=== PATIENT | female | born 1975 | race Caucasian/White ===

== ENCOUNTER 2016-03-22 15:37 | Emergency (ER) | payer MEDICARE, MEDICAID ==
[~2016-03-22 15:37] MED LIST: /METH500TA PO; ADV250INH INH; ATEN25TA PO; PERCOCET PO; REME30TA PO; albuterol inhaler INH; risperdal OR; vicodin OR
[2016-03-22 16:34] LABS: BASO % 0.4 % (0.0-1.0); EOS # 0.2 K/mm3 (0.0-0.50); EOS % 1.5 % (0.0-3.0); LARGE UNSTAINED CELL # 0.1 K/mm3 (0.0-0.4); LARGE UNSTAINED CELL % 0.5 % (0.0-4.0); LYMPH # 2.4 K/mm3 (1.5-4.5); LYMPH % 19.7 % (24.0-44.0); MEAN CORPUSCULAR HEMOGLOBIN 33.9 pg (27.0-33.0); MEAN CORPUSCULAR HGB CONC 31.9 g/dl (32.0-36.5); MEAN CORPUSCULAR VOLUME 106.4 fl (80.0-96.0); MONO # 0.4 K/mm3 (0.0-0.8); MONO % 3.2 % (0.0-5.0); NEUTROPHILS % 74.6 % (36.0-66.0); PLATELET COUNT, AUTOMATED 292 k/mm3 (150-450); RED CELL DISTRIBUTION WIDTH 12.5 % (11.5-14.5); WHITE BLOOD COUNT 12.1 K/mm3 (4.0-10.0)
[2016-03-22 16:42] LABS: ANION GAP 9 MEQ/L (8-16); BLOOD UREA NITROGEN 9 MG/DL (7-18); CALCIUM LEVEL 8.3 MG/DL (8.5-10.1); CARBON DIOXIDE LEVEL 19 MEQ/L (21-32); CHLORIDE LEVEL 115 MEQ/L (98-107); CREATININE FOR GFR 0.61 MG/DL (0.55-1.02); GLOMERULAR FILTRATION RATE > 60.0 (>60); GLUCOSE, FASTING 101 MG/DL (70-105); POTASSIUM SERUM 3.3 MEQ/L (3.5-5.1); SODIUM LEVEL 143 MEQ/L (136-145)
[2016-03-22] MEDS ORDERED: POTASSIUM CHL PWD 20 MEQ PACKET As Ordered ONE (17:42)
[2016-03-22 18:15] LABS: FREE T4 0.69 NG/DL (0.76-1.46)
--- NOTE | 2016-03-23 00:08 | EDDOCDS ---
Nurse's Notes [facility] Name: Ame Hinojosa Age: 40 yrs Sex: Female : 1975 Arrival Date: 03/22/2016 Time: 15:37 Bed 15 Private MD: Caleb Almaraz A Diagnosis: Supraventricular tachycardia Presentation: 03/22 15:47 Aspirin was not taken prior to arrival. Suicide/Homicide risk assessment- the patient js13 denies having any suicidal and/or homicidal ideations and does not present with any other emotional, behavioral or mental health complaints. Status: Patient is not a corporate services manager or dependent. Transition of care: patient was not received from another setting of care. Care prior to arrival: See EMS report. IV initiated. Adenosine 6 mg given by EMS. 15:47 Acuity: MATT Level 2 js13 15:47 Method Of Arrival: Ambulance js13 15:51 Presenting complaint: EMS states: Patients boyfriend called EMS for rapid heart rate js13 and general illness. Patient was in SVT on monitor. Patient was given Adenosine 6 mg IVP and converted to SR. Triage Assessment: 15:53 General: Appears in no apparent distress, comfortable, Behavior is appropriate for age, js13 cooperative. Pain: Denies pain. Pt Declines HIV testing. Neurological: Level of Consciousness is awake, alert. Cardiovascular: Rhythm is sinus rhythm Chest pain is denied radiates Does not radiate. Respiratory: Airway is patent Respiratory effort is even, unlabored, Respiratory pattern is regular, symmetrical. Derm: Skin is pink, warm & dry. 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 Advair Diskus 100-50 mcg/dose Inhl dsdv 1 puff 2 times per day 2. albuterol sulfate 90 mcg/actuation inhalation HFAA 1 puff as needed 3. Cogentin 1 mg Oral tab 1 tab 2 times per day 4. Effexor 37.5 mg Oral tab 1 tab daily 5. Topamax 100 mg Oral tab 2 times per day 6. Megace 20 mg Oral tab 1 tab daily 7. Remeron 30 mg Oral tab 1 tab nightly 8. Zyrtec 10 mg Oral tab 2 tabs once daily - PMHx: Asthma; chronic UTI, has urostomy now; CVA; Hypertension; Migraine Headaches; tachycardia; - PSHx: Hysterectomy; Urostomy Construction; Cholecystectomy; - Social history: Smoking status: Patient states was never smoker of tobacco. No barriers to communication noted, The patient speaks fluent Welsh. - Family history: Not pertinent. - : The pt / caregiver states he / she is not on anticoagulants. Home medication list is obtained from the patient. - Exposure Risk Screening:: None identified. Screenin:54 Screening information is obtained from the patient. Fall risk: No risks identified. js13 Assistance ADL's: requires no assistance with activities of daily living. Abuse/DV Screen: The patient / caregiver reports he/she is: not in a situation that causes fear, pain or injury. Nutritional screening: No deficits noted. Advance Directives: There is no active DNR order. home support is adequate. Assessment: 15:54 General: Appears in no apparent distress, Behavior is appropriate for age, cooperative. js13 Pain: Denies pain. Neurological: Level of Consciousness is awake, alert. Cardiovascular: Rhythm is sinus rhythm Chest pain is denied. Respiratory: Airway is patent Respiratory effort is even, unlabored, Respiratory pattern is regular, symmetrical, Breath sounds are clear. Derm: Skin is pink, warm & dry. 16:53 General: Appears in no apparent distress, comfortable, Behavior is appropriate for age, js13 cooperative. Pain: Denies pain. Neurological: Level of Consciousness is awake, alert. Cardiovascular: Rhythm is sinus rhythm Chest pain is denied. Respiratory: Airway is patent Respiratory effort is even, unlabored, Respiratory pattern is regular, symmetrical, Breath sounds are clear. Derm: Skin is pink, warm & dry. 17:45 Adult Sepsis Screening: The patient does not have new or worsening altered mentation. js13 Patient's respiratory rate is less than 22. Systolic blood pressure is greater than 100. Patient has a qSOFA score of 0- Negative Sepsis Screen. General: Appears in no apparent distress, comfortable, Behavior is appropriate for age, cooperative. Pain: Denies pain. Neurological: Level of Consciousness is awake, alert. Cardiovascular: Rhythm is sinus rhythm Chest pain is denied. Respiratory: Airway is patent Respiratory effort is even, unlabored, Respiratory pattern is regular, symmetrical, Breath sounds are clear. Derm: Skin is pink, warm & dry. 18:07 General: Appears in no apparent distress, comfortable, Behavior is appropriate for age, js13 cooperative. Neurological: Level of Consciousness is awake, alert. Cardiovascular: Rhythm is sinus rhythm Chest pain is denied. Respiratory: Airway is patent Respiratory effort is even, unlabored, Respiratory pattern is regular, symmetrical. Derm: Skin is pink, warm & dry. 19:15 General: Appears in no apparent distress, comfortable, Behavior is appropriate for age, js13 cooperative, pleasant. Neurological: Level of Consciousness is awake, alert, Oriented to person, place, time. Cardiovascular: Rhythm is sinus rhythm No ectopy. Respiratory: Airway is patent Respiratory effort is even, unlabored. Derm: Skin is pink, warm & dry. 20:21 Reassessment: Patient appears in no apparent distress at this time. Respirations jo3 unlabored, deep and regular. skin is pink, warm and dry. Aware of pl;an of care . 21:15 General: Appears in no apparent distress, comfortable, Behavior is cooperative. Pain: mcp Denies pain. Neurological: No deficits noted. Cardiovascular: Rhythm is sinus rhythm No ectopy. Respiratory: Airway is patent Respiratory effort is even, unlabored. Derm: Skin is pink, warm & dry. 22:15 General: Appears in no apparent distress, comfortable, Behavior is cooperative. Pain: mcp Denies pain. Neurological: No deficits noted. Respiratory: Airway is patent Respiratory effort is even, unlabored. Derm: Skin is pink, warm & dry. 23:06 General: Discharge instructions given to pt. Awaiting ride home. [facility] Vital Signs: 15:58 BP 100 / 60 RA Supine (auto/reg); Pulse 88; Resp 16; Temp 97.9(TE); Pulse Ox 98% on rs6 R/A; Weight 112.04 kg (R); Height 6 ft. 1 in. (185.42 cm) (R); Pain 03/11; 16:12 BP 103 / 66 (auto/); js13 16:12 Pulse 88 MON; Resp 16; Pulse Ox 99% on R/A; js13 16:42 BP 92 / 66 (auto/); js13 16:42 Pulse 88 MON; Resp 16; Pulse Ox 99% on R/A; 13 16:57 BP 95 / 64 (auto/); 13 16:57 Pulse 84 MON; Resp 16; Pulse Ox 99% on R/A; js13 17:12 BP 93 / 58 (auto/); js13 17:12 Pulse 84 MON; Resp 16; Pulse Ox 100% on R/A; js13 17:27 BP 99 / 67 (auto/); js13 17:27 Pulse 84 MON; Resp 16; Pulse Ox 100% on R/A; js13 17:42 BP 101 / 72 (auto/); js13 17:42 Pulse 82 MON; Resp 16; Pulse Ox 99% on R/A; js13 17:57 BP 103 / 72 (auto/); js13 17:57 Pulse 78 MON; Resp 16; Pulse Ox 98% on R/A; js13 18:12 BP 98 / 68 (auto/); js13 18:12 Pulse 84 MON; Resp 16; Pulse Ox 99% on R/A; js13 18:27 BP 94 / 62 (auto/); js13 18:27 Pulse 84 MON; Resp 16; Pulse Ox 99% on R/A; js13 18:42 BP 104 / 70 LA Supine (auto/); Pulse 78; jo3 18:44 BP 100 / 64 LA Sitting (auto/); Pulse 85; jo3 18:46 BP 100 / 63 RA Standing (auto/); Pulse 92; jo3 19:57 BP 110 / 63 (auto/); jo3 19:57 Pulse 74 MON; Pulse Ox 99% ; jo3 20:12 BP 105 / 65 (auto/); jo3 20:12 Pulse 70 MON; Pulse Ox 100% ; jo3 20:27 BP 104 / 59 (auto/); jo3 20:27 Pulse 70 MON; Pulse Ox 100% ; jo3 20:42 BP 105 / 62 (auto/); jo3 20:42 Pulse 72 MON; Pulse Ox 100% ; jo3 20:57 BP 103 / 60 (auto/); jo3 20:57 Pulse 70 MON; Pulse Ox 99% ; jo3 21:12 BP 100 / 62 (auto/); jo3 21:12 Pulse 78 MON; Pulse Ox 99% ; jo3 21:27 BP 100 / 58 (auto/); mcp 21:27 Pulse 70 MON; Pulse Ox 99% ; mcp 21:42 BP 102 / 58 (auto/); mcp 21:42 Pulse 70 MON; Pulse Ox 98% ; mcp 21:57 BP 105 / 57 (auto/); mcp 21:57 Pulse 74 MON; Pulse Ox 98% ; mcp 22:12 BP 99 / 54 (auto/); mcp 22:12 Pulse 78 MON; Pulse Ox 98% ; mcp 22:27 BP 117 / 58 (auto/); mcp 22:27 Pulse 76 MON; Pulse Ox 98% ; mcp 22:42 BP 103 / 60 (auto/); mcp 22:42 Pulse 78 MON; Pulse Ox 98% ; mcp 22:51 BP 96 / 61 (auto/); mcp 22:51 Pulse 72 MON; Pulse Ox 98% ; mcp 22:52 BP 99 / 64; Pulse 85; Resp 18; Temp 97.9(TE); Pulse Ox 99% on R/A; Pain 0/10; janessa 15:58 Body Mass Index 32.59 (112.04 kg, 185.42 cm) rs6 Vitals: 15:53 Log In Time N/A - ambulance arrival. js13 ED Course: 15:38 Patient visited by Ashley Eagle PCA. ar3 15:38 Patient moved to Waiting ar3 15:39 Corrina Taylor,RN is Primary Nurse. ar3 15:39 Caleb Almaraz is Private Physician. ar3 15:39 [facility] jo4 15:39 Samuel Noonan MD is Attending Physician. jo4 15:39 Patient moved to 15 ar3 15:47 Patient visited by Sharona Stewart DO. jo4 15:47 Patient visited by Sharona Stewart DO. jo4 15:48 Triage Initiated js13 15:54 The patient / caregiver is instructed regarding the plan of care and ED course. Placed js13 in gown. Bed in low position. Call light in reach. Side rails up X2. classroom monitor on. Pulse ox on. NIBP on. 15:54 Maintain field IV. Dressing intact. Good blood return noted. Site clean & dry. Gauge & js13 site: 20 gauge in right hand. No procedures done that require assistance. 15:56 Patient visited by Corrina Taylor RN. js13 15:58 Pt greeted and oriented to ED. Patient advised of names of staff involved in care, rs6 location of call ramírez, wait times and NPO status. Patient has correct armband on for positive identification. 15:59 Patient visited by Annette Nicholson PCA. rs6 15:59 EKG done. (by ED staff). Reviewed by Sharona Stewart DO. rs6 16:24 BMP Sent. js13 16:24 CBC with Diff Sent. js13 16:24 Cardiac Marker Panel Sent. js13 16:50 [facility] [place] Payment Agreement was scanned into [employer]item[employer] and attached to record. gjb 16:54 Patient visited by Corrina Taylor RN. js13 17:46 Patient visited by Samuel Noonan MD. br1 17:46 Patient visited by Corrina Taylor RN. js13 18:08 Patient visited by Corrina Taylor RN. js13 18:49 Patient visited by Corrina Vinson RN. jo3 19:26 Patient visited by Corrina Taylor RN. js13 19:37 Attending Physician role handed off by Samuel Noonan MD cs11 19:37 Jono Mendez DO is Attending Physician. cs11 19:56 Primary Nurse role handed off by Corrina Taylor RN janessa 20:22 Patient visited by Corrina Vinson RN. jo3 21:15 Patient visited by Corrina Vinson RN. jo3 21:21 Patient visited by Laury Stevens PCA. cln 21:21 EKG done. (by ED staff). Reviewed by Jono Mendez DO. cln 22:22 Patient visited by Meera Mckenzie PCA. janessa 22:46 Henry Vernon MD is Referral Physician. cs11 22:53 Patient visited by Meera Mckenzie PCA. janessa 23:07 Patient visited by Yanira Gerard RN. mcp 23:07 Discontinued lock intact, bleeding controlled, pressure dressing applied, No mcp redness/swelling at site. 03/23 00:02 Written Provider Order was scanned into [employer] and attached to record. ml3 Administered Medications: 03/22 17:45 Drug: Potassium Chloride 40 mEq [potassium chloride 20 mEq oral packet (2 packets)] js13 Route: PO; 18:49 Drug: NS 0.9% 1000 ml [sodium chloride 0.9 % intravenous solution] Route: IV; Rate: jo3 bolus; Site: right hand; Order Results: Lab Order: Cardiac Marker Panel; SPEC'M 03/22/16 16:09 Test: CPK CREATINE PHOSPHOKINASE; Value: 30; Range: 26-192; Units: U/L; Status: F Test: CK-MB VALUE MASS; Value: 1.0; Range: 0.0-3.6; Units: NG/ML; Status: F Test: MB/CK RELATIVE INDEX; Value: 3.33; Range: < OR =4; Status: F Test: TROPONIN I; Value: < 0.02; Range: < 0.10; Units: NG/ML; Status: F Test Note: ; DIAGNOSIS CRITERIA MMB ng/ml Relative Index (RI) NON-AMI < or = 5 N/A VARGHESE ZONE > 5 < or = 4 AMI > 5 > 4 Lab Order: CBC with Diff; SPEC'M 03/22/16 16:03 Test: WHITE BLOOD COUNT; Value: 12.1; Range: 4.0-10.0; Abnormal: Above high normal; Units: K/mm3; Status: F Test: RED BLOOD COUNT; Value: 3.40; Range: 4.00-5.40; Abnormal: Below low normal; Units: M/mm3; Status: F Test: HEMOGLOBIN; Value: 11.5; Range: 12.0-16.0; Abnormal: Below low normal; Units: g/dl; Status: F Test: HEMATOCRIT; Value: 36.2; Range: 36.0-47.0; Units: %; Status: F Test: MEAN CORPUSCULAR VOLUME; Value: 106.4; Range: 80.0-96.0; Abnormal: Above high normal; Units: fl; Status: F Test: MEAN CORPUSCULAR HEMOGLOBIN; Value: 33.9; Range: 27.0-33.0; Abnormal: Above high normal; Units: pg; Status: F Test: MEAN CORPUSCULAR HGB CONC; Value: 31.9; Range: 32.0-36.5; Abnormal: Below low normal; Units: g/dl; Status: F Test: RED CELL DISTRIBUTION WIDTH; Value: 12.5; Range: 11.5-14.5; Units: %; Status: F Test: PLATELET COUNT, AUTOMATED; Value: 292; Range: 150-450; Units: k/mm3; Status: F Test: NEUTROPHILS %; Value: 74.6; Range: 36.0-66.0; Abnormal: Above high normal; Units: %; Status: F Test: LYMPH %; Value: 19.7; Range: 24.0-44.0; Abnormal: Below low normal; Units: %; Status: F Test: MONO %; Value: 3.2; Range: 0.0-5.0; Units: %; Status: F Test: EOS %; Value: 1.5; Range: 0.0-3.0; Units: %; Status: F Test: BASO %; Value: 0.4; Range: 0.0-1.0; Units: %; Status: F Test: LARGE UNSTAINED CELL %; Value: 0.5; Range: 0.0-4.0; Units: %; Status: F Test: NEUTROPHILS #; Value: 9.0; Range: 1.8-7.7; Abnormal: Above high normal; Units: K/mm3; Status: F Test: LYMPH #; Value: 2.4; Range: 1.5-4.5; Units: K/mm3; Status: F Test: MONO #; Value: 0.4; Range: 0.0-0.8; Units: K/mm3; Status: F Test: EOS #; Value: 0.2; Range: 0.0-0.50; Units: K/mm3; Status: F Test: BASO #; Value: 0.0; Range: 0.0-0.2; Units: K/mm3; Status: F Test: LARGE UNSTAINED CELL #; Value: 0.1; Range: 0.0-0.4; Units: K/mm3; Status: F Lab Order: [facility]; SPEC'M 03/22/16 16:09 Test: GLUCOSE, FASTING; Value: 101; Range: 70-105; Units: MG/DL; Status: F Test: BLOOD UREA NITROGEN; Value: 9; Range: 7-18; Units: MG/DL; Status: F Test: CREATININE FOR GFR; Value: 0.61; Range: 0.55-1.02; Units: MG/DL; Status: F Test: GLOMERULAR FILTRATION RATE; Value: > 60.0; Range: >60; Status: F Test: SODIUM LEVEL; Value: 143; Range: 136-145; Units: MEQ/L; Status: F Test: POTASSIUM SERUM; Value: 3.3; Range: 3.5-5.1; Abnormal: Below low normal; Units: MEQ/L; Status: F Test: CHLORIDE LEVEL; Value: 115; Range: 98-107; Abnormal: Above high normal; Units: MEQ/L; Status: F Test: CARBON DIOXIDE LEVEL; Value: 19; Range: 21-32; Abnormal: Below low normal; Units: MEQ/L; Status: F Test: ANION GAP; Value: 9; Range: 8-16; Units: MEQ/L; Status: F Test: CALCIUM LEVEL; Value: 8.3; Range: 8.5-10.1; Abnormal: Below low normal; Units: MG/DL; Status: F Test Note: ; Units are mL/min/1.73 m2 Chronic Kidney Disease Staging per NKF: Stage I & II GFR >=60 Normal to Mildly Decreased Stage III GFR 30-59 Moderately Decreased Stage IV GFR 15-29 Severely Decreased Stage V GFR <15 Very Little GFR Left ESRD GFR <15 on SHOE ASSOCIATE Lab Order: PHOSPHOROUS LEVEL; SPEC'03/22/16 16:09 Test: PHOSPHORUS LEVEL; Value: 3.0; Range: 2.5-4.9; Units: MG/DL; Status: F Lab Order: MAGNESIUM LEVEL; SPEC'M 03/22/16 16:09 Test: MAGNESIUM LEVEL; Value: 2.0; Range: 1.8-2.4; Units: MG/DL; Status: F Lab Order: FT4&TSH PANEL; SPEC'03/22/16 16:09 Test: THYROID STIMULATING HORMONE; Value: 1.690; Range: 0.358-3.740; Units: uIU/ML; Status: F Test: FREE T4; Value: 0.69; Range: 0.76-1.46; Abnormal: Below low normal; Units: NG/DL; Status: F Lab Order: D-Dimer Quant; SPEC' 03/22/16 16:03 Test: D-DIMER QUANT; Value: < 270.0; Range: <500; Units: ng/ml; Status: F Lab Order: CARDIAC MARKER PANEL; SPEC'03/22/16 21:47 Test: CPK CREATINE PHOSPHOKINASE; Value: 31; Range: 26-192; Units: U/L; Status: F Test: CK-MB VALUE MASS; Value: 1.0; Range: 0.0-3.6; Units: NG/ML; Status: F Test: MB/CK RELATIVE INDEX; Value: 3.22; Range: < OR =4; Status: F Test: TROPONIN I; Value: < 0.02; Range: < 0.10; Units: NG/ML; Status: F Test Note: ; DIAGNOSIS CRITERIA MMB ng/ml Relative Index (RI) NON-AMI < or = 5 N/A VARGHESE ZONE > 5 < or = 4 AMI > 5 > 4 Outcome: 22:46 Discharge ordered by Provider. 11 03/23 00:06 Discharge Assessment: patient administered narcotics - no. The following High Risk [facility] Discharge criteria are identified: None. Discharged to home via ambulance. Condition: stable. Discharge instructions given to patient, Instructed on discharge instructions, follow up and referral plans. Demonstrated understanding of instructions, Pt was receptive of discharge instructions/ teaching. No special radiology studies were completed. Property sent home with patient. 00:07 Patient left the ED. [facility] Signatures: Yanira Gerard RN RN mcp Lopresti, Mary-Elizabeth, Last Pattern Grader Unit ml3 Corrina Vinson,SHERYL RN Samuel San MD MD br1 Ashley Eagle, CARTON FORMING MACHINE ADJUSTER CARTON FORMING MACHINE ADJUSTER ar3 Meera Mckenzie, CARTON FORMING MACHINE ADJUSTER CARTON FORMING MACHINE ADJUSTER Corrina Villarreal RN RN js13 Jono Mendez, DO DO cs11 Annette Nicholson, CARTON FORMING MACHINE ADJUSTER CARTON FORMING MACHINE ADJUSTER rs6 Esperanza Lin Jane, DO DO jo4 Laury Stevens, CARTON FORMING MACHINE ADJUSTER CARTON FORMING MACHINE ADJUSTER cln Corrections: (The following items were deleted from the chart) 03/22 17:57 17:55 FT4&TSH PANEL+LAB sent. js EDMS 17:57 17:55 PHOSPHOROUS LEVEL+LAB sent. js13 EDMS 17:57 17:55 MAGNESIUM LEVEL+LAB sent. js13 EDMS MTDD
--- NOTE | 2016-03-23 00:08 | EDDOCDS ---
Physician Documentation [facility] Name: Ame Hinojosa Age: 40 yrs Sex: Female : 1975 Arrival Date: 03/22/2016 Time: 15:37 Bed 15 Private MD: Caleb Almaraz A Disposition: 03/22 18:42 I have independently interviewed and examined the patient, and I agree with the br1 investigation, diagnosis and treatment plan as documented by the Resident. Disposition: 03/22/16 22:46 Discharged to Home/Self Care. Impression: Supraventricular tachycardia. - Condition is Stable. - Medication Reconciliation, Local Pharmacy Hours form. - Follow up: Henry Vernon MD; When: Call to arrange an appointment; Reason: Recheck today's complaints. - Problem is new. - Symptoms are resolved. Historical: - Allergies: Amoxicillin (Rash); Claritin (Rash); Clindamycin (Rash); Latex (Rash); - Home Meds: 1. Advair Diskus 100-50 mcg/dose Inhl dsdv 1 puff 2 times per day 2. albuterol sulfate 90 mcg/actuation inhalation HFAA 1 puff as needed 3. Cogentin 1 mg Oral tab 1 tab 2 times per day 4. Effexor 37.5 mg Oral tab 1 tab daily 5. Topamax 100 mg Oral tab 2 times per day 6. Megace 20 mg Oral tab 1 tab daily 7. Remeron 30 mg Oral tab 1 tab nightly 8. Zyrtec 10 mg Oral tab 2 tabs once daily - PMHx: Asthma; chronic UTI, has urostomy now; CVA; Hypertension; Migraine Headaches; tachycardia; - PSHx: Hysterectomy; Urostomy Construction; Cholecystectomy; - Social history: Smoking status: Patient states was never smoker of tobacco. No barriers to communication noted, The patient speaks fluent Grenadian. - Family history: Not pertinent. - : The pt / caregiver states he / she is not on anticoagulants. Home medication list is obtained from the patient. - Exposure Risk Screening:: None identified. 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 1 in. (185.42 cm) (R); Pain 03/11; 16:12 BP 103 / 66 (auto/); js13 16:12 Pulse 88 MON; Resp 16; Pulse Ox 99% on R/A; js13 16:42 BP 92 / 66 (auto/); js13 16:42 Pulse 88 MON; Resp 16; Pulse Ox 99% on R/A; js13 16:57 BP 95 / 64 (auto/); js13 16:57 Pulse 84 MON; Resp 16; Pulse Ox 99% on R/A; js13 17:12 BP 93 / 58 (auto/); js13 17:12 Pulse 84 MON; Resp 16; Pulse Ox 100% on R/A; js13 17:27 BP 99 / 67 (auto/); js13 17:27 Pulse 84 MON; Resp 16; Pulse Ox 100% on R/A; js13 17:42 BP 101 / 72 (auto/); js13 17:42 Pulse 82 MON; Resp 16; Pulse Ox 99% on R/A; js13 17:57 BP 103 / 72 (auto/); js13 17:57 Pulse 78 MON; Resp 16; Pulse Ox 98% on R/A; js13 18:12 BP 98 / 68 (auto/); js13 18:12 Pulse 84 MON; Resp 16; Pulse Ox 99% on R/A; js13 18:27 BP 94 / 62 (auto/); js13 18:27 Pulse 84 MON; Resp 16; Pulse Ox 99% on R/A; js13 18:42 BP 104 / 70 LA Supine (auto/); Pulse 78; jo3 18:44 BP 100 / 64 LA Sitting (auto/); Pulse 85; jo3 18:46 BP 100 / 63 RA Standing (auto/); Pulse 92; jo3 19:57 BP 110 / 63 (auto/); jo3 19:57 Pulse 74 MON; Pulse Ox 99% ; jo3 20:12 BP 105 / 65 (auto/); jo3 20:12 Pulse 70 MON; Pulse Ox 100% ; jo3 20:27 BP 104 / 59 (auto/); jo3 20:27 Pulse 70 MON; Pulse Ox 100% ; jo3 20:42 BP 105 / 62 (auto/); jo3 20:42 Pulse 72 MON; Pulse Ox 100% ; jo3 20:57 BP 103 / 60 (auto/); jo3 20:57 Pulse 70 MON; Pulse Ox 99% ; jo3 21:12 BP 100 / 62 (auto/); jo3 21:12 Pulse 78 MON; Pulse Ox 99% ; jo3 21:27 BP 100 / 58 (auto/); mcp 21:27 Pulse 70 MON; Pulse Ox 99% ; mcp 21:42 BP 102 / 58 (auto/); mcp 21:42 Pulse 70 MON; Pulse Ox 98% ; mcp 21:57 BP 105 / 57 (auto/); mcp 21:57 Pulse 74 MON; Pulse Ox 98% ; mcp 22:12 BP 99 / 54 (auto/); mcp 22:12 Pulse 78 MON; Pulse Ox 98% ; mcp 22:27 BP 117 / 58 (auto/); mcp 22:27 Pulse 76 MON; Pulse Ox 98% ; mcp 22:42 BP 103 / 60 (auto/); mcp 22:42 Pulse 78 MON; Pulse Ox 98% ; mcp 22:51 BP 96 / 61 (auto/); mcp 22:51 Pulse 72 MON; Pulse Ox 98% ; mcp 22:52 BP 99 / 64; Pulse 85; Resp 18; Temp 97.9(TE); Pulse Ox 99% on R/A; Pain 0/10; janessa 15:58 Body Mass Index 32.59 (112.04 kg, 185.42 cm) rs6 MDM: 15:47 Composition Floor Layer ordered. jo4 15:47 ECG WITH READING ER PHYS+CARDIAG ordered. EDMS 16:13 Chest, 2 View (pa\E\lat) Ordered. EDMS 16:14 Cardiac Marker Panel Ordered. EDMS 16:14 CBC with Diff Ordered. EDMS 16:14 BMP Ordered. EDMS 16:39 Financial registration complete. ks16 16:50 [facility] [place] Payment Agreement was scanned into [employer] and attached to record. gjb 17:40 BMP Reviewed. jo4 17:41 Potassium Chloride Packet 40 mEq PO once ordered. jo4 17:41 CBC with Diff Reviewed. jo4 17:41 Cardiac Marker Panel Reviewed. jo4 17:47 IV Saline Lock ordered. br1 18:20 D-Dimer Quant Ordered. EDMS 18:21 PHOSPHOROUS LEVEL Reviewed. jo4 18:21 FT4&TSH PANEL Reviewed. jo4 18:21 Cardiac Marker Panel Reviewed. jo4 18:21 MAGNESIUM LEVEL Reviewed. jo4 18:22 BMP Reviewed. jo4 18:29 Orthostatic VS ordered. jo4 18:29 NS 0.9% 1000 ml IV at bolus once ordered. jo4 18:30 Repeat EKG (put time details section) ordered. br1 18:30 Redraw CIP &Troponin (put time in details section) ordered. br1 18:38 Redraw CIP &Troponin (put time in details section) complete. ar3 18:38 Repeat EKG (put time details section) complete. ar3 18:39 CARDIAC MARKER PANEL Ordered. EDMS 18:41 ECG WITH READING ER PHYS ordered. EDMS 18:42 ED course: Seen with resident, agree with findings. History of palpitations in past, br1 follows with Dr. Beach with unclear diagnosis, today onset of palpitations, called EMS, found to be in SVT. Converted en route with Adenosine 6 mg per EMS. Currently no chest pain. Does have some shortness of breath. Now sinus, labs unrevealing thus far. Blood pressure slightly soft - will fluid challenge and re-eval.. 18:53 D-Dimer Quant Reviewed. jo4 03/23 00:02 Written Provider Order was scanned into [employer] and attached to record. ml3 Administered Medications: 03/22 17:45 Drug: Potassium Chloride 40 mEq [potassium chloride 20 mEq oral packet (2 packets)] js13 Route: PO; 18:49 Drug: NS 0.9% 1000 ml [sodium chloride 0.9 % intravenous solution] Route: IV; Rate: jo3 bolus; Site: right hand; Signatures: Dispatcher [employer] EDMS Yanira Gerard RN RN [facility] Santino Randhawa, Table Games Manager Unit ml3 Samuel Noonan MD MD br1 Ashley Eagle, GROUP INSURANCE SPECIAL AGENT GROUP INSURANCE SPECIAL AGENT ar3 Corrina Taylor RN RN js13 Jono Mendez DO DO cs11 Esperanza Lin Jane, DO jo4 Jane Hong, Reg Reg ks16 Corrina Vinson RN jo3 The chart was reviewed and I authenticate all verbal orders and agree with the evaluation and treatment provided.Corrections: (The following items were deleted from the chart) 17:57 17:48 MAGNESIUM LEVEL+LAB ordered. EDMS EDMS 17:57 17:48 PHOSPHOROUS LEVEL+LAB ordered. EDMS EDMS 17:57 17:48 FT4&TSH PANEL+LAB ordered. EDMS EDMS 18:23 17:48 CT ANGIO CHEST+CT ordered. EDMS EDMS Attachments: 16:50 COUNTS INCLUDE 234 BEDS AT THE [facility] Payment Agreement gjb 03/23 00:02 Written Provider Order ml3 MTDD
--- NOTE | 2016-03-23 08:33 | REP ---
Chest x-ray: Two views. History: Shortness of breath. Comparison chest x-ray May 05, 2014. Findings: The lungs are well inflated and free of infiltrate. Pleural angles are sharp. Heart size is normal. Pulmonary vasculature is not increased. No significant bony abnormality is seen. EKG monitoring electrodes are noted. Impression: No acute disease. Signed by Steve Jaramillo MD 03/23/2016 09:03 A
--- NOTE | 2016-03-23 13:06 | ECGEPIP ---
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
--- NOTE | 2016-03-23 13:12 | ECGEPIP ---
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
--- NOTE | 2016-03-25 01:07 | EDDOCDS ---
Physician Documentation [facility] Name: Ame Hinojosa Age: 40 yrs Sex: Female : 1975 Arrival Date: 03/22/2016 Time: 15:37 Bed 15 Private MD: Caleb Almaraz A Disposition: 03/22 18:42 I have independently interviewed and examined the patient, and I agree with the br1 investigation, diagnosis and treatment plan as documented by the Resident. Disposition: 03/22/16 22:46 Discharged to Home/Self Care. Impression: Supraventricular tachycardia. - Condition is Stable. - Medication Reconciliation, Local Pharmacy Hours form. - Follow up: Henry Vernon MD; When: Call to arrange an appointment; Reason: Recheck today's complaints. - Problem is new. - Symptoms are resolved. Historical: - Allergies: Amoxicillin (Rash); Claritin (Rash); Clindamycin (Rash); Latex (Rash); - Home Meds: 1. Advair Diskus 100-50 mcg/dose Inhl dsdv 1 puff 2 times per day 2. albuterol sulfate 90 mcg/actuation inhalation HFAA 1 puff as needed 3. Cogentin 1 mg Oral tab 1 tab 2 times per day 4. Effexor 37.5 mg Oral tab 1 tab daily 5. Topamax 100 mg Oral tab 2 times per day 6. Megace 20 mg Oral tab 1 tab daily 7. Remeron 30 mg Oral tab 1 tab nightly 8. Zyrtec 10 mg Oral tab 2 tabs once daily - PMHx: Asthma; chronic UTI, has urostomy now; CVA; Hypertension; Migraine Headaches; tachycardia; - PSHx: Hysterectomy; Urostomy Construction; Cholecystectomy; - Social history: Smoking status: Patient states was never smoker of tobacco. No barriers to communication noted, The patient speaks fluent Bahamian. - Family history: Not pertinent. - : The pt / caregiver states he / she is not on anticoagulants. Home medication list is obtained from the patient. - Exposure Risk Screening:: None identified. 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 1 in. (185.42 cm) (R); Pain 03/11; 16:12 BP 103 / 66 (auto/); js13 16:12 Pulse 88 MON; Resp 16; Pulse Ox 99% on R/A; js13 16:42 BP 92 / 66 (auto/); js13 16:42 Pulse 88 MON; Resp 16; Pulse Ox 99% on R/A; js13 16:57 BP 95 / 64 (auto/); js13 16:57 Pulse 84 MON; Resp 16; Pulse Ox 99% on R/A; js13 17:12 BP 93 / 58 (auto/); js13 17:12 Pulse 84 MON; Resp 16; Pulse Ox 100% on R/A; js13 17:27 BP 99 / 67 (auto/); js13 17:27 Pulse 84 MON; Resp 16; Pulse Ox 100% on R/A; js13 17:42 BP 101 / 72 (auto/); js13 17:42 Pulse 82 MON; Resp 16; Pulse Ox 99% on R/A; js13 17:57 BP 103 / 72 (auto/); js13 17:57 Pulse 78 MON; Resp 16; Pulse Ox 98% on R/A; js13 18:12 BP 98 / 68 (auto/); js13 18:12 Pulse 84 MON; Resp 16; Pulse Ox 99% on R/A; js13 18:27 BP 94 / 62 (auto/); js13 18:27 Pulse 84 MON; Resp 16; Pulse Ox 99% on R/A; js13 18:42 BP 104 / 70 LA Supine (auto/); Pulse 78; jo3 18:44 BP 100 / 64 LA Sitting (auto/); Pulse 85; jo3 18:46 BP 100 / 63 RA Standing (auto/); Pulse 92; jo3 19:57 BP 110 / 63 (auto/); jo3 19:57 Pulse 74 MON; Pulse Ox 99% ; jo3 20:12 BP 105 / 65 (auto/); jo3 20:12 Pulse 70 MON; Pulse Ox 100% ; jo3 20:27 BP 104 / 59 (auto/); jo3 20:27 Pulse 70 MON; Pulse Ox 100% ; jo3 20:42 BP 105 / 62 (auto/); jo3 20:42 Pulse 72 MON; Pulse Ox 100% ; jo3 20:57 BP 103 / 60 (auto/); jo3 20:57 Pulse 70 MON; Pulse Ox 99% ; jo3 21:12 BP 100 / 62 (auto/); jo3 21:12 Pulse 78 MON; Pulse Ox 99% ; jo3 21:27 BP 100 / 58 (auto/); mcp 21:27 Pulse 70 MON; Pulse Ox 99% ; mcp 21:42 BP 102 / 58 (auto/); mcp 21:42 Pulse 70 MON; Pulse Ox 98% ; mcp 21:57 BP 105 / 57 (auto/); mcp 21:57 Pulse 74 MON; Pulse Ox 98% ; mcp 22:12 BP 99 / 54 (auto/); mcp 22:12 Pulse 78 MON; Pulse Ox 98% ; mcp 22:27 BP 117 / 58 (auto/); mcp 22:27 Pulse 76 MON; Pulse Ox 98% ; mcp 22:42 BP 103 / 60 (auto/); mcp 22:42 Pulse 78 MON; Pulse Ox 98% ; mcp 22:51 BP 96 / 61 (auto/); mcp 22:51 Pulse 72 MON; Pulse Ox 98% ; mcp 22:52 BP 99 / 64; Pulse 85; Resp 18; Temp 97.9(TE); Pulse Ox 99% on R/A; Pain 0/10; janessa 15:58 Body Mass Index 32.59 (112.04 kg, 185.42 cm) rs6 MDM: 15:47 Radiator Core Tester ordered. jo4 15:47 ECG WITH READING ER PHYS+CARDIAG ordered. EDMS 16:13 Chest, 2 View (pa\E\lat) Ordered. EDMS 16:14 Cardiac Marker Panel Ordered. EDMS 16:14 CBC with Diff Ordered. EDMS 16:14 BMP Ordered. EDMS 16:39 Financial registration complete. ks16 16:50 [facility] was scanned into [employer] and attached to record. gjb 17:40 BMP Reviewed. jo4 17:41 Potassium Chloride Packet 40 mEq PO once ordered. jo4 17:41 CBC with Diff Reviewed. jo4 17:41 Cardiac Marker Panel Reviewed. jo4 17:47 IV Saline Lock ordered. br1 18:20 D-Dimer Quant Ordered. EDMS 18:21 PHOSPHOROUS LEVEL Reviewed. jo4 18:21 FT4&TSH PANEL Reviewed. jo4 18:21 Cardiac Marker Panel Reviewed. jo4 18:21 MAGNESIUM LEVEL Reviewed. jo4 18:22 BMP Reviewed. jo4 18:29 Orthostatic VS ordered. jo4 18:29 NS 0.9% 1000 ml IV at bolus once ordered. jo4 18:30 Repeat EKG (put time details section) ordered. br1 18:30 Redraw CIP &Troponin (put time in details section) ordered. br1 18:38 Redraw CIP &Troponin (put time in details section) complete. ar3 18:38 Repeat EKG (put time details section) complete. ar3 18:39 CARDIAC MARKER PANEL Ordered. EDMS 18:41 ECG WITH READING ER PHYS ordered. EDMS 18:42 ED course: Seen with resident, agree with findings. History of palpitations in past, br1 follows with Dr. Beach with unclear diagnosis, today onset of palpitations, called EMS, found to be in SVT. Converted en route with Adenosine 6 mg per EMS. Currently no chest pain. Does have some shortness of breath. Now sinus, labs unrevealing thus far. Blood pressure slightly soft - will fluid challenge and re-eval.. 18:53 D-Dimer Quant Reviewed. jo4 03/23 00:02 Written Provider Order was scanned into [employer] and attached to record. ml3 15:41 ECG/EKG was scanned into [employer] and attached to record. kf3 17:06 [facility] Payment Agreement was scanned into [employer] and attached to record. kf3 17:09 T-Sheet-- Draft Copy was scanned into [employer] and attached to record. klr Administered Medications: 03/22 17:45 Drug: Potassium Chloride 40 mEq [potassium chloride 20 mEq oral packet (2 packets)] js13 Route: PO; 18:49 Drug: NS 0.9% 1000 ml [sodium chloride 0.9 % intravenous solution] Route: IV; Rate: jo3 bolus; Site: right hand; Signatures: Dispatcher [employer] Yanira Goldberg RN RN mcp Lopresti, Mary-Elizabeth, Top Spotter Unit ml3 Elia Nicholson, Reg Reg kf3 Samuel Noonan MD MD br1 Ashley Eagle, GROUND PRODUCTS DIRECTOR GROUND PRODUCTS DIRECTOR ar3 Corrina Taylor RN RN js13 Jono Mendez, DO DO cs11 Esperanza Linb Sharona Stewart, DO DO jo4 Jane Hong, Reg Reg ks16 Rajani Faith Jennifer RN jo3 The chart was reviewed and I authenticate all verbal orders and agree with the evaluation and treatment provided.Corrections: (The following items were deleted from the chart) 17:57 17:48 MAGNESIUM LEVEL+LAB ordered. EDMS EDMS 17:57 17:48 PHOSPHOROUS LEVEL+LAB ordered. EDMS EDMS 17:57 17:48 FT4&TSH PANEL+LAB ordered. EDMS EDMS 18:23 17:48 CT ANGIO CHEST+CT ordered. EDMS EDMS Attachments: 16:50 [facility] [place] Agreement gjb 03/23 00:02 Written Provider Order ml3 15:41 ECG/EKG kf3 17:06 [facility] Payment Agreement kf3 17:09 T-Sheet-- Draft Copy klr Chart Complete MTDD
--- NOTE | 2016-03-25 01:08 | EDDOCDS ---
Nurse's Notes [facility] Name: Aleah Allen Age: 40 yrs Sex: Female : 1975 Arrival Date: 03/22/2016 Time: 15:37 Bed 15 Private MD: Caleb Almaraz A Diagnosis: Supraventricular tachycardia Presentation: 03/22 15:47 Aspirin was not taken prior to arrival. Suicide/Homicide risk assessment- the patient js13 denies having any suicidal and/or homicidal ideations and does not present with any other emotional, behavioral or mental health complaints. Status: Patient is not a track service person or dependent. Transition of care: patient was not received from another setting of care. Care prior to arrival: See EMS report. IV initiated. Adenosine 6 mg given by EMS. 15:47 Acuity: MATT Level 2 js13 15:47 Method Of Arrival: Ambulance js13 15:51 Presenting complaint: EMS states: Patients boyfriend called EMS for rapid heart rate js13 and general illness. Patient was in SVT on monitor. Patient was given Adenosine 6 mg IVP and converted to SR. Triage Assessment: 15:53 General: Appears in no apparent distress, comfortable, Behavior is appropriate for age, js13 cooperative. Pain: Denies pain. Pt Declines HIV testing. Neurological: Level of Consciousness is awake, alert. Cardiovascular: Rhythm is sinus rhythm Chest pain is denied radiates Does not radiate. Respiratory: Airway is patent Respiratory effort is even, unlabored, Respiratory pattern is regular, symmetrical. Derm: Skin is pink, warm & dry. COMPANION: 15:53 LMP N/A - Hysterectomy js13 Historical: - Allergies: Amoxicillin (Rash); Claritin (Rash); Clindamycin (Rash); Latex (Rash); - Home Meds: 1. Advair Diskus 100-50 mcg/dose Inhl dsdv 1 puff 2 times per day 2. albuterol sulfate 90 mcg/actuation inhalation HFAA 1 puff as needed 3. Cogentin 1 mg Oral tab 1 tab 2 times per day 4. Effexor 37.5 mg Oral tab 1 tab daily 5. Topamax 100 mg Oral tab 2 times per day 6. Megace 20 mg Oral tab 1 tab daily 7. Remeron 30 mg Oral tab 1 tab nightly 8. Zyrtec 10 mg Oral tab 2 tabs once daily - PMHx: Asthma; chronic UTI, has urostomy now; CVA; Hypertension; Migraine Headaches; tachycardia; - PSHx: Hysterectomy; Urostomy Construction; Cholecystectomy; - Social history: Smoking status: Patient states was never smoker of tobacco. No barriers to communication noted, The patient speaks fluent Slovenian. - Family history: Not pertinent. - : The pt / caregiver states he / she is not on anticoagulants. Home medication list is obtained from the patient. - Exposure Risk Screening:: None identified. Screenin:54 Screening information is obtained from the patient. Fall risk: No risks identified. js13 Assistance ADL's: requires no assistance with activities of daily living. Abuse/DV Screen: The patient / caregiver reports he/she is: not in a situation that causes fear, pain or injury. Nutritional screening: No deficits noted. Advance Directives: There is no active DNR order. home support is adequate. Assessment: 15:54 General: Appears in no apparent distress, Behavior is appropriate for age, cooperative. js13 Pain: Denies pain. Neurological: Level of Consciousness is awake, alert. Cardiovascular: Rhythm is sinus rhythm Chest pain is denied. Respiratory: Airway is patent Respiratory effort is even, unlabored, Respiratory pattern is regular, symmetrical, Breath sounds are clear. Derm: Skin is pink, warm & dry. 16:53 General: Appears in no apparent distress, comfortable, Behavior is appropriate for age, js13 cooperative. Pain: Denies pain. Neurological: Level of Consciousness is awake, alert. Cardiovascular: Rhythm is sinus rhythm Chest pain is denied. Respiratory: Airway is patent Respiratory effort is even, unlabored, Respiratory pattern is regular, symmetrical, Breath sounds are clear. Derm: Skin is pink, warm & dry. 17:45 Adult Sepsis Screening: The patient does not have new or worsening altered mentation. js13 Patient's respiratory rate is less than 22. Systolic blood pressure is greater than 100. Patient has a qSOFA score of 0- Negative Sepsis Screen. General: Appears in no apparent distress, comfortable, Behavior is appropriate for age, cooperative. Pain: Denies pain. Neurological: Level of Consciousness is awake, alert. Cardiovascular: Rhythm is sinus rhythm Chest pain is denied. Respiratory: Airway is patent Respiratory effort is even, unlabored, Respiratory pattern is regular, symmetrical, Breath sounds are clear. Derm: Skin is pink, warm & dry. 18:07 General: Appears in no apparent distress, comfortable, Behavior is appropriate for age, js13 cooperative. Neurological: Level of Consciousness is awake, alert. Cardiovascular: Rhythm is sinus rhythm Chest pain is denied. Respiratory: Airway is patent Respiratory effort is even, unlabored, Respiratory pattern is regular, symmetrical. Derm: Skin is pink, warm & dry. 19:15 General: Appears in no apparent distress, comfortable, Behavior is appropriate for age, js13 cooperative, pleasant. Neurological: Level of Consciousness is awake, alert, Oriented to person, place, time. Cardiovascular: Rhythm is sinus rhythm No ectopy. Respiratory: Airway is patent Respiratory effort is even, unlabored. Derm: Skin is pink, warm & dry. 20:21 Reassessment: Patient appears in no apparent distress at this time. Respirations jo3 unlabored, deep and regular. skin is pink, warm and dry. Aware of pl;an of care . 21:15 General: Appears in no apparent distress, comfortable, Behavior is cooperative. Pain: mcp Denies pain. Neurological: No deficits noted. Cardiovascular: Rhythm is sinus rhythm No ectopy. Respiratory: Airway is patent Respiratory effort is even, unlabored. Derm: Skin is pink, warm & dry. 22:15 General: Appears in no apparent distress, comfortable, Behavior is cooperative. Pain: mcp Denies pain. Neurological: No deficits noted. Respiratory: Airway is patent Respiratory effort is even, unlabored. Derm: Skin is pink, warm & dry. 23:06 General: Discharge instructions given to pt. Awaiting ride home. [facility] Vital Signs: 15:58 BP 100 / 60 RA Supine (auto/reg); Pulse 88; Resp 16; Temp 97.9(TE); Pulse Ox 98% on rs6 R/A; Weight 112.04 kg (R); Height 6 ft. 1 in. (185.42 cm) (R); Pain 03/11; 16:12 BP 103 / 66 (auto/); js13 16:12 Pulse 88 MON; Resp 16; Pulse Ox 99% on R/A; js13 16:42 BP 92 / 66 (auto/); js13 16:42 Pulse 88 MON; Resp 16; Pulse Ox 99% on R/A; 13 16:57 BP 95 / 64 (auto/); 13 16:57 Pulse 84 MON; Resp 16; Pulse Ox 99% on R/A; js13 17:12 BP 93 / 58 (auto/); js13 17:12 Pulse 84 MON; Resp 16; Pulse Ox 100% on R/A; js13 17:27 BP 99 / 67 (auto/); js13 17:27 Pulse 84 MON; Resp 16; Pulse Ox 100% on R/A; js13 17:42 BP 101 / 72 (auto/); js13 17:42 Pulse 82 MON; Resp 16; Pulse Ox 99% on R/A; js13 17:57 BP 103 / 72 (auto/); js13 17:57 Pulse 78 MON; Resp 16; Pulse Ox 98% on R/A; js13 18:12 BP 98 / 68 (auto/); js13 18:12 Pulse 84 MON; Resp 16; Pulse Ox 99% on R/A; js13 18:27 BP 94 / 62 (auto/); js13 18:27 Pulse 84 MON; Resp 16; Pulse Ox 99% on R/A; js13 18:42 BP 104 / 70 LA Supine (auto/); Pulse 78; jo3 18:44 BP 100 / 64 LA Sitting (auto/); Pulse 85; jo3 18:46 BP 100 / 63 RA Standing (auto/); Pulse 92; jo3 19:57 BP 110 / 63 (auto/); jo3 19:57 Pulse 74 MON; Pulse Ox 99% ; jo3 20:12 BP 105 / 65 (auto/); jo3 20:12 Pulse 70 MON; Pulse Ox 100% ; jo3 20:27 BP 104 / 59 (auto/); jo3 20:27 Pulse 70 MON; Pulse Ox 100% ; jo3 20:42 BP 105 / 62 (auto/); jo3 20:42 Pulse 72 MON; Pulse Ox 100% ; jo3 20:57 BP 103 / 60 (auto/); jo3 20:57 Pulse 70 MON; Pulse Ox 99% ; jo3 21:12 BP 100 / 62 (auto/); jo3 21:12 Pulse 78 MON; Pulse Ox 99% ; jo3 21:27 BP 100 / 58 (auto/); mcp 21:27 Pulse 70 MON; Pulse Ox 99% ; mcp 21:42 BP 102 / 58 (auto/); mcp 21:42 Pulse 70 MON; Pulse Ox 98% ; mcp 21:57 BP 105 / 57 (auto/); mcp 21:57 Pulse 74 MON; Pulse Ox 98% ; mcp 22:12 BP 99 / 54 (auto/); mcp 22:12 Pulse 78 MON; Pulse Ox 98% ; mcp 22:27 BP 117 / 58 (auto/); mcp 22:27 Pulse 76 MON; Pulse Ox 98% ; mcp 22:42 BP 103 / 60 (auto/); mcp 22:42 Pulse 78 MON; Pulse Ox 98% ; mcp 22:51 BP 96 / 61 (auto/); mcp 22:51 Pulse 72 MON; Pulse Ox 98% ; mcp 22:52 BP 99 / 64; Pulse 85; Resp 18; Temp 97.9(TE); Pulse Ox 99% on R/A; Pain 0/10; janessa 15:58 Body Mass Index 32.59 (112.04 kg, 185.42 cm) rs6 Vitals: 15:53 Log In Time N/A - ambulance arrival. js13 ED Course: 15:38 Patient visited by Ashley Eagle PCA. ar3 15:38 Patient moved to Waiting ar3 15:39 Corrina Taylor,RN is Primary Nurse. ar3 15:39 Caleb Almaraz is Private Physician. ar3 15:39 [facility] jo[facility] 15:39 Leo Noonan MD is Attending Physician. jo4 15:39 Patient moved to 15 ar3 15:47 Patient visited by Sharona Stewart DO. jo4 15:47 Patient visited by Sharona Stewart DO. jo4 15:48 Triage Initiated js13 15:54 The patient / caregiver is instructed regarding the plan of care and ED course. Placed js13 in gown. Bed in low position. Call light in reach. Side rails up X2. business process associate on. Pulse ox on. NIBP on. 15:54 Maintain field IV. Dressing intact. Good blood return noted. Site clean & dry. Gauge & js13 site: 20 gauge in right hand. No procedures done that require assistance. 15:56 Patient visited by Corrina Taylor RN. js13 15:58 Pt greeted and oriented to ED. Patient advised of names of staff involved in care, rs6 location of call ramírez, wait times and NPO status. Patient has correct armband on for positive identification. 15:59 Patient visited by Annette Nicholson PCA. rs6 15:59 EKG done. (by ED staff). Reviewed by Sharona Stewart DO. rs6 16:24 BMP Sent. js13 16:24 CBC with Diff Sent. js13 16:24 Cardiac Marker Panel Sent. js13 16:50 [facility] Payment Agreement was scanned into [employer] and attached to record. gjb 16:54 Patient visited by Corrina Taylor RN. js13 17:46 Patient visited by Leo Noonan MD. br1 17:46 Patient visited by Corrina Taylor,SHERYL. js13 18:08 Patient visited by Corrina Taylor RN. js13 18:49 Patient visited by Corrina Vinson RN. jo3 19:26 Patient visited by Corrina Taylor RN. js13 19:37 Attending Physician role handed off by Leo Noonan MD cs11 19:37 Jono Mendez DO is Attending Physician. cs11 19:56 Primary Nurse role handed off by Corrina Taylor RN janessa 20:22 Patient visited by Corrina Vinson RN. jo3 21:15 Patient visited by Corrina Vinson RN. jo3 21:21 Patient visited by Laury Stevens PCA. cln 21:21 EKG done. (by ED staff). Reviewed by Jono Mendez DO. cln 22:22 Patient visited by Meera Mckenzie PCA. janessa 22:46 Henry Vernon MD is Referral Physician. cs11 22:53 Patient visited by Meera Mckenzie PCA. janessa 23:07 Patient visited by Yanira Gerard RN. mcp 23:07 Discontinued lock intact, bleeding controlled, pressure dressing applied, No mcp redness/swelling at site. 03/23 00:02 Written Provider Order was scanned into [employer] and attached to record. ml3 08:41 Chest, 2 View (pa\E\lat) Returned. EDMS 13:07 EKG-ADULT Returned. EDMS 13:42 ECG WITH READING ER PHYS Returned. EDMS 15:41 ECG/EKG was scanned into [employer] and attached to record. kf3 17:06 [facility] Payment Agreement was scanned into [employer] and attached to record. kf3 17:09 T-Sheet-- Draft Copy was scanned into [employer] and attached to record. klr Administered Medications: 03/22 17:45 Drug: Potassium Chloride 40 mEq [potassium chloride 20 mEq oral packet (2 packets)] js13 Route: PO; 18:49 Drug: NS 0.9% 1000 ml [sodium chloride 0.9 % intravenous solution] Route: IV; Rate: jo3 bolus; Site: right hand; Order Results: Lab Order: Cardiac Marker Panel; SPEC'M 03/22/16 16:09 Test: CPK CREATINE PHOSPHOKINASE; Value: 30; Range: 26-192; Units: U/L; Status: F Test: CK-MB VALUE MASS; Value: 1.0; Range: 0.0-3.6; Units: NG/ML; Status: F Test: MB/CK RELATIVE INDEX; Value: 3.33; Range: < OR =4; Status: F Test: TROPONIN I; Value: < 0.02; Range: < 0.10; Units: NG/ML; Status: F Test Note: ; DIAGNOSIS CRITERIA MMB ng/ml Relative Index (RI) NON-AMI < or = 5 N/A VARGHESE ZONE > 5 < or = 4 AMI > 5 > 4 Lab Order: CBC with Diff; SPEC'M 03/22/16 16:03 Test: WHITE BLOOD COUNT; Value: 12.1; Range: 4.0-10.0; Abnormal: Above high normal; Units: K/mm3; Status: F Test: RED BLOOD COUNT; Value: 3.40; Range: 4.00-5.40; Abnormal: Below low normal; Units: M/mm3; Status: F Test: HEMOGLOBIN; Value: 11.5; Range: 12.0-16.0; Abnormal: Below low normal; Units: g/dl; Status: F Test: HEMATOCRIT; Value: 36.2; Range: 36.0-47.0; Units: %; Status: F Test: MEAN CORPUSCULAR VOLUME; Value: 106.4; Range: 80.0-96.0; Abnormal: Above high normal; Units: fl; Status: F Test: MEAN CORPUSCULAR HEMOGLOBIN; Value: 33.9; Range: 27.0-33.0; Abnormal: Above high normal; Units: pg; Status: F Test: MEAN CORPUSCULAR HGB CONC; Value: 31.9; Range: 32.0-36.5; Abnormal: Below low normal; Units: g/dl; Status: F Test: RED CELL DISTRIBUTION WIDTH; Value: 12.5; Range: 11.5-14.5; Units: %; Status: F Test: PLATELET COUNT, AUTOMATED; Value: 292; Range: 150-450; Units: k/mm3; Status: F Test: NEUTROPHILS %; Value: 74.6; Range: 36.0-66.0; Abnormal: Above high normal; Units: %; Status: F Test: LYMPH %; Value: 19.7; Range: 24.0-44.0; Abnormal: Below low normal; Units: %; Status: F Test: MONO %; Value: 3.2; Range: 0.0-5.0; Units: %; Status: F Test: EOS %; Value: 1.5; Range: 0.0-3.0; Units: %; Status: F Test: BASO %; Value: 0.4; Range: 0.0-1.0; Units: %; Status: F Test: LARGE UNSTAINED CELL %; Value: 0.5; Range: 0.0-4.0; Units: %; Status: F Test: NEUTROPHILS #; Value: 9.0; Range: 1.8-7.7; Abnormal: Above high normal; Units: K/mm3; Status: F Test: LYMPH #; Value: 2.4; Range: 1.5-4.5; Units: K/mm3; Status: F Test: MONO #; Value: 0.4; Range: 0.0-0.8; Units: K/mm3; Status: F Test: EOS #; Value: 0.2; Range: 0.0-0.50; Units: K/mm3; Status: F Test: BASO #; Value: 0.0; Range: 0.0-0.2; Units: K/mm3; Status: F Test: LARGE UNSTAINED CELL #; Value: 0.1; Range: 0.0-0.4; Units: K/mm3; Status: F Lab Order: [facility]; SPEC'03/22/16 16:09 Test: GLUCOSE, FASTING; Value: 101; Range: 70-105; Units: MG/DL; Status: F Test: BLOOD UREA NITROGEN; Value: 9; Range: 7-18; Units: MG/DL; Status: F Test: CREATININE FOR GFR; Value: 0.61; Range: 0.55-1.02; Units: MG/DL; Status: F Test: GLOMERULAR FILTRATION RATE; Value: > 60.0; Range: >60; Status: F Test: SODIUM LEVEL; Value: 143; Range: 136-145; Units: MEQ/L; Status: F Test: POTASSIUM SERUM; Value: 3.3; Range: 3.5-5.1; Abnormal: Below low normal; Units: MEQ/L; Status: F Test: CHLORIDE LEVEL; Value: 115; Range: 98-107; Abnormal: Above high normal; Units: MEQ/L; Status: F Test: CARBON DIOXIDE LEVEL; Value: 19; Range: 21-32; Abnormal: Below low normal; Units: MEQ/L; Status: F Test: ANION GAP; Value: 9; Range: 8-16; Units: MEQ/L; Status: F Test: CALCIUM LEVEL; Value: 8.3; Range: 8.5-10.1; Abnormal: Below low normal; Units: MG/DL; Status: F Test Note: ; Units are mL/min/1.73 m2 Chronic Kidney Disease Staging per NKF: Stage I & II GFR >=60 Normal to Mildly Decreased Stage III GFR 30-59 Moderately Decreased Stage IV GFR 15-29 Severely Decreased Stage V GFR <15 Very Little GFR Left ESRD GFR <15 on MODEL MAKER PLASTIC Lab Order: PHOSPHOROUS LEVEL; SPEC'03/22/16 16:09 Test: PHOSPHORUS LEVEL; Value: 3.0; Range: 2.5-4.9; Units: MG/DL; Status: F Lab Order: MAGNESIUM LEVEL; SPEC03/22/16 16:09 Test: MAGNESIUM LEVEL; Value: 2.0; Range: 1.8-2.4; Units: MG/DL; Status: F Lab Order: FT4&TSH PANEL; SPEC'03/22/16 16:09 Test: THYROID STIMULATING HORMONE; Value: 1.690; Range: 0.358-3.740; Units: uIU/ML; Status: F Test: FREE T4; Value: 0.69; Range: 0.76-1.46; Abnormal: Below low normal; Units: NG/DL; Status: F Lab Order: D-Dimer Quant; SPEC'M 03/22/16 16:03 Test: D-DIMER QUANT; Value: < 270.0; Range: <500; Units: ng/ml; Status: F Lab Order: CARDIAC MARKER PANEL; SPEC'M 03/22/16 21:47 Test: CPK CREATINE PHOSPHOKINASE; Value: 31; Range: 26-192; Units: U/L; Status: F Test: CK-MB VALUE MASS; Value: 1.0; Range: 0.0-3.6; Units: NG/ML; Status: F Test: MB/CK RELATIVE INDEX; Value: 3.22; Range: < OR =4; Status: F Test: TROPONIN I; Value: < 0.02; Range: < 0.10; Units: NG/ML; Status: F Test Note: ; DIAGNOSIS CRITERIA MMB ng/ml Relative Index (RI) NON-AMI < or = 5 N/A VARGHESE ZONE > 5 < or = 4 AMI > 5 > 4 Radiology Order: Chest, 2 View (pa\E\lat) Test: Chest, 2 View (pa\E\lat) REASON FOR EXAMINATION: Shortness of Breath; Chest x-ray: Two views.; ; History: Shortness of breath.; ; Comparison chest x-ray May 05, 2014.; ; Findings: The lungs are well inflated and free of infiltrate. Pleural angles; are sharp. Heart size is normal. Pulmonary vasculature is not increased. No; significant bony abnormality is seen. EKG monitoring electrodes are noted.; ; Impression:; ; No acute disease.; ; ; Signed by; Steve Jaramillo MD 03/23/2016 09:03 A; Radiology Order: ECG WITH READING ER PHYS Test: ECG WITH READING ER PHYS REASON FOR EXAMINATION: CHEST TIGHTNESS; Stationary ECG Study; 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 11 03/23 00:06 Discharge Assessment: patient administered narcotics - no. The following High Risk [facility] Discharge criteria are identified: None. Discharged to home via ambulance. Condition: stable. Discharge instructions given to patient, Instructed on discharge instructions, follow up and referral plans. Demonstrated understanding of instructions, Pt was receptive of discharge instructions/ teaching. No special radiology studies were completed. Property sent home with patient. 00:07 Patient left the ED. [facility] Signatures: Dispatcher [employer] EDYanira Ward RN RN [facility] Santino Randhawa, Political Research Scientist Unit ml3 Corrina Vinson RN RN jo3 Elia Nicholson, Reg Reg kf3 Leo Noonan MD MD br1 Ashley Eagle, DANCE COACH DANCE COACH ar3 Meera Mckenzie, DANCE COACH DANCE COACH Corrina Villarreal,SHERYL RN js13 Jono Mendez, DO DO cs11 Annette Nicholson, DANCE COACH DANCE COACH rs6 Esperanza Lin Jane, DO DO jo4 Laury Stevens, DANCE COACH DANCE COACH Rajani Ya Corrections: (The following items were deleted from the chart) 03/22 17:57 17:55 FT4&TSH PANEL+LAB sent. js13 EDMS 17:57 17:55 PHOSPHOROUS LEVEL+LAB sent. js13 EDMS 17:57 17:55 MAGNESIUM LEVEL+LAB sent. 13 EDMS Chart Complete MTDD
--- NOTE | 2016-03-25 01:08 | EDDOCDS ---
Physician Documentation [facility] Name: Ame Hinojosa Age: 40 yrs Sex: Female : 1975 Arrival Date: 03/22/2016 Time: 15:37 Bed 15 Private MD: Caleb Almaraz A Disposition: 03/22 18:42 I have independently interviewed and examined the patient, and I agree with the br1 investigation, diagnosis and treatment plan as documented by the Resident. Disposition: 03/22/16 22:46 Discharged to Home/Self Care. Impression: Supraventricular tachycardia. - Condition is Stable. - Medication Reconciliation, Local Pharmacy Hours form. - Follow up: Henry Vernon MD; When: Call to arrange an appointment; Reason: Recheck today's complaints. - Problem is new. - Symptoms are resolved. Historical: - Allergies: Amoxicillin (Rash); Claritin (Rash); Clindamycin (Rash); Latex (Rash); - Home Meds: 1. Advair Diskus 100-50 mcg/dose Inhl dsdv 1 puff 2 times per day 2. albuterol sulfate 90 mcg/actuation inhalation HFAA 1 puff as needed 3. Cogentin 1 mg Oral tab 1 tab 2 times per day 4. Effexor 37.5 mg Oral tab 1 tab daily 5. Topamax 100 mg Oral tab 2 times per day 6. Megace 20 mg Oral tab 1 tab daily 7. Remeron 30 mg Oral tab 1 tab nightly 8. Zyrtec 10 mg Oral tab 2 tabs once daily - PMHx: Asthma; chronic UTI, has urostomy now; CVA; Hypertension; Migraine Headaches; tachycardia; - PSHx: Hysterectomy; Urostomy Construction; Cholecystectomy; - Social history: Smoking status: Patient states was never smoker of tobacco. No barriers to communication noted, The patient speaks fluent French. - Family history: Not pertinent. - : The pt / caregiver states he / she is not on anticoagulants. Home medication list is obtained from the patient. - Exposure Risk Screening:: None identified. 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 1 in. (185.42 cm) (R); Pain 03/11; 16:12 BP 103 / 66 (auto/); js13 16:12 Pulse 88 MON; Resp 16; Pulse Ox 99% on R/A; js13 16:42 BP 92 / 66 (auto/); js13 16:42 Pulse 88 MON; Resp 16; Pulse Ox 99% on R/A; js13 16:57 BP 95 / 64 (auto/); js13 16:57 Pulse 84 MON; Resp 16; Pulse Ox 99% on R/A; js13 17:12 BP 93 / 58 (auto/); js13 17:12 Pulse 84 MON; Resp 16; Pulse Ox 100% on R/A; js13 17:27 BP 99 / 67 (auto/); js13 17:27 Pulse 84 MON; Resp 16; Pulse Ox 100% on R/A; js13 17:42 BP 101 / 72 (auto/); js13 17:42 Pulse 82 MON; Resp 16; Pulse Ox 99% on R/A; js13 17:57 BP 103 / 72 (auto/); js13 17:57 Pulse 78 MON; Resp 16; Pulse Ox 98% on R/A; js13 18:12 BP 98 / 68 (auto/); js13 18:12 Pulse 84 MON; Resp 16; Pulse Ox 99% on R/A; js13 18:27 BP 94 / 62 (auto/); js13 18:27 Pulse 84 MON; Resp 16; Pulse Ox 99% on R/A; js13 18:42 BP 104 / 70 LA Supine (auto/); Pulse 78; jo3 18:44 BP 100 / 64 LA Sitting (auto/); Pulse 85; jo3 18:46 BP 100 / 63 RA Standing (auto/); Pulse 92; jo3 19:57 BP 110 / 63 (auto/); jo3 19:57 Pulse 74 MON; Pulse Ox 99% ; jo3 20:12 BP 105 / 65 (auto/); jo3 20:12 Pulse 70 MON; Pulse Ox 100% ; jo3 20:27 BP 104 / 59 (auto/); jo3 20:27 Pulse 70 MON; Pulse Ox 100% ; jo3 20:42 BP 105 / 62 (auto/); jo3 20:42 Pulse 72 MON; Pulse Ox 100% ; jo3 20:57 BP 103 / 60 (auto/); jo3 20:57 Pulse 70 MON; Pulse Ox 99% ; jo3 21:12 BP 100 / 62 (auto/); jo3 21:12 Pulse 78 MON; Pulse Ox 99% ; jo3 21:27 BP 100 / 58 (auto/); mcp 21:27 Pulse 70 MON; Pulse Ox 99% ; mcp 21:42 BP 102 / 58 (auto/); mcp 21:42 Pulse 70 MON; Pulse Ox 98% ; mcp 21:57 BP 105 / 57 (auto/); mcp 21:57 Pulse 74 MON; Pulse Ox 98% ; mcp 22:12 BP 99 / 54 (auto/); mcp 22:12 Pulse 78 MON; Pulse Ox 98% ; mcp 22:27 BP 117 / 58 (auto/); mcp 22:27 Pulse 76 MON; Pulse Ox 98% ; mcp 22:42 BP 103 / 60 (auto/); mcp 22:42 Pulse 78 MON; Pulse Ox 98% ; mcp 22:51 BP 96 / 61 (auto/); mcp 22:51 Pulse 72 MON; Pulse Ox 98% ; mcp 22:52 BP 99 / 64; Pulse 85; Resp 18; Temp 97.9(TE); Pulse Ox 99% on R/A; Pain 0/10; janessa 15:58 Body Mass Index 32.59 (112.04 kg, 185.42 cm) rs6 MDM: 15:47 Patient Service Representative ordered. jo4 15:47 ECG WITH READING ER PHYS+CARDIAG ordered. EDMS 16:13 Chest, 2 View (pa\E\lat) Ordered. EDMS 16:14 Cardiac Marker Panel Ordered. EDMS 16:14 CBC with Diff Ordered. EDMS 16:14 BMP Ordered. EDMS 16:39 Financial registration complete. ks16 16:50 [facility] [place] was scanned into [employer] and attached to record. gjb 17:40 BMP Reviewed. jo4 17:41 Potassium Chloride Packet 40 mEq PO once ordered. jo4 17:41 CBC with Diff Reviewed. jo4 17:41 Cardiac Marker Panel Reviewed. jo4 17:47 IV Saline Lock ordered. br1 18:20 D-Dimer Quant Ordered. EDMS 18:21 PHOSPHOROUS LEVEL Reviewed. jo4 18:21 FT4&TSH PANEL Reviewed. jo4 18:21 Cardiac Marker Panel Reviewed. jo4 18:21 MAGNESIUM LEVEL Reviewed. jo4 18:22 BMP Reviewed. jo4 18:29 Orthostatic VS ordered. jo4 18:29 NS 0.9% 1000 ml IV at bolus once ordered. jo4 18:30 Repeat EKG (put time details section) ordered. br1 18:30 Redraw CIP &Troponin (put time in details section) ordered. br1 18:38 Redraw CIP &Troponin (put time in details section) complete. ar3 18:38 Repeat EKG (put time details section) complete. ar3 18:39 CARDIAC MARKER PANEL Ordered. EDMS 18:41 ECG WITH READING ER PHYS ordered. EDMS 18:42 ED course: Seen with resident, agree with findings. History of palpitations in past, br1 follows with Dr. Beach with unclear diagnosis, today onset of palpitations, called EMS, found to be in SVT. Converted en route with Adenosine 6 mg per EMS. Currently no chest pain. Does have some shortness of breath. Now sinus, labs unrevealing thus far. Blood pressure slightly soft - will fluid challenge and re-eval.. 18:53 D-Dimer Quant Reviewed. jo4 03/23 00:02 Written Provider Order was scanned into [employer] and attached to record. ml3 15:41 ECG/EKG was scanned into [employer] and attached to record. kf3 17:06 [facility] Payment Agreement was scanned into [employer] and attached to record. kf3 17:09 T-Sheet-- Draft Copy was scanned into [employer] and attached to record. klr Administered Medications: 03/22 17:45 Drug: Potassium Chloride 40 mEq [potassium chloride 20 mEq oral packet (2 packets)] js13 Route: PO; 18:49 Drug: NS 0.9% 1000 ml [sodium chloride 0.9 % intravenous solution] Route: IV; Rate: jo3 bolus; Site: right hand; Signatures: Dispatcher [employer] Yanira Goldberg RN RN mcp Lopresti, Mary-Elizabeth, [employer] ml3 Elia Nicholson, Reg Reg kf3 Samuel Noonan MD MD br1 Ashley Eagle, JUVENILE JUSTICE OFFICER JUVENILE JUSTICE OFFICER ar3 Corrina Taylor RN RN js13 Jono Mendez, DO DO cs11 Esperanza Linb Sharona Stewart, DO DO jo4 Jane Hong, Reg Reg ks16 Rajani Faith Jennifer RN jo3 The chart was reviewed and I authenticate all verbal orders and agree with the evaluation and treatment provided.Corrections: (The following items were deleted from the chart) 17:57 17:48 MAGNESIUM LEVEL+LAB ordered. EDMS EDMS 17:57 17:48 PHOSPHOROUS LEVEL+LAB ordered. EDMS EDMS 17:57 17:48 FT4&TSH PANEL+LAB ordered. EDMS EDMS 18:23 17:48 CT ANGIO CHEST+CT ordered. EDMS EDMS Attachments: 16:50 [facility] [place] Agreement gjb 03/23 00:02 Written Provider Order ml3 15:41 ECG/EKG kf3 17:06 [facility] Payment Agreement kf3 17:09 T-Sheet-- Draft Copy klr Chart Complete MTDD
== END 2016-03-23 00:07 | disposition home or self-care (01) ==
LOC: M ED 15:37
DX: I47.1 Supraventricular tachycardia (principal); I10 Essential (primary) hypertension; J45.909 Unspecified asthma, uncomplicated; G43.909 Migraine, unspecified, not intractable, without status migrainosus; Z86.73 Personal history of transient ischemic attack (TIA), and cerebral infarction without residual deficits; Z87.440 Personal history of urinary (tract) infections; Z79.899 Other long term (current) drug therapy; Z88.1 Allergy status to other antibiotic agents; Z88.8 Allergy status to other drugs, medicaments and biological substances; Z91.040 Latex allergy status

== ENCOUNTER → 2016-10-23 | Outpatient (REF) | payer MEDICARE, MEDICAID | LOC: M LAB REF 16:47 | PROVIDERS: ATTEND Physician Assistant Medical | DX: N39.0 Urinary tract infection, site not specified (principal) ==

== ENCOUNTER 2018-02-15 09:35 | Emergency (ER) | payer MEDICARE, MEDICAID ==
[2018-02-15 09:58] LABS: BASO # 0.1 10^3/uL (0.0-0.2); BASO % 0.9 % (0.0-1.0); EOS # 0.1 10^3/uL (0.0-0.50); EOS % 0.9 % (0.0-3.0); HEMATOCRIT 35.6 % (36.0-47.0); IMMATURE GRANULOCYTE % 0.2 % (0-3.0); LYMPH # 2.8 10^3/uL (1.5-4.5); LYMPH % 52.4 % (24.0-44.0); MEAN CORPUSCULAR HGB CONC 33.7 g/dl (32.0-36.5); MEAN CORPUSCULAR VOLUME 109.9 fl (80.0-96.0); MONO # 0.2 10^3/uL (0.0-0.8); MONO % 4.1 % (0.0-5.0); NEUTROPHILS # 2.2 10^3/uL (1.8-7.7); NEUTROPHILS % 41.5 % (36.0-66.0); PLATELET COUNT, AUTOMATED 270 10^3/uL (150-450); RED BLOOD COUNT 3.24 10^6/uL (4.00-5.40); RED CELL DISTRIBUTION WIDTH 11.5 % (11.5-14.5); WHITE BLOOD COUNT 5.4 10^3/uL (4.0-10.0)
[2018-02-15 10:12] LABS: INR 1.03; PROTHROMBIN TIME 13.6 SECONDS (12.1-14.4)
[2018-02-15 10:13] LABS: PARTIAL THROMBOPLASTIN TIME 30.9 SECONDS (25.4-37.6)
[2018-02-15 10:34] LABS: ALBUMIN 4.1 GM/DL (3.2-5.2); ALBUMIN/GLOBULIN RATIO 1.71 (1.00-1.93); ALKALINE PHOSPHATASE 55 U/L (45-117); ALT/SGPT 28 U/L (12-78); ANION GAP 8 MEQ/L (8-16); AST/SGOT 24 U/L (7-37); BILIRUBIN,DIRECT 0.2 MG/DL (0.0-0.2); BILIRUBIN,TOTAL 0.4 MG/DL (0.2-1.0); BLOOD UREA NITROGEN 12 MG/DL (7-18); CALCIUM LEVEL 8.4 MG/DL (8.5-10.1); CARBON DIOXIDE LEVEL 21 MEQ/L (21-32); CHLORIDE LEVEL 111 MEQ/L (98-107); CPK CREATINE PHOSPHOKINASE 31 U/L (26-192); CREATININE FOR GFR 0.67 MG/DL (0.55-1.30); FREE T4 0.56 NG/DL (0.76-1.46); GLOMERULAR FILTRATION RATE > 60.0 (>58); GLUCOSE, FASTING 86 MG/DL (70-100); MAGNESIUM LEVEL 2.3 MG/DL (1.8-2.4); MB/CK RELATIVE INDEX 3.23 (< OR =4); PHOSPHORUS LEVEL 2.8 MG/DL (2.5-4.9); POTASSIUM SERUM 3.4 MEQ/L (3.5-5.1); SODIUM LEVEL 140 MEQ/L (136-145); THYROID STIMULATING HORMONE 0.917 uIU/ML (0.358-3.740); TOTAL PROTEIN 6.5 GM/DL (6.4-8.2); TROPONIN I < 0.02 NG/ML (< 0.10)
[2018-02-15] MEDS: POTASSIUM CHLORIDE 10 MEQ SR TABLET PO (10:59)
== END 2018-02-15 17:53 | disposition home or self-care (01) ==
LOC: M ED 09:35
DX: R00.2 Palpitations (principal); I69.352 Hemiplegia and hemiparesis following cerebral infarction affecting left dominant side; Z79.899 Other long term (current) drug therapy; Z88.0 Allergy status to penicillin; Z88.1 Allergy status to other antibiotic agents; Z88.8 Allergy status to other drugs, medicaments and biological substances; Z91.013 Allergy to seafood; Z91.040 Latex allergy status; Z91.041 Radiographic dye allergy status
CPT/HCPCS: 71045

== ENCOUNTER 2018-04-25 03:01 | Emergency (ER) | payer MEDICARE ==
[~2018-04-25] VITALS: Ht 185.4 cm; Wt 51.8 kg
[~2018-04-25 03:01] MED LIST changes: +CIPR500T39 PO
[2018-04-25] MEDS ORDERED: EFFE37.5 PO (03:07)
[2018-04-25] MEDS ORDERED: MEGE20TA3 PO (03:07)
[2018-04-25] MEDS ORDERED: TOPA50TA8 PO (03:07)
[2018-04-25 04:52] LABS: HEMATOCRIT 36.8 % (36.0-47.0); HEMOGLOBIN 12.3 g/dl (12.0-15.5); MEAN CORPUSCULAR HEMOGLOBIN 38.2 pg (27.0-33.0); MEAN CORPUSCULAR HGB CONC 33.4 g/dl (32.0-36.5); PLATELET COUNT, AUTOMATED 195 10^3/uL (150-450); RED BLOOD COUNT 3.22 10^6/uL (4.00-5.40); WHITE BLOOD COUNT 7.9 10^3/uL (4.0-10.0)
[2018-04-25] MEDS ORDERED: METOCLOPRAMIDE INJ 10MG/2ML VIAL (J2765) IV ONE (05:00)
[2018-04-25] MEDS ORDERED: NS 1,000 ML IV ONE (05:00)
[2018-04-25 05:20] LABS: ALBUMIN 3.8 GM/DL (3.2-5.2); ALT/SGPT 19 U/L (12-78); BILIRUBIN,DIRECT 0.2 MG/DL (0.0-0.2); BILIRUBIN,TOTAL 0.6 MG/DL (0.2-1.0); BLOOD UREA NITROGEN 15 MG/DL (7-18); CALCIUM LEVEL 7.9 MG/DL (8.5-10.1); CARBON DIOXIDE LEVEL 15 MEQ/L (21-32); CHLORIDE LEVEL 117 MEQ/L (98-107); CREATININE FOR GFR 0.47 MG/DL (0.55-1.30); GLOMERULAR FILTRATION RATE > 60.0 (>58); GLUCOSE, FASTING 90 MG/DL (70-100); LIPASE 152 U/L (73-393); POTASSIUM SERUM 3.7 MEQ/L (3.5-5.1); SODIUM LEVEL 144 MEQ/L (136-145); TOTAL PROTEIN 6.1 GM/DL (6.4-8.2)
[2018-04-25 05:44] LABS: MEAN CORPUSCULAR VOLUME 114.3 fl (80.0-96.0)
[2018-04-25 05:49] LABS: EOSINOPHILS 1 % (0-5); LYMPHOCYTES 1 % (16-52); MONOCYTES 3 % (0-8); NEUTROPHILS 82 % (35-75)
[2018-04-25 05:50] LABS: OVALOCYTES 1+; PLATELET CLUMPS SMALL AMT; PLATELET ESTIMATE NORMAL (NORMAL); POIKILOCYTOSIS 1+; SMUDGE CELLS 2+
[2018-04-25] MEDS ORDERED: REGL10TA6 PO (06:34)
[2018-04-25] MEDS ORDERED: ACETAMINOPHEN 325 MG TAB PO ONE (07:00)
[2018-04-25 10:22] VITALS: BP 98/54
--- NOTE | 2018-04-25 17:52 | ECGEPIP ---
Stationary ECG Study [facility] - ED Test Date: 2018-04-25 Pat Name: ALEAH ALLEN Department: Room: - Gender: F Fill Technician: GT : 1975 Requested By: JOZEF STARKS Order Number: [id number] Reading MD: Narcisa Blanco Measurements Intervals [place] Rate: 93 P: 68 MA: 141 QRS: 41 QRSD: 89 T: 56 QT: 344 QTc: 428 Interpretive Statements SINUS RHYTHM NONSPECIFIC ST & T-WAVE ABNORMALITY INCREASED RATE 02/15/18 Electronically Signed On 04-25-2018 17:52:07 EST by Narcisa Blanco
== END 2018-04-25 10:31 | disposition home or self-care (01) ==
LOC: M ED 03:01
DX: K52.9 Noninfective gastroenteritis and colitis, unspecified (principal); F31.9 Bipolar disorder, unspecified; Z90.49 Acquired absence of other specified parts of digestive tract; Z98.890 Other specified postprocedural states; Z88.1 Allergy status to other antibiotic agents; Z91.040 Latex allergy status; Z91.041 Radiographic dye allergy status; Z88.8 Allergy status to other drugs, medicaments and biological substances; Z88.0 Allergy status to penicillin; Z91.013 Allergy to seafood; Z79.899 Other long term (current) drug therapy
CPT/HCPCS: 36415; 80048; 80076; 83690; 85025; 93005; 96374; 99284; J2765

== ENCOUNTER 2018-05-24 06:58 | Emergency (ER) | payer MEDICARE, MEDICAID ==
[~2018-05-24] VITALS: Ht 185.4 cm; Wt 51.4 kg
[~2018-05-24 06:58] MED LIST changes: -/METH500TA PO; +EFFE37.5 PO; +MEGE20TA3 PO; +METH1TAB40 PO; +OXYC1TAB23 PO; -PERCOCET PO; +REGL10TA6 PO; +TOPA50TA8 PO
[2018-05-24] MEDS ORDERED: KETOROLAC 30 MG/ML VIAL (J1885) IV ONE ×2 (07:45→16:00)
[2018-05-24] MEDS ORDERED: BUPIVACAINE HCL 0.25% 10 ML VIAL IM ONE (08:15)
[2018-05-24] MEDS ORDERED: BUPIVACAINE HCL 0.25% 10 ML VIAL SC ONE (08:30)
[2018-05-24] MEDS ORDERED: NAPR-885 PO (08:42)
[2018-05-24 17:00] VITALS: BP 107/66
== END 2018-05-24 17:13 | disposition home or self-care (01) ==
LOC: M ED 06:58
DX: M54.2 Cervicalgia (principal); M54.6 Pain in thoracic spine; G89.29 Other chronic pain; F31.9 Bipolar disorder, unspecified; J45.909 Unspecified asthma, uncomplicated; Z86.73 Personal history of transient ischemic attack (TIA), and cerebral infarction without residual deficits; N31.9 Neuromuscular dysfunction of bladder, unspecified; Z87.19 Personal history of other diseases of the digestive system; Z93.3 Colostomy status; Z93.6 Other artificial openings of urinary tract status; Z91.041 Radiographic dye allergy status; Z91.013 Allergy to seafood; Z79.899 Other long term (current) drug therapy; Z79.51 Long term (current) use of inhaled steroids
CPT/HCPCS: 20552; 96374; 96376; 99285; J1885

== ENCOUNTER 2018-06-07 12:17 | Inpatient (IN) | payer MEDICARE, MEDICAID ==
[2018-06-07] VITALS (9 sets, daily range): BP systolic 86–109; BP diastolic 39–59; O2SAT 91–96
[~2018-06-07] VITALS: Ht 185.4 cm; Wt 55.3 kg
[~2018-06-07 12:17] MED LIST changes: +NAPR-885 PO
[2018-06-07 13:02] LABS: BASO % 0.2 % (0.0-1.0); HEMATOCRIT 36.1 % (36.0-47.0); HEMOGLOBIN 11.7 g/dl (12.0-15.5); LYMPH # 1.2 10^3/uL (1.5-4.5); LYMPH % 13.5 % (24.0-44.0); MEAN CORPUSCULAR HEMOGLOBIN 39.4 pg (27.0-33.0); MEAN CORPUSCULAR HGB CONC 32.4 g/dl (32.0-36.5); MONO # 0.3 10^3/uL (0.0-0.8); MONO % 3.6 % (0.0-5.0); NEUTROPHILS # 7.3 10^3/uL (1.8-7.7); NEUTROPHILS % 82.2 % (36.0-66.0); PLATELET COUNT, AUTOMATED 477 10^3/uL (150-450); RED BLOOD COUNT 2.97 10^6/uL (4.00-5.40); WHITE BLOOD COUNT 8.8 10^3/uL (4.0-10.0)
[2018-06-07 13:03] LABS: MEAN CORPUSCULAR VOLUME 121.5 fl (80.0-96.0)
[2018-06-07 13:17] LABS: PLATELET CLUMPS SMALL AMT; PLATELET ESTIMATE INCREASED (NORMAL)
[2018-06-07] MEDS ORDERED: GI COCKTAIL 50ML BTL(HYOSCYAMINE/MAALOX/LIDOCAINE VISCOUS)(1:3:1) PO ONE (13:30)
[2018-06-07] MEDS ORDERED: PANTOPRAZOLE 40MG INJ (PROTONIX) (C9113) IV ONE (13:30)
[2018-06-07 13:34] LABS: ALBUMIN 2.9 GM/DL (3.2-5.2); ALT/SGPT 40 U/L (12-78); BILIRUBIN,DIRECT 0.2 MG/DL (0.0-0.2); BILIRUBIN,TOTAL 0.4 MG/DL (0.2-1.0); BLOOD UREA NITROGEN 5 MG/DL (7-18); CALCIUM LEVEL 8.2 MG/DL (8.5-10.1); CARBON DIOXIDE LEVEL 16 MEQ/L (21-32); CHLORIDE LEVEL 134 MEQ/L (98-107); CREATININE FOR GFR 0.55 MG/DL (0.55-1.30); GLOMERULAR FILTRATION RATE > 60.0 (>58); GLUCOSE, FASTING 83 MG/DL (70-100); LIPASE 165 U/L (73-393); POTASSIUM SERUM 3.7 MEQ/L (3.5-5.1); TOTAL PROTEIN 5.6 GM/DL (6.4-8.2)
[2018-06-07 13:37] LABS: SODIUM LEVEL 164 MEQ/L (136-145)
[2018-06-07] MEDS ORDERED: D5W 1,000 ML IV SCH (14:15)
--- NOTE | 2018-06-07 14:38 | REP ---
CT CHEST WITHOUT CONTRAST: HISTORY: Pain. Comparison chest x-rays from February 15, 2018. CT FINDINGS: Lungs are hyperinflated but free of infiltrate. No mass or nodule is appreciated. No evidence of pleural or pericardial effusion is seen. No hilar or mediastinal mass or adenopathy is observed. IMPRESSION: No active intrathoracic abnormality. Electronically Signed by Steve Jaramillo MD 06/07/2018 05:38 P
--- NOTE | 2018-06-07 14:57 | REP ---
CT ABDOMEN AND PELVIS WITHOUT IV OR ORAL CONTRAST: HISTORY: Pain. Comparison CT study June 06, 2015. CT FINDINGS: Preliminary digital research dietitian radiograph shows a colonic gaseous distension. FINDINGS: There is a small to moderate amount of free intraperitoneal air in the anterior aspect of the upper abdomen. There are a few bubbles of un-contained air in the left subphrenic region adjacent to the splenic flexure. There is free intraperitoneal air in the periportal soft tissues and along the lesser curvature of the stomach. There is some free air in the some hepatic region and a few bubbles of air are seen in Morison's pouch. The patient is status post cholecystectomy. The stomach and proximal duodenum are mildly distended with ingested material. There is formed stool in the right and left colon. The patient is status post urostomy for neurogenic bladder in the right lower quadrant. There is a mild amount of ascites in the pelvic reflections. Urinary bladder is intact. No evidence of bowel obstruction is seen. IMPRESSION: Free intraperitoneal air and fluid consistent with bowel perforation, possibly gastroduodenal. Status post urostomy. Status post cholecystectomy and hysterectomy. These findings were telephoned to Dr. Monge in the ED at the time of this dictation. Electronically Signed by Steve Jaramillo MD 06/07/2018 05:39 P
[2018-06-07] MEDS ORDERED: LevoFLOXacin IV 500 MG in APPROPRIATE DILUENT 1 EA IV STA (15:12)
[2018-06-07] MEDS ORDERED: NS 1,000 ML IV ONE (15:30)
[2018-06-07] MEDS ORDERED: LIDOCAINE 2% INJ 100 MG/5 ML SDV (FOR ANES.) As Ordered ONE (15:50)
[2018-06-07] MEDS ORDERED: ROCURONIUM BROMIDE 50 MG/5 ML VIAL As Ordered ONE (15:50)
[2018-06-07] MEDS ORDERED: PROPOFOL 200 MG/20 ML VIAL As Ordered ONE (15:50)
[2018-06-07] MEDS ORDERED: MIDAZOLAM INJ 2 MG/2 ML VIAL (J2250) As Ordered ONE (15:51)
[2018-06-07] MEDS ORDERED: fentaNYL 100 MCG/2 ML INJECTION (J3010) As Ordered ONE (15:51)
[2018-06-07] MEDS ORDERED: ACETAMINOPHEN 1000MG 100ML IV BTL (OFIRMEV) (J0131 PER 10MG) As Ordered ONE (15:53)
[2018-06-07] MEDS ORDERED: TOPI50TA9 PO (16:30)
[2018-06-07] MEDS ORDERED: METO10TA2 PO (16:30)
[2018-06-07] MEDS ORDERED: MAXA10TA14 PO (16:30)
[2018-06-07] MEDS ORDERED: VENTAER INH (16:30)
[2018-06-07] MEDS ORDERED: VENL37TA PO (16:30)
[2018-06-07] MEDS ORDERED: NAPR-885 PO (16:30)
[2018-06-07] MEDS ORDERED: MEGE20TA3 PO (16:30)
[2018-06-07] MEDS ORDERED: ADV500INH INH (16:30)
[2018-06-07] MEDS ORDERED: ATEN25TA PO (16:30)
[2018-06-07] MEDS ORDERED: CALCIUM CHLORIDE 10% 1 GM/10 ML SYR As Ordered ONE (16:33)
[2018-06-07] MEDS ORDERED: dexameTHASONE 4 MG/ML 1ML VIAL (J1100) As Ordered ONE (16:35)
[2018-06-07] MEDS ORDERED: BUPIVACAINE LIPOSOME/PF 1.3% 20ML VIAL (13.3MG/ML)(EXPAREL)(C9290 PER1MG) As Ordered ONE (16:39)
[2018-06-07] MEDS ORDERED: BUPIVACAINE HCL 0.25% 10 ML VIAL As Ordered ONE (16:39)
[2018-06-07] MEDS ORDERED: ONDANSETRON 4MG/2ML VIAL (J2405) As Ordered ONE (17:11)
[2018-06-07] MEDS ORDERED: SUGAMMADEX SODIUM 500 MG/5 ML VIAL (BRIDION) As Ordered ONE (17:13)
[2018-06-07] MEDS: NS 1,000 ML IV SCH (17:22)
[2018-06-07] MEDS ORDERED: PROMETHAZINE INJ 25 MG/ML VIAL (J2550) IV PRN (17:30)
[2018-06-07] MEDS ORDERED: IPRATROPIUM 0.5MG/ALBUTEROL 2.5MG INH SOL UD 3ML (DUONEB)(J7620) NEB PRN (17:30)
[2018-06-07] MEDS ORDERED: METOCLOPRAMIDE INJ 10MG/2ML VIAL (J2765) IV PRN (17:30)
[2018-06-07] MEDS ORDERED: ONDANSETRON 4MG/2ML VIAL (J2405) IV PRN ×2 (17:30→18:00)
[2018-06-07] MEDS ORDERED: HYDROMORPHONE HCL 0.5 MG/ 0.5 ML SYRINGE (J1170 PER 1) IV PRN (18:00)
[2018-06-07] MEDS ORDERED: fentaNYL 100 MCG/2 ML INJECTION (J3010) IV PRN (18:00)
[2018-06-07] MEDS ORDERED: PERCOCET 5MG/325MG TAB PO PRN (18:00)
[2018-06-07 18:02] LABS: PHOSPHORUS LEVEL 3.6 MG/DL (2.5-4.9)
[2018-06-07 19:18] LABS: ALBUMIN 2.8 GM/DL (3.2-5.2); BLOOD UREA NITROGEN 5 MG/DL (7-18); CALCIUM LEVEL 8.1 MG/DL (8.5-10.1); CARBON DIOXIDE LEVEL 15 MEQ/L (21-32); CHLORIDE LEVEL 105 MEQ/L (98-107); GLOMERULAR FILTRATION RATE > 60.0 (>58); GLUCOSE, FASTING 76 MG/DL (70-100); PHOSPHORUS LEVEL 3.1 MG/DL (2.5-4.9); POTASSIUM SERUM 3.9 MEQ/L (3.5-5.1); SODIUM LEVEL 136 MEQ/L (136-145)
--- NOTE | 2018-06-07 19:23 | CR ---
DATE OF CONSULTATION: 06/07/2018 CONSULTATION FOR: Dr. Mojica PRIMARY CARE PROVIDER: [place], [place] MEDICAL CONSULTATION FOR: Severe hypernatremia. HISTORY: Ame Hinojosa is a 43-year-old whose primary care provider is in [place] but hospitalist service was consulted for medical care after she presented to the emergency room with a perforated viscus, went to the operating room and was found to have a gastric ulcer which was oversewn. Her sodium was in the 160s on admission, and she was very dehydrated. Hospitalists were consulted for medical care. The patient has just been extubated, so history is difficult to obtain. I do not have access to any of her outpatient records. She did see Dr. Miles at the wound center once on 11/14 and from those records, I see that she took a drug overdose about 10 years ago. She unfortunately suffered a stroke as a consequence, which has left her with left-sided hemiparesis, minimal movement in left upper and lower extremity. She has a neurogenic bladder, had recurrent urinary tract infections, underwent an ileal conduit procedure 10/13 at [facility], which apparently cured her of the recurrent urinary tract infections. She underwent a reexploration of her small bowel obstruction after that. She developed a wound inferior to the ostomy site that she was seeing wound clinic for once. PAST MEDICAL HISTORY: Not obtainable right now, but per those old records, it looks like she had a history of hypertension, asthma, neurogenic bladder, urinary tract infections, and, again, had a large stroke in the past. SURGICAL HISTORY: Cholecystectomy 03/09. Hysterectomy 2013. Ileal conduit 2013. Small bowel obstruction 2014. FAMILY HISTORY: Noncontributory. SOCIAL HISTORY: She is single, , nonsmoker. No alcohol. ALLERGIES: IV CONTRAST, PENICILLINS, CLINDAMYCIN, IODINE, LASIX, ZIPRASIDONE. PHYSICAL EXAMINATION: Vital Signs: Per flow sheet. General Appearance: She is lying postoperatively. She has just been extubated, face mask at the time. She looked chronically ill and cachectic. She answered questions slowly but appropriately. HEENT: Grossly unremarkable. Lungs: Clear. Heart: Regular rhythm. Abdomen: Dressed. Extremities: No clubbing or cyanosis. Trace edema. She has grade 1/5 strength left upper and lower extremities. Right side has normal strength. LABORATORY: White count 8.8, hemoglobin 11.7, platelets 477. Sodium 164, potassium 3.7, BUN 5, creatinine 0.5. Sodium on 04/25/2018 was 144, so this is a new finding. IMPRESSION: 1. Severe hypernatremia. Per [employer], will order lactated Ringers, rate 200 an hour, trying to slowly bring her sodium down over the next 24-36 hours. Serial BMPs have been ordered. Will order a STAT BMP now that she is postop, so at least we will have a fresh starting point. 2. History of asthma. She uses Advair at home, which she can continue. I have ordered nebulized bronchodilator as needed. 3. History of hypertension. She apparently uses atenolol at home. This will be held postoperatively. 4. History of depression. She apparently uses Effexor XR 37.5 mg daily at home, as well as Topamax 100 mg twice a day. Will hold these as she is currently nothing by mouth. She looks quite cachectic and undernourished and that dose of Topamax might be suppressing appetite to a significant degree. Would suggest not restarting this and deferring that decision to her outpatient provider. Hospitalist group will be assuming her medical care during this admission.
[2018-06-07] MEDS: IPRATROPIUM 0.5MG/ALBUTEROL 2.5MG INH SOL UD 3ML (DUONEB)(J7620) NEB SCH (20:00)
[2018-06-07] MEDS: LR 1,000 ML IV SCH (20:26)
[2018-06-07] MEDS: PANTOPRAZOLE 40MG INJ (PROTONIX) (C9113) IV SCH (20:26)
--- NOTE | 2018-06-07 21:58 | IPN ---
DATE: 06/07/2018 Ame's repeat basic metabolic panel (BMP) came back with a sodium of 136, this was obtained as soon as we could postoperatively. She is still receiving normal saline. We will reduce the rate of this and she will be switched over to lactated ringers. It looks like she did receive some dextrose 5% in water (D5W) on the way to the operating room. This has been discontinued. I have ordered a repeat BMP for 6 hours from now. The patient was signed out to Dr. Lopez, the night hospitalist.
[2018-06-08] VITALS (23 sets, daily range): BP systolic 94–110; BP diastolic 52–64; O2SAT 97–100
[2018-06-08] MEDS: LR 1,000 ML IV SCH ×2 (01:26→06:02)
[2018-06-08] MEDS: IPRATROPIUM 0.5MG/ALBUTEROL 2.5MG INH SOL UD 3ML (DUONEB)(J7620) NEB SCH ×4 (01:40→20:16)
[2018-06-08 02:52] LABS: BLOOD UREA NITROGEN 3 MG/DL (7-18); CALCIUM LEVEL 7.9 MG/DL (8.5-10.1); CARBON DIOXIDE LEVEL 18 MEQ/L (21-32); CHLORIDE LEVEL 107 MEQ/L (98-107); CREATININE FOR GFR 0.27 MG/DL (0.55-1.30); GLOMERULAR FILTRATION RATE > 60.0 (>58); GLUCOSE, FASTING 54 MG/DL (70-100); POTASSIUM SERUM 3.7 MEQ/L (3.5-5.1); SODIUM LEVEL 138 MEQ/L (136-145)
[2018-06-08] MEDS ORDERED: DEXTROSE 50% 50 ML SYRINGE IV STA (03:06)
[2018-06-08 05:44] LABS: HEMATOCRIT 30.5 % (36.0-47.0); MEAN CORPUSCULAR HEMOGLOBIN 39.5 pg (27.0-33.0); MEAN CORPUSCULAR HGB CONC 32.8 g/dl (32.0-36.5); MEAN CORPUSCULAR VOLUME 120.6 fl (80.0-96.0); RED BLOOD COUNT 2.53 10^6/uL (4.00-5.40); WHITE BLOOD COUNT 12.2 10^3/uL (4.0-10.0)
[2018-06-08 05:45] LABS: PLATELET COUNT, AUTOMATED 376 10^3/uL (150-450)
[2018-06-08 06:09] LABS: ALBUMIN 2.3 GM/DL (3.2-5.2); ALT/SGPT 29 U/L (12-78); BILIRUBIN,TOTAL 0.5 MG/DL (0.2-1.0); BLOOD UREA NITROGEN 3 MG/DL (7-18); CALCIUM LEVEL 7.8 MG/DL (8.5-10.1); CARBON DIOXIDE LEVEL 16 MEQ/L (21-32); CHLORIDE LEVEL 107 MEQ/L (98-107); CREATININE FOR GFR 0.45 MG/DL (0.55-1.30); GLOMERULAR FILTRATION RATE > 60.0 (>58); GLUCOSE, FASTING 56 MG/DL (70-100); POTASSIUM SERUM 3.6 MEQ/L (3.5-5.1); SODIUM LEVEL 137 MEQ/L (136-145); TOTAL PROTEIN 4.6 GM/DL (6.4-8.2)
[2018-06-08] MEDS ORDERED: GLUCOSE 4 GM CHEW TABLET PO PRN (07:00)
[2018-06-08] MEDS ORDERED: DEXTROSE 50% 50 ML SYRINGE IV PRN (07:00)
[2018-06-08] MEDS ORDERED: GLUCAGON FOR INJ 1 MG VIAL (J1610) SC PRN (07:00)
[2018-06-08] MEDS: PANTOPRAZOLE 40MG INJ (PROTONIX) (C9113) IV SCH ×2 (08:45→19:47)
[2018-06-08] MEDS: D5W/0.9% SODIUM CHLORIDE 1,000 ML IV SCH ×2 (08:45→17:52)
[2018-06-08] MEDS ORDERED: LIDOCAINE 1% MDV 20ML VIAL As Ordered ONE (13:09)
--- NOTE | 2018-06-08 13:59 | IPNPDOC ---
Subjective Date Seen The patient was seen on 06/08/18. Subjective Chief Complaint/HPI Patient seen and examined at bedside. Patient has NG tube in and feels slightly better General: Reports: Normal Appetite; Denies: Chills, Night Sweats, Fatigue, Malaise Constitutional: Denies: Chills, Fever, Night Sweats Eyes: Denies: Pain, Vision change ENT: Denies: Head Aches, Ear Pain, Dysphagia Skin: Denies: Rash, Lesions, Breakdown Pulmonary: Denies: Dyspnea, Cough Cardiovascular: Denies: Chest Pain, Palpitations, Orthopnea, Paroxysmal Noc. Dyspnea, Lt Headedness Gastrointestinal: Denies: Nausea, Vomiting, Abdominal Pain, Diarrhea, Constipation Genitourinary: Denies: Dysuria, Frequency, Incontinence, Retention Hematologic: Denies: Bruising, Bleeding Excessively Musculoskeletal: Denies: Neck Pain, Back Pain, Joint Pain, Muscle Pain, Spasms Neurological: Denies: Weakness, Numbness, Change in speech, Confusion Psych: Reports: Mood Normal; Denies: Depression, Memory Issues Objective Physical Examination General Exam: Positive: Alert, No Acute Distress Eye Exam: Positive: PERRLA, Conjunctiva & lids normal, EOMI; Negative: Sclera icteric ENT Exam: Positive: Atraumatic, Mucous membr. moist/pink, Pharynx Normal Neck Exam: Positive: Supple; Negative: JVD, thyromegaly Chest Exam: Positive: Clear to auscultation, Normal air movement Heart Exam: Positive: Rate Normal, Regular Rhythm, Normal S1, Normal S2; Negative: Murmurs, Rubs Telemetry: Positive: No significant arrhythmia Abdomen Exam: Positive: Normal bowel sounds, Soft; Negative: Tenderness, Hepatospenomegaly Female Exam: Positive: Nl Ext Genitalia; Negative: Lesions, Discharge, Odor, Tenderness Extremity Exam: Positive: Normal pulses; Negative: Clubbing, Cyanosis, Edema Skin Exam: Positive: Nl turgor and temperature; Negative: Rash, Breakdown Neuro Exam: Positive: Normal Gait, Normal Speech, Cranial Nerves 3-12 NL, Reflexes 2+ Psych Exam: Positive: Mental status NL, Mood NL, Oriented x 3 Assessment /Plan Problems (1) Perforated viscus Status: Acute Problem Text: The patient has the NG tube and with the wall suction Lots of green brownish green secretion noted Further, as per surgical technologist Continue present care and medications (2) Hypernatremia Status: Acute Problem Text: Patient presented with a sodium of 164 and current it's 137 Does not need further correction of sodium. Will monitor serum sodium level and a.m. Decrease IV fluids as does not require renewal elected for correction Close monitoring Plan/VTE VTE Prophylaxis Ordered?: Yes VS, I&O, 24H, Fishbone Vital Signs/I&O Vital Signs Date Time Temp Pulse Resp B/P (MAP) Pulse Ox O2 Delivery O2 Flow Rate FiO2 06/08/18 12:00 98.2 95 18 110/56 (74) 100 2.0 06/08/18 04:00 Nasal Cannula I&O- Last 24 Hours up to 6 AM 06/08/18 06:00 Intake Total 3230 ml Output Total 1850 ml Balance 1380 ml Laboratory Data 24H LABS Laboratory Tests 2 06/07/18 18:46: Blood Urea Nitrogen 5L, Creatinine 0.40L, Sodium Level 136#, Potassium Level 3.9, Chloride Level 105, Carbon Dioxide Level 15L, Anion Gap 16, Glomerular Filtration Rate > 60.0, Calcium Level 8.1L, Phosphorus Level 3.1, Albumin 2.8L 06/08/18 02:12: Blood Urea Nitrogen 3L, Creatinine 0.27L, Sodium Level 138, Potassium Level 3.7, Chloride Level 107, Carbon Dioxide Level 18L, Anion Gap 13, Glomerular Filtration Rate > 60.0, Calcium Level 7.9L 06/08/18 03:53: Bedside Glucose (Misc Panel) 116H 06/08/18 05:20: Blood Urea Nitrogen 3L, Creatinine 0.45#L, Sodium Level 137, Potassium Level 3.6, Chloride Level 107, Carbon Dioxide Level 16L, Anion Gap 14, Glomerular Filtration Rate > 60.0, Calcium Level 7.8L, Albumin 2.3L, Nucleated Red Blood Cells % (auto) 0.0, Aspartate Amino Transf (AST/SGOT) 35, Alanine Aminotransferase (ALT/SGPT) 29, Alkaline Phosphatase 48, Total Bilirubin 0.5, Total Protein 4.6L, Albumin/Globulin Ratio 1.00 06/08/18 07:47: Bedside Glucose (Misc Panel) 73 06/08/18 12:29: Bedside Glucose (Misc Panel) 72 CBC/BMP Laboratory Tests 4/8/19 18:46 Anion Gap 16 06/08/18 02:12 Calcium Level 7.9 L 06/08/18 05:20 Calcium Level 7.8 L, Red Blood Count 2.53 L, Mean Corpuscular Volume 120.6 H, Mean Corpuscular Hemoglobin 39.5 H, Mean Corpuscular Hemoglobin Concent 32.8, Red Cell Distribution Width 14.8 H, Aspartate Amino Transf (AST/SGOT) 35, Alanine Aminotransferase (ALT/SGPT) 29, Alkaline Phosphatase 48, Total Bilirubin 0.5, Total Protein 4.6 L, Albumin 2.3 L CAMILA ELLER MD Jun 08, 2018 13:59
[2018-06-08] MEDS ORDERED: ADENOSINE 6MG/2ML INJECTION (J0153) IV STA ×2 (15:13→15:31)
[2018-06-08] MEDS ORDERED: ADENOSINE 6MG/2ML INJECTION (J0153) As Ordered ONE (15:15)
[2018-06-08 16:11] LABS: MAGNESIUM LEVEL 1.7 MG/DL (1.8-2.4); POTASSIUM SERUM 3.7 MEQ/L (3.5-5.1)
[2018-06-08] MEDS: LevoFLOXacin IV 500 MG in APPROPRIATE DILUENT 1 EA IV SCH (16:16)
[2018-06-08] MEDS: SODIUM CHLORIDE 0.9% INJ 10 ML SYR IV SCH (17:52)
[2018-06-08] MEDS ORDERED: MAG SULF 1GM/100ML (MAG RUN) 1 GM in APPROPRIATE DILUENT 1 EA IV ONE (18:00)
--- NOTE | 2018-06-08 19:30 | ECGEPIP ---
Stationary ECG Study [facility] Test Date: 2018-06-08 Pat Name: ALEAH ALLEN Department: Room: [place] [address] Gender: F Consulting Solution Director: : 1975 Requested By: Steve Jaramillo Order Number: [id number] Reading MD: Aristides Rodriguez Measurements Intervals [place] Rate: 181 P: NC: 0 QRS: -3 QRSD: 112 T: 94 QT: 258 QTc: 448 Interpretive Statements Paroxysmal supraventricular tachycardia - likely AV tracie reentry tachycardia Low voltages. Left axis deviation (measured axis is incorrect) Somewhat prominent R waves in V2 through V4; consider RVH versus prior PWMI Diffuse nonspecific ST/T-wave abnormalities; Rhythm/rate related Rhythm change from 04/25/18. Clinical correlation advised. Electronically Signed On 06-08-2018 19:30:28 EDT by Aristides Rodriguez
--- NOTE | 2018-06-08 20:28 | REP ---
PICC line insertion under ultrasound guidance. The procedure was performed under the direct supervision of Dr. Jaramillo. The risks and benefits of the procedure were explained to the patient and informed consent was obtained. The medial right brachial vein was localized using ultrasound guidance. The skin was prepped and draped in the sterile fashion. 3 ml 1% lidocaine was used as a local anesthetic. Using ultrasound guidance the medial right brachial vein was cannulated and a 0.018 guidewire was inserted and advanced to the SVC using fluoroscopic guidance. The needle was removed and a 5.5 Micronesian dilator and peel-away sheath was inserted over the guidewire. A 5.5 Micronesian double lumen catheter was cut to the length of 31 cm. The dilator was removed and the catheter was inserted over the guide wire with the tip ending in the SVC. The peel-away sheath was removed and the catheter was flushed with heparinized saline as per hospital protocol. The catheter was affixed to the skin and a sterile dressing was applied. The patient tolerated the procedure well and there were no immediate complications. 0.2 minutes of fluoroscopy time was utilized for this procedure. Reviewed by ARETHA Aquino 06/08/2018 02:43 P Electronically Signed by Steve Jaramillo MD 06/08/2018 08:19 P
[2018-06-09] VITALS (21 sets, daily range): BP systolic 90–108; BP diastolic 55–67; O2SAT 97–100
[2018-06-09] MEDS: D5W/0.9% SODIUM CHLORIDE 1,000 ML IV SCH (00:30)
[2018-06-09] MEDS: IPRATROPIUM 0.5MG/ALBUTEROL 2.5MG INH SOL UD 3ML (DUONEB)(J7620) NEB SCH ×4 (01:53→19:43)
[2018-06-09] MEDS: SODIUM CHLORIDE 0.9% INJ 10 ML SYR IV SCH ×2 (04:46→17:59)
[2018-06-09 05:24] LABS: HEMATOCRIT 26.5 % (36.0-47.0); HEMOGLOBIN 8.7 g/dl (12.0-15.5); MEAN CORPUSCULAR HEMOGLOBIN 39.7 pg (27.0-33.0); MEAN CORPUSCULAR HGB CONC 32.8 g/dl (32.0-36.5); PLATELET COUNT, AUTOMATED 282 10^3/uL (150-450); RED BLOOD COUNT 2.19 10^6/uL (4.00-5.40); WHITE BLOOD COUNT 9.1 10^3/uL (4.0-10.0)
[2018-06-09 05:51] LABS: ALBUMIN 1.8 GM/DL (3.2-5.2); ALT/SGPT 19 U/L (12-78); BILIRUBIN,TOTAL 0.4 MG/DL (0.2-1.0); BLOOD UREA NITROGEN 3 MG/DL (7-18); CALCIUM LEVEL 6.7 MG/DL (8.5-10.1); CARBON DIOXIDE LEVEL 21 MEQ/L (21-32); CHLORIDE LEVEL 115 MEQ/L (98-107); CREATININE FOR GFR 0.34 MG/DL (0.55-1.30); GLOMERULAR FILTRATION RATE > 60.0 (>58); GLUCOSE, FASTING 377 MG/DL (70-100); POTASSIUM SERUM 3.7 MEQ/L (3.5-5.1); SODIUM LEVEL 145 MEQ/L (136-145); TOTAL PROTEIN 3.7 GM/DL (6.4-8.2)
[2018-06-09] MEDS: MORPHINE 4 MG/ML 1ML VIAL/SYRINGE (J2270) IV PRN (06:54)
[2018-06-09] MEDS: PANTOPRAZOLE 40MG INJ (PROTONIX) (C9113) IV SCH ×2 (09:32→21:27)
[2018-06-09] MEDS: OCTREOTIDE ACETATE 100 MCG/ML VIAL (J2354) IV SCH ×2 (09:32→16:13)
[2018-06-09] MEDS: SUCRALFATE SUSP 1GM/10ML UD NG SCH ×3 (12:00→23:40)
--- NOTE | 2018-06-09 14:00 | IPNPDOC ---
Subjective Date Seen The patient was seen on 06/09/18. Subjective Chief Complaint/HPI Patient is comfortable and offers no new complaints in normal sinus rhythm at the present time General: Reports: Normal Appetite; Denies: Chills, Night Sweats, Fatigue, Malaise Constitutional: Denies: Chills, Fever, Night Sweats Eyes: Denies: Pain, Vision change ENT: Denies: Head Aches, Ear Pain, Dysphagia Skin: Denies: Rash, Lesions, Breakdown Pulmonary: Denies: Dyspnea, Cough Cardiovascular: Denies: Chest Pain, Palpitations, Orthopnea, Paroxysmal Noc. Dyspnea, Lt Headedness Gastrointestinal: Denies: Nausea, Vomiting, Abdominal Pain, Diarrhea, Constipation Genitourinary: Denies: Dysuria, Frequency, Incontinence, Retention Hematologic: Denies: Bruising, Bleeding Excessively Musculoskeletal: Denies: Neck Pain, Back Pain, Joint Pain, Muscle Pain, Spasms Neurological: Denies: Weakness, Numbness, Change in speech, Confusion Psych: Reports: Mood Normal; Denies: Depression, Memory Issues Objective Physical Examination General Exam: Positive: Alert, No Acute Distress Eye Exam: Positive: PERRLA, Conjunctiva & lids normal, EOMI; Negative: Sclera icteric ENT Exam: Positive: Atraumatic, Mucous membr. moist/pink, Pharynx Normal Neck Exam: Positive: Supple; Negative: JVD, thyromegaly Chest Exam: Positive: Clear to auscultation, Normal air movement Heart Exam: Positive: Rate Normal, Regular Rhythm, Normal S1, Normal S2; Negative: Murmurs, Rubs Telemetry: Positive: No significant arrhythmia Abdomen Exam: Positive: Normal bowel sounds, Soft; Negative: Tenderness, Hepatospenomegaly Female Exam: Positive: Nl Ext Genitalia; Negative: Lesions, Discharge, Odor, Tenderness Extremity Exam: Positive: Normal pulses; Negative: Clubbing, Cyanosis, Edema Skin Exam: Positive: Nl turgor and temperature; Negative: Rash, Breakdown Neuro Exam: Positive: Normal Gait, Normal Speech, Cranial Nerves 3-12 NL, Reflexes 2+ Psych Exam: Positive: Mental status NL, Mood NL, Oriented x 3 Assessment /Plan Problems (1) Perforated viscus Status: Acute Problem Text: The patient has the NG tube and with the wall suction Lots of green brownish green secretion noted Further, as per surgical instrument repair specialist Continue present care and medications (2) Hypernatremia Status: Resolved Problem Text: Sodium is 145 today Resolved (3) SVT (supraventricular tachycardia) Status: Resolved Problem Text: SVT has resolved with Adenocard Patient is in normal sinus rhythm at 70-80/m Clinically stable and was cleared from surgery can be discharged home Plan/VTE VTE Prophylaxis Ordered?: Yes VS, I&O, 24H, Fishbone Vital Signs/I&O Vital Signs Date Time Temp Pulse Resp B/P (MAP) Pulse Ox O2 Delivery O2 Flow Rate FiO2 06/09/18 12:00 99.4 82 18 90/58 (69) 98 1.0 06/09/18 02:00 Room Air I&O- Last 24 Hours up to 6 AM 06/09/18 06:00 Intake Total 625 ml Output Total 455 ml Balance 170 ml Laboratory Data 24H LABS Laboratory Tests 2 06/08/18 15:33: Magnesium Level 1.7L 06/08/18 17:50: Bedside Glucose (Misc Panel) 77 06/09/18 00:30: Bedside Glucose (Misc Panel) 83 06/09/18 04:45: Nucleated Red Blood Cells % (auto) 0.0, Anion Gap 9, Glomerular Filtration Rate > 60.0, Blood Urea Nitrogen 3L, Creatinine 0.34L, Sodium Level 145#, Potassium Level 3.7, Chloride Level 115H, Carbon Dioxide Level 21, Calcium Level 6.7L, Aspartate Amino Transf (AST/SGOT) 21, Alanine Aminotransferase (ALT/SGPT) 19, Alkaline Phosphatase 59, Total Bilirubin 0.4, Total Protein 3.7L, Albumin 1.8#L, Albumin/Globulin Ratio 0.95L 06/09/18 06:10: Bedside Glucose (Misc Panel) 87 06/09/18 11:30: Bedside Glucose (Misc Panel) 103 CBC/BMP Laboratory Tests 06/08/18 15:33 06/09/18 04:45 Red Blood Count 2.19 L, Mean Corpuscular Volume 121.0 H, Mean Corpuscular Hemoglobin 39.7 H, Mean Corpuscular Hemoglobin Concent 32.8, Red Cell Distribution Width 15.4 H, Calcium Level 6.7 L, Aspartate Amino Transf (AST/SGOT) 21, Alanine Aminotransferase (ALT/SGPT) 19, Alkaline Phosphatase 59, Total Bilirubin 0.4, Total Protein 3.7 L, Albumin 1.8 #L CAMILA ELLER MD Jun 09, 2018 14:00
--- NOTE | 2018-06-09 15:12 | HPE ---
DATE OF ADMISSION: 06/07/2018 CHIEF COMPLAINT: Abdominal pain with free air/bowel perforation. BRIEF HISTORY OF PRESENT ILLNESS: The patient is a 43-year-old female, who states that she has had some significant problems with stomach pains, discomfort for several weeks now and she states that might even be going on for longer than this, but states over the last 6-8 hours prior to admission her abdominal pain got quite severe and persistent and since that time she has had some nausea without vomiting. She has not had a history of diverticulitis in the past. Past medical history is significant for history of hypertension, asthma, neurogenic bladder with ureterostomy placement, history of urinary tract infections, history of a stroke in the past, history of cholecystectomy, hysterectomy ileoconduit. Physical exam reveals a 43-year-old who is a frail appearing individual, very cachectic appearing, chronically malnourished individual with chronic anorexia it appears. In any case, her abdomen is tense with guarding, with rebound, with peritoneal signs. Her lungs are clear to auscultation. Heart is regular. Extremities are cold, but adequately perfused and with good pulses. IMPRESSION/PLAN: 1. Patient has evidence of free air on her CAT scan. Although, I am almost seeing evidence of a possible ulcer in her stomach and this is hard to determine whether this is gastric or colonic, but I do not see any evidence of diverticulitis. I do not see any evidence of inflamed colon and thus, most likely etiology is stomach. She does have baseline anemia and given this in addition to her possible perforation it sounds as though peptic ulcer disease is causing an ulceration with perforation. Thus, plan is for exploratory laparotomy with possible repair of ulcer, Anthony patch, etc. She also understands that if this is a colonic in etiology she may end up with a colostomy. 2. History of hypertension, asthma and other migraines. At this point, we will have medicine see her and make appropriate recommendations as necessary. JOSSELYN
--- NOTE | 2018-06-09 15:19 | RO ---
DATE OF PROCEDURE: 06/07/2018 PREOPERATIVE DIAGNOSIS: Perforated possible gastric ulcer. POSTOPERATIVE DIAGNOSIS: Perforated gastric ulcer/pyloric channel. SURGEON: Jose Alberto Mojica MD [employer]: PROCEDURE: Oversewing of gastric ulcer. ANESTHESIA: General endotracheal anesthesia. ESTIMATED BLOOD LOSS: Minimal. FLUIDS: Crystalloid. BRIEF PROCEDURE SUMMARY: The patient was brought to the operating room and was given general anesthesia. After adequate anesthesia and preoperative antibiotics were given, the patient was prepped and draped in the usual sterile fashion. Next, a lower midline incision was made with skin knife. Electrocautery was used cut through dermis, underlying subcutaneous tissue down through the fascia where the stomach was evaluated and indeed saw an ulcer present. There is gastric juices/bilious juices coming from this, and after making sure the nasogastric (NG) tube was in place, the area was suctioned and there was some oozing from the edges of the ulcer itself. This was well controlled with some interrupted #3-0 silk sutures. Once good hemostasis was achieved and once the site was close nicely in a longitudinal manner, the patient had no true omentum given her cachectic appearance, and since I did not find any good omentum to put up in this area, I did place some Tisseel over the area and covered this up nicely. I left a 19 Alcides-Lord drain in the bed of the dissection and brought it out through a left lateral stab incision. The patient does have a gallbladder, and although preoperative diagnosis was a history of cholecystectomy, we can see her gallbladder on her CAT scan as well as intra-abdominally. In any case, the abdomen was copiously irrigated until clear. The midline was closed with #1 Vicryl in a running manner. Cherry were used to approximate the skin. Dry sterile dressing was applied. The patient was awakened, extubated and brought to recovery room awake, alert and hemodynamically stable. Sponge and needle counts correct times two.
--- NOTE | 2018-06-09 15:23 | IPN ---
DATE: 06/09/2018 The patient overall has been doing relatively well overnight. She has been on the low side for blood pressure and still continues low. She is really not complaining of any significant shortness of breath but has had hematocrit drop overnight, and I anticipate this is from some oozing from her gastric ulcer. Her nasogastric (NG) tube is a little bit more bloody than it was previously and thus, I would like to start her on some octreotide, which I had talked over with her and will start her on some Carafate as well. I anticipate that should help given her overall cachectic appearance. I do feel that she needs some blood for this as well. Otherwise, on her physical exam her abdomen is soft, nontender, nondistended. Alcides-Lord (J-P) drainage is nice, clear and without any evidence of bilious drainage. IMPRESSION/PLAN: The patient has evidence of malnutrition. We will start total parenteral nutrition (TPN), will give her some blood for a transfusion. In addition, I will start some medications to avoid any specific bleeding. She does get some minimal heparin through the peripherally inserted central catheter (PICC) line, but otherwise does not appear to have any specific anticoagulation ordered and I anticipate this should all start to resolve/improve over the day. If she has ongoing bleeding, the next step may be intervention with endoscopy, possible angiography, but I am not seeing any evidence of brisk or ongoing severe bleeding at this time.
--- NOTE | 2018-06-09 15:24 | IPN ---
DATE: 06/08/2018 The patient overall has done quite well over the night and she has had some pain but it has not been severe. She has had good urine output overnight and her gastric drainage is mostly bilious drainage. Alcides-Lord drain is serosanguineous. No significant bloody drain is appreciated. Her labs show her hematocrit has dropped a little bit which I expected with hydration. Her chemistries are revealed no significant dehydration at this time. Her albumin is low as I expected and otherwise she seems to be a doing quite well. On her physical exam, lungs are clear anteriorly. Heart is regular. Abdomen: Soft, nondistended, minimally tender at the incision but otherwise doing quite well. IMPRESSION AND PLAN: The patient seems to be doing well from a GI standpoint. She will have a gastric ileus for several days associated with this gastric perforation and will need to keep her nothing by mouth with nasogastric tube (NG) tube in place and keep with hydration at this time. I do feel that dropping her IV rate down is reasonable. Planning on placing a peripherally inserted central catheter (PICC) line is reasonable as well and otherwise, continue with supportive care. Will keep her nothing by mouth, otherwise and will see how she does and continue with medicine recommendations as necessary.
[2018-06-09] MEDS: LevoFLOXacin IV 500 MG in APPROPRIATE DILUENT 1 EA IV SCH (16:14)
[2018-06-09] MEDS: HumaLOG INSULIN (NovoLOG) PER UNIT SC SCH ×2 (17:52→23:41)
[2018-06-09] MEDS ORDERED: MULTIVITAMIN -ADULT INJECTION 10 ML, CR/CU/SE/MN/ZN INJ 1 ML in AMINO AC/ELECTROLYTE/DE... IV SCH (18:00)
[2018-06-09] MEDS ORDERED: FAT EMULSION IV 20% 500 ML IV SCH (18:00)
[2018-06-10] VITALS (8 sets, daily range): BP systolic 102–108; BP diastolic 62–74; O2SAT 97–100
[2018-06-10] MEDS: OCTREOTIDE ACETATE 100 MCG/ML VIAL (J2354) IV SCH ×3 (00:34→17:24)
[2018-06-10] MEDS: IPRATROPIUM 0.5MG/ALBUTEROL 2.5MG INH SOL UD 3ML (DUONEB)(J7620) NEB SCH ×4 (01:20→19:48)
[2018-06-10] MEDS: SUCRALFATE SUSP 1GM/10ML UD NG SCH ×3 (06:19→17:24)
[2018-06-10] MEDS: SODIUM CHLORIDE 0.9% INJ 10 ML SYR IV SCH ×2 (06:20→17:24)
[2018-06-10] MEDS: HumaLOG INSULIN (NovoLOG) PER UNIT SC SCH ×2 (06:44→11:26)
[2018-06-10 06:57] LABS: HEMATOCRIT 31.5 % (36.0-47.0); HEMOGLOBIN 10.5 g/dl (12.0-15.5); MEAN CORPUSCULAR HEMOGLOBIN 36.8 pg (27.0-33.0); MEAN CORPUSCULAR HGB CONC 33.3 g/dl (32.0-36.5); MEAN CORPUSCULAR VOLUME 110.5 fl (80.0-96.0); PLATELET COUNT, AUTOMATED 220 10^3/uL (150-450); RED BLOOD COUNT 2.85 10^6/uL (4.00-5.40); WHITE BLOOD COUNT 7.1 10^3/uL (4.0-10.0)
[2018-06-10] MEDS: MORPHINE 4 MG/ML 1ML VIAL/SYRINGE (J2270) IV PRN ×2 (07:02→17:07)
[2018-06-10 07:25] LABS: ALBUMIN 1.9 GM/DL (3.2-5.2); ALT/SGPT 18 U/L (12-78); BILIRUBIN,TOTAL 0.4 MG/DL (0.2-1.0); BLOOD UREA NITROGEN 9 MG/DL (7-18); CALCIUM LEVEL 7.7 MG/DL (8.5-10.1); CARBON DIOXIDE LEVEL 24 MEQ/L (21-32); CHLORIDE LEVEL 111 MEQ/L (98-107); CREATININE FOR GFR 0.31 MG/DL (0.55-1.30); GLOMERULAR FILTRATION RATE > 60.0 (>58); GLUCOSE, FASTING 149 MG/DL (70-100); POTASSIUM SERUM 4.2 MEQ/L (3.5-5.1); SODIUM LEVEL 143 MEQ/L (136-145); TOTAL PROTEIN 4.2 GM/DL (6.4-8.2)
[2018-06-10] MEDS: PANTOPRAZOLE 40MG INJ (PROTONIX) (C9113) IV SCH ×2 (08:34→20:03)
--- NOTE | 2018-06-10 12:00 | IPNPDOC ---
Subjective Date Seen The patient was seen on 06/10/18. Subjective Chief Complaint/HPI Patient offers no new complaints. The present time she is to have an ngt in place General: Reports: Normal Appetite; Denies: Chills, Night Sweats, Fatigue, Malaise Constitutional: Denies: Chills, Fever, Night Sweats Eyes: Denies: Pain, Vision change ENT: Denies: Head Aches, Ear Pain, Dysphagia Skin: Denies: Rash, Lesions, Breakdown Pulmonary: Denies: Dyspnea, Cough Cardiovascular: Denies: Chest Pain, Palpitations, Orthopnea, Paroxysmal Noc. Dyspnea, Lt Headedness Gastrointestinal: Denies: Nausea, Vomiting, Abdominal Pain, Diarrhea, Constipation Genitourinary: Denies: Dysuria, Frequency, Incontinence, Retention Hematologic: Denies: Bruising, Bleeding Excessively Musculoskeletal: Denies: Neck Pain, Back Pain, Joint Pain, Muscle Pain, Spasms Neurological: Denies: Weakness, Numbness, Change in speech, Confusion Psych: Reports: Mood Normal; Denies: Depression, Memory Issues Objective Physical Examination General Exam: Positive: Alert, No Acute Distress Eye Exam: Positive: PERRLA, Conjunctiva & lids normal, EOMI; Negative: Sclera icteric ENT Exam: Positive: Atraumatic, Mucous membr. moist/pink, Pharynx Normal Neck Exam: Positive: Supple; Negative: JVD, thyromegaly Chest Exam: Positive: Clear to auscultation, Normal air movement Heart Exam: Positive: Rate Normal, Regular Rhythm, Normal S1, Normal S2; Negative: Murmurs, Rubs Telemetry: Positive: No significant arrhythmia Abdomen Exam: Positive: Normal bowel sounds, Soft; Negative: Tenderness, Hepatospenomegaly Female Exam: Positive: Nl Ext Genitalia; Negative: Lesions, Discharge, Odor, Tenderness Extremity Exam: Positive: Normal pulses; Negative: Clubbing, Cyanosis, Edema Skin Exam: Positive: Nl turgor and temperature; Negative: Rash, Breakdown Neuro Exam: Positive: Normal Gait, Normal Speech, Cranial Nerves 3-12 NL, Reflexes 2+ Psych Exam: Positive: Mental status NL, Mood NL, Oriented x 3 Assessment /Plan Problems (1) Perforated viscus Status: Acute Problem Text: NG tube is still in place Further, as per surgical services manager Continue present care and medications Receive 2 units of PRBC transfusion yesterday with hemoglobin of more than 10 today Monitor H&H (2) Hypernatremia Status: Resolved Problem Text: Resolved Monitor electrolytes (3) SVT (supraventricular tachycardia) Status: Resolved Problem Text: Resolved Plan/VTE VTE Prophylaxis Ordered?: Yes VS, I&O, 24H, Fishbone Vital Signs/I&O Vital Signs Date Time Temp Pulse Resp B/P (MAP) Pulse Ox O2 Delivery O2 Flow Rate FiO2 06/10/18 08:00 100.1 92 18 102/70 (81) 97 06/10/18 04:00 Room Air 06/09/18 18:00 1.0 I&O- Last 24 Hours up to 6 AM 06/10/18 06:00 Intake Total 1884 ml Output Total 2510 ml Balance -626 ml Laboratory Data 24H LABS Laboratory Tests 2 06/09/18 17:48: Bedside Glucose (Misc Panel) 95 06/09/18 20:10: Bedside Glucose (Misc Panel) 151H 06/09/18 23:37: Bedside Glucose (Misc Panel) 165H 06/10/18 06:39: Bedside Glucose (Misc Panel) 98 06/10/18 06:43: Nucleated Red Blood Cells % (auto) 0.0, Anion Gap 8, Glomerular Filtration Rate > 60.0, Blood Urea Nitrogen 9#, Creatinine 0.31L, Sodium Level 143, Potassium Level 4.2, Chloride Level 111H, Carbon Dioxide Level 24, Calcium Level 7.7L, Aspartate Amino Transf (AST/SGOT) 19, Alanine Aminotransferase (ALT/SGPT) 18, Alkaline Phosphatase 60, Total Bilirubin 0.4, Total Protein 4.2L, Albumin 1.9L, Albumin/Globulin Ratio 0.83L CBC/BMP Laboratory Tests 06/10/18 06:43 Red Blood Count 2.85 L, Mean Corpuscular Volume 110.5 H, Mean Corpuscular Hemoglobin 36.8 H, Mean Corpuscular Hemoglobin Concent 33.3, Red Cell Distribution Width 23.7 H, Calcium Level 7.7 L, Aspartate Amino Transf (AST/SGOT) 19, Alanine Aminotransferase (ALT/SGPT) 18, Alkaline Phosphatase 60, Total Bilirubin 0.4, Total Protein 4.2 L, Albumin 1.9 L CAMILA ELLER MD Jun 10, 2018 12:00
[2018-06-10] MEDS: LevoFLOXacin IV 500 MG in APPROPRIATE DILUENT 1 EA IV SCH (17:24)
[2018-06-10] MEDS ORDERED: FAT EMULSION IV 20% 500 ML IV SCH (18:00)
[2018-06-10] MEDS ORDERED: AMINO AC/ELECTROLYTE/DEX/CALC 2,000 ML IV SCH (18:00)
[2018-06-11] VITALS (20 sets, daily range): BP systolic 98–110; BP diastolic 52–80; O2SAT 96–99
[2018-06-11] MEDS: IPRATROPIUM 0.5MG/ALBUTEROL 2.5MG INH SOL UD 3ML (DUONEB)(J7620) NEB SCH ×4 (00:12→20:34)
[2018-06-11] MEDS: OCTREOTIDE ACETATE 100 MCG/ML VIAL (J2354) IV SCH ×3 (00:49→17:54)
[2018-06-11] MEDS: SUCRALFATE SUSP 1GM/10ML UD NG SCH ×4 (00:49→17:54)
[2018-06-11 05:25] LABS: HEMATOCRIT 31.3 % (36.0-47.0); HEMOGLOBIN 10.3 g/dl (12.0-15.5); MEAN CORPUSCULAR HEMOGLOBIN 36.4 pg (27.0-33.0); MEAN CORPUSCULAR HGB CONC 32.9 g/dl (32.0-36.5); MEAN CORPUSCULAR VOLUME 110.6 fl (80.0-96.0); PLATELET COUNT, AUTOMATED 186 10^3/uL (150-450); RED BLOOD COUNT 2.83 10^6/uL (4.00-5.40); WHITE BLOOD COUNT 6.9 10^3/uL (4.0-10.0)
[2018-06-11] MEDS: SODIUM CHLORIDE 0.9% INJ 10 ML SYR IV SCH ×2 (05:40→18:00)
[2018-06-11 05:56] LABS: ALBUMIN 1.9 GM/DL (3.2-5.2); ALT/SGPT 17 U/L (12-78); BILIRUBIN,TOTAL 0.3 MG/DL (0.2-1.0); BLOOD UREA NITROGEN 13 MG/DL (7-18); CALCIUM LEVEL 7.6 MG/DL (8.5-10.1); CARBON DIOXIDE LEVEL 26 MEQ/L (21-32); CHLORIDE LEVEL 108 MEQ/L (98-107); CREATININE FOR GFR 0.25 MG/DL (0.55-1.30); GLOMERULAR FILTRATION RATE > 60.0 (>58); GLUCOSE, FASTING 144 MG/DL (70-100); POTASSIUM SERUM 3.4 MEQ/L (3.5-5.1); SODIUM LEVEL 142 MEQ/L (136-145); TOTAL PROTEIN 4.7 GM/DL (6.4-8.2)
[2018-06-11] MEDS ORDERED: KCL 20MEQ IN 100ML SWI (KRUN) 20 MEQ in APPROPRIATE DILUENT 1 EA IV ONE ×2 (08:00)
[2018-06-11] MEDS: PANTOPRAZOLE 40MG INJ (PROTONIX) (C9113) IV SCH ×2 (09:33→20:21)
[2018-06-11] MEDS: SODIUM CHLORIDE 0.9% INJ 10 ML SYR IV PRN ×4 (09:34→20:23)
[2018-06-11] MEDS: KCL 10MEQ/100ML SWI (KRUN) 100 ML IV SCH ×2 (10:53→12:16)
--- NOTE | 2018-06-11 12:37 | IPN ---
DATE: 06/10/2018 The patient is status post perforated gastric ulcer, had some bleeding issues from the gastric ulcer but seems to have stabilized off. We gave her some blood yesterday and she has made some nice progress. She feels better and feels much more alert and less fatigued than she was previously. From my standpoint and from a gastrointestinal (GI) standpoint her nasogastric (NG) tube is now a turned bilious. She has been afebrile. She continues with NG tube drainage. However, it is a fair amount of bilious drainage at this time. She did have one bowel movement. There her Alcides-Lord (JASMIN) drain is serosanguineous. On her physical exam, abdomen is soft, nontender, nondistended. No guarding no rebound or peritoneal signs are appreciated. IMPRESSION AND PLAN: This patient seems to be making some good progress from a GI standpoint. Will keep her nothing by mouth for right now. Keep her NG tube in place and if she continues with bowel movements or has decreasing NG tube output, we may clamp it and check residuals and then hopefully, see how she does with this but otherwise supportive care is reasonable at this time. Will continue with total parenteral nutrition (TPN) given her cachectic appearance.
--- NOTE | 2018-06-11 12:43 | IPN ---
DATE: 06/11/2018 The patient has continued to have some bowel movements overnight and is not sick to her stomach. Nasogastric (NG) tube output has increased, but there has been some bilious, but it seems to be mostly watery almost saliva mixed. Less bilious than yesterday. Her abdomen is soft, nontender, nondistended and her ureterostomy seems to be working. Her Alcides-Lord (J-P) is serous in nature. IMPRESSION/PLAN: The patient seems to be making slow but progressive improvements. We will clamp her NG tube, check residuals every 4 hours, and at this time, we will continue with octreotide, Carafate, proton pump inhibitors. However, if she does well overnight will progress her to a clear liquid diet, discontinue her NG tube tomorrow and increase her activity. We will also plan on the discontinuing her Stone catheter today and see if we can get her moving around a little bit quicker.
--- NOTE | 2018-06-11 13:33 | IPNPDOC ---
Subjective Date Seen The patient was seen on 06/11/18. Subjective Chief Complaint/HPI Patient had a BM this morning. Still has NG tube in place, no more arrhythmias noted on apartment locator General: Reports: Normal Appetite; Denies: Chills, Night Sweats, Fatigue, Malaise Constitutional: Denies: Chills, Fever, Night Sweats Eyes: Denies: Pain, Vision change ENT: Denies: Head Aches, Ear Pain, Dysphagia Skin: Denies: Rash, Lesions, Breakdown Pulmonary: Denies: Dyspnea, Cough Cardiovascular: Denies: Chest Pain, Palpitations, Orthopnea, Paroxysmal Noc. Dyspnea, Lt Headedness Gastrointestinal: Denies: Nausea, Vomiting, Abdominal Pain, Diarrhea, Const ipation Genitourinary: Denies: Dysuria, Frequency, Incontinence, Retention Hematologic: Denies: Bruising, Bleeding Excessively Musculoskeletal: Denies: Neck Pain, Back Pain, Joint Pain, Muscle Pain, Spasms Neurological: Denies: Weakness, Numbness, Change in speech, Confusion Psych: Reports: Mood Normal; Denies: Depression, Memory Issues Objective Physical Examination General Exam: Positive: Alert, No Acute Distress Eye Exam: Positive: PERRLA, Conjunctiva & lids normal, EOMI; Negative: Sclera icteric ENT Exam: Positive: Atraumatic, Mucous membr. moist/pink, Pharynx Normal Neck Exam: Positive: Supple; Negative: JVD, thyromegaly Chest Exam: Positive: Clear to auscultation, Normal air movement Heart Exam: Positive: Rate Normal, Regular Rhythm, Normal S1, Normal S2; Negative: Murmurs, Rubs Telemetry: Positive: No significant arrhythmia Abdomen Exam: Positive: Normal bowel sounds, Soft; Negative: Tenderness, Hepatospenomegaly Female Exam: Positive: Nl Ext Genitalia; Negative: Lesions, Discharge, Odor, Tenderness Extremity Exam: Positive: Normal pulses; Negative: Clubbing, Cyanosis, Edema Skin Exam: Positive: Nl turgor and temperature; Negative: Rash, Breakdown Neuro Exam: Positive: Normal Gait, Normal Speech, Cranial Nerves 3-12 NL, Reflexes 2+ Psych Exam: Positive: Mental status NL, Mood NL, Oriented x 3 Assessment /Plan Problems (1) Perforated viscus Status: Acute Problem Text: NG tube is still in place Patient had a BM this morning, possible removal of NG tube, but as per surgery H&H stable Further plans as per surgical team (2) Hypernatremia Status: Resolved Problem Text: Resolved Monitor electrolytes (3) SVT (supraventricular tachycardia) Status: Resolved Problem Text: Resolved Plan/VTE VTE Prophylaxis Ordered?: Yes VS, I&O, 24H, Fishbone Vital Signs/I&O Vital Signs Date Time Temp Pulse Resp B/P (MAP) Pulse Ox O2 Delivery O2 Flow Rate FiO2 06/11/18 12:00 98.5 68 18 110/64 (79) 99 06/11/18 11:00 Room Air 06/09/18 18:00 1.0 I&O- Last 24 Hours up to 6 AM 06/11/18 05:59 Intake Total 570 ml Output Total 1785 ml Balance -1215 ml Laboratory Data 24H LABS Laboratory Tests 2 06/10/18 22:07: Bedside Glucose (Misc Panel) 125H 06/10/18 23:37: Bedside Glucose (Misc Panel) 129H 06/11/18 04:32: Nucleated Red Blood Cells % (auto) 0.0, Anion Gap 8, Glomerular Filtration Rate > 60.0, Blood Urea Nitrogen 13, Creatinine 0.25L, Sodium Level 142, Potassium Level 3.4L, Chloride Level 108H, Carbon Dioxide Level 26, Calcium Level 7.6L, Aspartate Amino Transf (AST/SGOT) 19, Alanine Aminotransferase (ALT/SGPT) 17, Alkaline Phosphatase 62, Total Bilirubin 0.3, Total Protein 4.7L, Albumin 1.9L, Albumin/Globulin Ratio 0.68L CBC/BMP Laboratory Tests 06/11/18 04:32 Red Blood Count 2.83 L, Mean Corpuscular Volume 110.6 H, Mean Corpuscular Hemoglobin 36.4 H, Mean Corpuscular Hemoglobin Concent 32.9, Red Cell Distribution Width 21.8 H, Calcium Level 7.6 L, Aspartate Amino Transf (AST/SGOT) 19, Alanine Aminotransferase (ALT/SGPT) 17, Alkaline Phosphatase 62, Total Bilirubin 0.3, Total Protein 4.7 L, Albumin 1.9 L CAMILA ELLER MD Jun 11, 2018 13:33
[2018-06-11] MEDS: MORPHINE 4 MG/ML 1ML VIAL/SYRINGE (J2270) IV PRN ×2 (14:31→20:23)
[2018-06-11] MEDS: LevoFLOXacin IV 500 MG in APPROPRIATE DILUENT 1 EA IV SCH (16:43)
[2018-06-11] MEDS ORDERED: FAT EMULSION IV 20% 500 ML IV SCH (18:00)
[2018-06-11] MEDS ORDERED: MULTIVITAMIN -ADULT INJECTION 10 ML, CR/CU/SE/MN/ZN INJ 1 ML in AMINO AC/ELECTROLYTE/DE... IV SCH (18:00)
[2018-06-12] VITALS (14 sets, daily range): BP systolic 100–122; BP diastolic 60–82; O2SAT 96–100
[2018-06-12] MEDS: OCTREOTIDE ACETATE 100 MCG/ML VIAL (J2354) IV SCH ×4 (00:36→23:45)
[2018-06-12] MEDS: SUCRALFATE SUSP 1GM/10ML UD NG SCH ×5 (00:36→23:44)
[2018-06-12] MEDS: IPRATROPIUM 0.5MG/ALBUTEROL 2.5MG INH SOL UD 3ML (DUONEB)(J7620) NEB SCH ×4 (02:00→20:37)
[2018-06-12 05:52] LABS: BASO % 0.3 % (0.0-1.0); EOS # 0.2 10^3/uL (0.0-0.50); HEMOGLOBIN 10.1 g/dl (12.0-15.5); LYMPH % 12.5 % (24.0-44.0); MEAN CORPUSCULAR HEMOGLOBIN 36.2 pg (27.0-33.0); MEAN CORPUSCULAR HGB CONC 33.7 g/dl (32.0-36.5); MEAN CORPUSCULAR VOLUME 107.5 fl (80.0-96.0); MONO # 0.4 10^3/uL (0.0-0.8); NEUTROPHILS # 6.2 10^3/uL (1.8-7.7); NEUTROPHILS % 79.4 % (36.0-66.0); PLATELET COUNT, AUTOMATED 175 10^3/uL (150-450); RED BLOOD COUNT 2.79 10^6/uL (4.00-5.40); WHITE BLOOD COUNT 7.9 10^3/uL (4.0-10.0)
[2018-06-12] MEDS: SODIUM CHLORIDE 0.9% INJ 10 ML SYR IV SCH ×2 (06:00→16:08)
[2018-06-12] MEDS: MORPHINE 4 MG/ML 1ML VIAL/SYRINGE (J2270) IV PRN ×6 (06:16→23:51)
[2018-06-12 06:20] LABS: ALBUMIN 1.9 GM/DL (3.2-5.2); ALT/SGPT 22 U/L (12-78); BILIRUBIN,TOTAL 0.3 MG/DL (0.2-1.0); BLOOD UREA NITROGEN 11 MG/DL (7-18); CALCIUM LEVEL 7.6 MG/DL (8.5-10.1); CARBON DIOXIDE LEVEL 27 MEQ/L (21-32); CHLORIDE LEVEL 105 MEQ/L (98-107); CREATININE FOR GFR 0.18 MG/DL (0.55-1.30); GLOMERULAR FILTRATION RATE > 60.0 (>58); GLUCOSE, FASTING 118 MG/DL (70-100); MAGNESIUM LEVEL 2.1 MG/DL (1.8-2.4); SODIUM LEVEL 139 MEQ/L (136-145); TOTAL PROTEIN 4.7 GM/DL (6.4-8.2)
[2018-06-12] MEDS ORDERED: GASTROGRAFIN SOLUTION 30ML (Q9963) As Ordered ONE (09:33)
[2018-06-12] MEDS: SODIUM CHLORIDE 0.9% INJ 10 ML SYR IV PRN (12:13)
[2018-06-12] MEDS: PANTOPRAZOLE 40MG INJ (PROTONIX) (C9113) IV SCH ×2 (12:23→20:55)
--- NOTE | 2018-06-12 12:35 | IPNPDOC ---
Subjective Date Seen The patient was seen on 06/12/18. Subjective Chief Complaint/HPI Patient still has NG tube in. Patient had a BM this morning General: Reports: Normal Appetite; Denies: Chills, Night Sweats, Fatigue, Malaise Constitutional: Denies: Chills, Fever, Night Sweats Eyes: Denies: Pain, Vision change ENT: Denies: Head Aches, Ear Pain, Dysphagia Skin: Denies: Rash, Lesions, Breakdown Pulmonary: Denies: Dyspnea, Cough Cardiovascular: Denies: Chest Pain, Palpitations, Orthopnea, Paroxysmal Noc. Dyspnea, Lt Headedness Gastrointestinal: Denies: Nausea, Vomiting, Abdominal Pain, Diarrhea, Constipation Genitourinary: Denies: Dysuria, Frequency, Incontinence, Retention Hematologic: Denies: Bruising, Bleeding Excessively Musculoskeletal: Denies: Neck Pain, Back Pain, Joint Pain, Muscle Pain, Spasms Neurological: Denies: Weakness, Numbness, Change in speech, Confusion Psych: Reports: Mood Normal; Denies: Depression, Memory Issues Objective Physical Examination General Exam: Positive: Alert, No Acute Distress Eye Exam: Positive: PERRLA, Conjunctiva & lids normal, EOMI; Negative: Sclera icteric ENT Exam: Positive: Atraumatic, Mucous membr. moist/pink, Pharynx Normal Neck Exam: Positive: Supple; Negative: JVD, thyromegaly Chest Exam: Positive: Clear to auscultation, Normal air movement Heart Exam: Positive: Rate Normal, Regular Rhythm, Normal S1, Normal S2; Negative: Murmurs, Rubs Telemetry: Positive: No significant arrhythmia Abdomen Exam: Positive: Normal bowel sounds, Soft; Negative: Tenderness, Hepatospenomegaly Female Exam: Positive: Nl Ext Genitalia; Negative: Lesions, Discharge, Odor, Tenderness Extremity Exam: Positive: Normal pulses; Negative: Clubbing, Cyanosis, Edema Skin Exam: Positive: Nl turgor and temperature; Negative: Rash, Breakdown Neuro Exam: Positive: Normal Gait, Normal Speech, Cranial Nerves 3-12 NL, Reflexes 2+ Psych Exam: Positive: Mental status NL, Mood NL, Oriented x 3 Assessment /Plan Problems (1) Perforated viscus Status: Acute Problem Text: Probably patient's NG tube will be removed today and is started on clear liquid diet A bed as tolerated to ambulate Continue Protonix, Carafate and OCTREOTIDE Further, as per surgical attending (2) Hypernatremia Status: Resolved Problem Text: Resolved Monitor electrolytes (3) SVT (supraventricular tachycardia) Status: Resolved Problem Text: Resolved Plan/VTE VTE Prophylaxis Ordered?: Yes VS, I&O, 24H, Fishbone Vital Signs/I&O Vital Signs Date Time Temp Pulse Resp B/P (MAP) Pulse Ox O2 Delivery O2 Flow Rate FiO2 06/12/18 12:13 18 06/12/18 08:00 99.3 85 116/70 (85) 95 06/12/18 06:00 Room Air 06/09/18 18:00 1.0 I&O- Last 24 Hours up to 6 AM 06/12/18 06:00 Intake Total 1340 ml Output Total 2075 ml Balance -735 ml Laboratory Data 24H LABS Laboratory Tests 2 06/12/18 01:06: Bedside Glucose (Misc Panel) 117H 06/12/18 05:25: Immature Granulocyte % (Auto) 0.8, White Blood Count 7.9, Red Blood Count 2.79L, Hemoglobin 10.1L, Hematocrit 30.0L, Mean Corpuscular Volume 107.5H, Mean Corpuscular Hemoglobin 36.2H, Mean Corpuscular Hemoglobin Concent 33.7, Red Cell Distribution Width 19.8H, Platelet Count 175, Neutrophils (%) (Auto) 79.4H, Lymphocytes (%) (Auto) 12.5L, Monocytes (%) (Auto) 5.0, Eosinophils (%) (Auto) 2.0, Basophils (%) (Auto) 0.3, Neutrophils # (Auto) 6.2, Lymphocytes # (Auto) 1.0L, Monocytes # (Auto) 0.4, Eosinophils # (Auto) 0.2, Basophils # (Auto) 0.0, Nucleated Red Blood Cells % (auto) 0.0, Anion Gap 7L, Glomerular Filtration Rate > 60.0, Blood Urea Nitrogen 11, Creatinine 0.18L, Sodium Level 139, Potassium Level 4.0, Chloride Level 105, Carbon Dioxide Level 27, Calcium Level 7.6L, Aspartate Amino Transf (AST/SGOT) 34, Alanine Aminotransferase (ALT/SGPT) 22, Alkaline Phosphatase 80, Total Bilirubin 0.3, Total Protein 4.7L, Albumin 1.9L, Magnesium Level 2.1, Albumin/Globulin Ratio 0.68L 06/12/18 12:18: Bedside Glucose (Misc Panel) 81 CBC/BMP Laboratory Tests 06/12/18 05:25 Red Blood Count 2.79 L, Mean Corpuscular Volume 107.5 H, Mean Corpuscular Hemoglobin 36.2 H, Mean Corpuscular Hemoglobin Concent 33.7, Red Cell Distribution Width 19.8 H, Neutrophils (%) (Auto) 79.4 H, Lymphocytes (%) (Auto) 12.5 L, Monocytes (%) (Auto) 5.0, Eosinophils (%) (Auto) 2.0, Basophils (%) (Auto) 0.3, Neutrophils # (Auto) 6.2, Lymphocytes # (Auto) 1.0 L, Monocytes # (A uto) 0.4, Eosinophils # (Auto) 0.2, Basophils # (Auto) 0.0, Calcium Level 7.6 L, Aspartate Amino Transf (AST/SGOT) 34, Alanine Aminotransferase (ALT/SGPT) 22, Alkaline Phosphatase 80, Total Bilirubin 0.3, Total Protein 4.7 L, Albumin 1.9 L CAMILA ELLER MD Jun 12, 2018 12:35
[2018-06-12] MEDS: LevoFLOXacin IV 500 MG in APPROPRIATE DILUENT 1 EA IV SCH (16:07)
[2018-06-12] MEDS ORDERED: FAT EMULSION IV 20% 500 ML IV SCH (18:00)
[2018-06-12] MEDS ORDERED: AMINO AC/ELECTROLYTE/DEX/CALC 2,000 ML IV SCH (18:00)
[2018-06-13] MEDS: IPRATROPIUM 0.5MG/ALBUTEROL 2.5MG INH SOL UD 3ML (DUONEB)(J7620) NEB SCH ×4 (01:58→21:10)
[2018-06-13] MEDS: MORPHINE 4 MG/ML 1ML VIAL/SYRINGE (J2270) IV PRN ×5 (03:32→17:41)
[2018-06-13 04:00] VITALS: BP 103/71
[2018-06-13] MEDS: SODIUM CHLORIDE 0.9% INJ 10 ML SYR IV SCH ×2 (05:46→17:40)
[2018-06-13] MEDS: SUCRALFATE SUSP 1GM/10ML UD NG SCH ×3 (05:46→17:39)
[2018-06-13 05:48] LABS: HEMATOCRIT 31.3 % (36.0-47.0); HEMOGLOBIN 10.4 g/dl (12.0-15.5); MEAN CORPUSCULAR HEMOGLOBIN 36.1 pg (27.0-33.0); MEAN CORPUSCULAR HGB CONC 33.2 g/dl (32.0-36.5); MEAN CORPUSCULAR VOLUME 108.7 fl (80.0-96.0); PLATELET COUNT, AUTOMATED 204 10^3/uL (150-450); RED BLOOD COUNT 2.88 10^6/uL (4.00-5.40); WHITE BLOOD COUNT 8.7 10^3/uL (4.0-10.0)
[2018-06-13 06:03] LABS: ALBUMIN 1.9 GM/DL (3.2-5.2); ALT/SGPT 25 U/L (12-78); BILIRUBIN,TOTAL 0.3 MG/DL (0.2-1.0); BLOOD UREA NITROGEN 10 MG/DL (7-18); CALCIUM LEVEL 7.5 MG/DL (8.5-10.1); CARBON DIOXIDE LEVEL 30 MEQ/L (21-32); CHLORIDE LEVEL 106 MEQ/L (98-107); GLOMERULAR FILTRATION RATE > 60.0 (>58); GLUCOSE, FASTING 115 MG/DL (70-100); POTASSIUM SERUM 3.3 MEQ/L (3.5-5.1); SODIUM LEVEL 142 MEQ/L (136-145); TOTAL PROTEIN 4.7 GM/DL (6.4-8.2)
--- NOTE | 2018-06-13 07:38 | REP ---
Upper GI small bowel follow-through study: Gastrographin exam. History: Status post repair of a perforated ulcer. Findings: Orally administered Gastrographin demonstrates a normal esophagus. Stomach is well opacified. There is no evidence of extravasation. The duodenal bulb is fully distensible. Duodenal mucosal pattern is normal. No ulcer crater is visualized. The nasogastric tube is seen in the body of the stomach. C-loop is not widened. Sequential images after Gastrographin ingestion show progress through a normal appearing jejunal and ileal bowel loops. The right colon is opacified at 40 minutes. No evidence of obstruction. Impression: No evidence of ulcer, obstruction, or extravasation. Electronically Signed by Steve Jaramillo MD 06/12/2018 11:34 A
[2018-06-13 08:00] VITALS: BP 104/72
[2018-06-13] MEDS: SODIUM CHLORIDE 0.9% INJ 10 ML SYR IV PRN (09:28)
[2018-06-13] MEDS: PANTOPRAZOLE 40MG INJ (PROTONIX) (C9113) IV SCH ×2 (09:29→21:47)
[2018-06-13] MEDS: OCTREOTIDE ACETATE 100 MCG/ML VIAL (J2354) IV SCH ×2 (09:29→17:39)
[2018-06-13 10:00] VITALS: BP 95/58
--- NOTE | 2018-06-13 10:41 | IPNPDOC ---
Subjective Date Seen The patient was seen on 06/13/18. 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 Dyspnea, Lt Headedness Gastrointestinal: Denies: Nausea, Vomiting, Abdominal Pain, Diarrhea, Con stipation Genitourinary: Denies: Dysuria, Frequency, Incontinence, Retention Hematologic: Denies: Bruising, Bleeding Excessively Musculoskeletal: Denies: Neck Pain, Back Pain, Joint Pain, Muscle Pain, Spasms Neurological: Denies: Weakness, Numbness, Change in speech, Confusion Psych: Reports: Mood Normal; Denies: Depression, Memory Issues Objective Physical Examination General Exam: Positive: Alert, No Acute Distress Eye Exam: Positive: PERRLA, Conjunctiva & lids normal, EOMI; Negative: Sclera icteric ENT Exam: Positive: Atraumatic, Mucous membr. moist/pink, Pharynx Normal Neck Exam: Positive: Supple; Negative: JVD, thyromegaly Chest Exam: Positive: Clear to auscultation, Normal air movement Heart Exam: Positive: Rate Normal, Regular Rhythm, Normal S1, Normal S2; Negative: Murmurs, Rubs Telemetry: Positive: No significant arrhythmia Abdomen Exam: Positive: Normal bowel sounds, Soft; Negative: Tenderness, Hepatospenomegaly Female Exam: Positive: Nl Ext Genitalia; Negative: Lesions, Discharge, Odor, Tenderness Extremity Exam: Positive: Normal pulses; Negative: Clubbing, Cyanosis, Edema Skin Exam: Positive: Nl turgor and temperature; Negative: Rash, Breakdown Neuro Exam: Positive: Normal Gait, Normal Speech, Cranial Nerves 3-12 NL, Reflexes 2+ Psych Exam: Positive: Mental status NL, Mood NL, Oriented x 3 Assessment /Plan Problems (1) Perforated viscus Status: Acute Problem Text: Patient is still has NG tube in place, but is clamped Out of bed bed as tolerated to ambulate Continue Protonix, Carafate and OCTREOTIDE Further, as per surgical attending (2) Hypernatremia Status: Resolved Problem Text: Resolved Monitor electrolytes (3) SVT (supraventricular tachycardia) Status: Resolved 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, 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 Plan/VTE VTE Prophylaxis Ordered?: Yes VS, I&O, 24H, Fishbone Vital Signs/I&O Vital Signs Date Time Temp Pulse Resp B/P (MAP) Pulse Ox O2 Delivery O2 Flow Rate FiO2 06/13/18 10:21 16 06/13/18 08:00 98.3 99 104/72 (83) 96 06/12/18 20:00 Room Air 06/09/18 18:00 1.0 I&O- Last 24 Hours up to 6 AM 06/13/18 05:59 Intake Total 1360 ml Output Total 1595 ml Balance -235 ml Laboratory Data 24H LABS Laboratory Tests 2 06/12/18 12:18: Bedside Glucose (Misc Panel) 81 06/12/18 20:40: Bedside Glucose (Misc Panel) 119H 06/13/18 04:25: Bedside Glucose (Misc Panel) 115H 06/13/18 05:14: Nucleated Red Blood Cells % (auto) 0.0, Anion Gap 6L, Glomerular Filtration Rate > 60.0, Blood Urea Nitrogen 10, Creatinine 0.20L, Sodium Level 142, Potassium Level 3.3L, Chloride Level 106, Carbon Dioxide Level 30, Calcium Level 7.5L, Aspartate Amino Transf (AST/SGOT) 35, Alanine Aminotransferase (ALT/SGPT) 25, Alkaline Phosphatase 85, Total Bilirubin 0.3, Total Protein 4.7L, Albumin 1.9L, Albumin/Globulin Ratio 0.68L CBC/BMP Laboratory Tests 06/13/18 05:14 Red Blood Count 2.88 L, Mean Corpuscular Volume 108.7 H, Mean Corpuscular Hemoglobin 36.1 H, Mean Corpuscular Hemoglobin Concent 33.2, Red Cell Distribution Width 19.6 H, Calcium Level 7.5 L, Aspartate Amino Transf (AST/SGOT) 35, Alanine Aminotransferase (ALT/SGPT) 25, Alkaline Phosphatase 85, Total Bilirubin 0.3, Total Protein 4.7 L, Albumin 1.9 L CAMILA ELLER MD Jun 13, 2018 10:41
[2018-06-13] MEDS ORDERED: POTASSIUM CHLORIDE 10 MEQ SR TABLET PO ONE (11:00)
--- NOTE | 2018-06-13 11:15 | IPN ---
DATE OF SERVICE: 06/13/2018 The patient overall has been doing well, has been tolerating a full liquid diet this morning and has had no nausea or vomiting. No diarrhea. Overall, feels well. She continues to have her total parenteral nutrition (TPN) running at this time, but otherwise seems to be making some slow, but progressive improvement. On her physical exam, abdomen is soft, nontender, nondistended. She has her drain which is still draining some serous fluid, but otherwise she has no other significant incisional abnormalities. No evidence of erythema and no evidence of drainage on her physical exam. She has been afebrile. Vital signs have been stable. Her urine output has been good. She had three bowel movements yesterday. IMPRESSION AND PLAN: 1. GI: The patient has had some good progress from a GI standpoint and is making slow, but progressive improvement of overall GI status. From my standpoint, we can have her increase her diet. As she increases her diet, I anticipate her albumin should improve and drainage from her abdominal incision should improve. Overall cachectic appearance. Workup for her other issues need to be entertained and further workup from a GI standpoint with colonoscopy, etc. may be warranted in the future. I anticipate the ulcer has been a primary issue over the last several weeks, which has caused her to have significant decreased by mouth intake. In any case, at this point, will continue with current plans. She is still fluid up from the time of her operation, where she started at 51 kg and is still up [address] Cassidy will be covering me while I am out next week, but I anticipate that over the next 24-48 hours she will be able to progress her diet and then it will be a matter of tolerating an adequate diet before discharge.
[2018-06-13 14:00] VITALS: BP 105/70
[2018-06-13] MEDS: LevoFLOXacin IV 500 MG in APPROPRIATE DILUENT 1 EA IV SCH (16:42)
[2018-06-13 18:00] VITALS: BP 106/72
[2018-06-13 22:00] VITALS: BP 102/64
[2018-06-14] MEDS: MORPHINE 4 MG/ML 1ML VIAL/SYRINGE (J2270) IV PRN (00:07)
[2018-06-14] MEDS: IPRATROPIUM 0.5MG/ALBUTEROL 2.5MG INH SOL UD 3ML (DUONEB)(J7620) NEB SCH ×4 (01:16→19:09)
[2018-06-14] MEDS: OCTREOTIDE ACETATE 100 MCG/ML VIAL (J2354) IV SCH ×2 (01:46→08:21)
[2018-06-14] MEDS: SODIUM CHLORIDE 0.9% INJ 10 ML SYR IV PRN (01:46)
[2018-06-14] MEDS: SODIUM CHLORIDE 0.9% INJ 10 ML SYR IV SCH ×2 (05:18→17:47)
[2018-06-14 06:00] VITALS: BP 106/70
[2018-06-14 06:46] LABS: HEMATOCRIT 31.5 % (36.0-47.0); HEMOGLOBIN 10.5 g/dl (12.0-15.5); MEAN CORPUSCULAR HEMOGLOBIN 36.8 pg (27.0-33.0); MEAN CORPUSCULAR HGB CONC 33.3 g/dl (32.0-36.5); MEAN CORPUSCULAR VOLUME 110.5 fl (80.0-96.0); PLATELET COUNT, AUTOMATED 197 10^3/uL (150-450); RED BLOOD COUNT 2.85 10^6/uL (4.00-5.40); WHITE BLOOD COUNT 7.3 10^3/uL (4.0-10.0)
[2018-06-14 07:19] LABS: ALBUMIN 2.1 GM/DL (3.2-5.2); ALT/SGPT 30 U/L (12-78); BILIRUBIN,TOTAL 0.4 MG/DL (0.2-1.0); BLOOD UREA NITROGEN 7 MG/DL (7-18); CALCIUM LEVEL 8.1 MG/DL (8.5-10.1); CARBON DIOXIDE LEVEL 33 MEQ/L (21-32); CHLORIDE LEVEL 102 MEQ/L (98-107); CREATININE FOR GFR 0.24 MG/DL (0.55-1.30); GLOMERULAR FILTRATION RATE > 60.0 (>58); GLUCOSE, FASTING 91 MG/DL (70-100); SODIUM LEVEL 138 MEQ/L (136-145); TOTAL PROTEIN 5.1 GM/DL (6.4-8.2)
[2018-06-14] MEDS: SUCRALFATE SUSP 1GM/10ML UD PO SCH ×4 (07:39→20:24)
[2018-06-14] MEDS ORDERED: ACETAMINOPHEN 500 MG TAB PO PRN (08:00)
[2018-06-14 08:15] VITALS: BP 100/60
[2018-06-14] MEDS: PANTOPRAZOLE 40MG INJ (PROTONIX) (C9113) IV SCH ×2 (08:21→20:24)
--- NOTE | 2018-06-14 11:24 | IPN ---
DATE: 06/14/2018 Ame is seen on [facility]. There are no current medical issues that need attending today. PHYSICAL EXAMINATION: 100/60, pulse 99. GENERAL APPEARANCE: Chronically ill-appearing. Examination is unchanged. IMPRESSION: 1. Hypernatremia, resolved. 2. SVT, currently in sinus rhythm. Care is currently being directed by the surgical team who are the attendings.
[2018-06-14 12:00] VITALS: BP 95/60
[2018-06-14] MEDS ORDERED: MORPHINE 4 MG/ML 1ML VIAL/SYRINGE (J2270) IV PRN (12:45)
[2018-06-14 14:00] VITALS: BP 106/70
[2018-06-14 18:00] VITALS: BP 103/70
--- NOTE | 2018-06-14 18:18 | IPN ---
DATE: 06/14/2018 Nursing staff noticed decreased output from her urostomy. They thought that the urostomy bag actually seemed compressed. They cleaned the exit area around the urostomy tube. There has been some increased output. She was taken off total parenteral nutrition (TPN) yesterday, which I think probably accounts for the decreased output. Plan was for nursing staff to push fluids today, and if urine output does not increase, consider IV fluids tomorrow.
[2018-06-14] MEDS: NORCO, ANEXSIA 5/325MG TABLET (HYDROcodone/ACETAMINOPHEN) PO PRN (20:24)
--- NOTE | 2018-06-14 20:28 | IPN ---
DATE: 06/14/2018 HISTORY: The patient is a 43-year-old woman who was admitted on the June 07 with a perforated viscus. She underwent exploratory laparotomy by Dr. Mojica with oversewing of her perforated ulcer. Apparently, there has only been slow progress in advancing her diet and she was by her report started on some solid food yesterday. Her total parenteral nutrition (TPN) was continued until yesterday and then discontinued as well. Dr. Mojica is on vacation this week and this is my first day meeting the patient and I will be covering for the next few days. VITAL SIGNS: Show that the patient has been afebrile over the past 24 hours. Pulse is generally in the 70s to 90s over the last 24 hours. Her blood pressure is good. Intake and output: Yesterday she had 3600 in with 1530 out. She has one remaining abdominal drain that had 480 mL yesterday. Her urine output yesterday was recorded as 1050. PHYSICAL EXAMINATION: The patient is a very thin woman appearing much older than her stated age of 43 years. She is alert and seems oriented. Sclerae are anicteric. Her mucous membranes are moist. Neck is supple. Heart: Exam shows a regular rhythm. Lungs are clear to auscultation. She has a PICC line on the right upper arm medially. The abdomen is flat. She has some bowel sounds present. Her drain has some serous fluid in the bottle. Lower extremities appear to have some mild edema. Laboratory studies today show a white count of 7, hemoglobin 10, hematocrit of 32 and platelet count of 197,000. Chemistry profile shows a sodium of 138, potassium 4.0, chloride 102, CO2 of 33, BUN of 7, creatinine 0.24 and a glucose of 91. Her total protein is 5.1 with an albumin of 2.1. IMPRESSION: The patient is doing well now one week postop from repair of perforated duodenal ulcer. PLAN: I will discontinue some unused medications today and I will also discontinue her Levaquin, which was begun at the time of her surgery. She will remain on Protonix and Carafate, as well as pain medications. We are no longer checking fingerstick blood sugars so I will stop the hypoglycemia protocol. I would anticipate that we will remove her remaining drain tomorrow. If she tolerates the diet well, I would expect that she would be ready for discharge within the next several days.
[2018-06-14 22:00] VITALS: BP 99/68
[2018-06-15] VITALS (7 sets, daily range): BP systolic 96–116; BP diastolic 22–66
[2018-06-15] MEDS: IPRATROPIUM 0.5MG/ALBUTEROL 2.5MG INH SOL UD 3ML (DUONEB)(J7620) NEB SCH ×4 (01:17→19:13)
[2018-06-15] MEDS: SODIUM CHLORIDE 0.9% INJ 10 ML SYR IV SCH ×2 (04:56→17:45)
[2018-06-15] MEDS: SUCRALFATE SUSP 1GM/10ML UD PO SCH (07:58)
[2018-06-15] MEDS: PANTOPRAZOLE 40MG INJ (PROTONIX) (C9113) IV SCH (07:58)
[2018-06-15] MEDS: NORCO, ANEXSIA 5/325MG TABLET (HYDROcodone/ACETAMINOPHEN) PO PRN (07:59)
[2018-06-15] MEDS: SUCRALFATE 1 GM TAB PO SCH ×3 (12:28→20:01)
--- NOTE | 2018-06-15 13:15 | IPNPDOC ---
Text Note Date of Service The patient was seen on 06/15/18. NOTE Subjective: patient seen and examined at bedside. Complains of some difficulty with sleep. Objective: General: lying comfortably in bed, chronically ill appearing HEENT: NC/AT, edentulous Lungs: CTA B/L Heart: +S1S2, RRR Abd: soft, NT, +BS, urostomy in place A/P: # Hypernatremia, resolved. # SVT, currently in sinus rhythm. # perforated viscus - further care as per primary team - surgery VS,Fishbone, I+O VS, Fishbone, I+O Vital Signs Date Time Temp Pulse Resp B/P (MAP) Pulse Ox O2 Delivery O2 Flow Rate FiO2 06/15/18 10:00 98.0 81 18 116/56 (76) 100 06/12/18 20:00 Room Air 06/09/18 18:00 1.0 I&O- Last 24 Hours up to 6 AM 06/15/18 05:59 Intake Total 2670 ml Output Total 835 ml Balance 1835 ml MARQUISE DACOSTA MD Jun 15, 2018 13:14
[2018-06-15 13:24] LABS: BASO % 0.3 % (0.0-1.0); EOS # 0.1 10^3/uL (0.0-0.50); EOS % 0.8 % (0.0-3.0); HEMATOCRIT 30.8 % (36.0-47.0); LYMPH # 1.3 10^3/uL (1.5-4.5); LYMPH % 18.1 % (24.0-44.0); MEAN CORPUSCULAR HEMOGLOBIN 36.2 pg (27.0-33.0); MEAN CORPUSCULAR HGB CONC 32.5 g/dl (32.0-36.5); MEAN CORPUSCULAR VOLUME 111.6 fl (80.0-96.0); MONO # 0.5 10^3/uL (0.0-0.8); MONO % 7.4 % (0.0-5.0); NEUTROPHILS # 5.3 10^3/uL (1.8-7.7); NEUTROPHILS % 72.7 % (36.0-66.0); PLATELET COUNT, AUTOMATED 215 10^3/uL (150-450); RED BLOOD COUNT 2.76 10^6/uL (4.00-5.40); WHITE BLOOD COUNT 7.3 10^3/uL (4.0-10.0)
[2018-06-15 13:56] LABS: BLOOD UREA NITROGEN 7 MG/DL (7-18); CALCIUM LEVEL 8.2 MG/DL (8.5-10.1); CARBON DIOXIDE LEVEL 31 MEQ/L (21-32); CHLORIDE LEVEL 100 MEQ/L (98-107); CREATININE FOR GFR 0.24 MG/DL (0.55-1.30); GLOMERULAR FILTRATION RATE > 60.0 (>58); GLUCOSE, FASTING 95 MG/DL (70-100); POTASSIUM SERUM 3.5 MEQ/L (3.5-5.1); SODIUM LEVEL 136 MEQ/L (136-145)
[2018-06-15] MEDS: PANTOPRAZOLE 40MG TAB (PROTONIX) PO SCH (20:02)
[2018-06-16 02:00] VITALS: BP 99/61
[2018-06-16] MEDS: IPRATROPIUM 0.5MG/ALBUTEROL 2.5MG INH SOL UD 3ML (DUONEB)(J7620) NEB SCH ×4 (02:00→19:08)
[2018-06-16] MEDS: SODIUM CHLORIDE 0.9% INJ 10 ML SYR IV SCH ×2 (05:37→17:42)
[2018-06-16 06:00] VITALS: BP 100/62
[2018-06-16] MEDS: SUCRALFATE 1 GM TAB PO SCH ×4 (07:46→20:02)
[2018-06-16] MEDS: PANTOPRAZOLE 40MG TAB (PROTONIX) PO SCH ×2 (07:46→20:02)
--- NOTE | 2018-06-16 11:42 | IPNPDOC ---
Text Note Date of Service The patient was seen on 06/16/18. NOTE Subjective: patient seen and examined at bedside. Complains again today of some difficulty with sleep, but otherwise feeling better. Objective: General: lying comfortably in bed, chronically ill appearing HEENT: NC/AT, edentulous Lungs: CTA B/L Heart: +S1S2, RRR Abd: soft, NT, +BS, urostomy in place A/P: # Hypernatremia, resolved. # SVT, currently in sinus rhythm. # perforated viscus - further care as per primary team - surgery #insomnia - requesting Benadryl qhs - to d/w surgery if any contraindications VS,Fishbone, I+O VS, Fishbone, I+O Laboratory Tests 06/15/18 13:13 Red Blood Count 2.76 L, Mean Corpuscular Volume 111.6 H, Mean Corpuscular Hemoglobin 36.2 H, Mean Corpuscular Hemoglobin Concent 32.5, Red Cell Distri bution Width 19.0 H, Neutrophils (%) (Auto) 72.7 H, Lymphocytes (%) (Auto) 18.1 L, Monocytes (%) (Auto) 7.4 H, Eosinophils (%) (Auto) 0.8, Basophils (%) (Auto) 0.3, Neutrophils # (Auto) 5.3, Lymphocytes # (Auto) 1.3 L, Monocytes # (Auto) 0.5, Eosinophils # (Auto) 0.1, Basophils # (Auto) 0.0, Calcium Level 8.2 L Vital Signs Date Time Temp Pulse Resp B/P (MAP) Pulse Ox O2 Delivery O2 Flow Rate FiO2 06/16/18 06:00 98.3 82 18 100/62 (75) 100 06/12/18 20:00 Room Air I&O- Last 24 Hours up to 6 AM 06/16/18 06:00 Intake Total 1980 ml Output Total 3520 ml Balance -1540 ml MARQUISE DACOSTA MD Jun 16, 2018 11:42
[2018-06-16 14:00] VITALS: BP 99/56
[2018-06-16 22:00] VITALS: BP 106/61
[2018-06-17] MEDS: IPRATROPIUM 0.5MG/ALBUTEROL 2.5MG INH SOL UD 3ML (DUONEB)(J7620) NEB SCH ×3 (01:06→13:19)
[2018-06-17 02:00] VITALS: BP 100/60
--- NOTE | 2018-06-17 03:24 | IPN ---
DATE: 06/15/2018 HISTORY: The patient is now 8 days postop from laparotomy and repair of a perforated duodenal ulcer. The patient is now on a regular diet. She has also been taking some Ensure. She has a urostomy because of a neurogenic bladder, which is draining acceptable urine. She has one drain remaining in place in the abdomen. VITAL SIGNS: Show that she has been afebrile over the past 24 hours. Her pulse has ranged between the low 80s and low 100s. The intake and output shows that yesterday she had 2500 in with 1500 out. Her drain had 410 mL yesterday with only 120 this morning. Her urine output has been good. PHYSICAL EXAMINATION: The patient is lying comfortably in the hospital bed. She is alert and oriented. Heart exam shows a regular rate and rhythm. The lungs are clear. The abdomen is flat. Her urostomy is on the left. She has an upper midline scar. She has one drain in the abdomen, which has a small amount of clear serous fluid in the bottle. Her midline incision appears to be healing well. Laboratory studies show that she has had a white count this morning of 7, hemoglobin 10, hematocrit of 31, a platelet count of 215,000. Chemistry profile shows normal electrolytes with BUN of 7, creatinine 0.24 and glucose of 95. IMPRESSION: The patient is doing well now postop day 8 from her surgery for a perforated ulcer. PLAN: I will remove her final drain today. She is now being seen by physical therapy. 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 I will change her IV Protonix to by mouth and convert her Carafate flurry to Carafate pills. Hopefully with the physical therapy, she will be ready for discharge within the next 2-3 days.
--- NOTE | 2018-06-17 03:28 | IPN ---
DATE: 06/16/2018 HISTORY: The patient is now postop day 9 from her perforated ulcer. She has been doing well. Her drains are all out. She is tolerating a regular diet and reports that she is continuing to take some Ensure. She is not having much pain. VITAL SIGNS: Show that she has been afebrile over the past 24 hours. Her pulse has been in the 80s and 90s and her pulse oximetry and blood pressure are fine. Intake and output show that she had 2000 in yesterday with 1600 out. PHYSICAL EXAMINATION: The patient is alert and oriented. Heart exam shows a regular rhythm and the lungs are clear. The abdomen remains flat. Her incisions are clean. The abdomen is without undue tenderness. IMPRESSION: The patient is doing well now 9 days postop from her perforated ulcer. She is alert and comfortable and appears to be healing well. PLAN: The patient will continue her physical therapy. The therapist today did not feel that she was strong enough for discharge as she had difficulty with transfers from the chair to the bed. I have encouraged the patient to continue working with physical therapy and hopefully she will be ready for discharge in the next few days.
[2018-06-17] MEDS: SODIUM CHLORIDE 0.9% INJ 10 ML SYR IV SCH (05:30)
[2018-06-17 06:00] VITALS: BP 98/62
[2018-06-17] MEDS: PANTOPRAZOLE 40MG TAB (PROTONIX) PO SCH (08:13)
[2018-06-17] MEDS: SUCRALFATE 1 GM TAB PO SCH ×2 (08:13→12:13)
[2018-06-17 10:00] VITALS: BP 105/66
--- NOTE | 2018-06-17 10:34 | IPNPDOC ---
Text Note Date of Service The patient was seen on 06/17/18. NOTE Subjective: patient seen and examined at bedside. No acute overnight events, no new medical complaints. Objective: General: lying comfortably in bed, chronically ill appearing HEENT: NC/AT, edentulous Lungs: CTA B/L Heart: +S1S2, RRR Abd: soft, NT, +BS, urostomy in place A/P: # Hypernatremia, resolved. # SVT, currently in sinus rhythm. # perforated ulcer - further care as per primary team - surgery #insomnia - requesting Benadryl qhs - as per primary team VS,Fishbone, I+O VS, Fishbone, I+O Vital Signs Date Time Temp Pulse Resp B/P (MAP) Pulse Ox O2 Delivery O2 Flow Rate FiO2 06/17/18 06:00 98.3 80 18 98/62 (74) 100 06/12/18 20:00 Room Air I&O- Last 24 Hours up to 6 AM 06/17/18 06:00 Intake Total 2590 ml Output Total 4000 ml Balance -1410 ml MARQUISE DACOSTA MD Jun 17, 2018 10:34
[2018-06-17 14:00] VITALS: BP 94/65
[2018-06-17] MEDS ORDERED: BENA25CA4 PO (15:54)
[2018-06-17] MEDS ORDERED: PANT40TA3 PO (15:54)
[2018-06-17] MEDS ORDERED: ACET-683 PO (15:54)
[2018-06-17] MEDS ORDERED: SUCR1TA PO (15:54)
== END 2018-06-17 17:19 | disposition home health service (06) | DRG 327 ==
LOC: EDBD 12:17 → M ED 12:17 → M ED INP 15:45 → M PCU 19:30 → M MSPAV 06-13 09:58
PROVIDERS: ADMIT Surgery; ATTEND Surgery
PROC: 0DQ70ZZ Repair Stomach, Pylorus, Open Approach (ICD-10-PCS; principal; 2018-06-07 15:40)
PROC: 02HV33Z Insertion of Infusion Device into Superior Vena Cava, Percutaneous Approach (ICD-10-PCS; 2018-06-08)
PROC: 3E0336Z Introduction of Nutritional Substance into Peripheral Vein, Percutaneous Approach (ICD-10-PCS; 2018-06-08)
PROC: 30233N1 Transfusion of Nonautologous Red Blood Cells into Peripheral Vein, Percutaneous Approach (ICD-10-PCS; 2018-06-09)
DX: K25.5 Chronic or unspecified gastric ulcer with perforation (principal); E87.0 Hyperosmolality and hypernatremia; I69.354 Hemiplegia and hemiparesis following cerebral infarction affecting left non-dominant side; R64 Cachexia; I47.1 Supraventricular tachycardia; E46 Unspecified protein-calorie malnutrition; K56.7 Ileus, unspecified; Z68.1 Body mass index [BMI] 19.9 or less, adult; N31.9 Neuromuscular dysfunction of bladder, unspecified; I10 Essential (primary) hypertension; F32.9 Major depressive disorder, single episode, unspecified; J45.909 Unspecified asthma, uncomplicated; Z90.49 Acquired absence of other specified parts of digestive tract; Z90.710 Acquired absence of both cervix and uterus; Z87.440 Personal history of urinary (tract) infections; Z88.0 Allergy status to penicillin; Z88.1 Allergy status to other antibiotic agents; Z88.8 Allergy status to other drugs, medicaments and biological substances; Z91.041 Radiographic dye allergy status; Z93.6 Other artificial openings of urinary tract status

== ENCOUNTER → 2018-07-14 | Outpatient (REF) | payer MEDICARE, MEDICAID ==
[~2018-07-14] MED LIST changes: +ACET-683 PO; +ADV500INH INH; +BENA25CA4 PO; +MACR100C43 PO; +MAXA10TA14 PO; +METO10TA2 PO; +PANT40TA3 PO; +SUCR1TA PO; +TOPI50TA9 PO; +VENL37TA PO; +VENTAER INH
[2018-07-14 15:53] LABS: HEMOGLOBIN 10.8 g/dl (12.0-15.5); MEAN CORPUSCULAR HEMOGLOBIN 38.7 pg (27.0-33.0); MEAN CORPUSCULAR HGB CONC 32.7 g/dl (32.0-36.5); PLATELET COUNT, AUTOMATED 504 10^3/uL (150-450); RED BLOOD COUNT 2.79 10^6/uL (4.00-5.40); WHITE BLOOD COUNT 6.2 10^3/uL (4.0-10.0)
[2018-07-14 16:03] LABS: APPEARANCE, URINE HAZY (CLEAR); BACTERIA, URINE AUTO 2+ (NEGATIVE); BILIRUBIN, URINE AUTO NEGATIVE (NEGATIVE); BLOOD, URINE BLOOD NEGATIVE (NEGATIVE); CALCIUM OXALATE CRYSTALS SMALL; COLOR, URINE YELLOW (YELLOW); GLUCOSE, URINE (UA) AUTO NEGATIVE (NEGATIVE); KETONE, URINE AUTO NEGATIVE (NEGATIVE); LEUKOCYTE ESTERASE, URINE AUTO 2+ (NEGATIVE); MUCUS, URINE SMALL (NEGATIVE); NITRITE, URINE AUTO NEGATIVE (NEGATIVE); PROTEIN, URINE AUTO NEGATIVE (NEGATIVE); RBC, URINE AUTO 2 /HPF (0-3); SPECIFIC GRAVITY URINE AUTO 1.033 (1.002-1.035); SQUAMOUS EPITHELIAL CELL UR AU 1 /HPF (0-6); UROBILINOGEN, URINE AUTO 0.2 mg/dL (0.0-2.0); WBC, URINE AUTO 46 /HPF (0-3)
[2018-07-14 16:05] LABS: ALBUMIN 3.3 GM/DL (3.2-5.2); ALT/SGPT 29 U/L (12-78); BILIRUBIN,TOTAL 0.3 MG/DL (0.2-1.0); BLOOD UREA NITROGEN 12 MG/DL (7-18); CALCIUM LEVEL 9.1 MG/DL (8.5-10.1); CARBON DIOXIDE LEVEL 23 MEQ/L (21-32); CHLORIDE LEVEL 106 MEQ/L (98-107); CREATININE FOR GFR 0.36 MG/DL (0.55-1.30); FREE T4 0.56 NG/DL (0.76-1.46); GLOMERULAR FILTRATION RATE > 60.0 (>58); GLUCOSE, FASTING 76 MG/DL (70-100); POTASSIUM SERUM 4.6 MEQ/L (3.5-5.1); SODIUM LEVEL 139 MEQ/L (136-145)
[2018-07-14 16:31] LABS: MEAN CORPUSCULAR VOLUME 118.3 fl (80.0-96.0)
== END ==
LOC: M SFHCPLAZ 11:29
PROVIDERS: ATTEND Family Medicine
DX: R64 Cachexia (principal); R68.89 Other general symptoms and signs; R30.0 Dysuria; Z86.2 Personal history of diseases of the blood and blood-forming organs and certain disorders involving the immune mechanism

== ENCOUNTER → 2018-08-16 | Outpatient (REF) | payer MEDICARE | LOC: M SFHCPLAZ 09:54 | PROVIDERS: ATTEND Family Medicine | DX: R82.90 Unspecified abnormal findings in urine (principal) ==

== ENCOUNTER → 2018-08-20 | Outpatient (CLI) | payer MEDICARE, MEDICAID ==
[2018-08-20 14:06] LABS: BASO # 0.1 10^3/uL (0.0-0.2); BASO % 1.1 % (0.0-1.0); EOS # 0.1 10^3/uL (0.0-0.50); EOS % 1.1 % (0.0-3.0); HEMATOCRIT 34.1 % (36.0-47.0); HEMOGLOBIN 11.7 g/dl (12.0-15.5); LYMPH # 2.7 10^3/uL (1.5-4.5); LYMPH % 49.9 % (24.0-44.0); MEAN CORPUSCULAR HEMOGLOBIN 39.5 pg (27.0-33.0); MEAN CORPUSCULAR HGB CONC 34.3 g/dl (32.0-36.5); MONO # 0.3 10^3/uL (0.0-0.8); MONO % 6.1 % (0.0-5.0); NEUTROPHILS # 2.2 10^3/uL (1.8-7.7); NEUTROPHILS % 41.6 % (36.0-66.0); PLATELET COUNT, AUTOMATED 344 10^3/uL (150-450); RED BLOOD COUNT 2.96 10^6/uL (4.00-5.40); WHITE BLOOD COUNT 5.4 10^3/uL (4.0-10.0)
[2018-08-20 14:40] LABS: ALBUMIN 4.4 GM/DL (3.2-5.2); ALT/SGPT 22 U/L (12-78); BILIRUBIN,TOTAL 0.3 MG/DL (0.2-1.0); BLOOD UREA NITROGEN 16 MG/DL (7-18); CALCIUM LEVEL 8.8 MG/DL (8.5-10.1); CARBON DIOXIDE LEVEL 22 MEQ/L (21-32); CHLORIDE LEVEL 109 MEQ/L (98-107); CREATININE FOR GFR 0.42 MG/DL (0.55-1.30); GLOMERULAR FILTRATION RATE > 60.0 (>58); GLUCOSE, FASTING 75 MG/DL (70-100); POTASSIUM SERUM 3.7 MEQ/L (3.5-5.1); SODIUM LEVEL 139 MEQ/L (136-145)
[2018-08-20 14:47] LABS: MEAN CORPUSCULAR VOLUME 115.2 fl (80.0-96.0); TOTAL 25(OH) VITAMIN D 15.2 NG/ML (30.0-100.0)
[2018-08-20 14:48] LABS: VITAMIN B12 LEVEL 308 PG/ML
[2018-08-20 14:49] LABS: FOLATE > 24.0 NG/ML
[2018-08-20 14:54] LABS: ANISOCYTOSIS 1+; PLATELET ESTIMATE NORMAL (NORMAL)
[2018-08-20 15:17] LABS: CA19-9 TUMOR MARKER,CARBOHYDRA 28.6 U/ML (<35.0)
== END ==
LOC: M LAB 12:58
PROVIDERS: ATTEND Family Medicine
DX: R82.90 Unspecified abnormal findings in urine (principal); R64 Cachexia; R00.0 Tachycardia, unspecified; R63.6 Underweight; R68.81 Early satiety; Z85.43 Personal history of malignant neoplasm of ovary

== ENCOUNTER → 2018-08-20 | Outpatient (CLI) | payer MEDICARE, MEDICAID ==
--- NOTE | 2018-08-20 16:13 | NUR ---
Pt referred for Modified Barium Swallow Study d/t significant weight loss and pt reported dysphagia. During exam, pt tolerated thin liquids (w/ straw & cup), pureed solids, soft solids (saltine cracker), mixed consistency (canned peaches & thin liquid), regular solids (hard cookie), and barium tablet broken into small pieces. No ororpharyngeal dysphagia was observed. No aspiration or penetration on exam. Swallow was timely w/ negligible residue. Pt demonstrated cough/gagging during oral phase of swallow and directly following the swallow. However, no aspiration or residue was observed to cause this response. Dysphagia tx not recommended at this time as swallow is not impaired & pt tolerates regular solids, thin liquids. Thank you for this referral. Please contact [facility] w/ any questions or concerns. Addendum: 08/20/[address] [facility] Amended: Links added.
--- NOTE | 2018-08-21 11:55 | REP ---
Examination Requested: Cookie Swallow Reason For Exam: Evaluate for aspiration The procedure was performed by ARETHA oJse, under the direct supervision of Dr. Silva. The procedure was performed with Ruma Figueroa from speech pathology present. 5 ml aliquots of thin, pudding, mixed fruit, soft food, hard food and pill consistency barium was administered. No penetration or aspiration was visualized throughout the course of the exam. The detailed report of this examination will be provided by speech pathology. 2.2 minutes of fluoroscopy time was utilized for this procedure. Reviewed by ARETHA Aquino 08/20/2018 02:16 P Electronically Signed by Tino Silva MD 08/21/2018 11:46 A
== END ==
LOC: M ST 12:07
PROVIDERS: ATTEND Family Medicine
DX: R64 Cachexia (principal)

== ENCOUNTER → 2018-08-25 | Outpatient (CLI) | payer MEDICARE, MEDICAID ==
--- NOTE | 2018-08-25 09:40 | REP ---
CT of the abdomen pelvis without IV or bowel contrast for cachexia: Comparison is 06/07/2018. The previous study there was pneumoperitoneum. This has resolved and is no longer present on the current study. The patient is a history of cholecystectomy, colon carcinoma with colon resection and colostomy and urostomy. Additionally, the patient has a hysterectomy. There is a right lower quadrant stoma, unchanged from the comparison study. 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 This is also unchanged. The there is no evidence of bowel obstruction. However, there is a large volume of fecal residue throughout the colon compatible with constipation. There is opaque material within the descending colon and rectosigmoid colon which may be bowel contrast from a prior procedure. There is a minimal volume of subcutaneous and peritoneal body fat compatible with the clinical history of tech axial. The visualized lung chandler are unremarkable. The the hepatic parenchyma is homogeneous. There are no hepatic masses, however the study is insensitive in the absence of IV contrast. There are surgical clips in the gallbladder fossa. The pancreas and spleen are normal size unremarkable. The adrenals are unremarkable. The unenhanced kidneys are unremarkable. The abdominal aorta is unremarkable. There is no periaortic adenopathy or mass. There is moderate large and small bowel dilatation without evidence of obstruction. Pelvis: There is no ascites. The right lower quadrant stoma as described. There are no lytic, blastic or destructive skeletal changes. Impression: History of colon carcinoma with colon resection and colostomy. History of urostomy for neurogenic bladder. Cholecystectomy. Hysterectomy. There is a right lower quadrant stoma there is a parastomal hernia containing nonobstructed bowel loops. There is an anastomotic suture ring within the herniated bowel. There is a large volume of fecal residue throughout the colon compatible with constipation. There is no ascites or adenopathy. No masses are identified, however the study is insensitive in the absence of IV and oral contrast. No lytic, blastic or destructive skeletal changes are identified. There is minimal volume of subcutaneous and peroneal body fat compatible with the clinical diagnosis of cachexia. Electronically Signed by Tino Silva MD 08/25/2018 09:31 A
== END ==
LOC: M RAD 08:44
PROVIDERS: ATTEND Surgery
DX: R64 Cachexia (principal); Z90.49 Acquired absence of other specified parts of digestive tract; Z85.038 Personal history of other malignant neoplasm of large intestine; Z90.79 Acquired absence of other genital organ(s)

== ENCOUNTER → 2018-08-31 | Outpatient (REF) | payer OTHER ==
[2018-08-31 15:52] LABS: BASO # 0.1 10^3/uL (0.0-0.2); BASO % 0.9 % (0.0-1.0); EOS # 0.1 10^3/uL (0.0-0.50); EOS % 1.4 % (0.0-3.0); HEMATOCRIT 35.5 % (36.0-47.0); HEMOGLOBIN 12.1 g/dl (12.0-15.5); LYMPH # 3.2 10^3/uL (1.5-4.5); LYMPH % 54.8 % (24.0-44.0); MEAN CORPUSCULAR HEMOGLOBIN 37.7 pg (27.0-33.0); MEAN CORPUSCULAR HGB CONC 34.1 g/dl (32.0-36.5); MEAN CORPUSCULAR VOLUME 110.6 fl (80.0-96.0); MONO # 0.3 10^3/uL (0.0-0.8); MONO % 4.9 % (0.0-5.0); NEUTROPHILS # 2.2 10^3/uL (1.8-7.7); PLATELET COUNT, AUTOMATED 294 10^3/uL (150-450); RED BLOOD COUNT 3.21 10^6/uL (4.00-5.40); WHITE BLOOD COUNT 5.8 10^3/uL (4.0-10.0)
[2018-08-31 21:33] LABS: VITAMIN B12 LEVEL 496 PG/ML (247-911)
[2018-09-01 11:38] LABS: HIV 1&2 SCREEN CENTAUR NEGATIVE (NEGATIVE)
[2018-09-05 00:06] LABS: HOMOCYST(E)INE SERUM 14.3 umol/L (0.0-15.0)
== END ==
LOC: M SFHCPLAZ 13:55
PROVIDERS: ATTEND Family Medicine
DX: D53.9 Nutritional anemia, unspecified (principal)

== ENCOUNTER 2018-09-09 06:08 | Day surgery (SDC) | payer MEDICARE, MEDICAID ==
[~2018-09-09] VITALS: Ht 186.7 cm; Wt 43.5 kg
[2018-09-09] MEDS ORDERED: NS 1,000 ML IV ONE (06:30)
[2018-09-09] MEDS ORDERED: PROPOFOL 200 MG/20 ML VIAL As Ordered ONE ×3 (07:32→09:13)
[2018-09-09] MEDS ORDERED: LIDOCAINE 2% INJ 100 MG/5 ML SDV (FOR ANES.) As Ordered ONE (07:32)
[2018-09-09] MEDS ORDERED: PHENYLephrine HCL 500 MCG/5 ML (100MCG/ML) SYRINGE (J2370) As Ordered ONE (08:55)
--- NOTE | 2018-09-09 08:57 | ROOR ---
Patient Name: Ame Hinojosa Procedure Date: 09/09/2018 8:40 AM Date of : 1975 Age: 43 Room: [facility] Gender: Female Note Status: Finalized Procedure: Upper GI endoscopy Indications: Iron deficiency anemia, Follow-up of gastric ulcer Providers: Jose Alberto Mojica Jr, MD Referring MD: Dragan Balderas Do Requesting Provider: Medicines: Propofol per Anesthesia Complications: No immediate complications. Procedure: Pre-Anesthesia Assessment: - Prior to the procedure, a History and Physical was performed, and patient medications and allergies were reviewed. The patient is competent. The risks and benefits of the procedure and the sedation options and risks were discussed with the patient. All questions were answered and informed consent was obtained. Patient identification and proposed procedure were verified by the physician and the nurse in the pre-procedure area and in the procedure room. Mental Status Examination: alert and oriented. Airway Examination: normal oropharyngeal airway and neck mobility. Respiratory Examination: clear to auscultation. CV Examination: normal. ASA Grade Assessment: II - A patient with mild systemic disease. After reviewing the risks and benefits, the patient was deemed in satisfactory condition to undergo the procedure. The anesthesia plan was to use moderate sedation / analgesia (conscious sedation). Immediately prior to administration of medications, the patient was re-assessed for adequacy to receive sedatives. The heart rate, respiratory rate, oxygen saturations, blood pressure, adequacy of pulmonary ventilation, and response to care were monitored throughout the procedure. The physical status of the patient was re-assessed after the procedure. The Endoscope was introduced through the mouth, and advanced to the second part of duodenum. The upper GI endoscopy was accomplished without difficulty. The patient tolerated the procedure well. Findings: The upper third of the esophagus, middle third of the esophagus and lower third of the esophagus were normal. A small hiatal hernia was present. Diffuse mild inflammation characterized by congestion (edema), erythema, friability and granularity was found in the gastric body, in the gastric antrum and in the prepyloric region of the stomach. The cardia and pylorus were normal. The ampulla, duodenal bulb, first portion of the duodenum and second portion of the duodenum were normal. Impression: - Normal upper third of esophagus, middle third of esophagus and lower third of esophagus. - Small hiatal hernia. - Gastritis. - Normal cardia and pylorus. - Normal ampulla, duodenal bulb, first portion of the duodenum and second portion of the duodenum. - No specimens collected. Recommendation: - Discharge patient to home (ambulatory). - Return to my office as previously scheduled. Jose Alberto Mojica MD Jose Alberto Mojica Jr, MD 09/09/2018 8:56:14 AM Electronically signed by Jose Alberto Mojica Jr, MD Number of Addenda: 0 Note Initiated On: 09/09/2018 8:40 AM Estimated Blood Loss: Estimated blood loss: none.
--- NOTE | 2018-09-09 09:37 | ROOR ---
Patient Name: Ame Hinojosa Procedure Date: 09/09/2018 8:42 AM Date of : 1975 Age: 43 Room: [facility] Gender: Female Note Status: Finalized Procedure: Colonoscopy Indications: Rectal bleeding, Weight loss Providers: Jose Alberto Mojica Jr, MD Referring MD: Dragan Balderas Do Requesting Provider: Medicines: Propofol per Anesthesia Complications: No immediate complications. Procedure: Pre-Anesthesia Assessment: - Prior to the procedure, a History and Physical was performed, and patient medications and allergies were reviewed. The patient is competent. The risks and benefits of the procedure and the sedation options and risks were discussed with the patient. All questions were answered and informed consent was obtained. Patient identification and proposed procedure were verified by the physician and the nurse in the pre-procedure area and in the procedure room. Mental Status Examination: alert and oriented. Airway Examination: normal oropharyngeal airway and neck mobility. Respiratory Examination: clear to auscultation. CV Examination: normal. ASA Grade Assessment: II - A patient with mild systemic disease. After reviewing the risks and benefits, the patient was deemed in satisfactory condition to undergo the procedure. The anesthesia plan was to use moderate sedation / analgesia (conscious sedation). Immediately prior to administration of medications, the patient was re-assessed for adequacy to receive sedatives. The heart rate, respiratory rate, oxygen saturations, blood pressure, adequacy of pulmonary ventilation, and response to care were monitored throughout the procedure. The physical status of the patient was re-assessed after the procedure. The Colonoscope was introduced through the anus and advanced to the hepatic flexure. The colonoscopy was performed without difficulty. The patient tolerated the procedure well. The quality of the bowel preparation was unsatisfactory. Findings: The rectum, sigmoid colon, descending colon, transverse colon and hepatic flexure appeared normal. Non-bleeding external and internal hemorrhoids were found during perianal exam and during endoscopy. The hemorrhoids were moderate. Impression: - Preparation of the colon was unsatisfactory. - The rectum, sigmoid colon, descending colon, transverse colon and hepatic flexure are normal but because of the poor prep and stool the only thing that can be said is that there was no obstructing lesion up to the hepatic flexure. - Non-bleeding external and internal hemorrhoids. - No specimens collected. Recommendation: - Repeat colonoscopy at appointment to be scheduled because the bowel preparation was poor. Would rec cologuard as an outpt and if positive rec repeat prep after the g tube is placed. Jose Alberto Mojica MD Jose Alberto Mojica Jr, MD 09/09/2018 9:37:16 AM Electronically signed by Jose Alberto Mojica Jr, MD Number of Addenda: 0 Note Initiated On: 09/09/2018 8:42 AM Estimated Blood Loss: Estimated blood loss: none.
[2018-09-09 10:00] VITALS: BP 91/64
== END 2018-09-09 11:02 | disposition home or self-care (01) ==
LOC: M OPP 06:08
PROVIDERS: ATTEND Surgery
DX: K64.8 Other hemorrhoids (principal); K44.9 Diaphragmatic hernia without obstruction or gangrene; K29.70 Gastritis, unspecified, without bleeding; D50.9 Iron deficiency anemia, unspecified; K25.9 Gastric ulcer, unspecified as acute or chronic, without hemorrhage or perforation; K62.5 Hemorrhage of anus and rectum; R63.4 Abnormal weight loss; Z79.899 Other long term (current) drug therapy; Z88.0 Allergy status to penicillin; Z88.1 Allergy status to other antibiotic agents; Z88.4 Allergy status to anesthetic agent; Z88.8 Allergy status to other drugs, medicaments and biological substances; Z91.040 Latex allergy status; Z91.041 Radiographic dye allergy status; Z91.013 Allergy to seafood
CPT/HCPCS: 43235; 45378; J2370

== ENCOUNTER 2018-09-17 05:34 | Inpatient (IN) | payer MEDICARE, MEDICAID ==
[~2018-09-17] VITALS: Ht 188 cm; Wt 55.2 kg
[2018-09-17] MEDS ORDERED: LIDOCAINE 1% MDV 20ML VIAL SQ PRN (06:00)
[2018-09-17] MEDS ORDERED: LR 1,000 ML IV ONE (06:00)
[2018-09-17] MEDS ORDERED: NS 1,000 ML IV ONE (06:00)
[2018-09-17] MEDS ORDERED: MIDAZOLAM INJ 2 MG/2 ML VIAL (J2250) As Ordered ONE (07:42)
[2018-09-17] MEDS ORDERED: fentaNYL 100 MCG/2 ML INJECTION (J3010) As Ordered ONE (07:42)
[2018-09-17] MEDS ORDERED: ONDANSETRON 4MG/2ML VIAL (J2405) As Ordered ONE (07:42)
[2018-09-17] MEDS ORDERED: LIDOCAINE 2% INJ 100 MG/5 ML SDV (FOR ANES.) As Ordered ONE (07:42)
[2018-09-17] MEDS ORDERED: PROPOFOL 200 MG/20 ML VIAL As Ordered ONE (07:42)
[2018-09-17] MEDS ORDERED: diphenhydrAMINE 25 MG CAP PO PRN (08:15)
[2018-09-17] MEDS ORDERED: ALBUTEROL 90 MCG/ACT 8GM HFA INHALER INH PRN (08:15)
[2018-09-17] MEDS ORDERED: ONDANSETRON 4MG/2ML VIAL (J2405) IV PRN (08:15)
[2018-09-17] MEDS ORDERED: METOCLOPRAMIDE INJ 10MG/2ML VIAL (J2765) IV PRN (08:15)
[2018-09-17] MEDS ORDERED: RIZATRIPTAN BENZOATE 10 MG TAB PO PRN (08:15)
[2018-09-17] MEDS ORDERED: ACETAMINOPHEN 500 MG TAB PO PRN (08:15)
[2018-09-17] MEDS ORDERED: LevoFLOXacin IV 500 MG in APPROPRIATE DILUENT 1 EA IV ONE (08:30)
[2018-09-17] MEDS: NS 1,000 ML IV SCH ×2 (08:38→16:02)
--- NOTE | 2018-09-17 08:45 | RO ---
DATE OF PROCEDURE: 09/17/2018 PREOPERATIVE DIAGNOSIS: Dysphasia, weight loss. POSTOPERATIVE DIAGNOSIS: Dysphasia, weight loss. PROCEDURE: Percutaneous endoscopic gastrostomy tube placement (20-[place]). SURGEON: Jose Alberto Mojica MD CERTIFICATION AND SELECTION SPECIALIST: ANESTHESIA: IV sedation, plus local. ESTIMATED BLOOD LOSS: Minimal. FLUIDS: Crystalloid. DESCRIPTION OF PROCEDURE: The patient was brought to the operating and was given IV sedation, was prepped and draped in usual sterile fashion. A gastroscope was inserted into the posterior oropharynx down into the stomach without difficulty. After sedation was established and the stomach was insufflated, transabdominal visualization of the light was appreciated in the epigastric area. This was in the same area where the CAT scan showed the antrum coming up against the abdominal wall. The patient had some mild chronic gastritis throughout her stomach. In any case, at this point, the gastroscope was inserted through the pylorus, which was open but did take a second to relax. Then, once through this area, the duodenum and the postbulbar duodenum was normal. The scope was brought back into the stomach and insufflated and finder needle was placed into the area of palpation and then the needle with wire. The wire was grasped with a snare, brought out through the oropharynx and the gastrostomy placed over the wire. This was brought out through the abdominal wall and the bolster was placed down on the abdominal wall. The gastroscope was reinserted to verify placement. There was some mild oozing at the site and then once the bolster was brought up against the stomach wall abutting the wall but not significantly tight the oozing stopped. The bolster was placed down and the catheter cut to the appropriate length. The patient was awakened from her sedation, brought to recovery room awake, alert, and hemodynamically stable. Sponge and needle counts correct times two.
[2018-09-17] MEDS ORDERED: TOPIRAMATE (TopAMAX) 25 MG TAB PO SCH (09:00)
[2018-09-17 10:00] VITALS: BP 92/55
[2018-09-17] MEDS: ADVAIR HFA 230/21MCG INHALER INH SCH ×2 (11:37→21:15)
[2018-09-17] MEDS: SUCRALFATE SUSP 1GM/10ML UD GT SCH ×2 (13:36→17:59)
[2018-09-17 14:00] VITALS: BP 94/54
[2018-09-17] MEDS: PANTOPRAZOLE 40MG INJ (PROTONIX) (C9113) IV SCH (21:35)
[2018-09-17] MEDS: MORPHINE 4 MG/ML 1ML VIAL/SYRINGE (J2270) IV PRN (21:36)
[2018-09-17 22:00] VITALS: BP 98/56
[2018-09-18] MEDS: SUCRALFATE SUSP 1GM/10ML UD GT SCH ×4 (00:26→17:58)
[2018-09-18] MEDS: NS 1,000 ML IV SCH ×2 (00:27→08:13)
[2018-09-18 02:00] VITALS: BP 102/65
[2018-09-18] MEDS: MORPHINE 4 MG/ML 1ML VIAL/SYRINGE (J2270) IV PRN (02:49)
[2018-09-18 06:00] VITALS: BP 101/64
[2018-09-18 07:45] VITALS: BP 100/65
[2018-09-18] MEDS: ATENOLOL 25 MG TAB PO SCH (09:00)
[2018-09-18] MEDS: ADVAIR HFA 230/21MCG INHALER INH SCH ×2 (09:00→21:00)
[2018-09-18 10:00] VITALS: BP 96/59
[2018-09-18] MEDS: VENLAFAXINE 37.5 MG TAB PO SCH (10:24)
[2018-09-18] MEDS: PANTOPRAZOLE 40MG INJ (PROTONIX) (C9113) IV SCH ×2 (10:24→20:17)
--- NOTE | 2018-09-18 13:51 | IPNPDOC ---
Subjective General Date/Time Seen The patient was seen on 09/18/18 at 13:47. Subject Chief Complaint/History The patient is a 43-year-old female admitted with a reason for visit of Cachexia. Patient reports she's feeling well. She is wondering when she can start eating. She had a percutaneous endoscopic gastrostomy tube placed yesterday for cachexia for hyperalimentation and feeding his been started yesterday. So far tolerating it. She denies any nausea, bloating. Current Medications Current Medications Current Medications Acetaminophen (Tylenol Tab) 1,000 mg Q6HP PRN PO PAIN / FEVER Last administered on 09/17/18at 14:32; Start 09/17/18 at 08:15 Albuterol Sulfate (Proventil, Ventolin Hfa) 2 puff Q6H PRN INH SHORTNESS OF BREATH; Start 09/17/18 at 08:15 Atenolol (Tenormin) 25 mg DAILY PO ; Start 09/18/18 at 09:00 Diphenhydramine HCl (Benadryl) 25 mg QPM PRN PO SLEEP; Start 09/17/18 at 08:15 Lidocaine HCl (LIDOCAINE 1% MDV 20ml) 0.1 ml ONCE PRN SQ DISCOMFORT BEFORE IV START; Start 09/17/18 at 06:00; Stop 09/17/18 at 10:32; Status DC Metoclopramide HCl (REGLAN INJection) 10 mg Q6HP PRN IV NAUSEA OR VOMITING; Start 09/17/18 at 08:15 Miscellaneous (Unresolved Clarification Entry) SEE LABEL COMMENTS DAILY XX Last administered on 09/17/18at 09:00; Start 09/17/18 at 09:00; Stop 09/18/18 at 12:51; Status DC Morphine Sulfate (Morphine Sulfate Inj) 2 mg Q2HP PRN IV SEVERE PAIN (PS 8-10) Last administered on 09/18/18at 02:49; Start 09/17/18 at 08:15 Ondansetron HCl (ZOFRAN INJection) 4 mg Q6HP PRN IV NAUSEA OR VOMITING; Start 09/17/18 at 08:15 Pantoprazole Sodium (Protonix) 40 mg BID IV Last administered on 09/18/18at 10:24; Start 09/17/18 at 21:00 Rizatriptan Benzoate (Maxalt) 10 mg DAILY PRN PO MIGRAINE Last administered on 09/18/18 06:30; Start 09/17/18 at 08:15 Salmeterol Xinafoate/ Fluticasone (Advair Hfa 230/ 21) 2 puff BID INH Last administered on 09/18/18at 09:00; Start 09/17/18 at 09:00 Sodium Chloride 1,000 ml @ 125 mls/hr Q8H IV Last administered on 09/18/18at 00:27; Start 09/17/18 at 08:13; Stop 09/18/18 at 12:41; Status DC Sucralfate (Carafate Suspension) 1 gm Q6H GT Last administered on 09/18/18at 12:08; Start 09/17/18 at 12:00 Topiramate (TopAMAX) 50 mg BID PO ; Start 09/18/18 at 09:00 Topiramate (TopAMAX) 100 mg BID PO ; Start 09/17/18 at 09:00; Stop 09/18/18 at 12:29; Status DC Venlafaxine HCl (Effexor) 37.5 mg DAILY PO Last administered on 09/18/18at 10:24; Start 09/18/18 at 09:00 Allergies Coded Allergies: SEAFOOD (Verified Allergy, Severe, hives, throat swelling, 07/20/18) Contrast Media (Verified Allergy, Intermediate, hives, 07/20/18) clindamycin (Verified Allergy, Intermediate, rash, 06/07/18) latex (Verified Allergy, Intermediate, hives, 07/20/18) Penicillins (Verified Allergy, Unknown, Rash , 06/07/18) iodine (Verified Allergy, Unknown, rash, 06/07/18) ziprasidone (Verified Allergy, Unknown, rash, 06/07/18) Objective Physical Examination Examination GENERAL APPEARANCE: Cachectic looking, very thin body habitus. Patient is comfortable. SKIN: Warm and dry. HEENT: Normocephalic, atraumatic. Donahue palpebral conjunctiva, anicteric sclerae. Lips and mucosa appear moist. NECK: Supple, no thyromegaly. No obvious jugular venous distention. LUNGS: Clear to auscultation bilaterally. No wheezing appreciated. HEART: No chest wall abnormalities. Regular rate and rhythm with no murmurs appreciated. ABDOMEN: Abdomen is flat, soft. She has a right lower quadrant urostomy with clear urine. She has a new gastrostomy tube placed endoscopically yesterday. For some reason the feeding port is connected and getting some tube feedings at the secondary port is connected to a Stone bag to drain the abdomen. EXTREMITIES: Extremities have no deformities. No edema identified. Vital Signs Vital Signs Date Time Temp Pulse Resp B/P (MAP) Pulse Ox O2 Delivery O2 Flow Rate FiO2 09/18/18 10:00 98.3 84 17 96/59 (71) 99 I&Os I&O- Last 24 Hours up to 6 AM 09/18/18 06:00 Intake Total 0 ml Output Total 1425 ml Balance -1425 ml Impression Postop day 1 placement of percutaneous endoscopic gastrostomy for cachexia Is not clear why he gastrostomy set up that one port is connected to a Stone bag to gravity drainage and the other port is connected to the tube feeding. Since this is a simple gastrostomy tube all we are doing is draining back the tube feeds so we are giving her. So I have the nurse clamp on the ports and continue with tube feedings. We will just check for residuals. She can have soft diet. She will stay over the weekend and she will need to be arranged for some services to help her manage this at home possibly a monomer purification operator consult. Plan / VTE VTE Prophylaxis Ordered?: Yes SAMIR HOPPER MD Sep 18, 2018 13:51
[2018-09-18 14:00] VITALS: BP 99/61
[2018-09-18] MEDS: TOPIRAMATE (TopAMAX) 25 MG TAB PO SCH ×2 (15:09→21:39)
[2018-09-18 21:32] VITALS: BP 93/54
[2018-09-19] MEDS: SUCRALFATE SUSP 1GM/10ML UD GT SCH ×4 (00:28→17:54)
[2018-09-19 02:00] VITALS: BP 93/55
[2018-09-19 05:30] VITALS: BP 92/54
[2018-09-19] MEDS: ATENOLOL 25 MG TAB PO SCH (09:00)
[2018-09-19] MEDS: ADVAIR HFA 230/21MCG INHALER INH SCH ×2 (09:00→21:00)
[2018-09-19] MEDS: VENLAFAXINE 37.5 MG TAB PO SCH (09:59)
[2018-09-19] MEDS: TOPIRAMATE (TopAMAX) 25 MG TAB PO SCH ×2 (09:59→20:30)
[2018-09-19] MEDS: PANTOPRAZOLE 40MG INJ (PROTONIX) (C9113) IV SCH (09:59)
[2018-09-19] MEDS ORDERED: zolPIDEM TARTRATE 5 MG TAB PO PRN (10:30)
[2018-09-19 14:00] VITALS: BP 98/58
[2018-09-19] MEDS: PANTOPRAZOLE 40MG TAB (PROTONIX) PO SCH (20:30)
[2018-09-19 21:49] VITALS: BP 87/48
[2018-09-19 21:51] VITALS: BP 98/52
[2018-09-20] MEDS: SUCRALFATE SUSP 1GM/10ML UD GT SCH ×3 (00:38→12:05)
[2018-09-20 07:01] VITALS: BP 89/59
[2018-09-20] MEDS: ADVAIR HFA 230/21MCG INHALER INH SCH (08:38)
[2018-09-20 09:00] VITALS: BP 89/59
[2018-09-20] MEDS: ATENOLOL 25 MG TAB PO SCH (09:00)
[2018-09-20] MEDS ORDERED: SENOKOT S TAB PO SCH (09:00)
[2018-09-20] MEDS ORDERED: ENOXAPARIN 30 MG/0.3 ML SYR (J1650) SC SCH (09:00)
[2018-09-20] MEDS: PANTOPRAZOLE 40MG TAB (PROTONIX) PO SCH (09:42)
[2018-09-20] MEDS: VENLAFAXINE 37.5 MG TAB PO SCH (09:42)
[2018-09-20] MEDS: TOPIRAMATE (TopAMAX) 25 MG TAB PO SCH (09:42)
[2018-09-20 14:42] VITALS: BP 89/59
--- NOTE | 2018-10-03 16:59 | DSES ---
DATE OF ADMISSION: 09/18/2018 DATE OF DISCHARGE: 09/20/2018 PRINCIPAL DIAGNOSIS: 1. Dysphasia with anorexia and progressive weight loss and malnutrition. ASSOCIATED DIAGNOSIS: 1. History of weight loss. 2. History of chronic obstructive pulmonary disease (COPD). 3. History of smoking. 4. History of anxiety. 5. Depression. 6. History of perforated gastric ulcer. 7. History of urinary retention. 8. Chronic back pain. 9. History of stroke. 10. History of neurogenic bladder. 11. History of gallbladder surgery. 12. History of oral surgery. 13. Hysterectomy. 14. Ureterostomy 15. History of bleeding ulcer. 16. History of perforated gastric ulcer. HISTORY OF PRESENT ILLNESS: The patient is a 43-year-old female unfortunately who has had a very a slow but progressive weight loss over a prolonged period of time. I saw her with a perforated gastric ulcer. Previously, she was discharged from the hospital and followed up with medicine after she was discharged from my office and essentially return to the office with continued weight loss. We did an upper endoscopy which showed no significant obstructive component and she had an upper GI that showed no evidence of ulcer, obstruction or extravasation. She essentially presented for feeding tube placement. HOSPITAL COURSE SUMMARY: The patient had a feeding tube placed; and unfortunately because of social issues and concerned that she was going to adequately understand her feeding and tube feedings alone, she was kept in the hospital over the weekend to learn tube feedings and care of her gastrostomy tube. She had a gastrostomy tube placed on Thursday and tolerated this; and gradually over the ensuing 24-48 hours, she did quite well with this. She did supplement her Ensure with some minimal oral intake, but our plan was to have the Ensure be her primary nutrition given her early satiety issues. Thus she was discharged to home with instructions to follow up with her primary care provider and followup with myself with a postop visit. She will have a nutritional evaluation as an outpatient and this can be further evaluated/ followed by her primary care after discharge. Otherwise, no other surgical input is necessary at this time. MEDICATIONS AT THE TIME OF DISCHARGE INCLUDE THE FOLLOWING: - Tylenol for discomfort - albuterol - atenolol - Benadryl - Megace - metoclopramide - pantoprazole - Maxalt - Advair - sucralfate - topiramate - venlafaxine She was to use the Jevity 1.5 calories at 50 mL an hour with 100 mL of water flushed through four x a day. If she does well with this, possibly converting her over to bolus feeds is a reasonable option for her.
== END 2018-09-20 15:50 | disposition home health service (06) | DRG 392 ==
LOC: M SDC 05:34 → M MS5PR 09:20 → M SDC 09-18 08:19 → M MS5PR 09-18 08:20
PROVIDERS: ADMIT Surgery; ATTEND Surgery
PROC: 0DH64UZ Insertion of Feeding Device into Stomach, Percutaneous Endoscopic Approach (ICD-10-PCS; principal; 2018-09-18)
DX: R13.10 Dysphagia, unspecified (principal); I69.354 Hemiplegia and hemiparesis following cerebral infarction affecting left non-dominant side; E46 Unspecified protein-calorie malnutrition; Z68.1 Body mass index [BMI] 19.9 or less, adult; R64 Cachexia; K29.50 Unspecified chronic gastritis without bleeding; R33.9 Retention of urine, unspecified; J45.909 Unspecified asthma, uncomplicated; R00.0 Tachycardia, unspecified; G43.109 Migraine with aura, not intractable, without status migrainosus; N31.9 Neuromuscular dysfunction of bladder, unspecified; G47.9 Sleep disorder, unspecified; F41.9 Anxiety disorder, unspecified; D53.9 Nutritional anemia, unspecified; F32.9 Major depressive disorder, single episode, unspecified; M54.9 Dorsalgia, unspecified; Z88.0 Allergy status to penicillin; Z88.8 Allergy status to other drugs, medicaments and biological substances; Z91.013 Allergy to seafood; Z91.040 Latex allergy status; Z79.899 Other long term (current) drug therapy; Z87.19 Personal history of other diseases of the digestive system; Z87.891 Personal history of nicotine dependence

== ENCOUNTER 2019-06-08 16:10 | Inpatient (IN) | payer MEDICARE, MEDICAID ==
[~2019-06-08] VITALS: Ht 160 cm; Wt 68.5 kg
[2019-06-08 17:21] LABS: BASO # 0.1 10^3/uL (0.0-0.2); BASO % 1.2 % (0.0-1.0); EOS % 0.4 % (0.0-3.0); HEMATOCRIT 33.9 % (36.0-47.0); HEMOGLOBIN 11.2 g/dl (12.0-15.5); LYMPH % 20.3 % (24.0-44.0); MEAN CORPUSCULAR HEMOGLOBIN 34.6 pg (27.0-33.0); MEAN CORPUSCULAR VOLUME 104.6 fl (80.0-96.0); MONO # 0.3 10^3/uL (0.0-0.8); MONO % 5.7 % (0.0-5.0); NEUTROPHILS # 3.7 10^3/uL (1.5-8.5); PLATELET COUNT, AUTOMATED 249 10^3/uL (150-450); RED BLOOD COUNT 3.24 10^6/uL (4.00-5.40); WHITE BLOOD COUNT 5.1 10^3/uL (4.0-10.0)
[2019-06-08 18:00] LABS: ALBUMIN 4.1 GM/DL (3.2-5.2); ALT/SGPT 21 U/L (12-78); BILIRUBIN,DIRECT 0.1 MG/DL (0.0-0.2); BILIRUBIN,TOTAL 0.4 MG/DL (0.2-1.0); BLOOD UREA NITROGEN 15 MG/DL (7-18); CALCIUM LEVEL 8.8 MG/DL (8.5-10.1); CARBON DIOXIDE LEVEL 27 MEQ/L (21-32); CHLORIDE LEVEL 107 MEQ/L (98-107); CK-MB VALUE MASS 4.2 NG/ML (<3.6); CPK CREATINE PHOSPHOKINASE 200 U/L (26-192); CREATININE FOR GFR 0.53 MG/DL (0.55-1.30); ETHYL ALCOHOL (ETHANOL) 0.003 % (0.000-0.010); GLOMERULAR FILTRATION RATE > 60.0 (>58); GLUCOSE, FASTING 95 MG/DL (70-100); POTASSIUM SERUM 3.5 MEQ/L (3.5-5.1); SODIUM LEVEL 141 MEQ/L (136-145); THYROID STIMULATING HORMONE 0.975 uIU/ML (0.358-3.740); TROPONIN I < 0.02 NG/ML (< 0.10)
[2019-06-08] MEDS ORDERED: PARO10TA3 PO (18:16)
[2019-06-08] MEDS ORDERED: TOPI25TA10 PO (18:16)
[2019-06-08] MEDS ORDERED: TRAZ-252 PO (18:16)
[2019-06-08] MEDS ORDERED: CETI10CA2 PO (18:16)
[2019-06-08] MEDS ORDERED: ACET-683 PO (18:16)
[2019-06-08] MEDS ORDERED: B-12100010 PO (18:16)
[2019-06-08] MEDS ORDERED: SUCR1TAB56 PO (18:16)
[2019-06-08] MEDS ORDERED: PANT40TA3 PO (18:16)
[2019-06-08] MEDS ORDERED: MED REC COMMENT (18:19)
--- NOTE | 2019-06-08 18:48 | REPVR ---
PROCEDURE INFORMATION: Exam: CT Head Without Contrast Exam date and time: 06/08/2019 6:28 PM Age: 44 years old Clinical indication: Altered mental status/memory loss; Additional info: AMS TECHNIQUE: Imaging protocol: Computed tomography of the head without contrast. Radiation optimization: All CT scans at this facility use at least one of these dose optimization techniques: automated exposure control; mA and/or kV adjustment per patient size (includes targeted exams where dose is matched to clinical indication); or iterative reconstruction. COMPARISON: CT Head without contrast 05/02/2013 9:44 AM FINDINGS: Brain: No hemorrhage. Unremarkable white matter for the patient's age. No mass effect. No evolving territorial infarct. Ventricles: No ventriculomegaly. Bones/joints: Unremarkable. No acute fracture. Sinuses: Visualized sinuses are unremarkable. No fluid levels. Mastoid air cells: Visualized mastoid air cells are well aerated. Soft tissues: Unremarkable. IMPRESSION: No acute intracranial abnormality seen. Electronically signed by: Eleanor Dykes On 06/08/2019 18:48:21 PM
--- NOTE | 2019-06-08 19:26 | ECGEPIP ---
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
--- NOTE | 2019-06-08 19:45 | IPNPDOC ---
Text Note Date of Service The patient was seen on 06/08/19. NOTE Time of service 725pm is a 44 yr old F w a PMH of debility 2/2 CVA , depression, sedative abuse, HTN, asthma, ovarian behavior, neurogenic bladder with ureterostomy placement, multiple UTIs, history of cholecystectomy and ileoconduit who was brought by EMS for evaluation of bizzare behavior including unresponsiveness, followed by crying when EMS attempted to intubate her, twiching episides in between laughing and crying, follwed by angry out bursts. Her work up including CBC & CMP are unrevealing. During our evaluation she said she came to the hospital because she wanted to be taken care of and loved; and wanted to be able to cry without feeling ashamed. PE: NAD / temporal wasting / RRR, NMRG, colostomy in place, abd not tender, unable to move legs, A&O x person, place and date, able to understand and follow commands Vital Signs Date Time Temp Pulse Resp B/P (MAP) Pulse Ox O2 Delivery O2 Flow Rate FiO2 06/08/19 16:31 88 21 118/64 (82) 100 Room Air 06/08/19 16:36 99.7 Laboratory Tests 06/08/19 17:02 A&P #suspected psychosis NOS Plan: recommend Psych eval and admission to [facility]. rest per 's H&P. RAYSHAWN MARTINEZ MD Jun 08, 2019 19:45
[2019-06-08 19:51] LABS: SALICYLATE LEVEL < 1.7 MG/DL (5.0-30.0)
[2019-06-08 19:52] LABS: BILIRUBIN, URINE MANUAL NEGATIVE (NEGATIVE); GLUCOSE, URINE (UA) MANUAL NEGATIVE (NEGATIVE); KETONE, URINE MANUAL 1+ mg/dL (NEGATIVE); UROBILINOGEN, URINE MANUAL NORMAL (NORMAL)
[2019-06-08 19:58] LABS: BACTERIA, URINE LARGE AMOUNT; MUCUS, URINE SMALL AMOUNT (NEGATIVE); RBC, URINE 0-1 /hpf (0-3); SQUAMOUS EPITHELIAL CELL URINE NONE SEEN /hpf (SMALL AMT); TRANSITIONAL EPI CELLS, URINE SMALL AMOUNT /hpf
[2019-06-08 19:59] LABS: HYALINE CAST, URINE NONE SEEN /lpf (0-1)
[2019-06-08 20:22] LABS: AMPHETAMINES LEVEL URINE NEGATIVE (NEGATIVE); BARBITURATES URINE NEGATIVE (NEGATIVE); BENZODIAZEPINES URINE NEGATIVE (NEGATIVE); CANNABINOIDS URINE NEGATIVE (NEGATIVE); COCAINE METABOLITE URINE NEGATIVE (NEGATIVE); METHADONE URINE NEGATIVE (NEGATIVE); OPIATES URINE NEGATIVE (NEGATIVE); PHENCYCLIDINE URINE NEGATIVE (NEGATIVE)
[2019-06-08] MEDS ORDERED: CIPROFLOXACIN 400 MG in IV 1 EA IV ONE (20:30)
[2019-06-08] MEDS ORDERED: D5W IV ONE (21:00)
[2019-06-08] MEDS ORDERED: ACETYLCYSTEINE IV ONE (21:00)
[2019-06-08 22:00] VITALS: BP 117/67
[2019-06-08] MEDS: NS 1,000 ML IV SCH (22:16)
[2019-06-08] MEDS ORDERED: RIZATRIPTAN BENZOATE 10 MG TAB PO PRN (22:30)
[2019-06-08] MEDS ORDERED: traZODone 50 MG TAB PO PRN (22:30)
[2019-06-08] MEDS ORDERED: ACETYLCYSTEINE 3,400 MG in D5W 500 ML IV ONE (22:30)
[2019-06-08] MEDS ORDERED: ALBUTEROL 90 MCG/ACT 8GM HFA INHALER INH PRN (22:30)
[2019-06-08] MEDS: HEPARIN SOD (PORCINE) 5000 UNITS/ML VIAL (J1644 PER 1000UNITS) SC SCH (22:53)
[2019-06-09] VITALS: BP 124/72
--- NOTE | 2019-06-09 00:33 | HPEPDOC ---
[facility] Medical History & Physical Date of Admission Jun 08, 2019 Date of Service: Jun 08, 2019 Primary Care Physician: SHAYNE BALDERAS DO Attending Physician: RAYSHAWN MIKE MD History and Physical PRIMARY CARE PROVIDER: Shayne Balderas D.O. ATTENDING: Dr. Rayshawn Mike CHIEF COMPLAINT: acetaminophen overdose, suicide attempt HISTORY OF PRESENT ILLNESS: Patient is a 44 year old female who was called by EMS earlier this evening by her boyfriend after she was found unresponsive at the scene. While in the emergency department she continued to be unresponsive and so attempt was made to intubate her however she woke up and began crying and swearing at the people the room. Per the emergency department providers she was combative was unable to answer any questions about what happened. Initial evaluation in the emergency department was negative however admission was initially asked due to concerns for altered mental status. On our initial evaluation, she was found by this provider to be different than she typically is at our outpatient clinic exhibiting talkativeness, increased grandiosity, flight of ideas, with poor appetite, and insomnia. Tylenol level returned that was elevated at 45 and emergency department staff contacted poising control and administered initial dose of Acetadote. She admitted to pa that at 0500 this morning she took half a bottle of NyQuil and 1000 mg of Tylenol then at 0900 she took the second half bottle of NyQuil and 4000 mg of Tylenol. She admitted she did this with the intention of committing suicide and that she currently feels as though she would be better off . She was also found to have a positive urinalysis done in the emergency department and was started on Ciprofloxin. She currently denies any fever, chills, chest pain, difficulty breathing, abdominal pain, dysuria. 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 Not employed. No Pets at home. FAMILY HISTORY: No pertinent family medical history. ALLERGIES: Please see below. REVIEW OF SYSTEMS: GENERAL: Denies fevers, chills, recent unexpected weight change, night sweats, hemoptysis HEENT: Denies headache, dizziness, vision changes, hearing loss, sore throat CARDIOVASCULAR: Denies chest pain, palpitations, orthopnea RESPIRATORY: Denies shortness of breath, wheezing, cough GASTROINTESTINAL: denies nausea, vomiting, abdominal pain, constipation, diarrhea, bloody stool GENITOURINARY: Denies dysuria, urinary urgency, hematuria. MUSCULOSKELETAL: Denies muscle/joint pain, weakness, stiffness NEUROLOGICAL: Denies any numbness/tingling, focal weakness, or syncope HOME MEDICATIONS: Please see below. PHYSICAL EXAMINATION: Vitals: (see below) General: Cachectic and malnourished appearing female in no acute distress lying comfortably in bed. No acute distress, laying comfortably in bed. HEENT: Normocephalic, atraumatic. EOMI. No scleral icterus. Dry mucous membranes. No pharyngeal erythema or uvular deviation. Neck: No JVD, lymphadenopathy, or thyromegaly. Cardiac: RRR, Normal S1 and S2, No murmurs, gallops, rubs. Pulm: Clear to auscultation b/l. Symmetric thorax. No wheezing, crackles, rhonchi Abd: Bowel Sounds present. Abdomen is soft, non-tender, non-distended. No guarding, rebound tenderness, or rigidity. No hepatosplenomegaly. Urostomy bag in place without signs of infection in RLQ. G-tube in place. Ext: No edema or cyanosis Neuro: Strength +5/5 in RUE/RLE, 4/5 in LUE/LLE CN 2-12 intact. LABORATORY DATA: See below. IMAGING: CT head negative MICROBIOLOGY: Please see below. ASSESSMENT/PLAN: #. Acetaminophen overdose -Acetadote 20 hour protocol started at 2100 tonight. Initial level 45. Step 2 and 3 ordered. Poising control requesting repeat LFTs at midnight. Will also order repeat acetaminophen level, coags at midnight as well. #. Suicide attempt in the setting of major depressive disorder - suicide precautions, 1:1 sitter, will need to contact [facility] after medically cleared. #. Bipolar depression - Patient has a reported history of bipolar depressive disorder and was prescribed effexor outpatient by psychiatry that she self discontinued. She had low dose paxil 10 mg added on by PCP for depressive symptoms as she had been off of her effexor at least 6 months and during that time had exhibited no symptomatology or history of symptoms consistent with bipolar disorder. #. Dehydration -Clinically dehydrated on exam, will run maintenance fluids at 125 ml/hr. #. Tachycardia -She has been worked up for this outpatient by cardiology and runs in the low 100's, she has been prescribed atenolol for same #. Asthma -Continue albuterol, advair #. GERD -Continue pantoprazole #. Migraine Headache -continue maxalt, topomax #. Sleep disorder - continue trazodone #. G-tube 2/2 anorexia/cachexia - Will put in dietary instructions and nursing order. May consider dietary consult for readjustment. - Per outpatient dietary recs: 5 cans of jevity 1.5 daily at 100 ml/hrx10 hours daily with 100-225ml flushes 4x daily. - encourage ORAL intake -DVT prophy: heparin, teds/seqs Vital Signs Vital Signs Date Time Temp Pulse Resp B/P (MAP) Pulse Ox O2 Delivery O2 Flow Rate FiO2 06/08/19 16:36 99.7 95 24 125/80 (95) 98 Room Air Laboratory Data Labs 24H Laboratory Tests 2 06/08/19 17:02: Immature Granulocyte % (Auto) 0.4, Neutrophils (%) (Auto) 72.0H, Lymphocytes (%) (Auto) 20.3L, Monocytes (%) (Auto) 5.7H, Eosinophils (%) (Auto) 0.4, Basophils (%) (Auto) 1.2H, Neutrophils # (Auto) 3.7, Lymphocytes # (Auto) 1.0L, Monocytes # (Auto) 0.3, Eosinophils # (Auto) 0.0, Basophils # (Auto) 0.1, Nucleated Red Blood Cells % (auto) 0.0, Anion Gap 7L, Glomerular Filtration Rate > 60.0, Lactic Acid Level 1.3, Calcium Level 8.8, Total Bilirubin 0.4, Direct Bilirubin 0.1, Aspartate Amino Transf (AST/SGOT) 21, Alanine Aminotransferase (ALT/SGPT) 21, Alkaline Phosphatase 58, Ammonia 16, Total Creatine Kinase 200H, Creatine Kinase MB 4.2H, Creatine Kinase MB Relative Index 2.10, Troponin I < 0.02, Total Protein 7.0, Albumin 4.1, Albumin/Globulin Ratio 1.41, Thyroid Stimulating [place] ne (TSH) 0.975, Salicylates Level < 1.7L, Acetaminophen Level 45.0H, Ethyl Alcohol Level 0.003 06/08/19 19:42: Urine Color (HONEY) YELLOW, Urine Appearance (HONEY) CLOUDYH, Urine pH (HONEY) 5.0, Urine Specific [place] (HONEY) 1.030, Urine Protein TRACEH, Bedside Urine Glucose (UA) NEGATIVE, Bedside Urine Ketones (LAB) 1+H, Bedside Urine Blood TRACEH, Bedside Urine Nitrite (LAB) POSITIVEH, Bedside Urine Bilirubin (LAB) NEGATIVE, Bedside Urine Urobilinogen (LAB) NORMAL, Bedside Urine Leukocyte Esterase (L POSITIVEH, Urine Sediment Examination PERFORMED, Urine RBC 0-1, Urine WBC 1-3, Urine Squamous Epithelial Cells NONE SEEN, Urine Transitional Epithelial Cells SMALL AMOUNTH, Urine Bacteria LARGE AMOUNTH, Urine Hyaline Casts NONE SEEN, Urine Mucus SMALL AMOUNTH, Urine Opiates Screen NEGATIVE, Urine Methadone Screen NEGATIVE, Urine Barbiturates Screen NEGATIVE, Urine Phencyclidine Screen NEGATIVE, Urine Amphetamines Screen NEGATIVE, Urine Benzodiazepines Screen NEGATIVE, Urine Cocaine Metabolite Screen NEGATIVE, Urine Cannabinoids Screen NEGATIVE CBC/BMP Laboratory Tests 06/08/19 17:02 Microbiology Microbiology 06/08/19 Urine Culture, Received Pending 06/08/19 Blood Culture, Received Pending Home Medications Scheduled Atenolol (Atenolol) 25 Mg Tablet, 25 MG PO DAILY Cetirizine HCl (ZyrTEC) 10 Mg Capsule, 10 MG PO DAILY Cyanocobalamin (Vitamin B-12) (Vitamin B-12) 1,000 Mcg Capsule, 1,000 MCG PO DAILY Megestrol Acetate (Megestrol Acetate) 20 Mg Tablet, 20 MG PO DAILY Pantoprazole Sodium (Pantoprazole Sodium) 40 Mg Tablet.dr, 40 MG PO DAILY Paroxetine HCl (Paroxetine) 10 Mg Tablet, 10 MG PO DAILY Salmeterol/Fluticasone (Advair 500-50 Diskus) 1 Each Blst.w.dev, 1 PUFF INH BID Sucralfate (Sucralfate) 1 Gm Tablet, 1 GM PO QID Topiramate (Topiramate) 25 Mg Tablet, 50 MG PO BID Scheduled PRN Acetaminophen (Acetaminophen) 500 Mg Tablet, 500 MG PO Q6H PRN for PAIN Albuterol Sulfate (Ventolin Hfa) 18 Gm Hfa.aer.ad, 2 PUFF INH Q6H PRN for SHORTNESS OF BREATH Rizatriptan Benzoate (Maxalt) 10 Mg Tablet, 10 MG PO DAILY PRN for MIGRAINE Trazodone HCl (Trazodone HCl) 50 Mg Tablet, 50 MG PO QHS PRN for SLEEP Miscellaneous Medications [Med Rec Comment] UNABLE TO VERIFY WITH PATIENT, USED EXTERNAL HISTORY AND CLINIC VISIT Allergies Coded Allergies: SEAFOOD (Verified Allergy, Severe, hives, throat swelling, 07/20/18) Contrast Media (Verified Allergy, Intermediate, hives, 07/20/18) latex (Verified Allergy, Intermediate, hives, 07/20/18) Penicillins (Verified Allergy, Mild, Rash , 06/08/19) clindamycin (Verified Allergy, Mild, rash, 06/08/19) iodine (Verified Allergy, Mild, rash, 06/08/19) ziprasidone (Verified Allergy, Unknown, rash, 06/07/18) A-FIB/CHADSVASC A-FIB History Current/History of A-Fib/PAF?: No GME ATTESTATION GME ATTESTATION My faculty preceptor for this patient encounter was physically present during the encounter and was fully available. All aspects of the patient interview, examination, medical decision making process, and medical care plan development were reviewed and approved by the faculty preceptor. The faculty preceptor is aware and concurs with the plan as stated in the body of this note and will attest to such by his/her cosignature. ATTENDING NOTE Pls see my progress note for my addendum. I reviewed the H&P and agree with the findings as documented by . SHAYNE BALDERAS DO Jun 08, 2019 22:00 RAYSHAWN MIKE MD Jun 09, 2019 03:15
[2019-06-09 00:47] LABS: ACETAMINOPHEN LEVEL 5.1 UG/ML (10.0-30.0); ALBUMIN 3.9 GM/DL (3.2-5.2); BILIRUBIN,DIRECT 0.2 MG/DL (0.0-0.2); BILIRUBIN,TOTAL 0.5 MG/DL (0.2-1.0); INR 1.26; PROTHROMBIN TIME 15.6 SECONDS (11.8-14.0); TOTAL PROTEIN 6.9 GM/DL (6.4-8.2)
[2019-06-09 00:48] LABS: PARTIAL THROMBOPLASTIN TIME 30.4 SECONDS (25.0-38.4)
[2019-06-09] MEDS ORDERED: ACETYLCYSTEINE 6,800 MG in D5W 1,000 ML IV ONE (02:30)
[2019-06-09] MEDS ORDERED: RAMELTEON 8 MG TAB (ROZEREM) PO SCH (03:00)
[2019-06-09] MEDS ORDERED: QUEtiapine FUMARATE 50 MG TAB PO SCH (03:00)
[2019-06-09 04:00] VITALS: BP 135/77
[2019-06-09] MEDS ORDERED: LORazepam 0.5 MG TAB PO PRN (04:15)
[2019-06-09] MEDS ORDERED: LORazepam 2 MG TAB PO ONE (04:15)
[2019-06-09] MEDS ORDERED: LORazepam 2 MG/ML VIAL (J2060) IV STA (04:33)
--- NOTE | 2019-06-09 05:12 | IPNPDOC ---
Text Note Date of Service The patient was seen on 06/09/19. NOTE Was called to ICU as patient was yelling as loud as she could and appeared acu tely agitated. At bedside patient was alert and orientable and stated she was interested in taking something to help her calm down. I gave seroquel by mouth which seemed to work at first however about an hour later I was called back to bedside and the patient was again acutely agitated and starting to lash out physically and verbally at staff if they were near her bed. She also would go back and forth between repeatedly yelling and thrashing in her bed. When asked if she would like to try something different orally to help her relax she would swear at me and refused any further oral medications. IV ativan was given which she thanked us for and seemed comfortable at that point trying to go to sleep. She reportedly acted in a similar manner when she was in the emergency department prior to me seeing her so I do not feel this represents any form of sun downing I also do not feel this is delirium as she is easily able to recall information on direct questioning and is AOx3. My differential includes acute psychosis, manic episode with acute psychosis, acute adria, panic attack. I put in an order for PO ativan for same as she was giving voice to a high degree of anxiety. Of note, her physical abilities were significantly different than on my initial exam as she was able to lift her entire lower torso off of the bed easily and had +5/5 strength in her upper extremities as well. Physical therapy she attempt to work with her on walking to see if she is able to do so as she still clearly has some fairly significant strength in her lower extremities. Moreover, with regard to her G-tube, this was placed as an urgent measure as her BMI was dangerously low and experienced early satiety when eating PO intake, she is completely able to consume oral intake and she is NOT gtube dependent. I do not feel the presence of her gtube should be a limiting factor when considering [facility] admission in the future. VS,Jonobone, I+O VS, Fishbone, I+O Laboratory Tests 06/08/19 17:02 Vital Signs Date Time Temp Pulse Resp B/P (MAP) Pulse Ox O2 Delivery O2 Flow Rate FiO2 06/09/19 04:00 98.5 101 16 135/77 (96) 98 Room Air I&O- Last 24 Hours up to 6 AM 06/09/19 06:00 Intake Total 820 ml Output Total 0 ml Balance 820 ml GME ATTESTATION GME ATTESTATION My faculty preceptor for this patient encounter was physically present during the encounter and was fully available. All aspects of the patient interview, examination, medical decision making process, and medical care plan development were reviewed and approved by the faculty preceptor. The faculty preceptor is aware and concurs with the plan as stated in the body of this note and will attest to such by his/her cosignature. SHAYNE JOYNER DO Jun 09, 2019 05:12
[2019-06-09 05:43] LABS: HEMATOCRIT 32.8 % (36.0-47.0); MEAN CORPUSCULAR HEMOGLOBIN 34.9 pg (27.0-33.0); MEAN CORPUSCULAR HGB CONC 33.5 g/dl (32.0-36.5); MEAN CORPUSCULAR VOLUME 104.1 fl (80.0-96.0); PLATELET COUNT, AUTOMATED 217 10^3/uL (150-450); RED BLOOD COUNT 3.15 10^6/uL (4.00-5.40); WHITE BLOOD COUNT 6.8 10^3/uL (4.0-10.0)
[2019-06-09] MEDS: NS 1,000 ML IV SCH (05:45)
[2019-06-09] MEDS: HEPARIN SOD (PORCINE) 5000 UNITS/ML VIAL (J1644 PER 1000UNITS) SC SCH ×3 (05:57→21:22)
[2019-06-09 05:59] LABS: ALBUMIN 3.5 GM/DL (3.2-5.2); ALT/SGPT 25 U/L (12-78); BILIRUBIN,TOTAL 0.5 MG/DL (0.2-1.0); BLOOD UREA NITROGEN 9 MG/DL (7-18); CALCIUM LEVEL 8.2 MG/DL (8.5-10.1); CARBON DIOXIDE LEVEL 26 MEQ/L (21-32); CHLORIDE LEVEL 106 MEQ/L (98-107); CREATININE FOR GFR 0.39 MG/DL (0.55-1.30); GLOMERULAR FILTRATION RATE > 60.0 (>58); GLUCOSE, FASTING 80 MG/DL (70-100); POTASSIUM SERUM 3.3 MEQ/L (3.5-5.1); SODIUM LEVEL 141 MEQ/L (136-145); TOTAL PROTEIN 6.2 GM/DL (6.4-8.2)
[2019-06-09] MEDS ORDERED: CIPROFLOXACIN 400 MG in IV 1 EA IV SCH (06:00)
[2019-06-09] MEDS ORDERED: POTASSIUM CHLORIDE 10 MEQ SR TABLET PO ONE (07:30)
[2019-06-09 08:00] VITALS: BP 114/64
[2019-06-09] MEDS: PANTOPRAZOLE 40MG TAB (PROTONIX) PO SCH (08:41)
[2019-06-09] MEDS ORDERED: PARoxetine 10MG TABLET PO SCH (09:00)
[2019-06-09] MEDS ORDERED: CEFD300CAP PO (11:26)
[2019-06-09 12:00] VITALS: BP 121/58
[2019-06-09] MEDS: CEFDINIR 300 MG CAP (OMNICEF) PO SCH ×2 (12:58→21:21)
[2019-06-09 16:00] VITALS: BP 118/62
--- NOTE | 2019-06-09 18:07 | IPNPDOC ---
Text Note Date of Service The patient was seen on 06/09/19. NOTE S: Pt examined at bedside. Is lethargic, but answers when prodded. Required sedatives overnight due to aggression. Otherwise hemodynamically stable and on Acetylcysteine protocol. Denies SI/HI this am, and reports "I just want to get better. Nothing is going right." PE: Vitals: see below General: NAD, A&Ox2, to self and location, not yr, resting comfortably HEENT: NCAT, EOMI, anicteric sclera, MMM CV: RRR, no murmurs or clicks or rub. No edema RESP: CTAB, no w/r/r/ ABD: soft, NT, ND. Hypoactive, PEG tube in place : urostomy with clear urine output EXTREMITIES: 2+ radial pulses b/l, able to move all extremities PSYCH: flat affect NEURO: lethargic, but arousable. Follows commands A/P: This is a 44-year-old female with hx of substance abuse brought in by EMS after suicide attempt with half a bottle of cough syrup and 10 Tylenol PM pills. She denies any prior suicide attempts, and is noted to be on psych meds for depression and insomnia at baseline. 1. Drug Overdose - 10 Tylenol PM pills & half bottle of cough syrup - unresponsive on admission, awake this am - denies SI currently. Hemodynamically stable - on Acetylcysteine protocol. Poison control aware and updated throughout stay - Per Poison Control, is medically cleared after N-AC finishes and no increasing LFT - Tylenol level elevated at 45 on admission, repeat is undetectable. LFT WNL - hold home sedatives and psych meds until assessed by Psych. Dr. Kaur cons ulted - DC to psych when N-AC completed 2. Suicide Attempt - states she wants to "get help and better" - denies hx of SI in past and denies it this am. Has hx of drug use - remaining tox screen negative - sitter in place & suicide precuations - Psych consulted, Dr. Kaur to see pt - send to [facility] after N-Ac drip complete 3.UTI - reports urgency & frequency - UA+ nitrates, leukocyte esterase, large amount of bacteria - urine cx pending - afebrile, no leukocytosis or signs of systemic infection - continue po Cefdinir 4. Hypokalemia - supplemented 5. Macrocytic anemia - chronic, asymptomatic - no blood loss, H&H stable - monitor 6. HTN - resume home meds when reconciled 7. Migraines - on rizatriptan 8. Insomnia, depression - Psych to reassess 9. GERD - on PPI DVT ppx: heparin sc DISPO: per Poison control, finish Acetylcysteine. When complete, discharge to [facility] tomorrow am. VS,Fishbone, I+O VS, Fishbone, I+O Laboratory Tests 06/08/19 17:02 06/09/19 05:18 Vital Signs Date Time Temp Pulse Resp B/P (MAP) Pulse Ox O2 Delivery O2 Flow Rate FiO2 06/09/19 08:00 98.8 82 17 114/64 (81) 95 Room Air I&O- Last 24 Hours up to 6 AM 06/09/19 06:00 Intake Total 1492 ml Output Total 0 ml Balance 1492 ml GME ATTESTATION GME ATTESTATION My faculty preceptor for this patient encounter was physically present during the encounter and was fully available. All aspects of the patient interview, examination, medical decision making process, and medical care plan development were reviewed and approved by the faculty preceptor. The faculty preceptor is aware and concurs with the plan as stated in the body of this note and will attest to such by his/her cosignature. ATTENDING NOTE I, Jordan De Jesus, have independently examined this patient and performed my own physical exam, as well as reviewed the documentation and edited where necessary. I have discussed in detail with the resident / student the findings and plan of treatment as documented by the resident / student and edited their note. I agree with their findings and treatment plan and have edited their documentation. I will continue to follow the patient during this hospital stay. MAGGY WILLOUGHBY DO Jun 09, 2019 12:01 JORDAN DE JESUS MD Jun 09, 2019 21:54
[2019-06-09 19:39] VITALS: BP 123/68
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
[2019-06-09] MEDS ORDERED: LORazepam 2 MG TAB PO SCH (21:00)
[2019-06-09 21:54] LABS: ALBUMIN 3.5 GM/DL (3.2-5.2); BILIRUBIN,DIRECT 0.1 MG/DL (0.0-0.2); BILIRUBIN,TOTAL 0.3 MG/DL (0.2-1.0); TOTAL PROTEIN 6.6 GM/DL (6.4-8.2)
[2019-06-09] MEDS: LORazepam 1 MG TAB PO SCH (22:46)
[2019-06-10 00:12] VITALS: BP 114/64
[2019-06-10 04:27] VITALS: BP 124/75
[2019-06-10] MEDS: HEPARIN SOD (PORCINE) 5000 UNITS/ML VIAL (J1644 PER 1000UNITS) SC SCH ×2 (05:21→14:00)
[2019-06-10 08:18] VITALS: BP 129/74
[2019-06-10] MEDS: LORazepam 1 MG TAB PO SCH (09:29)
[2019-06-10] MEDS: CEFDINIR 300 MG CAP (OMNICEF) PO SCH (09:29)
[2019-06-10] MEDS: PANTOPRAZOLE 40MG TAB (PROTONIX) PO SCH (09:29)
[2019-06-10 12:00] VITALS: BP 140/68
--- NOTE | 2019-06-10 12:29 | DS.PDOC ---
Discharge Summary General Date of Admission Jun 08, 2019 at 20:27 Date of Discharge 06/10/2019 Discharge Summary PROCEDURES PERFORMED DURING STAY: [None]. 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 Patient reported that she had attempted to kill herself with a Tylenol overdose. Patient reported to have consumed half a bottle of NyQuil and 1000 mg of Tylenol then at 0900 she took the second half bottle of NyQuil and 4000 mg of Tylenol. Patient was admitted to hospitalist service for further evaluation and treatment. Poison control was contacted. Patient had her initial acetaminophen level of 45. Patient was started on N- acetylcysteine antidote for 3 step treatment. Poison control was contacted. Repeat acetaminophen levels were checked and negative. Patient's liver function remained unchanged. Patient was ultimately cleared by poison control and was evaluated by psychiatry on 06/09/2019. Patient has been cleared from a medical [facility] and will be transition to inpatient mental health unit under the care of psychiatry. DISCHARGE MEDICATIONS: Please see below. ALLERGIES: Please see below. PHYSICAL EXAMINATION ON DISCHARGE: Vitals (See below) General: Lying in bed, no acute distress, comfortable, AAOx3 HEENT: NC, AT CVS: +S1S2 Lungs: Fair air entry b/l, no wheezing / rhonchi / rales Abdomen: Soft, ND, NT Extremities: - Edema, - Calf tenderness LABORATORY DATA: Please see below. ACTIVITY: [As tolerated]. DISCHARGE PLAN / DISPOSITION: Follow-up with psychiatry. Upon transfer to inpatient mental health unit DISCHARGE CONDITION: [Stable]. TIME SPENT ON DISCHARGE: 35 minutes Vital Signs/I&Os Vital Signs Date Time Temp Pulse Resp B/P (MAP) Pulse Ox O2 Delivery O2 Flow Rate FiO2 06/10/19 12:00 98.9 95 18 140/68 (92) 97 Room Air 140.0 68 I&O- Last 24 Hours up to 6 AM 06/10/19 06:00 Intake Total 4156 ml Output Total 2470 ml Balance 1686 ml Laboratory Data Labs 24H Laboratory Tests 2 06/09/19 21:13: Total Bilirubin 0.3, Direct Bilirubin 0.1, Aspartate Amino Transf (AST/SGOT) 35, Alanine Aminotransferase (ALT/SGPT) 27, Alkaline Phosphatase 58, Total Protein 6.6, Albumin 3.5, Albumin/Globulin Ratio 1.13 Microbiology Microbiology 06/08/19 Urine Culture - Preliminary, Resulted Escherichia Coli 06/08/19 Blood Culture - Preliminary, Resulted No growth after 24 hours . All specim... Discharge Medications Scheduled Atenolol (Atenolol) 25 Mg Tablet, 25 MG PO DAILY, (Reported) Cefdinir (Cefdinir) 300 Mg Capsule, 300 MG PO BID Cetirizine HCl (ZyrTEC) 10 Mg Capsule, 10 MG PO DAILY, (Reported) Cyanocobalamin (Vitamin B-12) (Vitamin B-12) 1,000 Mcg Capsule, 1,000 MCG PO DAILY, (Reported) Megestrol Acetate (Megestrol Acetate) 20 Mg Tablet, 20 MG PO DAILY, (Reported) Pantoprazole Sodium (Pantoprazole Sodium) 40 Mg Tablet.dr, 40 MG PO DAILY, (Reported) Salmeterol/Fluticasone (Advair 500-50 Diskus) 1 Each Blst.w.dev, 1 PUFF INH BID, (Reported) Sucralfate (Sucralfate) 1 Gm Tablet, 1 GM PO QID, (Reported) Topiramate (Topiramate) 25 Mg Tablet, 50 MG PO BID, (Reported) Scheduled PRN Albuterol Sulfate (Ventolin Hfa) 18 Gm Hfa.aer.ad, 2 PUFF INH Q6H PRN for SHORTNESS OF BREATH, (Reported) Rizatriptan Benzoate (Maxalt) 10 Mg Tablet, 10 MG PO DAILY PRN for MIGRAINE, (Reported) Trazodone HCl (Trazodone HCl) 50 Mg Tablet, 50 MG PO QHS PRN for SLEEP, (Reported) Miscellaneous Medications [Med Rec Comment] , (Reported) UNABLE TO VERIFY WITH PATIENT, USED EXTERNAL HISTORY AND CLINIC VISIT Allergies Coded Allergies: SEAFOOD (Verified Allergy, Severe, hives, throat swelling, 07/20/18) Contrast Media (Verified Allergy, Intermediate, hives, 07/20/18) latex (Verified Allergy, Intermediate, hives, 07/20/18) Penicillins (Verified Allergy, Mild, Rash , 06/08/19) clindamycin (Verified Allergy, Mild, rash, 06/08/19) iodine (Verified Allergy, Mild, rash, 06/08/19) ziprasidone (Verified Allergy, Unknown, rash, 06/07/18) CARLOS DE JESUS MD Jun 10, 2019 12:29
== END 2019-06-10 13:45 | DRG 917 ==
LOC: M ED 16:10 → EDBD 16:10 → M ED INP 20:27 → M RR INP 22:00
PROVIDERS: ADMIT Internal Medicine; ATTEND Internal Medicine
DX: T39.1X2A Poisoning by 4-Aminophenol derivatives, intentional self-harm, initial encounter (principal); G92 Toxic encephalopathy; I69.354 Hemiplegia and hemiparesis following cerebral infarction affecting left non-dominant side; R45.851 Suicidal ideations; R64 Cachexia; F23 Brief psychotic disorder; N39.0 Urinary tract infection, site not specified; R41.82 Altered mental status, unspecified; N31.9 Neuromuscular dysfunction of bladder, unspecified; Z91.5 Personal history of self-harm; J45.30 Mild persistent asthma, uncomplicated; G89.29 Other chronic pain; M54.9 Dorsalgia, unspecified; F41.1 Generalized anxiety disorder; Z85.038 Personal history of other malignant neoplasm of large intestine; Z85.43 Personal history of malignant neoplasm of ovary; D53.9 Nutritional anemia, unspecified; G43.909 Migraine, unspecified, not intractable, without status migrainosus; Z90.49 Acquired absence of other specified parts of digestive tract; Z90.79 Acquired absence of other genital organ(s); F14.11 Cocaine abuse, in remission; F32.9 Major depressive disorder, single episode, unspecified; E86.0 Dehydration; R00.0 Tachycardia, unspecified; K21.9 Gastro-esophageal reflux disease without esophagitis; G47.00 Insomnia, unspecified; R63.0 Anorexia; Z79.899 Other long term (current) drug therapy; Z91.013 Allergy to seafood; Z91.040 Latex allergy status; Z91.041 Radiographic dye allergy status; Z88.0 Allergy status to penicillin; Z88.1 Allergy status to other antibiotic agents; Z88.4 Allergy status to anesthetic agent; Z88.8 Allergy status to other drugs, medicaments and biological substances; F41.0 Panic disorder [episodic paroxysmal anxiety]; E87.6 Hypokalemia; I10 Essential (primary) hypertension; Z81.8 Family history of other mental and behavioral disorders; Z81.1 Family history of alcohol abuse and dependence; Z91.410 Personal history of adult physical and sexual abuse

== ENCOUNTER 2019-06-10 11:32 | Inpatient (IN) | payer MEDICARE, MEDICAID ==
[~2019-06-10 11:32] MED LIST changes: +B-12100010 PO; +CEFD300CAP PO; +CETI10CA2 PO; +MED REC COMMENT; +PARO10TA3 PO; +SUCR1TAB56 PO; +TOPI25TA10 PO; +TRAZ-252 PO
[2019-06-10] MEDS ORDERED: IBUPROFEN 400 MG TAB PO PRN (11:45)
[2019-06-10] MEDS ORDERED: MOM 30ML SUSPENSION UDC PO PRN (11:45)
[2019-06-10] MEDS ORDERED: MAALOX 30 ML SUSP *UDC PO PRN (11:45)
[2019-06-10] MEDS ORDERED: traZODone 50 MG TAB PO PRN (11:45)
[2019-06-10 19:04] VITALS: BP 110/68
[2019-06-11 06:59] VITALS: BP 130/60
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
--- NOTE | 2019-06-11 15:36 | HPEPDOC ---
General Date of Admission Jun 10, 2019 at 16:33 Date of Service: Jun 11, 2019 Chief Complaint The patient is a 44-year-old female admitted with a reason for visit of Depression. 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 Patient reported that she had attempted to kill herself with Tylenol overdose. During hospital stay anni abreu received treatment with NAC. She was stabilized and transferred to mental health unit. Today patient denied fever, chills, nausea, vomiting, diarrhea. Patient continues to have urinary incontinence. Patient has left urostomy and she reported that she saw urologist 6 years ago. Home Medications Scheduled Atenolol (Atenolol) 25 Mg Tablet, 25 MG PO DAILY, (Reported) Cefdinir (Cefdinir) 300 Mg Capsule, 300 MG PO BID Cetirizine HCl (ZyrTEC) 10 Mg Capsule, 10 MG PO DAILY, (Reported) Cyanocobalamin (Vitamin B-12) (Vitamin B-12) 1,000 Mcg Capsule, 1,000 MCG PO DAILY, (Reported) Megestrol Acetate (Megestrol Acetate) 20 Mg Tablet, 20 MG PO DAILY, (Reported) Pantoprazole Sodium (Pantoprazole Sodium) 40 Mg Tablet.dr, 40 MG PO DAILY, (Reported) Salmeterol/Fluticasone (Advair 500-50 Diskus) 1 Each Blst.w.dev, 1 PUFF INH BID, (Reported) Sucralfate (Sucralfate) 1 Gm Tablet, 1 GM PO QID, (Reported) Topiramate (Topiramate) 25 Mg Tablet, 50 MG PO BID, (Reported) Scheduled PRN Albuterol Sulfate (Ventolin Hfa) 18 Gm Hfa.aer.ad, 2 PUFF INH Q6H PRN for SHORTNESS OF BREATH, (Reported) Rizatriptan Benzoate (Maxalt) 10 Mg Tablet, 10 MG PO DAILY PRN for MIGRAINE, (Reported) Trazodone HCl (Trazodone HCl) 50 Mg Tablet, 50 MG PO QHS PRN for SLEEP, (Reported) Miscellaneous Medications [Med Rec Comment] , (Reported) UNABLE TO VERIFY WITH PATIENT, USED EXTERNAL HISTORY AND CLINIC VISIT Allergies Coded Allergies: SEAFOOD (Verified Allergy, Severe, hives, throat swelling, 07/20/18) Contrast Media (Verified Allergy, Intermediate, hives, 07/20/18) latex (Verified Allergy, Intermediate, hives, 07/20/18) Penicillins (Verified Allergy, Mild, Rash , 06/08/19) clindamycin (Verified Allergy, Mild, rash, 06/08/19) iodine (Verified Allergy, Mild, rash, 06/08/19) ziprasidone (Verified Allergy, Unknown, rash, 06/07/18) Past Medical History Medical History Neurogenic bladder status post stroke 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 Mild persistent asthma Chronic back pain Bipolar depression Generalized anxiety disorder History of colorectal cancer History of ovarian cancer macrocytic anemia Migraines History of substance abuse Surgical History Cholecystectomy (03/2007) Hysterectomy (2013 10) Urostomy placement (2013) Family History I personally reviewed family history and found not pertinent Social History * Smoker: Denies Alcohol: Denies Drugs: denies, marijuana A-FIB/CHADSVASC A-FIB History Current/History of A-Fib/PAF?: No Current PO Anticoag Therapy: No Review of Systems Constitutional: Denies: Chills, Fever Eyes: Denies: Pain ENT: Denies: Head Aches Skin: Denies: Lesions Pulmonary: Denies: Dyspnea Cardiovascular: Denies: Chest Pain, Palpitations Gastrointestinal: Denies: Nausea, Vomiting Genitourinary: Reports: Dysuria Hematologic: Denies: Bruising, Bleeding Excessively Endocrine: Denies: Polydipsia, Polyphagia Musculoskeletal: Denies: Neck Pain Neurological: Denies: Weakness Psych: Reports: Mood Normal Physical Examination General Exam: Positive: Alert, Cooperative Eye Exam: Positive: PERRLA ENT Exam: Positive: Atraumatic Neck Exam: Positive: Supple; Negative: JVD Chest Exam: Positive: Clear to auscultation Heart Exam: Positive: Rate Normal Telemetry: Positive: No significant arrhythmia Abdomen Exam: Positive: Normal bowel sounds Extremity Exam: Negative: Clubbing, Cyanosis Skin Exam: Positive: Nl turgor and temperature Neuro Exam: Positive: Normal Gait, Strength at 5/5 X4 ext Psych Exam: Positive: Mental status NL Vital Signs Vital Signs Date Time Temp Pulse Resp B/P (MAP) Pulse Ox O2 Delivery O2 Flow Rate FiO2 06/11/19 06:59 98.3 78 16 130/60 (83) 97 Room Air Assessment/Plan Patient is 44 years old female with past history of neurogenic bladder status po st stroke, 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 Patient reported that she had attempted to kill herself with Tylenol overdose. During hospital stay patient received treatment with NAC. She was stabilized and transferred to mental health unit. Problems (1) Suicide attempt Status: Acute Problem Text: Follow-up with psychiatrist in the outpatient settings CMP in 5-7 days (2) Urinary tract infection Status: Acute Problem Text: Patient stated that she saw urologist 6 years ago She had urostomy since 2013 Patient needs follow-up with urologist in the outpatient settings Patient completed course with cefdinir (3) Macrocytic anemia Status: Chronic Problem Text: Continue B12 and folate supplementation Most likely secondary to poor oral intake and alcohol abuse Follow-up with PCP in the outpatient settings Plan / VTE VTE Prophylaxis Ordered?: Yes RAQUEL HAMILTON DO Jun 11, 2019 15:36
--- NOTE | 2019-06-11 15:47 | MHDSPDOC ---
[facility] Discharge Summary Discharge Summary DATE OF ADMISSION: Jun 10, 2019 at 16:33 DATE OF DISCHARGE: 06/11/19 please see h/p for same day discharge Vital Signs/I&Os Vital Signs Date Time Temp Pulse Resp B/P (MAP) Pulse Ox O2 Delivery O2 Flow Rate FiO2 06/11/19 06:59 98.3 78 16 130/60 (83) 97 Room Air Medications Scheduled Atenolol (Atenolol) 25 Mg Tablet, 25 MG PO DAILY, (Reported) Cefdinir (Cefdinir) 300 Mg Capsule, 300 MG PO BID for 5 Days, #10 Cetirizine HCl (ZyrTEC) 10 Mg Capsule, 10 MG PO DAILY, (Reported) Cyanocobalamin (Vitamin B-12) (Vitamin B-12) 1,000 Mcg Capsule, 1,000 MCG PO DAILY, (Reported) Megestrol Acetate (Megestrol Acetate) 20 Mg Tablet, 20 MG PO DAILY, (Reported) Pantoprazole Sodium (Pantoprazole Sodium) 40 Mg Tablet.dr, 40 MG PO DAILY, (Reported) Salmeterol/Fluticasone (Advair 500-50 Diskus) 1 Each Blst.w.dev, 1 PUFF INH BID, (Reported) Sucralfate (Sucralfate) 1 Gm Tablet, 1 GM PO QID, (Reported) Topiramate (Topiramate) 25 Mg Tablet, 50 MG PO BID, (Reported) Scheduled PRN Albuterol Sulfate (Ventolin Hfa) 18 Gm Hfa.aer.ad, 2 PUFF INH Q6H PRN for SHORTNESS OF BREATH, (Reported) Rizatriptan Benzoate (Maxalt) 10 Mg Tablet, 10 MG PO DAILY PRN for MIGRAINE, (Reported) Trazodone HCl (Trazodone HCl) 50 Mg Tablet, 50 MG PO QHS PRN for SLEEP, (Reported) Miscellaneous Medications [Med Rec Comment] , (Reported) UNABLE TO VERIFY WITH PATIENT, USED EXTERNAL HISTORY AND CLINIC VISIT Allergies Coded Allergies: SEAFOOD (Verified Allergy, Severe, hives, throat swelling, 07/20/18) Contrast Media (Verified Allergy, Intermediate, hives, 07/20/18) latex (Verified Allergy, Intermediate, hives, 07/20/18) Penicillins (Verified Allergy, Mild, Rash , 06/08/19) clindamycin (Verified Allergy, Mild, rash, 06/08/19) iodine (Verified Allergy, Mild, rash, 06/08/19) ziprasidone (Verified Allergy, Unknown, rash, 06/07/18) JENNIFER LINARES DO Jun 11, 2019 15:47
[2019-06-11 16:07] VITALS: BP 115/60
== END 2019-06-11 17:37 | disposition home or self-care (01) | DRG 881 ==
LOC: M PSY 16:33
PROVIDERS: ADMIT Psychiatry & Neurology Psychiatry; ATTEND Psychiatry & Neurology Addiction Medicine
DX: F32.9 Major depressive disorder, single episode, unspecified (principal); I69.354 Hemiplegia and hemiparesis following cerebral infarction affecting left non-dominant side; F60.3 Borderline personality disorder; F43.21 Adjustment disorder with depressed mood; I69.398 Other sequelae of cerebral infarction; F41.1 Generalized anxiety disorder; M54.9 Dorsalgia, unspecified; D53.9 Nutritional anemia, unspecified; N31.9 Neuromuscular dysfunction of bladder, unspecified; G43.909 Migraine, unspecified, not intractable, without status migrainosus; Z79.899 Other long term (current) drug therapy; Z91.013 Allergy to seafood; Z91.040 Latex allergy status; Z91.041 Radiographic dye allergy status; Z88.0 Allergy status to penicillin; Z88.1 Allergy status to other antibiotic agents; Z88.8 Allergy status to other drugs, medicaments and biological substances; J45.30 Mild persistent asthma, uncomplicated; Z85.038 Personal history of other malignant neoplasm of large intestine

== ENCOUNTER 2019-11-01 06:09 | Emergency (ER) | payer MEDICARE, MEDICAID ==
[~2019-11-01] VITALS: Ht 193 cm; Wt 73.6 kg
[~2019-11-01 06:09] MED LIST changes: +JEVITY FT; +PANT40TA29 PO; -PANT40TA3 PO; +PAXI10TA12 PO; +PROT1TAB2 PO; +SERO1TAB3 PO
[2019-11-01] MEDS ORDERED: OMEP-221 (06:29)
[2019-11-01] MEDS ORDERED: QUET5TAB (06:29)
[2019-11-01] MEDS ORDERED: CETI-24 (06:29)
[2019-11-01] MEDS ORDERED: KETOROLAC 60MG 2ML VIAL IM ONE (07:15)
[2019-11-01 09:20] VITALS: BP 105/59
== END 2019-11-01 09:21 | disposition home or self-care (01) ==
LOC: M ED 06:09 → EDBD 06:09 → M ED 09:21
DX: R30.0 Dysuria (principal); K94.20 Gastrostomy complication, unspecified; N31.9 Neuromuscular dysfunction of bladder, unspecified; Z79.899 Other long term (current) drug therapy; Z88.0 Allergy status to penicillin; Z88.1 Allergy status to other antibiotic agents; Z88.8 Allergy status to other drugs, medicaments and biological substances; Z91.018 Allergy to other foods; Z91.040 Latex allergy status; Z91.041 Radiographic dye allergy status
CPT/HCPCS: 81001; 87086; 96372; 99284; J1885

== ENCOUNTER → 2019-11-24 | Outpatient (CLI) | payer MEDICARE, MEDICAID ==
[~2019-11-24] MED LIST changes: +CETI-24; +OMEP-221; +QUET5TAB
== END ==
LOC: M LABSMTC 09:31
PROVIDERS: ATTEND Family Medicine
DX: Z20.828 Contact with and (suspected) exposure to other viral communicable diseases (principal)
CPT/HCPCS: C9803; U0003

== ENCOUNTER 2020-01-17 16:44 | Emergency (ER) | payer MEDICARE, MEDICAID ==
[~2020-01-17] VITALS: Ht 188 cm; Wt 76.4 kg
[2020-01-17] MEDS ORDERED: NS 1,000 ML IV ONE (17:15)
[2020-01-17 18:01] LABS: BASO # 0.1 10^3/uL (0.0-0.2); BASO % 0.9 % (0.0-1.0); EOS # 0.1 10^3/uL (0.0-0.5); EOS % 1.4 % (0.0-3.0); HEMATOCRIT 33.8 % (36.0-47.0); HEMOGLOBIN 10.9 g/dl (12.0-15.5); LYMPH # 1.7 10^3/uL (1.5-5.0); LYMPH % 29.5 % (24.0-44.0); MEAN CORPUSCULAR HEMOGLOBIN 34.7 pg (27.0-33.0); MEAN CORPUSCULAR HGB CONC 32.2 g/dl (32.0-36.5); MEAN CORPUSCULAR VOLUME 107.6 fl (80.0-96.0); MONO # 0.4 10^3/uL (0.0-0.8); MONO % 7.7 % (0.0-5.0); NEUTROPHILS # 3.4 10^3/uL (1.5-8.5); NEUTROPHILS % 60.1 % (36.0-66.0); PLATELET COUNT, AUTOMATED 245 10^3/uL (150-450); RED BLOOD COUNT 3.14 10^6/uL (4.00-5.40); WHITE BLOOD COUNT 5.7 10^3/uL (4.0-10.0)
[2020-01-17] MEDS ORDERED: CIPROFLOXACIN 400 MG in IV 1 EA IV ONE (18:15)
[2020-01-17 18:28] LABS: ALBUMIN 3.6 GM/DL (3.2-5.2); ALT/SGPT 16 U/L (12-78); BILIRUBIN,DIRECT < 0.1 MG/DL (0.0-0.2); BILIRUBIN,TOTAL 0.2 MG/DL (0.2-1.0); LIPASE 105 U/L (73-393); TOTAL PROTEIN 6.3 GM/DL (6.4-8.2)
[2020-01-17] MEDS ORDERED: MACR100C43 PO (18:57)
[2020-01-17 20:03] VITALS: BP 127/70
--- NOTE | 2020-01-18 07:50 | REP ---
INDICATION: abd pain, constipation COMPARISON: None. TECHNIQUE: Supine view of the abdomen and pelvis. FINDINGS: Peg tube identified in satisfactory position. Evidence for prior cholecystectomy. Bowel gas pattern is nonspecific and without obstruction or perforation. No organomegaly. No abnormal calcifications. Incidental phleboliths noted in the pelvis. Skeletal structures intact. IMPRESSION: Nonspecific bowel gas pattern. <Electronically signed by Mekhi Billings > 01/18/20 0032
== END 2020-01-17 20:08 | disposition home or self-care (01) ==
LOC: M ED 16:44 → EDBD 16:44 → M ED 20:08
DX: N39.0 Urinary tract infection, site not specified (principal); K59.00 Constipation, unspecified; K92.1 Melena; J45.909 Unspecified asthma, uncomplicated; I10 Essential (primary) hypertension; Z79.51 Long term (current) use of inhaled steroids; Z79.899 Other long term (current) drug therapy; Z91.041 Radiographic dye allergy status; Z88.0 Allergy status to penicillin; Z88.8 Allergy status to other drugs, medicaments and biological substances; Z88.1 Allergy status to other antibiotic agents; Z91.040 Latex allergy status; Z91.013 Allergy to seafood
CPT/HCPCS: 74018; 80047; 80076; 81001; 83690; 85025; 87088; 87186; 96361; 96365; 99284; J0744

== ENCOUNTER → 2020-04-13 | Outpatient (REF) | payer MEDICARE, MEDICAID ==
[~2020-04-13] MED LIST changes: +QUET50TA3; -QUET5TAB
== END ==
LOC: M SFHCPLAZ 13:47
PROVIDERS: ATTEND Physician Assistant
DX: R30.0 Dysuria (principal)

== ENCOUNTER 2020-04-25 10:10 | Emergency (ER) | payer MEDICARE, MEDICAID ==
[~2020-04-25] VITALS: Ht 185.4 cm; Wt 84.1 kg
--- OUTSIDE RECORDS SUMMARY | 2020-04-25 10:48 | CCD ---
Author Author [facility] Organization [facility] Address Unknown Phone Unavailable Care Team Providers Care Superintendent Drilling Name Role Phone Ana Maria Rinaldi Unavailable PROBLEMS Type Condition ICD9-CM Code [id number] Code Onset Dates Condition S tatus W/U Status Risk SNOMED Code Notes Problem Sleep disorder G47.9 Active confirmed 68744 005 Problem Migraine with aura and without status migrainosu s, not intractable G43.109 Active confirmed 1324442 Problem Moderately severe depression F32.2 Active confirme d 392539274 Problem History of anemia Z86.2 Active confirmed 27 2468121 Problem Major depressive disorder, r ecurrent episode, moderate with anxious distress F33.1 Active confirmed 276714090 Problem Persistent asthma without complication, unspecif ied asthma severity J45.909 Active confirmed 013317451 Problem Feeding by G-tube Z93.1 Active confirmed 30 5776645 Problem Macrocytosis without anemia D75.89 Active confirmed 364390100 Problem Generalized anxiety disorder F41.1 Active confirme d 09838287 Problem Mood disorder F39 Active confirmed 024254 05 Problem Allergic rhinitis, unspecified seasonality, unspecifie d trigger J30.9 Active confirmed 14307087 Problem Chronic sinusitis, unspecified J32.9 Active confir med 579966277 Problem Insomnia, unspecified type G47.00 Active confirmed 830133554 Problem Colovesical fistula N32.1 Active confirmed 65764181 Problem Nocturnal hypoxia G47.34 Active confirmed 38 8888310 Problem G tube feedings Z93.1 Active confirmed 3021 72378 Problem Borderline personality disorder F60.3 Active confi rmed 75301166 ALLERGIES Allergen (clinical drug ingredient) Drug/Non Drug Allergy do cumented on EMR Reaction Allergy Type Onset Date Status Latex Hives Drug Allergy Active seafood Hives Non Drug Allergy Active loratadine Claritin([facility] Code:[address]-81) Hives Drug Allergy Active ziprasidone Geodon([facility] Code:[address]-77) Hives Drug Allergy Active amoxicillin Amoxicillin([facility] Code:[address]-87) Hives Drug Aller gy Active ENCOUNTERS from 1976 to 2020-04-18 Encounter Location Date Provider Diagnosis [address] [address] Apr, Ana Maria Rinaldi Dysuria R30.0 and Acute cystitis with he maturia N30.01 IMMUNIZATIONS No Information SOCIAL HISTORY Sex Assigned At : Social History Observation Description Sex Assigned At Unknown Audit Question Answer Notes Total Score: 0 Interpretation: Alcohol Education Language: Question Answer Notes Languages spoken: Estonian Drug and Alcohol Question Answer Notes Total Score: 0 Interpretation: No problems reported REASON FOR REFERRAL No Information VITAL SIGNS Weight 178 lbs Apr, Height 72 in Apr, BMI 24.14 kg/m2 Apr, Heart Rate 104 /min Apr, Respiratory Rate 16 /min Apr, Temperature 98.7 degrees Fahrenheit Apr, Oximetry 99 Apr, Blood pressure systolic 100 mm Hg Apr, Blood pressure diastolic 58 mm Hg Apr, MEDICATIONS Medication SIG (Take, Route, Frequency, Duration) Notes Start Da te End Date Status Megestrol Acetate 20 MG 1 tablet Orally daily for 30 days Active Advair Diskus 500-50 MCG/DOSE 1 puff Inhalation Twice a day Active Topamax 25 MG 2 tablet Orally bid for 30 day(s) Aug, Active Saline Nasal [place] 0.65 % 2 sprays in each nostril as needed Nasally every 2 hrs for 15 days Nov, Active Protonix 40 MG 1 tablet Orally Once a day for 90 Active Cetirizine HCl 10 MG 1 tablet Orally Once a day for 30 Active Carafate 1 GM 1 tablet on an empty stomach Orally four times daily Active Seroquel 50 MG 1 tablet at bedtime Orally Once a day for 30 Active Tylenol Extra Strength 500 MG 1 tablet as needed Orally every 6 hrs Active Oxygen mask apply to mask to face at night mouth at night fo r 99 days Jan, Active [employer] Devices - [employer] Battery _ 2-3x/week x 4 weeks for 90 day(s) Apr, Active Atenolol 25 MG 1 tablet Orally Once a day for 30 Active Paroxetine HCl 20 MG 1 tab Orally Once a day Dec, Active Macrobid 100 MG 1 capsule with food Orally every 12 hrs for 5 da y(s) Apr, Active Jevity 1.5 Khai - 50 ml through G tube twice daily for 30 days Active Hospital bed as directed for at home use DX G47.34 MCR # [id number] [facility] # [id number] for 30 days Jul, Active Maxalt 10 MG 1 tablet as needed one time Orally Once a day as needed for headaches for 30 days Active TraZODone HCl 50 MG 1 tablet at bedtime as neede d Orally Once a day for 30 day(s) Active Albuterol 90 MCG/ACT as directed Inhalation as needed Active PROCEDURES No Information RESULTS Component Value Reference Range Urinalysis, no Micro Reviewed date:04/13/2020 09:21:43 Interpretation: Performing Lab:[facility], [place] [address] Spec gravity 1.005 1.002 - 1.035 pH 5 5.0 - 9.0 Leukocyte 2+ Negative - Nitrate + Negative - Protein trace Negative - mg/dl Glucose Normal Negative - mg/dl Ketones NEG Negative - mg/dl Urobili NEG Normal - mg/dl Bilirubin NEG Negative - Blood 250 Negative - Internal QC Acceptable (Y/N) YES URINE CULTURE Reviewed date:04/16/2020 09:14:33 Interpretation: Performing Lab:[facility], [facility] [address] [facility] [id number] , ,[place] [address] REASON FOR VISIT UTI Sx MEDICAL (GENERAL) HISTORY Type Description Date Medical History Urine retention Medical History Asthma Medical History Chronic back pain Medical History 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 Medical History neurogenic bladder Medical History History of ovarian cancer Surgical History gall bladder 03/2007 Surgical History oral surgery 2011 Surgical History hysterectomy 2013 Surgical History urostomy 2013 Surgical History correction of bowel surgery 2014 Surgical History bleeding ulcer 2018 Surgical History colonoscopy 08/2018 Hospitalization History surgicaly related Hospitalization History UTI 06/2019 Goals Section No Information Health Concerns No Information MEDICAL EQUIPMENT No Information MENTAL STATUS No Information FUNCTIONAL STATUS No Information ASSESSMENTS Encounter Date Diagnosis Assessment Notes Treatment Notes Treatm ent Clinical Notes Apr, Dysuria (ICD-10 - R30.0) Antibiotics as prescribed; fluids. F/U next week if sxs persist. Pt agrees with plan Total time caring for the patient on the day of the encounter was 20 min Apr, Acute cystitis with hematuria (ICD-10 - N30.01) PLAN OF TREATMENT Medication Medication Name Sig Start Date Stop Date Macrobid 100 MG 1 capsule with food Orally every 12 hrs for 5 day(s) Apr, Treatment Notes Assessment Notes Clinical Notes Dysuria Antibiotics as prescribed; f luids. F/U next week if sxs persist. Pt agrees with plan Total time caring for the patient on the day of the encounter was 20 min Next Appt Details Provider Name:Johnathan Chen, 2020-04-20 08:0 0:00 AM, [address] [place] [address], [phone] Provider Name:Dragan Balderas, 2020-04-24 01 :15:00 PM, [address] [place] [address], [address], Insurance Providers Payer Name Payer Address Payer Phone Insured Name Patient Relati onship to Insured Coverage Start Date Coverage End Date MEDICARE Part A and B [address] [facility] [address] ALEAH ALLEN MEDICAID [employer] [address] [facility] [address] ALEAH ALLEN
--- OUTSIDE RECORDS SUMMARY | 2020-04-25 10:48 | CCD ---
Author Author [facility] Organization [facility] Address Unknown Phone Unavailable Care Team Providers Care Apartment Maintenance Supervisor Name Role Phone Dragan Balderas Unavailable PROBLEMS Type Condition ICD9-CM Code [id number] Code Onset Dates Condition S tatus W/U Status Risk SNOMED Code Notes Problem Sleep disorder G47.9 Active confirmed 00914 005 Problem Migraine with aura and without status migrainosu s, not intractable G43.109 Active confirmed 0019021 Problem Moderately severe depression F32.2 Active confirme d 260063456 Problem History of anemia Z86.2 Active confirmed 27 4741310 Problem Major depressive disorder, r ecurrent episode, moderate with anxious distress F33.1 Active confirmed 258716343 Problem Persistent asthma without complication, unspecif ied asthma severity J45.909 Active confirmed 833189552 Problem Feeding by G-tube Z93.1 Active confirmed 30 1007129 Problem Macrocytosis without anemia D75.89 Active confirmed 942394306 Problem Generalized anxiety disorder F41.1 Active confirme d 81703881 Problem Mood disorder F39 Active confirmed 718011 05 Problem Allergic rhinitis, unspecified seasonality, unspecifie d trigger J30.9 Active confirmed 07947063 Problem Chronic sinusitis, unspecified J32.9 Active confir med 018817731 Problem Insomnia, unspecified type G47.00 Active confirmed 960952575 Problem Colovesical fistula N32.1 Active confirmed 76525490 Problem Nocturnal hypoxia G47.34 Active confirmed 38 6295712 Problem G tube feedings Z93.1 Active confirmed 3021 55930 Problem Borderline personality disorder F60.3 Active confi rmed 25414502 ALLERGIES Allergen (clinical drug ingredient) Drug/Non Drug Allergy do cumented on EMR Reaction Allergy Type Onset Date Status Latex Hives Drug Allergy Active seafood Hives Non Drug Allergy Active loratadine Claritin([facility] Code:[address]-52) Hives Drug Allergy Active ziprasidone Geodon([facility] Code:[address]-45) Hives Drug Allergy Active amoxicillin Amoxicillin([facility] Code:[address]-34) Hives Drug Aller gy Active ENCOUNTERS from 1976 to 2020-04-17 Encounter Location Date Provider Diagnosis [address] [address] Apr, Dragan Barkin IMMUNIZATIONS No Information SOCIAL HISTORY Sex Assigned At : Social History Observation Description Sex Assigned At Unknown Audit Question Answer Notes Total Score: 0 Interpretation: Alcohol Education Language: Question Answer Notes Languages spoken: Mongolian Drug and Alcohol Question Answer Notes Total Score: 0 Interpretation: No problems reported REASON FOR REFERRAL No Information VITAL SIGNS No information MEDICATIONS Medication SIG (Take, Route, Frequency, Duration) Notes Start Da te End Date Status Megestrol Acetate 20 MG 1 tablet Orally daily for 30 days Active Advair Diskus 500-50 MCG/DOSE 1 puff Inhalation Twice a day Active Topamax 25 MG 2 tablet Orally bid for 30 day(s) Aug, Active Saline Nasal [place] 0.65 % 2 sprays in each nostril as needed Nasally every 2 hrs for 15 days Nov, Active Protonix 40 MG 1 tablet Orally Once a day for 90 Active Cetirizine HCl 10 MG 1 tablet Orally Once a day for 30 Active Carafate 1 GM 1 tablet on an empty stomach Orally four times daily fo r 30 Active Seroquel 50 MG 1 tablet at bedtime Orally Once a day for 30 Active Tylenol Extra Strength 500 MG 1 tablet as needed Orally every 6 hrs Active Oxygen mask apply to mask to face at night mouth at night fo r 99 days Jan, Active [employer] - [employer] Battery _ 2-3x/week x 4 weeks for [...] at home use DX G47.34 MCR # [id number] [facility] # [id number] for 30 days Jul, Active Maxalt 10 MG 1 tablet as needed one time Orally Once a day as needed for headaches for 30 days Active TraZODone HCl 50 MG 1 tablet at bedtime as neede d Orally Once a day for 30 day(s) Active Albuterol 90 MCG/ACT as directed Inhalation as needed Active PROCEDURES No Information RESULTS No Results REASON FOR VISIT UTI Script MEDICAL (GENERAL) HISTORY Type Description Date Medical [...] No Information FUNCTIONAL STATUS No Information ASSESSMENTS No Information PLAN OF TREATMENT Medication Medication Name Sig Start Date Stop Date Macrobid 100 MG 1 capsule with food Orally every 12 hrs for 5 day(s) Apr, Next Appt Details Provider Name:Johnathan Chen, 2020-04-20 08:0 0:00 AM, [address] [place] [address], [phone] Provider Name:Dragan Balderas 2020-04-24 01 :15:00 PM, [address] [place] [address], [place], [address], Insurance Providers Payer Name Payer Address Payer Phone Insured Name Patient Relati onship to Insured Coverage Start Date Coverage End Date MEDICARE Part A and B [address] [facility] [address] ALEAH ALLEN MEDICAID [employer] [address] [facility] [address] ALEAH ALLEN
--- OUTSIDE RECORDS SUMMARY | 2020-04-25 10:49 | CCD ---
Author Author [facility] Organization [facility] Address Unknown Phone Unavailable Care Team Providers Care Municipal Court Magistrate Name Role Phone Dragan Baledras Unavailable PROBLEMS Type Condition ICD9-CM Code [id number] Code Onset Dates Condition S tatus SNOMED Code Notes Problem Sleep disorder G47.9 Active 47836524 Problem Migraine with aura and without status migrainosu s, not intractable G43.109 Active 4240272 Problem Moderately severe depression F32.2 Active 719 068731 Problem History of anemia Z86.2 Active 915792520 Problem Major depressive disorder, r ecurrent episode, moderate with anxious distress F33.1 Active 637885727 Problem Persistent asthma without complication, unspecif ied asthma severity J45.909 Active 726219213 Problem Feeding by G-tube Z93.1 Active 975786927 Problem Macrocytosis without anemia D75.89 Active 2343 54152 Problem Generalized anxiety disorder F41.1 Active 218 31981 Problem Mood disorder F39 Active 57748261 Problem Allergic rhinitis, unspecified seasonality, unspecifie d trigger J30.9 Active 14557508 Problem Chronic sinusitis, unspecified J32.9 Active 4 75020706 Problem Insomnia, unspecified type G47.00 Active 11927 2000 Problem Colovesical fistula N32.1 Active 74391375 Problem Nocturnal hypoxia G47.34 Active 117141010 Problem G tube feedings Z93.1 Active 169170856 Problem Borderline personality disorder F60.3 Active 09886267 ALLERGIES Allergen (clinical drug ingredient) Drug/Non Drug Allergy do cumented on EMR Reaction Allergy Type Onset Date Status Latex Hives Drug Allergy Active seafood Hives Non Drug Allergy Active loratadine Claritin([facility] Code:[address]-94) Hives Drug Allergy Active ziprasidone Geodon([facility] Code:[address]-58) Hives Drug Allergy Active amoxicillin Amoxicillin([facility] Code:[address]-84) Hives Drug Aller gy Active ENCOUNTERS from 1975 to 2020-03-07 Encounter Location Date Provider Diagnosis [address] [address] Mar, Dragan Andrey IMMUNIZATIONS No Information SOCIAL HISTORY Sex Assigned At : Social History Observation Description Sex Assigned At Unknown Audit Question Answer Notes Total Score: 0 Interpretation: Alcohol Education Language: Question Answer Notes Languages spoken: Uzbek Drug and Alcohol Question Answer Notes Total Score: 0 Interpretation: No problems reported REASON FOR REFERRAL No Information VITAL SIGNS No information MEDICATIONS Medication SIG (Take, Route, Frequency, Duration) Notes Start Da te End Date Status Jevity 1.5 Khai - 50 ml through G tube twice daily for 30 days Active Hospital bed as directed for at home use DX G47.34 MCR # [id number] [facility] # [id number] for 30 days Jul, Active Atenolol 25 MG 1 tablet Orally Once a day for 30 Active Topamax 25 MG 2 tablet Orally bid for 30 day(s) Aug, Active Tylenol Extra Strength 500 MG 1 tablet as needed Orally every 6 hrs Active Advair Diskus 500-50 MCG/DOSE 1 puff Inhalation Twice a day Active Protonix 40 MG 1 tablet Orally Once a day for 90 Active Albuterol 90 MCG/ACT as directed Inhalation as needed Active Megestrol Acetate 20 MG 1 tablet Orally daily for 30 days Active Oxygen mask apply to mask to face at night mouth at night fo r 99 days Jan, Active TraZODone HCl 50 MG 1 tablet at bedtime as neede d Orally Once a day for 30 day(s) Active Saline Nasal [place] 0.65 % 2 sprays in each nostril as needed Nasally every 2 hrs for 15 days Nov, Active Paroxetine HCl 20 MG 1 tab Orally Once a day Dec, Active Seroquel 50 MG 1 tablet at bedtime Orally Once a day for 30 Active Maxalt 10 MG 1 tablet as needed one time Orally Once a day as needed for headaches for 30 days Active Carafate 1 GM 1 tablet on an empty stomach Orally four times daily fo r 30 Active Cetirizine HCl 10 MG 1 tablet Orally Once a day for 30 Active Misc. Devices - [employer] Battery _ 2-3x/week x 4 weeks for 90 day(s) Apr, Active PROCEDURES No Information RESULTS No Results REASON FOR VISIT 2015 Form MEDICAL (GENERAL) HISTORY Type Description Date Medical [...] Medication Name Sig Start Date Stop Date Protonix 40 MG 1 tablet Orally Once a day for 90 Carafate 1 GM 1 tablet on an empty stomach Orally four times d aily for 30 Cetirizine HCl 10 MG 1 tablet Orally Once a day for 30 Saline Nasal [place] 0.65 % 2 sprays in each nostril as needed Nasally every 2 hrs for 15 days Nov, Maxalt 10 MG 1 tablet as needed one time Orally Once a day as needed for headaches for 30 days Seroquel 50 MG 1 tablet at bedtime Orally Once a day for 30 Atenolol 25 MG 1 tablet Orally Once a day for 30 Jevity 1.5 Khai - 50 ml through G tube twice daily for 30 days Next Appt Details Provider Name:Johnathan Chen, 2020-03-09 08:0 0:00 AM, [address] [place] [address], [phone] Provider Name:Dragan Balderas, 2020-04-03 01 :30:00 PM, [address] [place] [address], [address], Insurance Providers Payer Name Payer Address Payer Phone Insured Name Patient Relati onship to Insured Coverage Start Date Coverage End Date MEDICARE Part A and B [address] [facility] [address] ALEAH ALLEN self MEDICAID [id number] [address] [facility] [id number] ALEAH ALLEN self
--- OUTSIDE RECORDS SUMMARY | 2020-04-25 10:49 | CCD ---
Author Author [facility] Organization [facility] Address Unknown Phone Unavailable Care Team Providers Care Chief Architect Name Role Phone Dragan Balderas Unavailable PROBLEMS Type Condition ICD9-CM Code [id number] Code Onset Dates Condition S tatus SNOMED Code Notes Problem Sleep disorder G47.9 Active 14226857 Problem Migraine with aura and without status migrainosu s, not intractable G43.109 Active 7469570 Problem Moderately severe depression F32.2 Active 719 601009 Problem History of anemia Z86.2 Active 782127055 Problem Major depressive disorder, r ecurrent episode, moderate with anxious distress F33.1 Active 856758228 Problem Persistent asthma without complication, unspecif ied asthma severity J45.909 Active 708946752 Problem Feeding by G-tube Z93.1 Active 990688456 Problem Macrocytosis without anemia D75.89 Active 2343 16128 Problem Generalized anxiety disorder F41.1 Active 218 93096 Problem Mood disorder F39 Active 83950512 Problem Allergic rhinitis, unspecified seasonality, unspecifie d trigger J30.9 Active 91342057 Problem Chronic sinusitis, unspecified J32.9 Active 4 06374523 Problem Insomnia, unspecified type G47.00 Active 83756 2000 Problem Colovesical fistula N32.1 Active 40177111 Problem Nocturnal hypoxia G47.34 Active 387517039 Problem G tube feedings Z93.1 Active 192037444 Problem Borderline personality disorder F60.3 Active 51819150 ALLERGIES Allergen (clinical drug ingredient) Drug/Non Drug Allergy do cumented on EMR Reaction Allergy Type Onset Date Status Latex Hives Drug Allergy Active seafood Hives Non Drug Allergy Active loratadine Claritin([facility] Code:[address]-22) Hives Drug Allergy Active ziprasidone Geodon([facility] Code:[address]-31) Hives Drug Allergy Active amoxicillin Amoxicillin([facility] Code:[address]-06) Hives Drug Aller gy Active ENCOUNTERS from 1975 to 2020-02-07 Encounter Location Date Provider Diagnosis [address] [address] Jan, Dragan Balderas IMMUNIZATIONS No Information SOCIAL HISTORY Sex Assigned At : Social History Observation Description Sex Assigned At Unknown Audit Question Answer Notes Total Score: 0 Interpretation: Alcohol Education Language: Question Answer Notes Languages spoken: Mohawk Drug and Alcohol Question Answer Notes Total Score: 0 Interpretation: No problems reported REASON FOR REFERRAL No Information VITAL SIGNS No information MEDICATIONS Medication SIG (Take, Route, Frequency, Duration) Notes Start Da te End Date Status Seroquel 50 MG 1 tablet at bedtime Orally bid for 30 day(s) Active Jevity 1.5 Khai - 50 ml through G tube twice daily for 30 days Active Atenolol 25 MG 1 tablet Orally Once a day for 30 Active Oxygen mask apply to mask to face at night mouth at night fo r 99 days Jan, Active Tylenol Extra Strength 500 MG 1 tablet as needed Orally every 6 hrs Active Saline Nasal [place] 0.65 % 2 sprays in each nostril as needed Nasally every 2 hrs for 15 days Nov, Active Albuterol 90 MCG/ACT as directed Inhalation as needed Active Advair Diskus 500-50 MCG/DOSE 1 puff Inhalation Twice a day Active Megestrol Acetate 20 MG 1 tablet Orally daily for 30 days Active Maxalt 10 MG 1 tablet as needed one time Orally Once a day as needed for headaches for 30 days Active Protonix 40 MG 1 tablet Orally Once a day for 90 Active Cetirizine HCl 10 MG 1 tablet Orally Once a day for 30 day(s) Active [employer]. Devices - [employer] Battery _ 2-3x/week x 4 weeks for 90 day(s) Apr, Active TraZODone HCl 50 MG 1 tablet at bedtime as neede d Orally Once a day for 30 day(s) Active Paroxetine HCl 20 MG 1 tab Orally Once a day Dec, Active Carafate 1 GM 1 tablet on an empty stomach Orally four times daily fo r 30 Active Topamax 25 MG 2 tablet Orally bid for 30 day(s) Aug, Active Hospital bed as directed for at home use DX G47.34 MCR # [id number] [facility] # [id number] for 30 days Jul, Active PROCEDURES No Information RESULTS No Results REASON FOR VISIT sinus problems, gagging MEDICAL (GENERAL) HISTORY Type Description Date Medical [...] Medication Name Sig Start Date Stop Date Saline Nasal [place] 0.65 % 2 sprays in each nostril as needed Nasally every 2 hrs for 15 days Nov, Carafate 1 GM 1 tablet on an empty stomach Orally four times d aily for 30 Maxalt 10 MG 1 tablet as needed one time Orally Once a day as needed for headaches for 30 days Cetirizine HCl 10 MG 1 tablet Orally Once a day for 30 day(s) Seroquel 50 MG 1 tablet at bedtime Orally bid for 30 day(s) Jevity 1.5 Khai - 50 ml through G tube twice daily for 30 days Atenolol 25 MG 1 tablet Orally Once a day for 30 Next Appt Details Provider Name:Johnathan Chen 2020-02-20 10:0 0:00 AM, [address] [place], [address] Insurance Providers Payer Name Payer Address Payer Phone Insured Name Patient Relati onship to Insured Coverage Start Date Coverage End Date MEDICARE Part A and B [address] [facility] [address] ALEAH ALLEN MEDICAID [email or web address] [address] [facility] [id number] ALEAH ALLEN
--- OUTSIDE RECORDS SUMMARY | 2020-04-25 10:49 | CCD ---
Author Author [facility] Organization [facility] Address Unknown Phone Unavailable Care Team Providers Care Ice Guard Tester Name Role Phone Johnathan Chen Unavailable PROBLEMS Type Condition ICD9-CM Code [id number] Code Onset Dates Condition S tatus SNOMED Code Notes Problem Sleep disorder G47.9 Active 53607075 Problem Migraine with aura and without status migrainosu s, not intractable G43.109 Active 7729343 Problem Moderately severe depression F32.2 Active 719 567029 Problem History of anemia Z86.2 Active 704082118 Problem Major depressive disorder, r ecurrent episode, moderate with anxious distress F33.1 Active 326361516 Problem Persistent asthma without complication, unspecif ied asthma severity J45.909 Active 058024066 Problem Feeding by G-tube Z93.1 Active 331606819 Problem Macrocytosis without anemia D75.89 Active 2343 20806 Problem Generalized anxiety disorder F41.1 Active 218 18942 Problem Mood disorder F39 Active 06247265 Problem Allergic rhinitis, unspecified seasonality, unspecifie d trigger J30.9 Active 25742384 Problem Chronic sinusitis, unspecified J32.9 Active 4 74174928 Problem Insomnia, unspecified type G47.00 Active 22397 2000 Problem Colovesical fistula N32.1 Active 66931566 Problem Nocturnal hypoxia G47.34 Active 760486899 Problem G tube feedings Z93.1 Active 846217811 Problem Borderline personality disorder F60.3 Active 50204457 ALLERGIES Allergen (clinical drug ingredient) Drug/Non Drug Allergy do cumented on EMR Reaction Allergy Type Onset Date Status Latex Hives Drug Allergy Active seafood Hives Non Drug Allergy Active loratadine Claritin([facility] Code:[address]-49) Hives Drug Allergy Active ziprasidone Geodon([facility] Code:[address]-23) Hives Drug Allergy Active amoxicillin Amoxicillin([facility] Code:[address]-72) Hives Drug Aller gy Active ENCOUNTERS from 1976 to 2020-03-10 Encounter Location Date Provider Diagnosis [address] [address] Mar, Johnathan Chen Moderate episode of recurrent major depr essive disorder F33.1 and Generalized anxiety disorder F41.1 IMMUNIZATIONS No Information SOCIAL HISTORY Sex Assigned At : Social History Observation Description Sex Assigned At Unknown Audit Question Answer Notes Total Score: 0 Interpretation: Alcohol Education Language: Question Answer Notes Languages spoken: Welsh Drug and Alcohol Question Answer Notes Total Score: 0 Interpretation: No problems reported REASON FOR REFERRAL No Information VITAL SIGNS No information MEDICATIONS Medication SIG (Take, Route, Frequency, Duration) Notes Start Da te End Date Status Jevity 1.5 Khai - 50 ml through G tube twice daily for 30 days Active Hospital bed as directed for at home use DX G47.34 MCR # [id number] [facility] # [id number] for 30 days Jul, Active Atenolol 25 MG 1 tablet Orally Once a day for 30 Active Oxygen mask apply to mask to face at night mouth at night fo r 99 days Jan, Active Tylenol Extra Strength 500 MG 1 tablet as needed Orally every 6 hrs Active Seroquel 50 MG 1 tablet at bedtime Orally Once a day for 30 Active Advair Diskus 500-50 MCG/DOSE 1 puff Inhalation Twice a day Active Saline Nasal [place] 0.65 % 2 sprays in each nostril as needed Nasally every 2 hrs for 15 days Nov, Active Albuterol 90 MCG/ACT as directed Inhalation as needed Active Carafate 1 GM 1 tablet on an empty stomach Orally four times daily fo r 30 Active Maxalt 10 MG 1 tablet as needed one time Orally Once a day as needed for headaches for 30 days Active Cetirizine HCl 10 MG 1 tablet Orally Once a day for 30 Active Misc. Devices - Hoverround Battery _ 2-3x/week x 4 weeks for 90 day(s) Apr, Active TraZODone HCl 50 MG 1 tablet at bedtime as neede d Orally Once a day for 30 day(s) Active Paroxetine HCl 20 MG 1 tab Orally Once a day Dec, Active Megestrol Acetate 20 MG 1 tablet Orally daily for 30 days Active Topamax 25 MG 2 tablet Orally bid for 30 day(s) Aug, Active Protonix 40 MG 1 tablet Orally Once a day for 90 Active PROCEDURES No Information RESULTS No Results REASON FOR VISIT follow up MEDICAL (GENERAL) HISTORY Type Description Date Medical [...] Notes Treatment Notes Treatm ent Clinical Notes Mar, Moderate episode of recurren t major depressive disorder (ICD-10 - F33.1) Mar, Generalized anxiety disorder (ICD-10 - F41.1) Mar, Other Utilized CBT to review a challenging irrational thoughts technique for decreasing her symptoms of anxiety. Aleah gave verbal permission for telepsych sessions. Aleah opened her telepsych session on time for her appointment and actively engaged throughout the her session. Aleah was responsive to the CBT challenging irrational thoughts intervention for decreasing her symptoms of anxiety. Aleah reports that she has been experiencing anxiety related to letting go of things that are not in her control. Aleah agreed to utilize the technique that we discussed and will return for telepsych psychotherapy on 03/23/2020. Aleah is aware to call for sooner appointment if needed or utilize the ED for MH emergencies. PLAN OF TREATMENT Medication Medication Name Sig Start Date Stop Date Seroquel 50 MG 1 tablet at bedtime Orally Once a day for 30 Saline Nasal [place] 0.65 % 2 sprays in each nostril as needed Nasally every 2 hrs for 15 days Nov, Maxalt 10 MG 1 tablet as needed one time Orally Once a day as needed for headaches for 30 days Cetirizine HCl 10 MG 1 tablet Orally Once a day for 30 Protonix 40 MG 1 tablet Orally Once a day for 90 Carafate 1 GM 1 tablet on an empty stomach Orally four times d aily for 30 Atenolol 25 MG 1 tablet Orally Once a day for 30 Jevity 1.5 Khai - 50 ml through G tube twice daily for 30 days Next Appt Details Provider Name:Johnathan Chen, 2020-03-23 08:0 0:00 AM, [address] [place] [address], [phone] Provider Name:Dragan Balderas, 2020-04-03 01 :30:00 PM, [address] [place] [address], [phone], Insurance Providers Payer Name Payer Address Payer Phone Insured Name Patient Relati onship to Insured Coverage Start Date Coverage End Date MEDICAID [employer] [address] [facility] [id number] ALEAH ALLEN MEDICARE Part A and B [address] [facility] [id number] ALEAH ALLEN
--- OUTSIDE RECORDS SUMMARY | 2020-04-25 10:49 | CCD ---
Author Author [facility] Organization [facility] Address Unknown Phone Unavailable Care Team Providers Care Parts Assembler Name Role Phone Johnathan Chen Unavailable PROBLEMS Type Condition ICD9-CM Code [id number] Code Onset Dates Condition S tatus SNOMED Code Notes Problem Sleep disorder G47.9 Active 78662115 Problem Migraine with aura and without status migrainosu s, not intractable G43.109 Active 0598975 Problem Moderately severe depression F32.2 Active 719 452294 Problem History of anemia Z86.2 Active 639276391 Problem Major depressive disorder, r ecurrent episode, moderate with anxious distress F33.1 Active 307209978 Problem Persistent asthma without complication, unspecif ied asthma severity J45.909 Active 397179134 Problem Feeding by G-tube Z93.1 Active 557664066 Problem Macrocytosis without anemia D75.89 Active 2343 06535 Problem Generalized anxiety disorder F41.1 Active 218 79656 Problem Mood disorder F39 Active 11820029 Problem Allergic rhinitis, unspecified seasonality, unspecifie d trigger J30.9 Active 95451334 Problem Chronic sinusitis, unspecified J32.9 Active 4 51922560 Problem Insomnia, unspecified type G47.00 Active 51924 2000 Problem Colovesical fistula N32.1 Active 80785037 Problem Nocturnal hypoxia G47.34 Active 015589220 Problem G tube feedings Z93.1 Active 643201840 Problem Borderline personality disorder F60.3 Active 92289649 ALLERGIES Allergen (clinical drug ingredient) Drug/Non Drug Allergy do cumented on EMR Reaction Allergy Type Onset Date Status Latex Hives Drug Allergy Active seafood Hives Non Drug Allergy Active loratadine Claritin([facility] Code:[address]-57) Hives Drug Allergy Active ziprasidone Geodon([facility] Code:[address]-34) Hives Drug Allergy Active amoxicillin Amoxicillin([facility] Code:[address]-81) Hives Drug Aller gy Active ENCOUNTERS from 1975 to 2020-02-09 Encounter Location Date Provider Diagnosis [address] [address] Jan, Johnathan Chen Moderate episode of recurrent major depr essive disorder F33.1 and Generalized anxiety disorder F41.1 IMMUNIZATIONS No Information SOCIAL HISTORY Sex Assigned At : Social History Observation Description Sex Assigned At Unknown Audit Question Answer Notes Total Score: 0 Interpretation: Alcohol Education Language: Question Answer Notes Languages spoken: Slovak Drug and Alcohol Question Answer Notes Total [...] Orally every 6 hrs Active Saline Nasal [place] 0.65 % 2 sprays in each nostril [...] Once a day for 30 day(s) Active [employer] Devices - Hoverround Battery _ 2-3x/week x [...] at home use DX G47.34 MCR # [id number] [facility] # [id number] for 30 days Jul, Active PROCEDURES No Information RESULTS No Results REASON FOR VISIT Telepsych FOLLOW UP MEDICAL (GENERAL) HISTORY Type Description Date Medical [...] Notes Treatment Notes Treatm ent Clinical Notes Jan, Moderate episode of recurren t major depressive disorder (ICD-10 - F33.1) Jan, Generalized anxiety disorder (ICD-10 - F41.1) Jan, Other Utilized CBT to review a thought reframing technique for decreasing her symptoms of anxiety. Aleah gave verbal permission for telepsych sessions. Aleah opened her telepsych session on time for her appointment and actively engaged throughout the her session. Aleah was responsive to the CBT thought reframing intervention for decreasing her symptoms of anxiety. Aleah reports that she has been experiencing anxiety related to her social media interactions and not feeling accomplished. Aleah agreed to utilize the technique that we discussed and will return for telepsych psychotherapy on 02/20/2020. Aleah is aware to call for an earlier appointment or utilize the ED for MH emergencies. PLAN OF TREATMENT Medication Medication Name Sig Start Date Stop Date Saline Nasal [place] 0.65 % 2 sprays in each nostril [...] for 30 Next Appt Details Provider Name:Johnathan Chen, 2020-02-20 10:0 0:00 AM, [address] [place] [address], [phone] Provider Name:Dragan Andrey, 2020-04-03 01 :30:00 PM, [address] [place] [address], [phone], Insurance Providers Payer Name Payer Address Payer Phone Insured Name Patient Relati onship to Insured Coverage Start Date Coverage End Date MEDICAID [employer] [address] [facility] [id number] ALEAH ALELN self MEDICARE Part A and B [address] [facility] [address] ALEAH ALLEN self
--- OUTSIDE RECORDS SUMMARY | 2020-04-25 10:49 | CCD ---
Author Author [facility] Organization [facility] Address Unknown Phone Unavailable Care Team Providers Care Wood Hacker Name Role Phone Johnathan Chen Unavailable PROBLEMS Type Condition ICD9-CM Code FBI06-UF Code Onset Dates Condition S tatus W/U Status Risk SNOMED Code Notes Problem Sleep disorder G47.9 Active confirmed 46920 005 Problem Migraine with aura and without status migrainosu s, not intractable G43.109 Active confirmed 8244961 Problem Moderately severe depression F32.2 Active confirme d 502888458 Problem History of anemia Z86.2 Active confirmed 27 8099701 Problem Major depressive disorder, r ecurrent episode, moderate with anxious distress F33.1 Active confirmed 075495009 Problem Persistent asthma without complication, unspecif ied asthma severity J45.909 Active confirmed 779983217 Problem Feeding by G-tube Z93.1 Active confirmed 30 0942459 Problem Macrocytosis without anemia D75.89 Active confirmed 089665453 Problem Generalized anxiety disorder F41.1 Active confirme d 43901121 Problem Mood disorder F39 Active confirmed 115673 05 Problem Allergic rhinitis, unspecified seasonality, unspecifie d trigger J30.9 Active confirmed 90469120 Problem Chronic sinusitis, unspecified J32.9 Active confir med 630436060 Problem Insomnia, unspecified type G47.00 Active confirmed 317999863 Problem Colovesical fistula N32.1 Active confirmed 77389988 Problem Nocturnal hypoxia G47.34 Active confirmed 38 7634586 Problem G tube feedings Z93.1 Active confirmed 3021 63519 Problem Borderline personality disorder F60.3 Active confi rmed 61683798 ALLERGIES Allergen (clinical drug ingredient) Drug/Non Drug Allergy do cumented on EMR Reaction Allergy Type Onset Date Status Latex Hives Drug Allergy Active seafood Hives Non Drug Allergy Active loratadine Claritin([facility] Code:[address]-65) Hives Drug Allergy Active ziprasidone Geodon([facility] Code:[address]-09) Hives Drug Allergy Active amoxicillin Amoxicillin([facility] Code:[address]-11) Hives Drug Aller gy Active ENCOUNTERS from 1975 to 2020-04-11 Encounter Location Date Provider Diagnosis [address] [address] Apr, Johnathan Chen Moderate episode of recurrent major depr essive disorder F33.1 and Generalized anxiety disorder F41.1 IMMUNIZATIONS No Information SOCIAL HISTORY Sex Assigned At : Social History Observation Description Sex Assigned At Unknown Audit Question Answer Notes Total Score: 0 Interpretation: Alcohol Education Language: Question Answer Notes Languages spoken: Croatian Drug and Alcohol Question Answer Notes Total Score: 0 Interpretation: No problems reported REASON FOR REFERRAL No Information VITAL SIGNS No information MEDICATIONS Medication SIG (Take, Route, Frequency, Duration) Notes Start Da te End Date Status Saline Nasal [place] 0.65 % 2 sprays in each nostril as needed Nasally every 2 hrs for 15 days Nov, Active Jevity 1.5 Khai - 50 ml through G tube twice daily for 30 days Active Atenolol 25 MG 1 tablet Orally Once a day for 30 Active Cetirizine HCl 10 MG 1 tablet Orally Once a day for 30 Active Paroxetine HCl 20 MG 1 tab Orally Once a day Dec, Active Topamax 25 MG 2 tablet Orally bid for 30 day(s) Aug, Active [employer]. Devices - HoverConcurrent Thinking Battery _ 2-3x/week x 4 weeks for 90 day(s) Apr, Active Hospital bed as directed for at home use DX G47.34 MCR # [id number] [facility] # [id number] for 30 days Jul, Active Advair Diskus 500-50 MCG/DOSE 1 puff Inhalation Twice a day Active TraZODone HCl 50 MG 1 tablet at bedtime as neede d Orally Once a day for 30 day(s) Active Megestrol Acetate 20 MG 1 tablet Orally daily for 30 days Active Protonix 40 MG 1 tablet Orally Once a day for 90 Active Oxygen mask apply to mask to face at night mouth at night fo r 99 days Jan, Active Tylenol Extra Strength 500 MG 1 tablet as needed Orally every 6 hrs Active Maxalt 10 MG 1 tablet as needed one time Orally Once a day as needed for headaches for 30 days Active Carafate 1 GM 1 tablet on an empty stomach Orally four times daily fo r 30 Active Albuterol 90 MCG/ACT as directed Inhalation as needed Active Seroquel 50 MG 1 tablet at bedtime Orally Once a day for 30 Active PROCEDURES No Information RESULTS No Results [...] Treatment Notes Treatm ent Clinical Notes Apr, Moderate episode of recurren t major depressive disorder (ICD-10 - F33.1) Apr, Generalized anxiety disorder (ICD-10 - F41.1) Apr, Other Utilized CBT to review a challenging cognitive distortions technique for decreasing her symptoms of anxiety. Aleah gave verbal permission for telepsych sessions. Aleah opened her telepsych session on time for her appointment and actively engaged throughout the her session. Aleah was responsive to the CBT challenging cognitive distortions intervention for decreasing her symptoms of anxiety. Aleah reports that she has been experiencing anxiety related to to being organized and not feeling accomplished. Aleah agreed to utilize the technique that we discussed and will return for telepsych psychotherapy on 04/20/2020. Aleah is aware to call for sooner appointment if needed or utilize the ED for MH emergencies. PLAN OF TREATMENT Medication Medication Name Sig Start Date Stop Date Carafate 1 GM 1 tablet on an empty stomach Orally four times d aily for 30 Next Appt Details Provider Name:Ana Maria Rinaldi 2020-0 04-13 09:00:00 AM, [address] [place], [address], Provider Name:Johnathan April, 2020-04-20 08:0 0:00 AM, [address] [place] [address], [phone] Provider Name:Dragan Andrey, 2020-04-24 01 :15:00 PM, [address] [place] [address], [phone], Insurance Providers Payer Name Payer Address Payer Phone Insured Name Patient Relati onship to Insured Coverage Start Date Coverage End Date MEDICAID [employer] [address] [facility] [id number] ALEAH ALLEN MEDICARE Part A and B [address] [facility] [address] [phone] ALEAH ALLEN self
--- OUTSIDE RECORDS SUMMARY | 2020-04-25 10:49 | CCD ---
Author Author [facility] Organization [facility] Address Unknown Phone Unavailable Care Team Providers Care Detective Private Eye Name Role Phone Dragan Balderas Unavailable PROBLEMS Type Condition ICD9-CM Code [id number] Code Onset Dates Condition S tatus SNOMED Code Notes Problem Sleep disorder G47.9 Active 87767964 Problem Migraine with aura and without status migrainosu s, not intractable G43.109 Active 0058275 Problem Moderately severe depression F32.2 Active 719 642461 Problem History of anemia Z86.2 Active 889787819 Problem Major depressive disorder, r ecurrent episode, moderate with anxious distress F33.1 Active 391808867 Problem Persistent asthma without complication, unspecif ied asthma severity J45.909 Active 399401282 Problem Feeding by G-tube Z93.1 Active 551149759 Problem Macrocytosis without anemia D75.89 Active 2343 89216 Problem Generalized anxiety disorder F41.1 Active 218 01733 Problem Mood disorder F39 Active 39502221 Problem Allergic rhinitis, unspecified seasonality, unspecifie d trigger J30.9 Active 19630361 Problem Chronic sinusitis, unspecified J32.9 Active 4 01080002 Problem Insomnia, unspecified type G47.00 Active 52418 2000 Problem Colovesical fistula N32.1 Active 92439516 Problem Nocturnal hypoxia G47.34 Active 765275016 Problem G tube feedings Z93.1 Active 696808605 Problem Borderline personality disorder F60.3 Active 59111557 ALLERGIES Allergen (clinical drug ingredient) Drug/Non Drug Allergy do cumented on EMR Reaction Allergy Type Onset Date Status Latex Hives Drug Allergy Active seafood Hives Non Drug Allergy Active loratadine Claritin([facility] Code:[address]-31) Hives Drug Allergy Active ziprasidone Geodon([facility] Code:[address]-13) Hives Drug Allergy Active amoxicillin Amoxicillin([facility] Code:[address]-57) Hives Drug Aller gy Active ENCOUNTERS from 1975 to 2020-03-06 Encounter Location Date Provider Diagnosis [address] [address] Mar, Dragan Andrey IMMUNIZATIONS No Information SOCIAL HISTORY Sex Assigned At : Social History Observation Description Sex Assigned At Unknown Audit Question Answer Notes Total Score: 0 Interpretation: Alcohol Education Language: Question Answer Notes Languages spoken: Greek Drug and Alcohol Question Answer Notes Total Score: 0 Interpretation: No problems reported REASON FOR REFERRAL No Information VITAL SIGNS No information MEDICATIONS Medication SIG (Take, Route, Frequency, Duration) Notes Start Da te End Date Status Jevity 1.5 Khai - 50 ml through G tube twice daily for 30 days Active Hospital bed as directed for at home use DX G47.34 MCR # [id number] [facility] # [id number] for 30 days Jul, Active Atenolol 25 [...] day for 30 day(s) Active Saline Nasal [place] 0.65 % 2 sprays in each nostril [...] Information RESULTS No Results REASON FOR VISIT updated 2015 form MEDICAL (GENERAL) HISTORY Type Description Date Medical [...] Once a day for 30 Saline Nasal [place] 0.65 % 2 sprays in each nostril [...] Provider Name:Johnathan Chen, 2020-03-09 08:0 0:00 AM, [address] [place] [address], [phone] Provider Name:Dragan Balderas, 2020-04-03 01 :30:00 PM, [address] [place] [address], [phone], Insurance Providers Payer Name Payer Address Payer Phone Insured Name Patient Relati onship to Insured Coverage Start Date Coverage End Date MEDICAID [facility] [address] [facility] [id number] ALEAH ALLEN self MEDICARE Part A and B [address] [facility] [id number] [phone] ALEAH ALLEN self
--- OUTSIDE RECORDS SUMMARY | 2020-04-25 10:49 | CCD ---
Author Author [facility] Organization [facility] Address Unknown Phone Unavailable Care Team Providers Care Grain Manager Name Role Phone Ana Maria Rinaldi Unavailable PROBLEMS Type Condition ICD9-CM Code PLB70-FV Code Onset Dates Condition S tatus W/U Status Risk SNOMED Code Notes Problem Sleep disorder G47.9 Active confirmed 74587 005 Problem Migraine with aura and without status migrainosu s, not intractable G43.109 Active confirmed 6064340 Problem Moderately severe depression F32.2 Active confirme d 626647903 Problem History of anemia Z86.2 Active confirmed 27 1312668 Problem Major depressive disorder, r ecurrent episode, moderate with anxious distress F33.1 Active confirmed 547480915 Problem Persistent asthma without complication, unspecif ied asthma severity J45.909 Active confirmed 183245709 Problem Feeding by G-tube Z93.1 Active confirmed 30 5638025 Problem Macrocytosis without anemia D75.89 Active confirmed 960426192 Problem Generalized anxiety disorder F41.1 Active confirme d 91808712 Problem Mood disorder F39 Active confirmed 620598 05 Problem Allergic rhinitis, unspecified seasonality, unspecifie d trigger J30.9 Active confirmed 43734685 Problem Chronic sinusitis, unspecified J32.9 Active confir med 380667152 Problem Insomnia, unspecified type G47.00 Active confirmed 261776118 Problem Colovesical fistula N32.1 Active confirmed 60201219 Problem Nocturnal hypoxia G47.34 Active confirmed 38 6546830 Problem G tube feedings Z93.1 Active confirmed 3021 41840 Problem Borderline personality disorder F60.3 Active confi rmed 74462333 ALLERGIES Allergen (clinical drug ingredient) Drug/Non Drug Allergy do cumented on EMR Reaction Allergy Type Onset Date Status Latex Hives Drug Allergy Active seafood Hives Non Drug Allergy Active loratadine Claritin([facility] NAMED [facility] Code:[address]-03) Hives Drug Allergy Active ziprasidone Geodon([facility] NAMED [facility] Code:[address]-76) Hives Drug Allergy Active amoxicillin Amoxicillin([facility] NAMED [facility] Code:[address]-21) Hives Drug Aller gy Active ENCOUNTERS from 1976 to 2020-04-11 Encounter Location Date Provider Diagnosis [address] [address] Apr, Ana Maria Davies IMMUNIZATIONS No Information SOCIAL HISTORY Sex Assigned At : Social History Observation Description Sex Assigned At Unknown Audit Question Answer Notes Total Score: 0 Interpretation: Alcohol Education Language: Question Answer Notes Languages spoken: Persian Drug and Alcohol Question Answer Notes Total Score: 0 Interpretation: No problems reported REASON FOR REFERRAL No Information VITAL SIGNS No information MEDICATIONS Medication SIG (Take, Route, Frequency, Duration) Notes Start Da te End Date Status Saline Nasal [place] 0.65 % 2 sprays in each nostril [...] Orally bid for 30 day(s) Aug, Active [employer]. Home[employer] - All Def DigitalverIsoflux Battery _ 2-3x/week x 4 weeks for 90 day(s) Apr, Active Hospital bed as directed for at home use DX G47.34 [facility] # [id number] [facility] # [id number] for 30 days Jul, Active Advair Diskus [...] RESULTS No Results REASON FOR VISIT UTI MEDICAL (GENERAL) HISTORY Type Description Date Medical [...] 30 Next Appt Details Provider Name:Ana Maria Rinaldi, 212 09:00:00 AM, [address] [place] [address], [phone], Provider Name:Johnathan Chen, 2020-04-20 08:0 0:00 AM, [address] [place] [address], [phone] Provider Name:Dragan Balderas, 2020-04-24 01 :15:00 PM, [address] [place] [address], [address], Insurance Providers Payer Name Payer Address Payer Phone Insured Name Patient Relati onship to Insured Coverage Start Date Coverage End Date MEDICARE Part A and B [address] [facility] [id number] ALEAH ALLEN MEDICAID [employer] [address] [facility] [id number] ALEAH ALLEN
--- OUTSIDE RECORDS SUMMARY | 2020-04-25 10:49 | CCD ---
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 [employer] Name Role Phone Johnathan Chen Unavailable PROBLEMS Type Condition ICD9-CM Code HZF26-LD Code Onset Dates Condition S tatus SNOMED Code Notes Problem Sleep disorder G47.9 Active 63025267 Problem Migraine with aura and without status migrainosu s, not intractable G43.109 Active 9637180 Problem Moderately severe depression F32.2 Active 719 792014 Problem History of anemia Z86.2 Active 016465726 Problem Major depressive disorder, r ecurrent episode, moderate with anxious distress F33.1 Active 466585314 Problem Persistent asthma without complication, unspecif ied asthma severity J45.909 Active 668420448 Problem Feeding by G-tube Z93.1 Active 791306979 Problem Macrocytosis without anemia D75.89 Active 2343 61192 Problem Generalized anxiety disorder F41.1 Active 218 97327 Problem Mood disorder F39 Active 71450142 Problem Allergic rhinitis, unspecified seasonality, unspecifie d trigger J30.9 Active 98242002 Problem Chronic sinusitis, unspecified J32.9 Active 4 55286203 Problem Insomnia, unspecified type G47.00 Active 44546 2000 Problem Colovesical fistula N32.1 Active 29154258 Problem Nocturnal hypoxia G47.34 Active 877656824 Problem G tube feedings Z93.1 Active 515909761 Problem Borderline personality disorder F60.3 Active 09525534 ALLERGIES Allergen (clinical drug ingredient) Drug/Non Drug Allergy do cumented on EMR Reaction Allergy Type Onset Date Status Latex Hives Drug Allergy Active seafood Hives Non Drug Allergy Active loratadine Claritin([facility] Code:[address]-41) Hives Drug Allergy Active ziprasidone Geodon([facility] Code:[address]-52) Hives Drug Allergy Active amoxicillin Amoxicillin([facility] Code:[address]-84) Hives Drug Aller gy Active ENCOUNTERS from 1975 to 2020-03-27 Encounter Location Date Provider Diagnosis [address] [address] Mar, Johnathan Chen Moderate episode of recurrent major depr essive disorder F33.1 and Generalized anxiety disorder F41.1 IMMUNIZATIONS No Information SOCIAL HISTORY Sex Assigned At : Social History Observation Description Sex Assigned At Unknown Audit Question Answer Notes Total Score: 0 Interpretation: Alcohol Education Language: Question Answer Notes Languages spoken: [place] Drug and Alcohol Question Answer Notes Total Score: 0 Interpretation: No problems reported REASON FOR REFERRAL No Information VITAL SIGNS No information MEDICATIONS Medication SIG (Take, Route, Frequency, Duration) Notes Start Da te End Date Status Jevity 1.5 Khai - 50 ml through G tube twice daily for 30 days Active Hospital bed as directed for at home use DX G47.34 MCR # [id number] [facility] # [id number] for 30 days Jul, Active Atenolol 25 [...] Inhalation Twice a day Active Saline Nasal [place] 0.65 % 2 sprays in each nostril [...] Mar, Other Utilized CBT to review a thought [...] she has been experiencing anxiety related to feeling isolated and being "stuck" in the house all the time. Aleah agreed to utilize the technique that we discussed and will return for telepsych psychotherapy on 04/06/2020. Aleah is aware to call for sooner appointment if needed or utilize the ED for MH emergencies. PLAN OF TREATMENT Medication Medication Name Sig Start Date Stop Date Seroquel 50 MG 1 tablet at bedtime Orally Once a day for 30 Saline Nasal [place] 0.65 % 2 sprays in each nostril [...] for 30 days Next Appt Details Provider Name:Dragan Balderas, 2020-04-03 01 :30:00 PM, [address] [place] [address], [place], [address], Provider Name:Johnathan Chen, 2020-04-06 08:0 0:00 AM, [address] [place] [address], [phone] Insurance Providers Payer Name Payer Address Payer Phone Insured Name Patient Relati onship to Insured Coverage Start Date Coverage End Date MEDICARE Part A and B [address] [facility] [id number] ALEAH ALLEN MEDICAID [facility] [address] [facility] [id number] ALEAH ALLEN self
--- OUTSIDE RECORDS SUMMARY | 2020-04-25 10:49 | CCD ---
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 Role Phone Belen Hanley Unavailable PROBLEMS Type Condition ICD9-CM Code ALM70-CC Code Onset Dates Condition S tatus SNOMED Code Notes Problem Sleep disorder G47.9 Active 62591893 Problem Migraine with aura and without status migrainosu s, not intractable G43.109 Active 9083947 Problem Moderately severe depression F32.2 Active 719 208752 Problem History of anemia Z86.2 Active 359092774 Problem Major depressive disorder, r ecurrent episode, moderate with anxious distress F33.1 Active 951701780 Problem Persistent asthma without complication, unspecif ied asthma severity J45.909 Active 763248486 Problem Feeding by G-tube Z93.1 Active 742488212 Problem Macrocytosis without anemia D75.89 Active 2343 22115 Problem Generalized anxiety disorder F41.1 Active 218 04231 Problem Mood disorder F39 Active 69079069 Problem Allergic rhinitis, unspecified seasonality, unspecifie d trigger J30.9 Active 45841298 Problem Chronic sinusitis, unspecified J32.9 Active 4 21564953 Problem Insomnia, unspecified type G47.00 Active 24118 2000 Problem Colovesical fistula N32.1 Active 07034826 Problem Nocturnal hypoxia G47.34 Active 739328700 Problem G tube feedings Z93.1 Active 508736681 Problem Borderline personality disorder F60.3 Active 39575711 ALLERGIES Allergen (clinical drug ingredient) Drug/Non Drug Allergy do cumented on EMR Reaction Allergy Type Onset Date Status Latex Hives Drug Allergy Active seafood Hives Non Drug Allergy Active loratadine Claritin([facility] Code:[address]-63) Hives Drug Allergy Active ziprasidone Geodon([facility] Code:[address]-92) Hives Drug Allergy Active amoxicillin Amoxicillin([facility] Code:[address]-71) Hives Drug Aller gy Active ENCOUNTERS from 1975 to 2020-02-06 Encounter Location Date Provider Diagnosis [address] [address] Jan, Belen Intorcia IMMUNIZATIONS No Information SOCIAL HISTORY Sex Assigned At : Social History Observation Description Sex Assigned At Unknown Audit Question Answer Notes Total Score: 0 Interpretation: Alcohol Education Language: Question Answer Notes Languages spoken: [place] Islander Drug and Alcohol Question Answer Notes Total [...] Orally every 6 hrs Active Saline Nasal [place] 0.65 % 2 sprays in each nostril [...] Once a day for 30 day(s) Active [employer] - [employer] Group[employer]Sernova Battery _ 2-3x/week x 4 weeks for [...] at home use DX G47.34 MCR # [id number] [facility] # [id number] for 30 days Jul, Active PROCEDURES No Information RESULTS No Results REASON FOR VISIT regarding appt w/Belen MEDICAL (GENERAL) HISTORY Type Description Date Medical [...] Sig Start Date Stop Date Saline Nasal [place] 0.65 % 2 sprays in each nostril [...] Name:Johnathan Chen 2020-02-20 10:0 0:00 AM, [address] [place], [phone] Insurance Providers Payer Name Payer Address Payer Phone Insured Name Patient Relati onship to Insured Coverage Start Date Coverage End Date MEDICAID [employer] [address] [facility] [id number] [phone] ALEAH ALLEN MEDICARE Part A and B [address] [facility] [phone] ALEAH ALLEN
--- OUTSIDE RECORDS SUMMARY | 2020-04-25 10:50 | CCD ---
Author Author [facility] Organization [facility] Address Unknown Phone Unavailable Care Team Providers Care Household Manager Name Role Phone Shantel Bandaa FLASK CLEANER Unavailable Unavailable Dietsche, M Vidhya FLASK CLEANER Unavailable Unavailable Dietsche, M Vidhya FLASK CLEANER Unavailable Unavailable Dietsche, M Vidhya FLASK CLEANER Unavailable Unavailable Dietsche, M Vidhya FLASK CLEANER Unavailable Unavailable Dietsche, M Vidhya FLASK CLEANER Unavailable Unavailable Dietsche, M Vidhya FLASK CLEANER Unavailable Unavailable Dietsche, M Vidhya FLASK CLEANER Unavailable Unavailable Dietsche, M Vidhya FLASK CLEANER Unavailable Unavailable Dietsche, M Vidhya FLASK CLEANER Unavailable Unavailable Dietsche, M Vidhya FLASK CLEANER Unavailable Unavailable Dietsche, M Vidhya FLASK CLEANER Unavailable Unavailable Strong, Angella Man Unavailable Unavailable Strong, Angella Man Unavailable Unavailable Ahsan, Angella Man Unavailable Unavailable Ahsan, Angella Man Unavailable Unavailable Ahsan, Angella Man Unavailable Unavailable Ahsan, Angella Man Unavailable Unavailable Strong, Angella Man Unavailable Unavailable Strong, Angella Man Unavailable Unavailable TORI S DONNA Unavailable Unavailable JULIANE AWAN NP Unavailable Unavailable Re-disclosure Warning The records that you are about to access may contain information from federally-assisted alcohol or drug abuse programs. If such information is present, then the following federally mandated warning applies: This information has been disclosed to you from records protected by federal confidentiality rules (42 CFR part 2). The federal rules prohibit you from making any further disclosure of this information unless further disclosure is expressly permitted by the written consent of the person to whom it pertains or as otherwise permitted by 42 CFR part 2. A general authorization for the release of medical or other information is NOT sufficient for this purpose. The Federal rules restrict any use of the information to criminally investigate or prosecute any alcohol or drug abuse patient.The records that you are about to access may contain highly sensitive health information, the redisclosure of which is protected by Article 27-F of the [facility] Public Health law. If you continue you may have access to information: Regarding HIV / AIDS; Provided by facilities licensed or operated by the [facility] Office of Mental Health; or Provided by the [facility] Office for People With Developmental Disabilities. If such information is present, then the following [facility] mandated warning applies: This information has been disclosed to you from confidential records which are protected by state law. State law prohibits you from making any further disclosure of this information without the specific written consent of the person to whom it pertains, or as otherwise permitted by law. Any unauthorized further disclosure in violation of state law may result in a fine or penitentiary sentence or both. A general authorization for the release of medical or other information is NOT sufficient authorization for further disc losure. Allergies and Adverse Reactions Type Description Substance Reaction Status Data Source(s ) Drug allergy Amoxicillin Amoxicillin Hives Active eCW1 ([facility]) Drug allergy Geodon ziprasidone Hives Active eCW1 ([facility]) Drug allergy Claritin Loratadine Hives Active eCW1 ([facility]) Latex Latex Latex Hives Active eCW1 ([facility]) seafood seafood seafood Hives Active eCW1 ([facility]) Latex Latex Latex Hives Active eCW1 ([facility]) seafood seafood seafood Hives Active eCW1 ([facility]) seafood seafood seafood Hives Active eCW1 ([facility]) Latex Latex Latex Hives Active eCW1 ([facility]) Family History Family Member Name Family Member Gender Family Member Status Date o f Status Description Data Source(s) Unknown Unknown Problem MEDENT ([facility]) Unknown Unknown Problem MEDENT ([facility]) Unknown Unknown Problem MEDENT ([facility]) Unknown Unknown Problem MEDENT ([facility]) Encounters Encounter Providers Location Date Indications Data Source(s ) Unknown [address] [facility] [place] [address] 04/16/2020 12:00:00 AM EST eCW1 ([facility]) Office Visit, Est Pt., Level 3 PC [address] [place] [address] 04/13/2020 12:00:00 AM EST eCW1 ([facility]) Unknown [address] [facility] [address] 04/11/2020 12:00:00 AM EST eCW1 ([facility]) (TV_Virtual) [facility] Visit [address] [place] [phone] 04/06/2020 12:00:00 AM EST eCW1 ([facility]) (TV_Virtual) [facility] Visit [address] [place] [address] 03/23/2020 12:00:00 AM EST eCW1 ([facility]) (TV_Virtual) [facility] Visit [address] [place] [address] 03/09/2020 12:00:00 AM EST eCW1 ([facility]) Unknown [address] [facility] [place] [address] 03/06/2020 12:00:00 AM EST eCW1 ([facility]) Unknown [address] [facility] [place] [address] 03/05/2020 12:00:00 AM EST eCW1 ([facility]) (TV_Virtual) [facility] Visit [address] [place] [address] 02/06/2020 12:00:00 AM EST eCW1 ([facility]) Unknown [address] [facility] [address] 02/06/2020 12:00:00 AM EST eCW1 ([facility]) Unknown [address] [facility] [address] 02/06/2020 12:00:00 AM EST eCW1 ([facility]) (TV_Virtual) [facility] Visit [address] [place] [address] 01/23/2020 12:00:00 AM EST eCW1 ([facility]) Unknown [address] [facility] [place] [address] 01/18/2020 12:00:00 AM EST eCW1 ([facility]) (TV_Virtual) [facility] Visit [address] [place] [address] 01/05/2020 12:00:00 AM EST eCW1 ([facility]) (TV_Virtual) [facility] Visit [address] [place] [address] 12/19/2019 12:00:00 AM EDT eCW1 ([facility]) [place] [address] [facility] [place] [address] 12/16/2019 12:00:00 AM EDT eCW1 [facility] [place]patient [address] [facility] [place] [address] 12/14/2019 12:00:00 AM EDT eCW1 [facility] [place] [address] [facility] [place] [address] 12/07/2019 12:00:00 AM EDT eCW1 ([facility]) (TV_Virtual) [facility] Visit [address] [place] [address] 12/05/2019 12:00:00 AM EDT eCW1 ([facility]) [facility] [address] [facility] [place] [address] 10/05/2019 12:00:00 AM EDT eCW1 ([facility]) Outpatient [address] [facility] [address] 09/19/2019 12:00:00 AM EDT eCW1 ([facility]) (BHVHLTH) [facility] Scheduled Visit [address] [place] [address] 09/19/2019 12:00:00 AM EDT eCW1 ([facility]) [facility] GME Resident [address] [place] [address] 09/05/2019 12:00:00 AM EDT eCW1 ([facility]) [facility] Res[facility] [address] [place] [phone] 08/31/2019 12:00:00 AM EDT eCW1 ([facility]) Outpatient Attender: DONNA VALLE 08/25/2019 12:00:00 AM [facility] (TV_Virtual) Virtual [facility] Visit [address] [place] [address] 08/15/2019 12:00:00 AM EDT eCW1 ([facility]) [facility] GME Resident [address] [place] [address] 08/10/2019 12:00:00 AM EDT eCW1 ([facility]) Unknown [address] [facility] [address] 08/05/2019 12:00:00 AM EDT eCW1 ([facility]) [facility]rology [address] [facility] [place] [address] 08/05/2019 12:00:00 AM EDT eCW1 ([facility]) Unknown [address] [facility] [place] [address] 08/04/2019 12:00:00 AM EDT eCW1 ([facility]) [facility] [place] [address] [place] [address] 08/01/2019 12:00:00 AM EDT eCW1 ([facility]) Outpatient Attender: Man Del Rosario/Ketan/Fox/Rahat 07/21/2019 09:00:00 AM EDT MEDENT ([facility] [address] [place] [phone] 07/15/2019 12:00:00 AM EDT eCW1 ([facility]) [facility] Urology [address] [place] [address] [place] [address] 07/12/2019 12:00:00 AM EDT eCW1 ([facility] [place]) [address] [address] 07/07/2019 12:00:00 AM EDT eCW1 ([facility] [place]) [address] [address] 06/27/2019 12:00:00 AM EDT eCW1 ([facility] [place]) [facility] GME Resident [address] [place] [phone] 06/27/2019 12:00:00 AM EDT eCW1 ([facility]) [address] [address] 06/27/2019 12:00:00 AM EDT eCW1 ([facility]) Outpatient Referrer: Vidhya Banda NP 06/24/2019 05:54:00 AM EDT [facility] Outpatient Referrer: Vidhya Banda NP 06/23/2019 07:29:00 AM EDT [facility] [address] [address] 06/22/2019 12:00:00 AM EDT eCW1 [facility] [place]) [facility] [address] [place] [address] [place] [address] 06/21/2019 12:00:00 AM EDT eCW1 ([facility] [place]) [address] [address] 06/20/2019 12:00:00 AM EDT eCW1 ([facility] [place]) [address] [address] 06/16/2019 12:00:00 AM EDT eCW1 ([facility]) [address] [address] 05/26/2019 12:00:00 AM EDT eCW1 ([facility]) [address] [address] 05/16/2019 12:00:00 AM EDT eCW1 [facility] [address] [address] 05/13/2019 12:00:00 AM EDT eCW1 ([facility]) Outpatient Attender: JULIANE AWAN NP 05/11/2019 12:00:00 AM EDT [facility] Outpatient Attender: JULIANE AWAN NP [id number] 04/30 12:00:00 AM EDT - 05/10/2019 10:29:21 AM EDT Other artificial openings of urinary tract status [facility] Other artificial openings of urinary tra ct status [address] [address] 05/10/2019 12:00:00 AM EDT eCW1 ([facility]) [facility] Resident [address] [place] [phone] 05/06/2019 12:00:00 AM EST eCW1 ([facility]) [address] [address] 05/03/2019 12:00:00 AM EST eCW1 ([facility]) [address] [place] [address] 04/27/2019 12:00:00 AM EST eCW1 ([facility]) [address] [address] 04/25/2019 12:00:00 AM EST eCW1 ([facility]) [address] [address] 04/25/2019 12:00:00 AM EST eCW1 ([facility]) [facility] GME Resident [address] [place] [phone] 2019 12:00:00 AM EST eCW1 ([facility]) [address] [address] 04/21/2019 12:00:00 AM EST eCW1 ([facility]) Outpatient Attender: JULIANE AWAN NP 04/20/2019 12:00:00 AM EST [address] [address] 04/05/2019 12:00:00 AM EST eCW1 ([facility]) [address] [address] 04/04/2019 12:00:00 AM EST eCW1 ([facility]) [address] [address] 03/29/2019 12:00:00 AM EST eCW1 ([facility]) [address] [address] 03/22/2019 12:00:00 AM EST eCW1 ([facility]) [address] [address] 03/18/2019 12:00:00 AM EST eCW1 ([facility]) [address] [address] 03/17/2019 12:00:00 AM EST eCW1 ([facility]) [address] [address] 03/08/2019 12:00:00 AM EST eCW1 ([facility] [address] [place] [phone] 03/08/2019 12:00:00 AM EST eCW1 [facility]) Medications Medication Brand Name Start Date Product Form Dose Route Admi nistrative Instructions Pharmacy Instructions Status Indications Reaction Description Data Source(s) pantoprazole 40 MG Delayed Release Oral Tablet PANTOPRAZOLE SODIUM 04/23/2020 12:00:00 AM EST tablet,delayed release (DR/EC) 90 T KEVIN ONE TABLET BY MOUTH EVERY DAY TAKE ONE TABLET BY MOUTH EVERY DAY SOLD: 04/23/2020 [facility] 1 gram 04/16/2020 12:00:00 AM EST tablet 120 TAKE ONE TABLET BY MOUTH FOUR TIMES A DAY ON EMPTY STOMACH TAKE ONE TABLET BY MOUTH FOUR TIMES A DA Y ON EMPTY STOMACH SOLD: 04/16/2020 [facility] 100 mg 04/16/2020 12:00:00 AM EST capsule 10 TAKE ONE CAPSULE BY MOUTH EVERY 12 HOURS WITH FOOD TAKE ONE CAPSULE BY MOUTH EVERY 12 HOURS WITH FOOD KIERRA [facility] NITROFURANTOIN, MACROCRYSTALS 25 MG / Ni trofurantoin, Monohydrate 75 MG Oral Capsule [Macrobid] Macrobid 100 MG Macrobid 100 MG 04/13/2020 12:00:00 AM EST 1.0 {capsule_with_food} active Macrobid 100 MG eCW1 ([facility]) NITROFURANTOIN, MACROCRYSTALS 25 MG / Ni trofurantoin, Monohydrate 75 MG Oral Capsule [Macrobid] Macrobid 100 MG Macrobid 100 MG 04/13/2020 12:00:00 AM EST 1.0 {capsule_with_food} active Macrobid 100 MG eCW1 ([facility]) 10 mg 04/07/2020 12:00:00 AM EST tablet 30 TAKE ONE TABLET BY MOUTH EVERY DAY TAKE ONE TABLET BY MOUTH EVERY DAY SOLD: 04/09/2020 [facility] 1 gram 03/22/2020 12:00:00 AM EST tablet 120 TAKE ONE TABLET BY MOUTH FOUR TIMES A DAY ON EMPTY STOMACH TAKE ONE TABLET BY MOUTH FOUR TIMES A DA Y ON EMPTY STOMACH SOLD: 03/26/2020 [facility] quetiapine 50 MG Oral Tablet QUETIAPINE FUMARATE 03/15/2020 12:0 0:00 AM EST tablet 180 TAKE ONE TABLET BY MOUTH TWICE A DAY DIRECTED TAKE ONE TABLET BY MOUTH TWICE A DAY DIRECTED SOLD: 03/19/2020 [facility] 20 mg 03/09/2020 12:00:00 AM EST tablet 90 TAKE ONE TABLET BY MOUTH EVERY DAY TAKE ONE TABLET BY MOUTH EVERY DAY SOLD: 03/12/2020 [facility] Trazodone Hydrochloride 100 MG Oral Tablet TRAZODONE HCL 03/09/2020 12:00:00 AM EST tablet 90 TAKE ONE TABLET BY MOUTH AT BEDTIME NEEDED TAKE ONE TABLET BY MOUTH AT BEDTIME NEEDED SOLD: 03/12/2020 [facility] 10 mg 03/08/2020 12:00:00 AM EST tablet 30 TAKE ONE TABLET BY MOUTH EVERY DAY TAKE ONE TABLET BY MOUTH EVERY DAY SOLD: 03/12/2020 [facility] quetiapine 50 MG Oral Tablet QUETIAPINE FUMARATE 03/03/2020 12:0 0:00 AM EST tablet 30 TAKE ONE TABLET BY MOUTH EVERY D AY AT BEDTIME TAKE ONE TABLET BY MOUTH EVERY DAY AT BEDTIME SOLD: 03/07/2020 [facility] 10 mg 02/20/2020 12:00:00 AM EST tablet 18 TAKE ONE TABLET BY MOUTH EVERY DAY NEEDED FOR HEADACHES TAKE ONE TABLET BY MOUTH EVERY DAY NE EDED FOR HEADACHES SOLD: 02/22/2020 [facility] 10 mg 02/14/2020 12:00:00 AM EST tablet 30 TAKE ONE TABLET BY MOUTH EVERY DAY TAKE ONE TABLET BY MOUTH EVERY DAY SOLD: 02/15/2020 [facility] 1 gram 02/01/2020 12:00:00 AM EST tablet 120 TAKE ONE TABLET BY MOUTH FOUR TIMES A DAY ON EMPTY STOMACH TAKE ONE TABLET BY MOUTH FOUR TIMES A DA Y ON EMPTY STOMACH SOLD: 02/01/2020 [facility] 1 gram 02/01/2020 12:00:00 AM EST tablet 120 TAKE ONE TABLET BY MOUTH FOUR TIMES A DAY ON EMPTY STOMACH TAKE ONE TABLET BY MOUTH FOUR TIMES A DA Y ON EMPTY STOMACH SOLD: 02/27/2020 [facility] Atenolol 25 MG Oral Tablet ATENOLOL 01/25/2020 12:00:00 AM EST tablet 30 TAKE ONE TABLET BY MOUTH EVERY DAY TAKE ONE TABLET BY MOUTH EVERY DAY SOLD: 01/30/2020 [facility] 100 mg 01/17/2020 12:00:00 AM EST capsule 20 TAKE ONE CAPSULE BY MOUTH TWICE A DAY WITH FOOD UNTIL GONE TAKE ONE CAPSULE BY MOUTH TWICE A DAY WI TH FOOD UNTIL GONE SOLD: 01/18/2020 [facility] 20 mg 12/19/2019 12:00:00 AM EDT tablet 90 TAKE ONE TABLET BY MOUTH EVERY DAY TAKE ONE TABLET BY MOUTH EVERY DAY SOLD: 12/19/2019 [facility] 10 mg 12/16/2019 12:00:00 AM EDT tablet 30 TAKE ONE TABLET BY MOUTH EVERY DAY TAKE ONE TABLET BY MOUTH EVERY DAY SOLD: 12/19/2019 [facility] 10 mg 12/16/2019 12:00:00 AM EDT tablet 30 TAKE ONE TABLET BY MOUTH EVERY DAY TAKE ONE TABLET BY MOUTH EVERY DAY SOLD: 01/09/2020 [facility] Sodium Chloride 0.111 MEQ/ML Nasal [place] Saline Nasal [place] 0.65 % Saline Nasal [place] 0.65 % 12/14/2019 12:00:00 AM EDT activ e Saline Nasal [place] 0.65 % eCW1 ([facility]) Sodium Chloride 0.111 MEQ/ML Nasal [place] Saline Nasal [place] 0.65 % Saline Nasal [place] 0.65 % 12/14/2019 12:00:00 AM EDT activ e Saline Nasal [place] 0.65 % eCW1 ([facility]) Sodium Chloride 0.111 MEQ/ML Nasal [place] Saline Nasal [place] 0.65 % Saline Nasal [place] 0.65 % 12/14/2019 12:00:00 AM EDT activ e Saline Nasal [place] 0.65 % eCW1 ([facility]) Sodium Chloride 0.111 MEQ/ML Nasal [place] Saline Nasal [place] 0.65 % Saline Nasal [place] 0.65 % 12/14/2019 12:00:00 AM EDT activ e Saline Nasal [place] 0.65 % eCW1 ([facility]) Sodium Chloride 0.111 MEQ/ML Nasal [place] Saline Nasal [place] 0.65 % Saline Nasal [place] 0.65 % 12/14/2019 12:00:00 AM EDT activ e Saline Nasal [place] 0.65 % eCW1 ([facility]) Sodium Chloride 0.111 MEQ/ML Nasal [place] Saline Nasal [place] 0.65 % Saline Nasal [place] 0.65 % 12/14/2019 12:00:00 AM EDT activ e Saline Nasal [place] 0.65 % eCW1 ([facility]) Sodium Chloride 0.111 MEQ/ML Nasal [place] Saline Nasal [place] 0.65 % Saline Nasal [place] 0.65 % 12/14/2019 12:00:00 AM EDT activ e Saline Nasal [place] 0.65 % eCW1 ([facility]) Sodium Chloride 0.111 MEQ/ML Nasal [place] Saline Nasal [place] 0.65 % Saline Nasal [place] 0.65 % 12/14/2019 12:00:00 AM EDT activ e Saline Nasal [place] 0.65 % eCW1 ([facility]) Sodium Chloride 0.111 MEQ/ML Nasal [place] Saline Nasal [place] 0.65 % Saline Nasal [place] 0.65 % 12/14/2019 12:00:00 AM EDT activ e Saline Nasal [place] 0.65 % eCW1 ([facility]) Sodium Chloride 0.111 MEQ/ML Nasal [place] Saline Nasal [place] 0.65 % Saline Nasal [place] 0.65 % 12/14/2019 12:00:00 AM EDT activ e Saline Nasal [place] 0.65 % eCW1 ([facility]) Sodium Chloride 0.111 MEQ/ML Nasal [place] Saline Nasal [place] 0.65 % Saline Nasal [place] 0.65 % 12/14/2019 12:00:00 AM EDT activ e Saline Nasal [place] 0.65 % eCW1 ([facility]) Sodium Chloride 0.111 MEQ/ML Nasal [place] Saline Nasal [place] 0.65 % Saline Nasal [place] 0.65 % 12/14/2019 12:00:00 AM EDT activ e Saline Nasal [place] 0.65 % eCW1 ([facility]) Sodium Chloride 0.111 MEQ/ML Nasal [place] Saline Nasal [place] 0.65 % Saline Nasal [place] 0.65 % 12/14/2019 12:00:00 AM EDT activ e Saline Nasal [place] 0.65 % eCW1 ([facility]) Sodium Chloride 0.111 MEQ/ML Nasal [place] Saline Nasal [place] 0.65 % Saline Nasal [place] 0.65 % 12/14/2019 12:00:00 AM EDT activ e Saline Nasal [place] 0.65 % eCW1 ([facility]) Sodium Chloride 0.111 MEQ/ML Nasal [place] Saline Nasal [place] 0.65 % Saline Nasal [place] 0.65 % 12/14/2019 12:00:00 AM EDT activ e Saline Nasal [place] 0.65 % eCW1 ([facility]) Sodium Chloride 0.111 MEQ/ML Nasal [place] Saline Nasal [place] 0.65 % Saline Nasal [place] 0.65 % 12/14/2019 12:00:00 AM EDT activ e Saline Nasal [place] 0.65 % eCW1 ([facility]) Sodium Chloride 0.111 MEQ/ML Nasal [place] Saline Nasal [place] 0.65 % Saline Nasal [place] 0.65 % 12/14/2019 12:00:00 AM EDT activ e Saline Nasal [place] 0.65 % eCW1 ([facility]) Sodium Chloride 0.111 MEQ/ML Nasal [place] Saline Nasal [place] 0.65 % Saline Nasal [place] 0.65 % 12/14/2019 12:00:00 AM EDT activ e Saline Nasal [place] 0.65 % eCW1 ([facility]) Trazodone Hydrochloride 100 MG Oral Tablet TRAZODONE HCL 12/13/2019 12:00:00 AM EDT tablet 90 TAKE ONE TABLET BY MOUTH AT BEDTIME NEEDED TAKE ONE TABLET BY MOUTH AT BEDTIME NEEDED SOLD: 12/14/2019 [facility] quetiapine 50 MG Oral Tablet QUETIAPINE FUMARATE 12/13/2019 12:0 0:00 AM EDT tablet 180 TAKE ONE TABLET BY MOUTH TWICE A DAY TAKE ONE TABLET BY MOUTH TWICE A DAY SOLD: 12/14/2019 [facility] 1 gram 12/07/2019 12:00:00 AM EDT tablet 120 TAKE ONE TABLET BY MOUTH FOUR TIMES A DAY ON AN EMPTY STOMACH TAKE ONE TABLET BY MOUTH FOUR TIMES A DA Y ON AN EMPTY STOMACH SOLD: 12/07/2019 [facility] 10 mg 11/14/2019 12:00:00 AM EDT tablet 18 TAKE ONE TABLET BY MOUTH ONCE A DAY NEEDED TAKE ONE TABLET BY MOUTH ONCE A DAY NEEDED SOLD: 11/15/2019 [facility] 10 mg 11/14/2019 12:00:00 AM EDT tablet 12 TAKE ONE TABLET BY MOUTH ONCE A DAY NEEDED TAKE ONE TABLET BY MOUTH ONCE A DAY NEEDED SOLD: 02/01/2020 [facility] 40 mg 11/08/2019 12:00:00 AM EDT tablet,delayed release (DR/EC) 90 TAKE ONE TABLET BY MOUTH EVERY DAY STOP OMEPRAZOLE TAKE ONE TABLET BY MOUTH EVERY DAY STOP OMEPRAZOLE SOLD: 11/15/2019 [facility] pantoprazole 40 MG Delayed Release Oral Tablet PANTOPRAZOLE SODIUM 11/08/2019 12:00:00 AM EDT tablet,delayed release (DR/EC) 90 T KEV[place] ONE TABLET BY MOUTH EVERY DAY STOP OMEPRAZOLE TAKE ONE TABLET BY MOUTH EVERY DAY STOP OMEPRAZOLE SOLD: 02/06/2020 [facility] 40 mg 10/20/2019 12:00:00 AM EDT capsule,delayed release (DR/EC) 30 TAKE ONE CAPSULE BY MOUTH EVERY DAY TAKE ONE CAPSULE BY MOUTH EVERY DAY SOLD: 10/26/2019 [facility] 50 mg 10/20/2019 12:00:00 AM EDT tablet 30 TAKE ONE TABLET BY MOUTH EVERY EVENING AT BEDTIME DIRECTED TAKE ONE TABLET BY MOUTH EVERY EVENING A T BEDTIME DIRECTED SOLD: 10/26/2019 [facility] 50 mg 10/20/2019 12:00:00 AM EDT tablet 30 TAKE ONE TABLET BY MOUTH EVERY EVENING AT BEDTIME DIRECTED TAKE ONE TABLET BY MOUTH EVERY EVENING A T BEDTIME DIRECTED SOLD: 11/15/2019 [facility] 20 mg 09/29/2019 12:00:00 AM EDT tablet 90 TAKE ONE TABLET BY MOUTH EVERY DAY TAKE ONE TABLET BY MOUTH EVERY DAY SOLD: 09/29/2019 [facility] quetiapine 50 MG Oral Tablet QUETIAPINE FUMARATE 09/19/2019 12:0 0:00 AM EDT tablet 30 TAKE ONE TABLET BY MOUTH AT BEDT [place] TAKE ONE TABLET BY MOUTH AT BEDTIME SOLD: 09/19/2019 [facility] quetiapine 50 MG Oral Tablet QUETIAPINE FUMARATE 09/19/2019 12:0 0:00 AM EDT tablet 30 TAKE ONE TABLET BY MOUTH AT BEDT [place] TAKE ONE TABLET BY MOUTH AT BEDTIME SOLD: 10/19/2019 [facility] quetiapine 50 MG Oral Tablet QUETIAPINE FUMARATE 09/19/2019 12:0 0:00 AM EDT tablet 30 TAKE ONE TABLET BY MOUTH AT BEDT [place] TAKE ONE TABLET BY MOUTH AT BEDTIME SOLD: 11/15/2019 [facility] 10 mg 09/19/2019 12:00:00 AM EDT tablet 30 TAKE ONE TABLET BY MOUTH EVERY DAY TAKE ONE TABLET BY MOUTH EVERY DAY SOLD: 09/19/2019 [facility] 10 mg 09/19/2019 12:00:00 AM EDT tablet 30 TAKE ONE TABLET BY MOUTH EVERY DAY TAKE ONE TABLET BY MOUTH EVERY DAY SOLD: 10/19/2019 [facility] cetirizine hydrochloride 10 MG Oral Tablet Cetirizine HCl 10 MG Cetirizine HCl 10 MG 09/19/2019 12:00:00 AM EDT 1.0 {tablet} activ e Cetirizine HCl 10 MG eCW1 ([facility]) cetirizine hydrochloride 10 MG Oral Tablet Cetirizine HCl 10 MG Cetirizine HCl 10 MG 09/19/2019 12:00:00 AM EDT 1.0 {tablet} activ e Cetirizine HCl 10 MG eCW1 ([facility]) cetirizine hydrochloride 10 MG Oral Tablet Cetirizine HCl 10 MG Cetirizine HCl 10 MG 09/19/2019 12:00:00 AM EDT 1.0 {tablet} activ e Cetirizine HCl 10 MG eCW1 ([facility]) 25 mg 09/18/2019 12:00:00 AM EDT tablet 90 TAKE ONE TABLET BY MOUTH AT BEDTIME FOR DEPRESSION TAKE ONE TABLET BY MOUTH AT BEDTIME FOR DEPRESSION [facility]IER[facility] 20 mg 09/05/2019 12:00:00 AM EDT tablet 30 TAKE ONE TABLET BY MOUTH EVERY DAY TAKE ONE TABLET BY MOUTH EVERY DAY SOLD: 09/05/2019 [facility] 1 gram 08/29/2019 12:00:00 AM EDT tablet 84 TAKE ONE TABLET BY MOUTH FOUR TIMES A DAY ON AN EMPTY STOMACH TAKE ONE TABLET BY MOUTH FOUR TIMES A DA Y ON AN EMPTY STOMACH SOLD: 09/29/2019 [facility] 1 gram 08/29/2019 12:00:00 AM EDT tablet 120 TAKE ONE TABLET BY MOUTH FOUR TIMES A DAY ON AN EMPTY STOMACH TAKE ONE TABLET BY MOUTH FOUR TIMES A DA Y ON AN EMPTY STOMACH SOLD: 10/17/2019 [facility] 1 gram 08/29/2019 12:00:00 AM EDT tablet 120 TAKE ONE TABLET BY MOUTH FOUR TIMES A DAY ON AN EMPTY STOMACH TAKE ONE TABLET BY MOUTH FOUR TIMES A DA Y ON AN EMPTY STOMACH SOLD: 08/29/2019 [facility] 10 mg 08/17/2019 12:00:00 AM EDT tablet 5 TAKE ONE TABLET BY MOUTH ONCE A DAY NEEDED TAKE ONE TABLET BY MOUTH ONCE A DAY NEEDED SOLD: 09/14/2019 [facility] 10 mg 08/17/2019 12:00:00 AM EDT tablet 5 TAKE ONE TABLET BY MOUTH ONCE A DAY NEEDED TAKE ONE TABLET BY MOUTH ONCE A DAY NEEDED SOLD: 08/17/2019 [facility] 10 mg 08/17/2019 12:00:00 AM EDT tablet 5 TAKE ONE TABLET BY MOUTH ONCE A DAY NEEDED TAKE ONE TABLET BY MOUTH ONCE A DAY NEEDED SOLD: 10/19/2019 [facility] 20 mg 08/15/2019 12:00:00 AM EDT tablet 30 TAKE ONE TABLET BY MOUTH EVERY DAY TAKE ONE TABLET BY MOUTH EVERY DAY SOLD: 08/15/2019 [facility] Hospital bed UNK 08/04/2019 12:00:00 AM EDT activ e Hospital bed eCW1 ([facility]) Hospital bed UNK 08/04/2019 12:00:00 AM EDT activ e Hospital bed eCW1 ([facility]) Hospital bed UNK 08/04/2019 12:00:00 AM EDT activ e Hospital bed eCW1 ([facility]) Hospital bed UNK 08/04/2019 12:00:00 AM EDT activ e Hospital bed eCW1 ([facility]) Hospital bed UNK 08/04/2019 12:00:00 AM EDT activ e Hospital bed eCW1 ([facility]) Hospital bed UNK 08/04/2019 12:00:00 AM EDT activ e Hospital bed eCW1 ([facility]) Hospital bed UNK 08/04/2019 12:00:00 AM EDT activ e Hospital bed eCW1 ([facility]) Hospital bed UNK 08/04/2019 12:00:00 AM EDT activ e Hospital bed eCW1 ([facility]) Hospital bed UNK 08/04/2019 12:00:00 AM EDT activ e Hospital bed eCW1 ([facility]) Hospital bed UNK 08/04/2019 12:00:00 AM EDT activ e Hospital bed eCW1 ([facility]) Hospital bed UNK 08/04/2019 12:00:00 AM EDT activ e Hospital bed eCW1 ([facility]) Hospital bed UNK 08/04/2019 12:00:00 AM EDT activ e Hospital bed eCW1 ([facility]) Hospital bed UNK 08/04/2019 12:00:00 AM EDT activ e Hospital bed eCW1 ([facility]) Hospital bed UNK 08/04/2019 12:00:00 AM EDT activ e Hospital bed eCW1 ([facility]) Hospital bed UNK 08/04/2019 12:00:00 AM EDT activ e Hospital bed eCW1 ([facility]) Hospital bed UNK 08/04/2019 12:00:00 AM EDT activ e Hospital bed eCW1 ([facility]) Hospital bed UNK 08/04/2019 12:00:00 AM EDT activ e Hospital bed eCW1 ([facility]) Hospital bed UNK 08/04/2019 12:00:00 AM EDT activ e Hospital bed eCW1 ([facility]) Hospital bed UNK 08/04/2019 12:00:00 AM EDT activ e Hospital bed eCW1 ([facility]) Hospital bed UNK 08/04/2019 12:00:00 AM EDT activ e Hospital bed eCW1 ([facility]) Hospital bed UNK 08/04/2019 12:00:00 AM EDT activ e Hospital bed eCW1 ([facility]) Hospital bed UNK 08/04/2019 12:00:00 AM EDT activ e Hospital bed eCW1 ([facility]) Hospital bed UNK 08/04/2019 12:00:00 AM EDT activ e Hospital bed eCW1 ([facility]) Hospital bed UNK 08/04/2019 12:00:00 AM EDT activ e Hospital bed eCW1 ([facility]) 25 mg 07/21/2019 12:00:00 AM EDT tablet 30 TAKE ONE TABLET BY MOUTH AT BEDTIME FOR DEPRESSION TAKE ONE TABLET BY MOUTH AT BEDTIME FOR DEPRESSION KIERRA [facility] 25 mg 07/21/2019 12:00:00 AM EDT tablet 30 TAKE ONE TABLET BY MOUTH AT BEDTIME FOR DEPRESSION TAKE ONE TABLET BY MOUTH AT BEDTIME FOR DEPRESSION KIERRA [facility] 25 mg 07/21/2019 12:00:00 AM EDT tablet 30 TAKE ONE TABLET BY MOUTH AT BEDTIME FOR DEPRESSION TAKE ONE TABLET BY MOUTH AT BEDTIME FOR DEPRESSION KIERRA [facility] 50 mg 07/20/2019 12:00:00 AM EDT tablet 90 TAKE ONE TABLET BY MOUTH AT BEDTIME NEEDED TAKE ONE TABLET BY MOUTH AT BEDTIME NEEDED SOLD: [facility] 25 mg 06/28/2019 12:00:00 AM EDT tablet 30 TAKE ONE TABLET BY MOUTH AT BEDTIME TAKE ONE TABLET BY MOUTH AT BEDTIME SOLD: 06/30/2019 [facility] Phenazopyridine hydrochloride 100 MG Oral Tablet [Pyri dium] Pyridium 100 MG Pyridium 100 MG 06/27/2019 12:00:00 AM EDT 2.0 {tablets_after_meals} active Pyridium 100 MG eCW1 ([facility]) quetiapine 50 MG Oral Tablet [Seroquel] Seroquel 50 MG Seroq uel 50 MG 06/27/2019 12:00:00 AM EDT 1.0 {tablet_at_bedtime} active Seroquel 50 MG eCW1 ([facility]) quetiapine 50 MG Oral Tablet [Seroquel] Seroquel 50 MG Seroq uel 50 MG 06/27/2019 12:00:00 AM EDT 1.0 {tablet_at_bedtime} active Seroquel 50 MG eCW1 ([facility]) Phenazopyridine hydrochloride 100 MG Oral Tablet [Pyri dium] Pyridium 100 MG Pyridium 100 MG 06/27/2019 12:00:00 AM EDT 2.0 {tablets_after_meals} active Pyridium 100 MG eCW1 ([facility]) Phenazopyridine hydrochloride 100 MG Oral Tablet [Pyri dium] Pyridium 100 MG Pyridium 100 MG 06/27/2019 12:00:00 AM EDT ac tive 2 tablets after meals eCW1 ([facility]) Phenazopyridine hydrochloride 100 MG Oral Tablet [Pyri dium] Pyridium 100 MG Pyridium 100 MG 06/27/2019 12:00:00 AM EDT 2.0 {tablets_after_meals} active Pyridium 100 MG eCW1 ([facility]) quetiapine 25 MG Oral Tablet [Seroquel] Seroquel 25 MG Seroq uel 25 MG 06/27/2019 12:00:00 AM EDT 1.0 {tablet_at_bedtime} active Seroquel 25 MG eCW1 ([facility]) Phenazopyridine hydrochloride 100 MG Oral Tablet [Pyri dium] Pyridium 100 MG Pyridium 100 MG 06/27/2019 12:00:00 AM EDT 2.0 {tablets_after_meals} active Pyridium 100 MG eCW1 ([facility]) quetiapine 50 MG Oral Tablet [Seroquel] Seroquel 50 MG Seroq uel 50 MG 06/27/2019 12:00:00 AM EDT 1.0 {tablet_at_bedtime} active Seroquel 50 MG eCW1 ([facility]) quetiapine 25 MG Oral Tablet [Seroquel] Seroquel 25 MG Seroq uel 25 MG 06/27/2019 12:00:00 AM EDT 1.0 {tablet_at_bedtime} active Seroquel 25 MG eCW1 ([facility]) quetiapine 25 MG Oral Tablet [Seroquel] Seroquel 25 MG Seroq uel 25 MG 06/27/2019 12:00:00 AM EDT active 1 table t at bedtime eCW1 ([facility]) quetiapine 25 MG Oral Tablet [Seroquel] Seroquel 25 MG Seroq uel 25 MG 06/27/2019 12:00:00 AM EDT 1.0 {tablet_at_bedtime} active Seroquel 25 MG eCW1 ([facility]) Phenazopyridine hydrochloride 100 MG Oral Tablet [Pyri dium] Pyridium 100 MG Pyridium 100 MG 06/27/2019 12:00:00 AM EDT 2.0 {tablets_after_meals} active Pyridium 100 MG eCW1 ([facility]) Phenazopyridine hydrochloride 100 MG Oral Tablet [Pyri dium] Pyridium 100 MG Pyridium 100 MG 06/27/2019 12:00:00 AM EDT 2.0 {tablets_after_meals} active Pyridium 100 MG eCW1 ([facility]) 300 mg 06/09/2019 12:00:00 AM EDT capsule 10 TAKE ONE CAPSULE BY MOUTH TWICE A DAY TAKE ONE CAPSULE BY MOUTH TWICE A DAY SOLD: 06/14/2019 [facility] 10 mg 05/30/2019 12:00:00 AM EDT tablet 90 TAKE ONE TABLET BY MOUTH EVERY DAY TAKE ONE TABLET BY MOUTH EVERY DAY SOLD: 05/31/2019 [facility] NITROFURANTOIN, MACROCRYSTALS 25 MG / Ni trofurantoin, Monohydrate 75 MG Oral Capsule [Macrobid] Macrobid 100 MG Macrobid 100 MG 05/06/2019 12:00:00 AM EST suspended Macrobid 100 MG eCW1 ( [facility]) 1 gram 05/06/2019 12:00:00 AM EST tablet 120 TAKE ONE TABLET BY MOUTH FOUR TIMES A DAY ON AN EMPTY STOMACH TAKE ONE TABLET BY MOUTH FOUR TIMES A DA Y ON AN EMPTY STOMACH SOLD: 06/16/2019 [facility] 10 mg 05/06/2019 12:00:00 AM EST tablet 5 TAKE 1 TABLET BY MOUTH NEEDED DIRECTED MAXIMUM DAILY DOSE = 1 TABLET TAKE 1 TABLET BY MOUTH NEEDED DIRECTED MAXIMUM DAILY DOSE = 1 TABLET SOLD: 06/14/2019 [facility] NITROFURANTOIN, MACROCRYSTALS 25 MG / Ni trofurantoin, Monohydrate 75 MG Oral Capsule [Macrobid] Macrobid 100 MG Macrobid 100 MG 05/06/2019 12:00:00 AM EST suspended Macrobid 100 MG eCW1 ( [facility]) NITROFURANTOIN, MACROCRYSTALS 25 MG / Ni trofurantoin, Monohydrate 75 MG Oral Capsule [Macrobid] Macrobid 100 MG Macrobid 100 MG 05/06/2019 12:00:00 AM EST suspended Macrobid 100 MG eCW1 ( [facility]) 1 gram 05/06/2019 12:00:00 AM EST tablet 120 TAKE ONE TABLET BY MOUTH FOUR TIMES A DAY ON AN EMPTY STOMACH TAKE ONE TABLET BY MOUTH FOUR TIMES A DA Y ON AN EMPTY STOMACH SOLD: 05/17/2019 [facility] 100 mg 05/06/2019 12:00:00 AM EST capsule 14 TAKE ONE CAPSULE BY MOUTH TWICE A DAY WITH FOOD TAKE ONE CAPSULE BY MOUTH TWICE A DAY WITH FOOD SOLD: 05/10/2019 [facility] NITROFURANTOIN, MACROCRYSTALS 25 MG / Ni trofurantoin, Monohydrate 75 MG Oral Capsule [Macrobid] Macrobid 100 MG Macrobid 100 MG 05/06/2019 12:00:00 AM EST active 1 capsule at bedtime wit h food eCW1 ([facility]) 1 gram 05/06/2019 12:00:00 AM EST tablet 120 TAKE ONE TABLET BY MOUTH FOUR TIMES A DAY ON AN EMPTY STOMACH TAKE ONE TABLET BY MOUTH FOUR TIMES A DA Y ON AN EMPTY STOMACH SOLD: 08/01/2019 [facility] NITROFURANTOIN, MACROCRYSTALS 25 MG / Ni trofurantoin, Monohydrate 75 MG Oral Capsule [Macrobid] Macrobid 100 MG Macrobid 100 MG 05/06/2019 12:00:00 AM EST suspended 1 capsule at bedtime [facility] food eCW1 ([facility]) 10 mg 05/06/2019 12:00:00 AM EST tablet 5 TAKE 1 TABLET BY MOUTH NEEDED DIRECTED MAXIMUM DAILY DOSE = 1 TABLET TAKE 1 TABLET BY MOUTH NEEDED DIRECTED MAXIMUM DAILY DOSE = 1 TABLET SOLD: 07/06/2019 [facility] 10 mg 05/06/2019 12:00:00 AM EST tablet 5 TAKE 1 TABLET BY MOUTH NEEDED DIRECTED MAXIMUM DAILY DOSE = 1 TABLET TAKE 1 TABLET BY MOUTH NEEDED DIRECTED MAXIMUM DAILY DOSE = 1 TABLET SOLD: 05/17/2019 [employer] Sucralfate 1000 MG Oral Tablet Sucralfate 1 GM Oral Ta blet (CARAFATE) Sucralfate 1 GM Oral Tablet (CARAFATE) 05/06/2019 12:00:00 AM EST active [facility] NITROFURANTOIN, MACROCRYSTALS 25 MG / Ni trofurantoin, Monohydrate 75 MG Oral Capsule [Macrobid] Macrobid 100 MG Macrobid 100 MG 05/06/2019 12:00:00 AM EST suspended Macrobid 100 MG eC ( [facility]) NITROFURANTOIN, MACROCRYSTALS 25 MG / Ni trofurantoin, Monohydrate 75 MG Oral Capsule [Macrobid] Macrobid 100 MG Macrobid 100 MG 05/06/2019 12:00:00 AM EST suspended Macrobid 100 MG eC ( [facility]) NITROFURANTOIN, MACROCRYSTALS 25 MG / Ni trofurantoin, Monohydrate 75 MG Oral Capsule [Macrobid] Macrobid 100 MG Macrobid 100 MG 05/06/2019 12:00:00 AM EST suspended Macrobid 100 MG eCW1 ( [facility]) Trazodone Hydrochloride 50 MG Oral Table t traZODone HCl 50 MG Oral Tablet (DESYREL) traZODone HCl 50 MG Oral Tablet (DESYREL) 04/30/2019 12:00:0 0 AM EST active [facility] 50 mg 04/30/2019 12:00:00 AM EST tablet 90 TAKE ONE TABLET BY MOUTH AT BEDTIME NEEDED TAKE ONE TABLET BY MOUTH AT BEDTIME NEEDED SOLD: [facility] Misc. Devices - UNK 04/27/2019 12:00:00 AM EST active Misc. Devices - eCW1 ([facility]) Misc. Devices - UNK 04/27/2019 12:00:00 AM EST active Misc. Devices - eCW1 ([facility]) Misc. Devices - UNK 04/27/2019 12:00:00 AM EST active Misc. Devices - eCW1 ([facility]) Misc. Devices - UNK 04/27/2019 12:00:00 AM EST active Misc. Devices - eCW1 ([facility]) Misc. Devices - UNK 04/27/2019 12:00:00 AM EST active Misc. Devices - eCW1 ([facility]) Misc. Devices - UNK 04/27/2019 12:00:00 AM EST active Misc. Devices - eCW1 ([facility]) Misc. Devices - UNK 04/27/2019 12:00:00 AM EST active Misc. Devices - eCW1 ([facility]) Misc. Devices - UNK 04/27/2019 12:00:00 AM EST active Misc. Devices - eCW1 ([facility]) Misc. Devices - UNK 04/27/2019 12:00:00 AM EST active [employer] eCW1 ([facility]) Misc. Devices - UNK 04/27/2019 12:00:00 AM EST active Misc. Devices - eCW1 ([facility]) Misc. Devices - UNK 04/27/2019 12:00:00 AM EST active Misc. Devices - eCW1 ([facility]) Misc. Devices - UNK 04/27/2019 12:00:00 AM EST active Misc. Devices - eCW1 ([facility]) Misc. Devices - UNK 04/27/2019 12:00:00 AM EST active Misc. Devices - eCW1 ([facility]) Misc. Devices - UNK 04/27/2019 12:00:00 AM EST active Misc. Devices - eCW1 ([facility]) Misc. Devices - UNK 04/27/2019 12:00:00 AM EST active [employer] eCW1 ([facility]) Misc. Devices - UNK 04/27/2019 12:00:00 AM EST active Misc. Devices - eCW1 ([facility]) Misc. Devices - UNK 04/27/2019 12:00:00 AM EST active Misc. Devices - eCW1 ([facility]) Misc. Devices - UNK 04/27/2019 12:00:00 AM EST active Misc. Devices - eCW1 ([facility]) Misc. Devices - UNK 04/27/2019 12:00:00 AM EST active Misc. Devices - eCW1 ([facility]) Misc. Devices - UNK 04/27/2019 12:00:00 AM EST active Misc. Devices - eCW1 ([facility]) Misc. Devices - UNK 04/27/2019 12:00:00 AM EST active Misc. Devices - eCW1 ([facility]) Misc. Devices - UNK 04/27/2019 12:00:00 AM EST active Misc. Devices - eCW1 ([facility]) Misc. Devices - UNK 04/27/2019 12:00:00 AM EST active Misc. Devices - eCW1 ([facility]) Misc. Devices - UNK 04/27/2019 12:00:00 AM EST active Misc. Devices - eCW1 ([facility]) Misc. Devices - UNK 04/27/2019 12:00:00 AM EST active Misc. Devices - eCW1 ([facility]) Misc. Devices - UNK 04/27/2019 12:00:00 AM EST active Misc. Devices - eCW1 ([facility]) Misc. Devices - UNK 04/27/2019 12:00:00 AM EST active [employer] eCW1 ([facility]) 40 mg 04/06/2019 12:00:00 AM EST tablet,delayed release (DR/EC) 90 TAKE ONE TABLET BY MOUTH EVERY DAY TAKE ONE TABLET BY MOUTH EVERY DAY SOLD: 08/01/2019 [facility] 50 mg 04/06/2019 12:00:00 AM EST tablet 30 TAKE ONE TABLET BY MOUTH AT BEDTIME NEEDED TAKE ONE TABLET BY MOUTH AT BEDTIME NEEDED SOLD: [facility] 40 mg 04/06/2019 12:00:00 AM EST tablet,delayed release (DR/EC) 90 TAKE ONE TABLET BY MOUTH EVERY DAY TAKE ONE TABLET BY MOUTH EVERY DAY SOLD: 04/19/2019 [facility] 10 mg 03/09/2019 12:00:00 AM EST tablet 90 TAKE ONE TABLET BY MOUTH EVERY DAY TAKE ONE TABLET BY MOUTH EVERY DAY SOLD: 03/10/2019 [facility] 50 mg 03/09/2019 12:00:00 AM EST tablet 30 TAKE ONE TABLET BY MOUTH AT BEDTIME NEEDED TAKE ONE TABLET BY MOUTH AT BEDTIME NEEDED SOLD: [facility] 25 mg 02/10/2019 12:00:00 AM EST tablet 30 TAKE ONE TABLET BY MOUTH EVERY DAY TAKE ONE TABLET BY MOUTH EVERY DAY SOLD: 06/23/2019 [facility] 40 mg 12/16/2018 12:00:00 AM EDT tablet,delayed release (DR/EC) 30 TAKE ONE TABLET BY MOUTH EVERY DAY TAKE ONE TABLET BY MOUTH EVERY DAY SOLD: 03/10/2019 [facility] 1 gram 12/16/2018 12:00:00 AM EDT tablet 120 TAKE ONE TABLET BY MOUTH FOUR TIMES A DAY ON EMPTY STOMACH TAKE ONE TABLET BY MOUTH FOUR TIMES A DA Y ON EMPTY STOMACH SOLD: 03/24/2019 [facility] 10 mg 12/15/2018 12:00:00 AM EDT tablet 5 TAKE ONE TABLET BY MOUTH EVERY DAY NEEDED TAKE ONE TABLET BY MOUTH EVERY DAY NEEDED SOLD: 03/24/2019 [facility] 50 mg 05/26/2018 12:00:00 AM EDT tablet 120 TAKE TWO TABLETS BY MOUTH TWICE A DAY TAKE TWO TABLETS BY MOUTH TWICE A DAY SOLD: 03/31/2019 [facility] Insurance Providers Payer name Policy type / Coverage type Policy ID Covered democrat ID Covered democrat's relationship to sandoval Policy Sandoval Plan Information EMEDNY [id number] SP [id number] MEDICARE [id number] SP [id number] MEDICARE A [id number] Self [id number] [id number] ALAYNA I [id number] Self [id number] MEDICAID M [id number] Self [id number] MEDICARE [id number] SP [id number] C21 [facility] [id number] SP [id number] MEDICAID [id number] SP [id number] [facility] [id number] SP [id number] MEDICARE C [id number] S [id number] C21 MEDICAID M [id number] S [id number] MEDICARE A [id number] Self [id number] [facility] [id number] MEDICAID [id number] SP [id number] [facility] [id number] SP [id number] MEDICARE [id number] SP [id number] A ANS-Medicare Part B [id number] ANSI-Medicaid [id number] ANS-Medicaid [id number] ANS-Medicaid [id number] ANSI-Medicaid [id number] ANSI-Medicare Part B [id number] ANSI-Medicare Part B [id number] ANSI-Medicaid [id number] ANSI-Medicaid [id number] ANSI-Medicare Part B [id number] ANSI-Medicaid [id number] ANSI-Medicaid [id number] ANSI-Medicaid [id number] ANSI-Medicare Part B [id number] [facility]-Medicaid [id number] [facility]-Medicare Part B [id number] [facility] O [id number] S [id number] [facility] MEDICARE [id number] Liliya [id number] MEDICAID [id number] Liliya [id number] [facility] MEDICAID [id number] Liliya [id number] MEDICARE [id number] SP [id number] A [facility] MEDICAID [id number] Liliya [id number] MEDICARE [id number] Liliya [id number] C21 MEDICARE [id number] Liliya [id number] A [facility] O [id number] S [id number] MEDICARE C [id number] S [id number] A VNA MEDICAID MANAGED I [id number] Self [id number] [place] Self Medicare [place] [facility] Medicare Primary Self VNA MEDICAID MANAGED I [id number] Self [id number] [place] Medig[place] Part B Self Medicare [facility] Medicare Primary Self MEDICARE [id number] S [id number] A MEDICAID [id number] S [id number] MEDICARE [id number] S [id number] A MEDICAID W [id number] S [id number] MEDICARE OUTPATIENT M [id number] S [id number] MEDICARE - [facility] [id number] S [id number] MEDICAID - CLINIC [id number] DM [id number] MEDICARE PART A-CLINIC [id number] 18 [id number] MEDICAID-O/P [id number] MEDICARE -O/P [id number] 18 [id number] Problems, Conditions, and Diagnoses Code Display Name Description Problem Type Effective Dates Data Source(s) J32.9 875115387 Chronic sinusitis, unspecified Problem 12/14/2019 12:00:00 AM EDT eCW1 ([facility]) F39 [id number] Mood disorder Problem 09/19/2019 12:00:00 AM EDT eCW1 ([facility]) Z93.1 [id number] G tube feedings Problem 07/04/2019 12:00:00 AM EDT eCW1 ([facility]) F60.3 Borderline personality disorder Problem 06/27/2019 12:00:00 AM EDT eCW1 ([facility]) F60.3 [id number] Borderline personality disorder Problem 06/27/2019 12:00:00 AM EDT eCW1 ([facility]) G47.34 661423977 Nocturnal hypoxia Problem 05/24/2019 12:00:0 0 AM EDT eCW1 ([facility]) G47.34 419388084 Nocturnal hypoxia Problem 05/24/2019 12:00:0 0 AM EDT eCW1 ([facility]) N32.1 78772916 Colovesical fistula Problem 05/06/2019 12:00 :00 AM EST eCW1 ([facility]) N32.1 55325376 Colovesical fistula Problem 05/06/2019 12:00 :00 AM EST eCW1 ([facility]) 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 Diagnosis 05/10/2019 09:50:52 AM EDT [facility] fol fol Diagnosis 05/10/2019 09:50:52 AM ED [facility] Surgeries/Procedures Procedure Description Date Indications Data Source(s) PSYTX W PT 45 MINUTES 08/01/2019 12:00:00 AM EDT eCW1 ([facility]) Office Visit, Est Pt., Level 3 PC 06/27/2019 12:00:00 AM EDT eCW1 ([facility]) Office Visit, Est Pt., Level 2 FC 06/27/2019 12:00:00 AM EDT eCW1 ([facility]) Results ID Date Data Source URINE CULTURE 04/13/2020 12:00:00 AM EST eCW1 ([facility]) Name Value Range Interpretation Code Description Data Besise rce(s) Supporting Document(s) URINE CULTURE eCW1 ([facility]) ID Date Data Source [id number] 11/24/2019 10:00:00 AM EDT [facility] Name Value Range Interpretation Code Description Data Bessie rce(s) Supporting Document(s) SARS coronavirus 2 RNA [facility] This lab was ordered by [facility] and reported by [facility]. ID Date Data Source [id number] 05/10/2019 11:14:50 AM EDT [facility] Name Value Range Interpretation Code Description Data Bessie rce(s) Supporting Document(s) Progress Note [facility] [id number]/[id number] lbm [file] information management specialist+fwZ9TSGm4HSgXRT6qlBtPNDvgASnIpZyWu4FpSjT+eQ9iheKVyRHcQ6XnPlutCbmAtu1B3tSn+ZULEYMA [file] IlGgQ1NTWxEYqdTAN2BMC6ABJdRh5vCHQJPn7+TYvxnYWzdYozEGHPIbWeBJBnSI7VLAVJK9XRDp== Procedure Social History Code Duration Value Status Description Data Source(s ) Alcohol intake 05/10/2019 12:00:00 AM EDT Current non-d yue of alcohol (finding) completed Current non-drinker of alcohol (finding) [facility] Smoking 05/10/2019 12:00:00 AM EDT Never smoker completed [facility] Vital Signs ID Date Data Source UNK Name Value Range Interpretation Code Description Data Source(s) Diastolic blood pressure 58 mm[Hg] 58 mm[Hg] eCW1 ([facility]) Systolic blood pressure 100 mm[Hg] 100 mm[Hg] e CW1 ([facility]) Body temperature 98.7 [degF] 98.7 [degF] eCW1 ( [facility]) Respiratory rate 16 /min 16 /min eCW1 ([facility]) Heart rate 104 /min 104 /min eCW1 ([facility]) Body mass index (BMI) [Ratio] 24.14 kg/m2 24.14 kg/m2 W1 ([facility]) Body height 72 [in_i] 72 [in_i] eCW1 ([facility]) Body weight 178 [lb_av] 178 [lb_av] eCW1 ([facility]) Diastolic blood pressure 82 mm[Hg] 82 mm[Hg] eCW1 ([facility]) Systolic blood pressure 102 mm[Hg] 102 mm[Hg] e CW1 ([facility]) Body temperature 98.8 [degF] 98.8 [degF] eCW1 ( [facility]) Respiratory rate 19 /min 19 /min eCW1 ([facility]) Heart rate 87 /min 87 /min eCW1 ([facility]) Body mass index (BMI) [Ratio] 24.14 kg/m2 24.14 kg/m2 W1 ([facility]) Body height 72 [in_i] 72 [in_i] eCW1 ([facility]) Body weight 178 [lb_av] 178 [lb_av] eCW1 ([facility]) Body weight 73.483 kg 73.483 kg MEDENT ([facility]) Body mass index (BMI) [Ratio] 21.4 kg/m2 21.4 k g/m2 MEDENT ([facility]) Body weight 162.00 [lb_av] 162.00 [lb_av] MEDEN T ([facility]) Body height 73 [in_i] 73 [in_i] MEDENT ([facility]) 6'1" Diastolic blood pressure 75 mm[Hg] 75 mm[Hg] MEDENT ([facility]) Systolic blood pressure 112 mm[Hg] 112 mm[Hg] M EDENT ([facility]) Diastolic blood pressure 70 mm[Hg] 70 mm[Hg] eCW1 ([facility]) Systolic blood pressure 124 mm[Hg] 124 mm[Hg] e CW1 ([facility]) Body temperature 98.1 [degF] 98.1 [degF] eCW1 ( [facility]) Respiratory rate 18 /min 18 /min eCW1 ([facility]) Heart rate 84 /min 84 /min eCW1 ([facility]) Body mass index (BMI) [Ratio] 22.00 kg/m2 22.00 kg/m2 W1 ([facility]) Body height 72 [in_i] 72 [in_i] eCW1 ([facility]) Body weight 162.2 [lb_av] 162.2 [lb_av] eCW1 ([facility]) Body weight 69.401 kg 69.401 kg MEDENT ([facility]) Body mass index (BMI) [Ratio] 20.2 kg/m2 20.2 k g/m2 [facility]) Body weight 153.00 [lb_av] 153.00 [lb_av] MEDEN T ([facility]) Stated Weight Body height 73 [in_i] 73 [in_i] MEDENT ([facility], ) 6'1" Diastolic blood pressure 68 mm[Hg] 68 mm[Hg] MEDENT ([facility], ) Systolic blood pressure 101 mm[Hg] 101 mm[Hg] M EDENT ([facility], ) Diastolic blood pressure 62 mm[Hg] 62 mm[Hg] eCW1 ([facility]) Systolic blood pressure 110 mm[Hg] 110 mm[Hg] e CW1 ([facility]) Body temperature 98.4 [degF] 98.4 [degF] eCW1 ( [facility]) Respiratory rate 20 /min 20 /min eCW1 ([facility]) Heart rate 79 /min 79 /min eCW1 ([facility]) Body mass index (BMI) [Ratio] 20.69 kg/m2 20.69 kg/m2 eCW1 ([facility]) Body height 72 [in_us] 72 [in_us] eCW1 ([facility]) Body weight Measured 152.6 [lb_av] 152.6 [lb_av ] eCW1 ([facility]) Diastolic blood pressure 64 mm[Hg] 64 mm[Hg] eCW1 ([facility]) Systolic blood pressure 112 mm[Hg] 112 mm[Hg] e CW1 ([facility]) Body temperature 99.7 [degF] 99.7 [degF] eCW1 ( [facility]) Respiratory rate 18 /min 18 /min eCW1 ([facility]) Heart rate 108 /min 108 /min eCW1 ([facility]) Body mass index (BMI) [Ratio] 21.10 kg/m2 21.10 kg/m2 eCW1 ([facility]) Body height 72 [in_us] 72 [in_us] eCW1 ([facility]) Body weight Measured 155.6 [lb_av] 155.6 [lb_av ] eCW1 ([facility]) Diastolic blood pressure 74 mm[Hg] 74 mm[Hg] eCW1 ([facility]) Systolic blood pressure 118 mm[Hg] 118 mm[Hg] e CW1 ([facility]) Body temperature 99 [degF] 99 [degF] eCW1 ([facility]) Respiratory rate 20 /min 20 /min eCW1 ([facility]) Heart rate 101 /min 101 /min eCW1 ([facility]) Body mass index (BMI) [Ratio] 18.88 kg/m2 18.88 kg/m2 eCW1 ([facility]) Body height 72 [in_us] 72 [in_us] eCW1 ([facility]) Body weight Measured 139.2 [lb_av] 139.2 [lb_av ] eCW1 ([facility]) Patient Treatment Plan of Care Planned Activity Planned Date Details Description Data Source (s) NITROFURANTOIN, MACROCRYSTALS 25 MG / Ni trofurantoin, Monohydrate 75 MG Oral Capsule [Macrobid] 04/13/2020 12:00:00 AM EST eC W1 ([facility]) NITROFURANTOIN, MACROCRYSTALS 25 MG / Ni trofurantoin, Monohydrate 75 MG Oral Capsule [Macrobid] 04/13/2020 12:00:00 AM EST eC W1 ([facility]) Sodium Chloride 0.111 MEQ/ML Nasal [place] 12/14/2019 12:00:00 AM EDT eCW1 ([facility]) Sodium Chloride 0.111 MEQ/ML Nasal [place] 12/14/2019 12:00:00 AM EDT eCW1 ([facility]) Sodium Chloride 0.111 MEQ/ML Nasal [place] 12/14/2019 12:00:00 AM EDT eCW1 ([facility]) Sodium Chloride 0.111 MEQ/ML Nasal [place] 12/14/2019 12:00:00 AM EDT eCW1 ([facility]) Sodium Chloride 0.111 MEQ/ML Nasal [place] 12/14/2019 12:00:00 AM EDT eCW1 ([facility]) Sodium Chloride 0.111 MEQ/ML Nasal [place] 12/14/2019 12:00:00 AM EDT eCW1 ([facility]) Sodium Chloride 0.111 MEQ/ML Nasal [place] 12/14/2019 12:00:00 AM EDT eCW1 ([facility]) Sodium Chloride 0.111 MEQ/ML Nasal [place] 12/14/2019 12:00:00 AM EDT eCW1 ([facility]) Sodium Chloride 0.111 MEQ/ML Nasal [place] 12/14/2019 12:00:00 AM EDT eCW1 ([facility]) Sodium Chloride 0.111 MEQ/ML Nasal [place] 12/14/2019 12:00:00 AM EDT eCW1 ([facility]) Sodium Chloride 0.111 MEQ/ML Nasal [place] 12/14/2019 12:00:00 AM EDT eCW1 ([facility]) Sodium Chloride 0.111 MEQ/ML Nasal [place] 12/14/2019 12:00:00 AM EDT eCW1 ([facility]) Sodium Chloride 0.111 MEQ/ML Nasal [place] 12/14/2019 12:00:00 AM EDT eCW1 ([facility]) Sodium Chloride 0.111 MEQ/ML Nasal [place] 12/14/2019 12:00:00 AM EDT eCW1 ([facility]) cetirizine hydrochloride 10 MG Oral Tablet 09/19/2019 12:00:00 AM E DT eCW1 ([facility]) cetirizine hydrochloride 10 MG Oral Tablet 09/19/2019 12:00:00 AM E DT eCW1 ([facility]) cetirizine hydrochloride 10 MG Oral Tablet 09/19/2019 12:00:00 AM E DT eCW1 ([facility]) quetiapine 50 MG Oral Tablet [Seroquel] 06/27/2019 12:00:00 AM EDT eCW1 ([facility]) quetiapine 50 MG Oral Tablet [Seroquel] 06/27/2019 12:00:00 AM EDT eCW1 ([facility]) quetiapine 50 MG Oral Tablet [Seroquel] 06/27/2019 12:00:00 AM EDT eCW1 ([facility]) quetiapine 25 MG Oral Tablet [Seroquel] 06/27/2019 12:00:00 AM EDT eCW1 ([facility]) Phenazopyridine hydrochloride 100 MG Oral Tablet [Pyri dium] 06/27/2019 12:00:00 AM EDT eCW1 ([facility]) Sucralfate 1000 MG Oral Tablet 05/06/2019 12:00:00 AM [facility] NITROFURANTOIN, MACROCRYSTALS 25 MG / Ni trofurantoin, Monohydrate 75 MG Oral Capsule [Macrobid] 05/06/2019 12:00:00 AM EST eC W1 ([facility]) Trazodone Hydrochloride 50 MG Oral Tablet 04/30/2019 12:00:00 AM [facility] Misc. Devices - 04/27/2019 12:00:00 AM EST eCW1 ([facility])
[2020-04-25] MEDS ORDERED: NS 1,000 ML IV ONE (11:20)
[2020-04-25 11:31] LABS: BASO % 0.6 % (0.0-1.0); EOS # 0.1 10^3/uL (0.0-0.5); EOS % 1.1 % (0.0-3.0); HEMATOCRIT 35.8 % (36.0-47.0); HEMOGLOBIN 11.6 g/dl (12.0-15.5); LYMPH # 2.3 10^3/uL (1.5-5.0); LYMPH % 35.5 % (24.0-44.0); MEAN CORPUSCULAR HEMOGLOBIN 34.2 pg (27.0-33.0); MEAN CORPUSCULAR HGB CONC 32.4 g/dl (32.0-36.5); MEAN CORPUSCULAR VOLUME 105.6 fl (80.0-96.0); MONO # 0.4 10^3/uL (0.0-0.8); MONO % 6.8 % (2.0-8.0); NEUTROPHILS # 3.6 10^3/uL (1.5-8.5); NEUTROPHILS % 55.8 % (36.0-66.0); PLATELET COUNT, AUTOMATED 271 10^3/uL (150-450); RED BLOOD COUNT 3.39 10^6/uL (4.00-5.40); WHITE BLOOD COUNT 6.4 10^3/uL (4.0-10.0)
[2020-04-25 11:58] LABS: BLOOD UREA NITROGEN 13 MG/DL (7-18); CALCIUM LEVEL 8.8 MG/DL (8.5-10.1); CARBON DIOXIDE LEVEL 31 MEQ/L (21-32); CHLORIDE LEVEL 103 MEQ/L (98-107); CREATININE FOR GFR 0.46 MG/DL (0.55-1.30); GLOMERULAR FILTRATION RATE > 60.0 (>58); GLUCOSE, FASTING 105 MG/DL (70-100); POTASSIUM SERUM 3.9 MEQ/L (3.5-5.1); SODIUM LEVEL 139 MEQ/L (136-145)
[2020-04-25 12:08] LABS: INR 0.91; PROTHROMBIN TIME 12.4 SECONDS (12.5-14.3)
[2020-04-25 12:23] LABS: ALBUMIN 3.6 GM/DL (3.2-5.2); ALT/SGPT 22 U/L (12-78); BILIRUBIN,DIRECT < 0.1 MG/DL (0.0-0.2); BILIRUBIN,TOTAL 0.1 MG/DL (0.2-1.0); C REACTIVE PROTEIN QUANTITATIV 0.43 MG/DL (0.00-0.30); CK-MB VALUE MASS 1.2 NG/ML (<3.6); CPK CREATINE PHOSPHOKINASE 28 U/L (26-192); MB/CK RELATIVE INDEX 4.29 (< OR =4); TOTAL PROTEIN 6.3 GM/DL (6.4-8.2); TROPONIN I < 0.02 NG/ML (< 0.10)
[2020-04-25 13:01] LABS: D-DIMER QUANT 342.67 ng/ml (<500)
--- NOTE | 2020-04-25 13:36 | REP ---
INDICATION: sob. COMPARISON: Comparison chest x-ray February 15, 2018. TECHNIQUE: Two views.. FINDINGS: The lungs are well inflated and free of infiltrate. The pleural angles are sharp. The heart size is normal. Pulmonary vasculature is not increased. No significant bony abnormality is seen. There is an air containing bowel loop under the right hemidiaphragm. IMPRESSION: No active disease.. <Electronically signed by Tristen Jaramillo > 04/25/20 [id number]
[2020-04-25 15:13] LABS: PARTIAL THROMBOPLASTIN TIME 27.6 SECONDS (24.2-38.5)
--- NOTE | 2020-04-25 15:30 | REP ---
INDICATION: weakness. COMPARISON: Comparison CT study of the brain June 08, 2019.. TECHNIQUE: Helical scanning is acquired. 5 mm axial images were reformatted. Coronal MPR images were generated. FINDINGS: Bone window settings demonstrate an intact bony calvarium. There is no evidence of skull fracture or incidental bony calvarial lesion. The visualized paranasal sinuses appear clear. No intraorbital abnormality is seen. On soft tissue window setting images; the lateral, third, and fourth ventricles are normal in size and position. Antoine-white differentiation pattern is normal above and below the tentorium. There are is no evidence of intracranial hemorrhage. No mass, edema, infarction, or midline shift is seen. No extra-axial fluid collection is appreciated. IMPRESSION: Negative noncontrast head CT. <Electronically signed by Tristen Jaramillo > 04/25/20 [id number]
[2020-04-25 16:08] VITALS: BP 93/53
--- NOTE | 2020-04-26 09:27 | ECGEPIP ---
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
== END 2020-04-25 21:33 | disposition home or self-care (01) ==
LOC: M ED 10:10 → EDBD 10:10 → M ED 21:33
DX: R53.1 Weakness (principal); R51.9 Headache, unspecified; I10 Essential (primary) hypertension; J45.909 Unspecified asthma, uncomplicated; K21.9 Gastro-esophageal reflux disease without esophagitis; F31.9 Bipolar disorder, unspecified; F41.9 Anxiety disorder, unspecified; Z79.899 Other long term (current) drug therapy; Z88.0 Allergy status to penicillin; Z88.1 Allergy status to other antibiotic agents; Z88.8 Allergy status to other drugs, medicaments and biological substances; Z91.018 Allergy to other foods; Z91.040 Latex allergy status; Z91.041 Radiographic dye allergy status

== ENCOUNTER 2020-05-14 13:03 | Emergency (ER) | payer MEDICARE, MEDICAID ==
[~2020-05-14] VITALS: Ht 185.4 cm; Wt 87.3 kg
[2020-05-14] MEDS ORDERED: NS 1,000 ML IV ONE (13:30)
[2020-05-14] MEDS ORDERED: ONDANSETRON 4MG/2ML VIAL IV ONE (13:30)
--- NOTE | 2020-05-14 13:57 | REP ---
INDICATION: abd pain, r/o obstruction. Vomiting. COMPARISON: Comparison study January 17, 2020.. TECHNIQUE: Two supine views and 1 upright view of the abdomen are provided. FINDINGS: Feeding gastrostomy tube is seen in good position. There clips in right upper quadrant the abdomen. There is moderate gaseous distention of the transverse colon measuring up to 10.6 cm in transverse dimension. There is moderate formed stool in the ascending colon. A small quantity of air is seen in the rectosigmoid. No small bowel gas is seen. No evidence of free air. IMPRESSION: Gaseous distention of the transverse colon question focal ileus. A feeding gastrostomy tube appears to be in good position. No evidence of free air. <Electronically signed by Tristen Jaramillo > 05/14/20 [id number]
[2020-05-14 14:10] LABS: BASO # 0.1 10^3/uL (0.0-0.2); BASO % 1.2 % (0.0-1.0); EOS % 0.6 % (0.0-3.0); HEMATOCRIT 34.9 % (36.0-47.0); HEMOGLOBIN 11.5 g/dl (12.0-15.5); LYMPH # 1.3 10^3/uL (1.5-5.0); LYMPH % 26.8 % (24.0-44.0); MEAN CORPUSCULAR HEMOGLOBIN 34.8 pg (27.0-33.0); MEAN CORPUSCULAR VOLUME 105.8 fl (80.0-96.0); MONO # 0.4 10^3/uL (0.0-0.8); MONO % 7.2 % (2.0-8.0); NEUTROPHILS # 3.2 10^3/uL (1.5-8.5); PLATELET COUNT, AUTOMATED 300 10^3/uL (150-450)
[2020-05-14 14:36] LABS: BLOOD UREA NITROGEN 12 MG/DL (7-18); CALCIUM LEVEL 8.4 MG/DL (8.5-10.1); CARBON DIOXIDE LEVEL 23 MEQ/L (21-32); CHLORIDE LEVEL 111 MEQ/L (98-107); CREATININE FOR GFR 0.51 MG/DL (0.55-1.30); GLOMERULAR FILTRATION RATE > 60.0 (>58); GLUCOSE, FASTING 94 MG/DL (70-100); SODIUM LEVEL 140 MEQ/L (136-145)
--- NOTE | 2020-05-14 16:12 | REP ---
INDICATION: abd pain. COMPARISON: Abdomen and pelvis CT without IV or bowel contrast dated 08/25/2018. TECHNIQUE: Abdomen and pelvis CT without IV or bowel contrast. FINDINGS: Patient has a history of colon carcinoma with partial colectomy and colostomy. Additionally patient has a history of cholecystectomy, urostomy and hysterectomy. The visualized lower lung chandler are unremarkable. The unenhanced hepatic parenchyma is unremarkable. There are surgical clips in the gallbladder fossa. The pancreas and spleen are unremarkable. There is no ascites or pneumoperitoneum. There appears to have been interim gastrostomy along the anterior abdominal wall. There is no evidence of fluid collection or induration along the gastrostomy tract. There is no small bowel distention. There is moderate distention of the ascending colon with fecal residue. Is moderate distention of the transverse colon and moderate gaseous distention of the descending colon. The fecal residue identified in the descending colon previously is no longer identified. There are no inflammatory changes in the mesentery. No mesenteric adenopathy is identified. There is no hydronephrosis. The adrenals are unremarkable. The unenhanced kidneys are otherwise unremarkable. The abdominal aorta is unremarkable. There is no aneurysm. No periaortic hematoma. There is a colostomy in the pelvis to the right of midline with a peristomal hernia as previously. There now appears to be a loop of small bowel within the peristomal hernia as an interval change. The bladder is unremarkable. No pelvic adenopathy or ascites. IMPRESSION: There appears to have been an interim gastrostomy. There is no evidence of fluid collection or leakage along the gastrostomy tube tract. There is no pneumoperitoneum or ascites. There are other postsurgical changes as described. There is no evidence of bowel obstruction. There is moderate distention of the colon as described with fecal residue in the ascending colon but no fecal residue in the descending colon and tiny volume of fecal residue in the transverse colon. No hydronephrosis. No renal calculi. Colostomy with peristomal hernia, as previously. There now appears to be a loop of small bowel within the hernia as an interval change. No lytic, blastic or destructive skeletal changes are identified. <Electronically signed by Tino Silva > 05/14/20 [id number]
[2020-05-14] MEDS ORDERED: MIRA3350 PO (17:50)
[2020-05-14 19:57] VITALS: BP 110/70
== END 2020-05-14 20:10 | disposition home or self-care (01) ==
LOC: M ED 13:03 → EDBD 13:03 → M ED 20:10
DX: K59.00 Constipation, unspecified (principal); R31.9 Hematuria, unspecified; K94.00 Colostomy complication, unspecified; N31.9 Neuromuscular dysfunction of bladder, unspecified; K21.9 Gastro-esophageal reflux disease without esophagitis; R51.9 Headache, unspecified; F31.9 Bipolar disorder, unspecified; F41.9 Anxiety disorder, unspecified; Z88.0 Allergy status to penicillin; Z88.1 Allergy status to other antibiotic agents; Z88.8 Allergy status to other drugs, medicaments and biological substances; Z91.018 Allergy to other foods; Z91.040 Latex allergy status; Z91.041 Radiographic dye allergy status; Z79.899 Other long term (current) drug therapy
CPT/HCPCS: 74019; 74176; 80048; 81001; 83605; 85025; 87088; 87186; 96361; 96372; 96374; 99284; J2405

== ENCOUNTER 2020-05-24 22:34 | Emergency (ER) | payer MEDICARE, MEDICAID ==
[~2020-05-24] VITALS: Ht 185.4 cm; Wt 86.4 kg
[~2020-05-24 22:34] MED LIST changes: +MIRA3350 PO
[2020-05-24] MEDS ORDERED: METOCLOPRAMIDE INJ 10MG/2ML VIAL (J2765 PER 1) IV ONE (22:55)
[2020-05-24] MEDS ORDERED: KETOROLAC 30 MG/ML 1ML VIAL IV ONE (22:55)
[2020-05-25 00:30] VITALS: BP 102/59
== END 2020-05-25 01:20 | disposition home or self-care (01) ==
LOC: M ED 22:34
DX: G43.909 Migraine, unspecified, not intractable, without status migrainosus (principal); F31.9 Bipolar disorder, unspecified; Z79.899 Other long term (current) drug therapy; Z88.0 Allergy status to penicillin; Z88.1 Allergy status to other antibiotic agents; Z88.8 Allergy status to other drugs, medicaments and biological substances; Z91.018 Allergy to other foods; Z91.040 Latex allergy status; Z91.041 Radiographic dye allergy status; F12.20 Cannabis dependence, uncomplicated
CPT/HCPCS: 96374; 96375; 99284; J1885; J2765

== ENCOUNTER 2020-06-08 12:27 | Emergency (ER) | payer MEDICARE, MEDICAID ==
[~2020-06-08] VITALS: Ht 185.4 cm; Wt 85.9 kg
[2020-06-08] MEDS ORDERED: NS 1,000 ML IV ONE (13:15)
[2020-06-08] MEDS ORDERED: ONDANSETRON 4MG/2ML VIAL IV ONE (13:15)
[2020-06-08 13:27] LABS: BASO # 0.1 10^3/uL (0.0-0.2); BASO % 1.2 % (0.0-1.0); EOS % 0.5 % (0.0-3.0); HEMATOCRIT 35.7 % (36.0-47.0); HEMOGLOBIN 11.6 g/dl (12.0-15.5); LYMPH # 1.1 10^3/uL (1.5-5.0); MEAN CORPUSCULAR HEMOGLOBIN 34.9 pg (27.0-33.0); MEAN CORPUSCULAR HGB CONC 32.5 g/dl (32.0-36.5); MEAN CORPUSCULAR VOLUME 107.5 fl (80.0-96.0); MONO # 0.3 10^3/uL (0.0-0.8); MONO % 6.4 % (2.0-8.0); NEUTROPHILS # 2.8 10^3/uL (1.5-8.5); NEUTROPHILS % 66.7 % (36.0-66.0); PLATELET COUNT, AUTOMATED 280 10^3/uL (150-450); RED BLOOD COUNT 3.32 10^6/uL (4.00-5.40); WHITE BLOOD COUNT 4.2 10^3/uL (4.0-10.0)
[2020-06-08 13:59] LABS: ALBUMIN 4.1 GM/DL (3.2-5.2); ALT/SGPT 33 U/L (12-78); BILIRUBIN,DIRECT 0.3 MG/DL (0.0-0.2); BILIRUBIN,TOTAL 0.7 MG/DL (0.2-1.0); BLOOD UREA NITROGEN 10 MG/DL (7-18); CALCIUM LEVEL 8.9 MG/DL (8.5-10.1); CARBON DIOXIDE LEVEL 18 MEQ/L (21-32); CHLORIDE LEVEL 109 MEQ/L (98-107); CREATININE FOR GFR 0.46 MG/DL (0.55-1.30); GLOMERULAR FILTRATION RATE > 60.0 (>58); GLUCOSE, FASTING 94 MG/DL (70-100); LIPASE 45 U/L (73-393); POTASSIUM SERUM 3.8 MEQ/L (3.5-5.1); SODIUM LEVEL 137 MEQ/L (136-145); TOTAL PROTEIN 6.9 GM/DL (6.4-8.2)
--- NOTE | 2020-06-08 14:13 | REP ---
INDICATION: vomiting. COMPARISON: Portable chest dated 04/25/2020 and supine abdomen dated 01/17/2020 and supine and abdomen pelvis CT dated 04/25/2020. TECHNIQUE: Single PA view of the chest, three views of the abdomen including upright and 2 supine views. FINDINGS: PA chest: Lung chandler are clear. Cardiac size is normal. The ana rosa, mediastinum, and skeletal structures are unremarkable. There is no free subdiaphragmatic air. There is a loop of colon interposed between the right hemidiaphragm and dome of the liver. This is unchanged. Abdomen, supine and upright views: There is scattered gas and stool throughout colonic loops without evidence of obstruction. There is no small bowel distention or obstruction. The bladder is distended. There is a gastrostomy tube superimposed over the abdomen. There are no air-fluid levels on the upright view. There are numerous pelvic calcifications, unchanged, likely phleboliths. There are right upper quadrant surgical clips. IMPRESSION: Essentially negative PA chest. Normal bowel gas pattern. Gas and stool is noted throughout the colon. There is no bowel obstruction. Gastrostomy tube. <Electronically signed by Tino Silva > 06/08/20 [id number]
[2020-06-08] MEDS ORDERED: ZOFR4TAB16 PO (14:25)
[2020-06-08 17:45] VITALS: BP 163/80
== END 2020-06-08 18:06 | disposition home or self-care (01) ==
LOC: EDBD 12:27 → M ED 12:27
DX: K29.70 Gastritis, unspecified, without bleeding (principal); I10 Essential (primary) hypertension; J45.909 Unspecified asthma, uncomplicated; K21.9 Gastro-esophageal reflux disease without esophagitis; Z79.899 Other long term (current) drug therapy; Z88.0 Allergy status to penicillin; Z88.1 Allergy status to other antibiotic agents; Z88.8 Allergy status to other drugs, medicaments and biological substances; Z91.018 Allergy to other foods; Z91.040 Latex allergy status; Z91.041 Radiographic dye allergy status
CPT/HCPCS: 74021; 80048; 80076; 83690; 85025; 96361; 96374; 99285; J2405

== ENCOUNTER → 2021-07-15 | Outpatient (REF) | payer MEDICARE, MEDICAID ==
[~2021-07-15] MED LIST changes: -OMEP-221; +OMEP40CA5; -QUET50TA3; +QUET50TA4; +ZOFR4TAB16 PO
[2021-07-15 19:20] LABS: APPEARANCE, URINE HAZY (CLEAR); BACTERIA, URINE AUTO NEGATIVE (NEGATIVE); BILIRUBIN, URINE AUTO NEGATIVE (NEGATIVE); BLOOD, URINE BLOOD NEGATIVE (NEGATIVE); COLOR, URINE YELLOW (YELLOW); GLUCOSE, URINE (UA) AUTO NEGATIVE (NEGATIVE); KETONE, URINE AUTO NEGATIVE (NEGATIVE); LEUKOCYTE ESTERASE, URINE AUTO TRACE (NEGATIVE); MUCUS, URINE SMALL (NEGATIVE); NITRITE, URINE AUTO NEGATIVE (NEGATIVE); PROTEIN, URINE AUTO 1+ mg/dL (NEGATIVE); RBC, URINE AUTO 2 /HPF (0-3); SPECIFIC GRAVITY URINE AUTO 1.034 (1.002-1.035); SQUAMOUS EPITHELIAL CELL UR AU 2 /HPF (0-6); UROBILINOGEN, URINE AUTO 0.2 mg/dL (0.0-2.0); WBC, URINE AUTO 17 /HPF (0-3)
== END ==
LOC: M SFHCPLAZ 16:59
PROVIDERS: ATTEND Family Medicine
DX: R30.0 Dysuria (principal)

== ENCOUNTER → 2021-11-11 | Outpatient (CLI) | payer MEDICARE, MEDICAID ==
[~2021-11-11] MED LIST changes: +E-Z-GAS II EFFERVESCENT PACKET (SODIUM BICARB./CITRIC ACID/SIMETHICONE) As Ordered ONE; +E-Z-HD 98% w/w 340GM SUSP BTL As Ordered ONE; +E-Z-PAQUE 96% w/w SUSP 176GM BTL As Ordered ONE; -MAXA10TA14 PO; +RIZA10TA64 PO
== END ==
LOC: M RAD 08:23
PROVIDERS: ATTEND Student in an Organized Health Care Education/Training Program
DX: R13.19 Other dysphagia (principal)

== ENCOUNTER → 2022-03-10 | Outpatient (CLI) | payer MEDICARE, MEDICAID ==
[~2022-03-10] MED LIST changes: -E-Z-GAS II EFFERVESCENT PACKET (SODIUM BICARB./CITRIC ACID/SIMETHICONE) As Ordered ONE; -E-Z-HD 98% w/w 340GM SUSP BTL As Ordered ONE; -E-Z-PAQUE 96% w/w SUSP 176GM BTL As Ordered ONE; -PAXI10TA12 PO; +PAXI10TA13 PO; +TOPI-254 PO; -TOPI50TA9 PO
[2022-03-10 18:05] LABS: HEMOGLOBIN 12.1 g/dl (12.0-15.5); MEAN CORPUSCULAR HEMOGLOBIN 39.3 pg (27.0-33.0); MEAN CORPUSCULAR HGB CONC 33.6 g/dl (32.0-36.5); PLATELET COUNT, AUTOMATED 278 10^3/uL (150-450); RED BLOOD COUNT 3.08 10^6/uL (4.00-5.40); WHITE BLOOD COUNT 4.7 10^3/uL (4.0-10.0)
[2022-03-10 18:08] LABS: MEAN CORPUSCULAR VOLUME 116.9 fl (80.0-96.0)
[2022-03-10 18:11] LABS: INR 1.02; PROTHROMBIN TIME 13.6 SECONDS (12.5-14.5)
[2022-03-10 18:12] LABS: ALBUMIN 4.1 G/DL (3.2-5.2); BILIRUBIN,DIRECT 0.1 MG/DL (<0.4); BILIRUBIN,TOTAL 0.4 MG/DL (0.3-1.2); TOTAL PROTEIN 6.8 G/DL (5.7-8.2)
== END ==
LOC: M PLALAB 15:36
PROVIDERS: ATTEND Student in an Organized Health Care Education/Training Program
DX: G44.209 Tension-type headache, unspecified, not intractable (principal); R23.3 Spontaneous ecchymoses

== ENCOUNTER → 2022-04-30 | Outpatient (REF) | payer MEDICARE, MEDICAID | LOC: M SFHCPLAZ 11:54 | PROVIDERS: ATTEND Family Medicine | DX: R13.19 Other dysphagia (principal); D53.9 Nutritional anemia, unspecified ==

== ENCOUNTER → 2022-04-30 | Outpatient (CLI) | payer MEDICARE, MEDICAID ==
[2022-04-30 14:27] LABS: BASO # 0.1 10^3/uL (0.0-0.2); BASO % 1.3 % (0.0-1.0); EOS % 0.5 % (0.0-3.0); HEMATOCRIT 33.6 % (36.0-47.0); HEMOGLOBIN 10.8 g/dl (12.0-15.5); LYMPH # 1.9 10^3/uL (1.5-5.0); LYMPH % 34.5 % (24.0-44.0); MEAN CORPUSCULAR HGB CONC 32.1 g/dl (32.0-36.5); MEAN CORPUSCULAR VOLUME 108.7 fl (80.0-96.0); MONO # 0.4 10^3/uL (0.0-0.8); MONO % 7.9 % (2.0-8.0); NEUTROPHILS # 3.1 10^3/uL (1.5-8.5); NEUTROPHILS % 55.6 % (36.0-66.0); PLATELET COUNT, AUTOMATED 408 10^3/uL (150-450); RED BLOOD COUNT 3.09 10^6/uL (4.00-5.40); WHITE BLOOD COUNT 5.5 10^3/uL (4.0-10.0)
[2022-04-30 14:51] LABS: TOTAL IRON BINDING CAPACITY 297 UG/DL (250-425)
[2022-04-30 14:52] LABS: ALBUMIN 3.7 G/DL (3.2-5.2); ALKALINE PHOSPHATASE 73 U/L (46-116); ALT/SGPT 23 U/L (7.0-40); AST/SGOT 39 U/L (<34); BILIRUBIN,TOTAL 0.6 MG/DL (0.3-1.2); BLOOD UREA NITROGEN 13 MG/DL (9-23); CALCIUM LEVEL 9.3 MG/DL (8.5-10.1); CARBON DIOXIDE LEVEL 32 MMOL/L (20-31); CHLORIDE LEVEL 101 MMOL/L (98-107); CHOLESTEROL LEVEL 178 MG/DL (<200); CHOLESTEROL RISK RATIO 2.21 (<5); CREATININE FOR GFR 0.39 MG/DL (0.55-1.30); GLOMERULAR FILTRATION RATE > 60.0 (>58); GLUCOSE, FASTING 70 MG/DL (60-100); HDL CHOLESTEROL 80.2 MG/DL (>40); IRON (FE) 65 UG/DL (50-170); LDL CHOLESTEROL 84.2 MG/DL (<100); NON-HDL-C 98 MG/DL; PERCENT SATURATION 21.9 % (13.2-45.0); POTASSIUM SERUM 4.3 MMOL/L (3.5-5.1); SODIUM LEVEL 138 MMOL/L (136-145); TOTAL PROTEIN 6.5 G/DL (5.7-8.2); TRIGLYCERIDES LEVEL 68 MG/DL (<150)
[2022-04-30 14:53] LABS: FERRITIN 197.1 NG/ML (7.3-270.7)
[2022-04-30 14:54] LABS: FOLATE 22.97 NG/ML (>5.4); VITAMIN B12 LEVEL 381 PG/ML (211-911)
== END ==
LOC: M PLALAB 12:08
PROVIDERS: ATTEND Student in an Organized Health Care Education/Training Program
DX: R13.19 Other dysphagia (principal); D53.9 Nutritional anemia, unspecified; Z79.899 Other long term (current) drug therapy

== ENCOUNTER 2022-06-02 08:30 | Outpatient (RCR) | payer MEDICARE, MEDICAID | END 2022-06-29 | LOC: M PT 08:30 | PROVIDERS: ATTEND Student in an Organized Health Care Education/Training Program | DX: M54.2 Cervicalgia (principal) ==

== ENCOUNTER → 2022-06-24 | Outpatient (CLI) | payer MEDICARE, MEDICAID | LOC: M PLAIMG 15:03 | PROVIDERS: ATTEND Student in an Organized Health Care Education/Training Program | DX: M53.3 Sacrococcygeal disorders, not elsewhere classified (principal); M54.2 Cervicalgia ==

== ENCOUNTER 2022-07-04 08:30 | Outpatient (RCR) | payer MEDICARE, MEDICAID | END 2022-07-30 | LOC: M PT 08:30 | PROVIDERS: ATTEND Student in an Organized Health Care Education/Training Program | DX: M54.2 Cervicalgia (principal) ==

== ENCOUNTER 2022-09-14 06:22 | Emergency (ER) | payer MEDICARE, MEDICAID ==
[2022-09-14 06:30] VITALS: BP 120/47; TEMP 98.4; O2SAT 97
[2022-09-14] MEDS ORDERED: LIDOCAINE 2% MDV 20ML VIAL As Ordered ONE (06:42)
[2022-09-14] MEDS ORDERED: LIDOCAINE 2% MDV 20ML VIAL SC ONE (06:45)
== END 2022-09-14 07:05 | disposition home or self-care (01) ==
LOC: M ED 06:22 → EDBD 06:22 → M ED 07:05
DX: K94.23 Gastrostomy malfunction (principal); Z91.041 Radiographic dye allergy status; Z88.0 Allergy status to penicillin; Z91.040 Latex allergy status; Z91.013 Allergy to seafood; Z88.8 Allergy status to other drugs, medicaments and biological substances; Z79.51 Long term (current) use of inhaled steroids; Z79.899 Other long term (current) drug therapy

== ENCOUNTER → 2022-10-14 | Outpatient (CLI) | payer MEDICARE, MEDICAID ==
[2022-10-14 11:05] LABS: BASO # 0.1 10^3/uL (0.0-0.2); BASO % 0.9 % (0.0-1.0); EOS % 0.4 % (0.0-3.0); HEMATOCRIT 32.3 % (36.0-47.0); HEMOGLOBIN 10.9 g/dl (12.0-15.5); LYMPH # 2.4 10^3/uL (1.5-5.0); LYMPH % 44.9 % (24.0-44.0); MEAN CORPUSCULAR HEMOGLOBIN 39.4 pg (27.0-33.0); MEAN CORPUSCULAR HGB CONC 33.7 g/dl (32.0-36.5); MONO # 0.4 10^3/uL (0.0-0.8); NEUTROPHILS # 2.5 10^3/uL (1.5-8.5); NEUTROPHILS % 46.4 % (36.0-66.0); PLATELET COUNT, AUTOMATED 242 10^3/uL (150-450); RED BLOOD COUNT 2.77 10^6/uL (4.00-5.40); WHITE BLOOD COUNT 5.3 10^3/uL (4.0-10.0)
[2022-10-14 11:36] LABS: MEAN CORPUSCULAR VOLUME 116.6 fl (80.0-96.0)
[2022-10-14 11:37] LABS: ALBUMIN 3.6 G/DL (3.2-5.2); ALKALINE PHOSPHATASE 56 U/L (46-116); ALT/SGPT 23 U/L (7.0-40); AST/SGOT 31 U/L (<34); BILIRUBIN,TOTAL 0.3 MG/DL (0.3-1.2); BLOOD UREA NITROGEN 11 MG/DL (9-23); CALCIUM LEVEL 8.4 MG/DL (8.5-10.1); CARBON DIOXIDE LEVEL 32 MMOL/L (20-31); CHLORIDE LEVEL 98 MMOL/L (98-107); CREATININE FOR GFR 0.43 MG/DL (0.55-1.30); GLOMERULAR FILTRATION RATE > 60.0 (>58); GLUCOSE, FASTING 110 MG/DL (60-100); POTASSIUM SERUM 3.2 MMOL/L (3.5-5.1); SODIUM LEVEL 139 MMOL/L (136-145); TOTAL PROTEIN 6.3 G/DL (5.7-8.2)
[2022-10-14 11:41] LABS: FREE T4 0.77 NG/DL (0.89-1.76); THYROID STIMULATING HORMONE 1.632 uIU/ML (0.55-4.78)
== END ==
LOC: M PLALAB 08:55
PROVIDERS: ATTEND Student in an Organized Health Care Education/Training Program
DX: D53.9 Nutritional anemia, unspecified (principal); R13.19 Other dysphagia; R53.83 Other fatigue

== ENCOUNTER → 2023-02-03 | Outpatient (REF) | payer MEDICARE, MEDICAID ==
[~2023-02-03] MED LIST changes: -EFFE37.5 PO; +EFFE37.52 PO; +HYDR-3363; +MIRT-10; +PARO40TA2; +SERO50TA PO; +TOPI-21 PO; -TOPI-254 PO
[2023-02-04 10:05] LABS: APPEARANCE, URINE HAZY (CLEAR); BACTERIA, URINE AUTO NEGATIVE (NEGATIVE); BILIRUBIN, URINE AUTO NEGATIVE (NEGATIVE); BLOOD, URINE BLOOD NEGATIVE (NEGATIVE); COLOR, URINE YELLOW (YELLOW); GLUCOSE, URINE (UA) AUTO NEGATIVE (NEGATIVE); KETONE, URINE AUTO NEGATIVE (NEGATIVE); LEUKOCYTE ESTERASE, URINE AUTO TRACE (NEGATIVE); MUCUS, URINE SMALL (NEGATIVE); NITRITE, URINE AUTO NEGATIVE (NEGATIVE); PROTEIN, URINE AUTO 1+ mg/dL (NEGATIVE); RBC, URINE AUTO 0 /HPF (0-3); SPECIFIC GRAVITY URINE AUTO 1.045 (1.002-1.035); SQUAMOUS EPITHELIAL CELL UR AU 0 /HPF (0-6); UROBILINOGEN, URINE AUTO 0.2 mg/dL (0.0-2.0); WBC, URINE AUTO 7 /HPF (0-3)
== END ==
LOC: M SFHCPLAZ 09:45
PROVIDERS: ATTEND Student in an Organized Health Care Education/Training Program
DX: M54.2 Cervicalgia (principal); R30.0 Dysuria

== ENCOUNTER 2023-07-13 09:53 | Emergency (ER) | payer MEDICARE, MEDICAID ==
[~2023-07-13] VITALS: Ht 185.4 cm; Wt 44.1 kg
[~2023-07-13 09:53] MED LIST changes: -HYDR-3363; +HYDR-3363 PO; -PARO40TA2; +PARO40TA2 PO
[2023-07-13 10:08] VITALS: TEMP 99.6
[2023-07-13 10:34] LABS: HEMATOCRIT 33.3 % (36.0-47.0); HEMOGLOBIN 11.4 g/dl (12.0-15.5); MEAN CORPUSCULAR HEMOGLOBIN 40.4 pg (27.0-33.0); MEAN CORPUSCULAR HGB CONC 34.2 g/dl (32.0-36.5); PLATELET COUNT, AUTOMATED 217 10^3/uL (150-450); RED BLOOD COUNT 2.82 10^6/uL (4.00-5.40)
[2023-07-13 10:44] LABS: MEAN CORPUSCULAR VOLUME 118.1 fl (80.0-96.0)
[2023-07-13 11:01] LABS: BLOOD UREA NITROGEN 11 MG/DL (9-23); CALCIUM LEVEL 8.8 MG/DL (8.5-10.1); CARBON DIOXIDE LEVEL 35 MMOL/L (20-31); CHLORIDE LEVEL 100 MMOL/L (98-107); CREATININE FOR GFR 0.37 MG/DL (0.55-1.30); GLOMERULAR FILTRATION RATE > 60.0 (>58); GLUCOSE, FASTING 128 MG/DL (60-100); POTASSIUM SERUM 3.9 MMOL/L (3.5-5.1); SODIUM LEVEL 141 MMOL/L (136-145)
[2023-07-13] MEDS ORDERED: DEUT12TA PO (11:18)
[2023-07-13] MEDS ORDERED: DEUT24TA PO (11:18)
[2023-07-13] MEDS ORDERED: HOME MED LIST COMPLETE! XX SCH (11:20)
[2023-07-13 11:31] LABS: BASO # 0.1 10^3/uL (0.0-0.2); BASO % 0.8 % (0.0-1.0); EOS # 0.1 10^3/uL (0.0-0.5); EOS % 0.8 % (0.0-3.0); LYMPH # 1.1 10^3/uL (1.5-5.0); LYMPH % 17.5 % (24.0-44.0); MONO # 0.4 10^3/uL (0.0-0.8); MONO % 6.3 % (2.0-8.0); NEUTROPHILS # 4.4 10^3/uL (1.5-8.5); NEUTROPHILS % 74.1 % (36.0-66.0)
[2023-07-13 11:40] LABS: C REACTIVE PROTEIN QUANTITATIV < 0.40 MG/DL (<1.0); CK-MB VALUE MASS < 1.0 NG/ML (<3.6); LIPASE 36 U/L (12-53)
[2023-07-13 11:42] LABS: ALBUMIN 3.5 G/DL (3.2-5.2); ALKALINE PHOSPHATASE 63 U/L (46-116); ALT/SGPT 42 U/L (7.0-40); AST/SGOT 45 U/L (<34); BILIRUBIN,DIRECT 0.1 MG/DL (<0.4); BILIRUBIN,TOTAL 0.4 MG/DL (0.3-1.2); CPK CREATINE PHOSPHOKINASE 39 U/L (34-145); INR 0.99; MB/CK RELATIVE INDEX 2.56 (< OR =4); PARTIAL THROMBOPLASTIN TIME 28.3 SECONDS (24.8-34.2); PROTHROMBIN TIME 12.8 SECONDS (12.5-14.5); TOTAL PROTEIN 6.3 G/DL (5.7-8.2)
[2023-07-13] MEDS: NS 1,000 ML IV ONE ×2 (12:23→12:54)
[2023-07-13 16:16] VITALS: BP 97/47; O2SAT 97
[2023-07-13] MEDS: cefTRIAXone SOD 1 GM in D5W MINI-BAG PLUS 50 ML IV ONE (17:30)
[2023-07-13] MEDS ORDERED: CEFD250S26 PEG (17:34)
== END 2023-07-13 18:51 | disposition home or self-care (01) ==
LOC: EDBD 09:53 → M ED 09:53 → M OROP 14:50 → M ED 18:51
DX: N39.0 Urinary tract infection, site not specified (principal); R51.9 Headache, unspecified; J45.909 Unspecified asthma, uncomplicated; Z86.79 Personal history of other diseases of the circulatory system; Z91.041 Radiographic dye allergy status; Z91.013 Allergy to seafood; Z91.040 Latex allergy status; Z88.8 Allergy status to other drugs, medicaments and biological substances; Z88.0 Allergy status to penicillin; Z79.52 Long term (current) use of systemic steroids; Z79.2 Long term (current) use of antibiotics; Z79.899 Other long term (current) drug therapy; I10 Essential (primary) hypertension; Z87.442 Personal history of urinary calculi; Z86.73 Personal history of transient ischemic attack (TIA), and cerebral infarction without residual deficits
CPT/HCPCS: 74176; 80048; 80076; 81001; 82550; 82553; 83605; 83690; 84484; 85025; 85610; 85730; 86140; 87040; 87088; 87186; 93005; 93041; 96374; 99284; J0696

== ENCOUNTER 2023-09-06 22:20 | Emergency (ER) | payer MEDICARE, MEDICAID ==
[~2023-09-06] VITALS: Ht 185.4 cm; Wt 54.5 kg
[~2023-09-06 22:20] MED LIST changes: +CEFD250S26 PEG; +DEUT12TA PO; +DEUT24TA PO
[2023-09-07 08:08] VITALS: BP 135/62; TEMP 97.6; O2SAT 96
== END 2023-09-07 08:35 | disposition home or self-care (01) ==
LOC: EDBD 22:20 → M ED 22:20
DX: T85.528A Displacement of other gastrointestinal prosthetic devices, implants and grafts, initial encounter (principal); I10 Essential (primary) hypertension; K21.9 Gastro-esophageal reflux disease without esophagitis; K56.609 Unspecified intestinal obstruction, unspecified as to partial versus complete obstruction; Z86.73 Personal history of transient ischemic attack (TIA), and cerebral infarction without residual deficits; Z87.442 Personal history of urinary calculi; Z90.49 Acquired absence of other specified parts of digestive tract; Z79.899 Other long term (current) drug therapy; Z91.041 Radiographic dye allergy status; Z88.0 Allergy status to penicillin; Z88.1 Allergy status to other antibiotic agents; Z88.3 Allergy status to other anti-infective agents; Z91.040 Latex allergy status; Z88.8 Allergy status to other drugs, medicaments and biological substances; Z91.013 Allergy to seafood

== ENCOUNTER → 2024-01-26 | Outpatient (REF) | payer MEDICARE, MEDICAID ==
[~2024-01-26] MED LIST changes: +ADVA1AER9 INH
== END ==
LOC: M SFHCPLAZ 14:54
PROVIDERS: ATTEND Student in an Organized Health Care Education/Training Program
DX: R30.0 Dysuria (principal)

== ENCOUNTER 2024-04-26 18:17 | Inpatient (IN) | payer MEDICARE, MEDICAID ==
[~2024-04-26 18:17] MED LIST changes: -ADV500INH INH; +ADVA1AER10 INH
[2024-04-26 18:52] LABS: BASO % 0.2 % (0.0-1.0); EOS % 0.2 % (0.0-3.0); HEMATOCRIT 31.1 % (36.0-47.0); HEMOGLOBIN 10.5 g/dl (12.0-15.5); LYMPH # 1.9 10^3/uL (1.5-5.0); LYMPH % 21.4 % (24.0-44.0); MEAN CORPUSCULAR HEMOGLOBIN 39.3 pg (27.0-33.0); MEAN CORPUSCULAR HGB CONC 33.8 g/dl (32.0-36.5); MONO # 0.8 10^3/uL (0.0-0.8); MONO % 9.3 % (2.0-8.0); NEUTROPHILS % 68.3 % (36.0-66.0); PLATELET COUNT, AUTOMATED 446 10^3/uL (150-450); RED BLOOD COUNT 2.67 10^6/uL (4.00-5.40); WHITE BLOOD COUNT 8.8 10^3/uL (4.0-10.0)
[2024-04-26 19:04] LABS: MEAN CORPUSCULAR VOLUME 116.5 fl (80.0-96.0)
[2024-04-26 19:10] LABS: INR 1.18; PARTIAL THROMBOPLASTIN TIME 29.3 SECONDS (24.8-34.2); PROTHROMBIN TIME 15.3 SECONDS (12.5-14.5)
[2024-04-26 19:16] LABS: BLOOD UREA NITROGEN 12 MG/DL (9-23); CALCIUM LEVEL 7.1 MG/DL (8.5-10.1); CARBON DIOXIDE LEVEL 22 MMOL/L (20-31); CHLORIDE LEVEL 98 MMOL/L (98-107); CREATININE FOR GFR 0.47 MG/DL (0.55-1.30); GLOMERULAR FILTRATION RATE > 60.0 (>58); GLUCOSE, FASTING 203 MG/DL (60-100); POTASSIUM SERUM 2.9 MMOL/L (3.5-5.1); SODIUM LEVEL 140 MMOL/L (136-145)
[2024-04-26 19:40] LABS: CK-MB VALUE MASS 1.5 NG/ML (<3.6); ETHYL ALCOHOL (ETHANOL) 0.004 % (0.000-0.010)
[2024-04-26] MEDS: NS 0.9% IV ONE (19:40)
[2024-04-26] MEDS: [UNRECOGNIZED DRUG - OTHER] IV ONE (19:40)
[2024-04-26 19:41] LABS: CPK CREATINE PHOSPHOKINASE 89 U/L (34-145); MB/CK RELATIVE INDEX 1.68 (< OR =4)
[2024-04-26 19:42] LABS: SALICYLATE LEVEL < 3.0 MG/DL (<30)
[2024-04-26 19:44] LABS: THYROID STIMULATING HORMONE 3.221 uIU/ML (0.55-4.78)
[2024-04-26 19:47] LABS: ACETONE/KETONE 0.22 MMOL/L (0.02-0.27)
[2024-04-26] MEDS: diphenhydrAMINE 50MG/ML VIAL IV ONE (19:47)
[2024-04-26] MEDS: cefTRIAXone SOD 2 GM in DEXTROSE 5% (D5W) ADV/MINI-BAG 50 ML IV ONE (19:47)
[2024-04-26] MEDS: KCL 10MEQ/100ML SWI (KRUN) 10 MEQ in IV 1 EA IV ONE ×3 (19:47→23:41)
[2024-04-26] MEDS: methylPREDNISolone 125MG 2ML VIAL IV ONE (19:47)
[2024-04-26 19:50] LABS: OSMOLALITY SERUM 298 MOSM/KG (275-295)
[2024-04-26 19:54] LABS: PROCALCITONIN 5.35 ng/ml
[2024-04-26 20:04] LABS: MAGNESIUM LEVEL < 0.5 MG/DL (1.8-2.4)
[2024-04-26 20:13] LABS: AMPHETAMINES LEVEL URINE NEGATIVE (NEGATIVE); BARBITURATES URINE NEGATIVE (NEGATIVE); BENZODIAZEPINES URINE NEGATIVE (NEGATIVE); CANNABINOIDS URINE NEGATIVE (NEGATIVE); COCAINE METABOLITE URINE NEGATIVE (NEGATIVE); KETONE, URINE AUTO RFX NEGATIVE (NEGATIVE); LEUKOCYTE ESTERASE UR AUTO RFX TRACE (NEGATIVE); METHADONE URINE NEGATIVE (NEGATIVE); MUCUS, URINE RFX SMALL (NEGATIVE); NITRITE, URINE AUTO RFX NEGATIVE (NEGATIVE); OPIATES URINE NEGATIVE (NEGATIVE); PHENCYCLIDINE URINE NEGATIVE (NEGATIVE); RBC, URINE AUTO RFX 5 /HPF (0-3); SQUAM EPITHELIAL CELL UR AURFX 1 /HPF (0-6); WBC, URINE AUTO RFX 18 /HPF (0-3)
[2024-04-26 20:20] LABS: ABG BASE EXCESS -0.4 (-2.0-2.0); ABG O2 SATURATION 96.1 % (95.0-99.0); ABG PARTIAL PRESSURE CO2 24.7 mmHg (35.0-45.0); ABG PARTIAL PRESSURE O2 82.3 mmHg (75.0-100.0); ABG STANDARD HCO3 24.1 MMOL/L. (22.0-26.0); ABG TOTAL CO2 21.7 MMOL/L (22.0-29.0); ABG pH (ARTERIAL) 7.547 UNITS (7.350-7.450)
[2024-04-26] MEDS ORDERED: ISOVUE-370 76% 100ML VIAL As Ordered ONE (20:31)
[2024-04-26 20:51] LABS: ALBUMIN 2.4 G/DL (3.2-5.2); ALKALINE PHOSPHATASE 180 U/L (35-104); ALT/SGPT 23 U/L (7.0-40); AST/SGOT 65 U/L (<34); BILIRUBIN,DIRECT 0.3 MG/DL (<0.4); BILIRUBIN,TOTAL 0.7 MG/DL (0.3-1.2); TOTAL PROTEIN 6.5 G/DL (5.7-8.2)
[2024-04-26] MEDS ORDERED: D5W IV ONE ×2 (21:00→21:30)
[2024-04-26] MEDS ORDERED: ACETYLCYSTEINE IV ONE ×2 (21:00→21:30)
[2024-04-26] MEDS: MAG SULF 1GM/100ML (MAG RUN) 1 GM in IV 1 EA IV ONE ×2 (21:18→22:09)
[2024-04-26] MEDS: D5W IV ONE ×2 (21:19→22:38)
[2024-04-26] MEDS: ACETYLCYSTEINE IV ONE ×2 (21:19→22:38)
[2024-04-26 22:00] LABS: INR 1.31; PROTHROMBIN TIME 16.6 SECONDS (12.5-14.5)
[2024-04-26 22:29] LABS: ALBUMIN 1.8 G/DL (3.2-5.2); BILIRUBIN,DIRECT 0.3 MG/DL (<0.4); BILIRUBIN,TOTAL 0.6 MG/DL (0.3-1.2); TOTAL PROTEIN 5.2 G/DL (5.7-8.2)
[2024-04-26] MEDS: NS IV ONE (22:29)
[2024-04-26] MEDS: FOMEPIZOLE IV ONE (22:29)
[2024-04-26 23:49] LABS: INR 1.63; PROTHROMBIN TIME 19.5 SECONDS (12.5-14.5)
[2024-04-26 23:55] LABS: ALBUMIN 1.3 G/DL (3.2-5.2); BILIRUBIN,DIRECT 0.3 MG/DL (<0.4); BILIRUBIN,TOTAL 0.5 MG/DL (0.3-1.2); TOTAL PROTEIN 4.1 G/DL (5.7-8.2)
[2024-04-26] MEDS ORDERED: FAMO1TAB11 PO (23:55)
[2024-04-26] MEDS ORDERED: ATOR1TAB21 PO (23:55)
[2024-04-26] MEDS ORDERED: HYDR50TA70 PO (23:55)
[2024-04-26] MEDS ORDERED: [UNRECOGNIZED DRUG - CODE] PO (23:55)
[2024-04-26] MEDS ORDERED: QUET50TA4 PO (23:55)
[2024-04-27] MEDS ORDERED: HOME MED LIST COMPLETE! XX SCH
[2024-04-27] MEDS ORDERED: LEVALBUTEROL 1.25MG 0.5ML CONCENTRATE NEB NEB PRN (00:05)
[2024-04-27] MEDS: LR 1,000 ML IV ONE (00:45)
[2024-04-27 00:46] LABS: PHOSPHORUS LEVEL 0.6 MG/DL (2.5-4.9)
[2024-04-27] MEDS: MAG SULF 1GM/100ML (MAG RUN) 1 GM in IV 1 EA IV SCH ×2 (00:48→05:35)
[2024-04-27] MEDS: metroNIDAZOLE 500 MG in IV 1 EA IV SCH (00:48)
[2024-04-27 01:23] LABS: INR 1.71; PROTHROMBIN TIME 20.3 SECONDS (12.5-14.5)
[2024-04-27] MEDS ORDERED: GLUCAGON INJ 1MG VIAL SC PRN (01:25)
[2024-04-27] MEDS ORDERED: DEXTROSE 50% 50ML SYRINGE IV PRN (01:25)
[2024-04-27] MEDS ORDERED: GLUCOSE 4 GM CHEW PO PRN (01:25)
[2024-04-27 01:28] LABS: ALBUMIN 1.4 G/DL (3.2-5.2); ALKALINE PHOSPHATASE 114 U/L (35-104); ALT/SGPT 29 U/L (7.0-40); AST/SGOT 210 U/L (<34); BILIRUBIN,DIRECT 0.3 MG/DL (<0.4); BILIRUBIN,TOTAL 0.6 MG/DL (0.3-1.2); TOTAL PROTEIN 4.2 G/DL (5.7-8.2)
[2024-04-27 01:29] LABS: CPK CREATINE PHOSPHOKINASE 125 U/L (34-145)
[2024-04-27 01:48] LABS: BLOOD UREA NITROGEN 6 MG/DL (9-23); CARBON DIOXIDE LEVEL 19 MMOL/L (20-31); CHLORIDE LEVEL 113 MMOL/L (98-107); CREATININE FOR GFR 0.22 MG/DL (0.55-1.30); GLOMERULAR FILTRATION RATE > 60.0 (>58); GLUCOSE, FASTING 121 MG/DL (60-100); POTASSIUM SERUM 3.1 MMOL/L (3.5-5.1); SODIUM LEVEL 145 MMOL/L (136-145)
[2024-04-27 02:03] LABS: CALCIUM LEVEL 4.7 MG/DL (8.5-10.1); PHOSPHORUS LEVEL 0.7 MG/DL (2.5-4.9)
[2024-04-27] MEDS: LR 1,000 ML IV SCH (02:17)
[2024-04-27 02:25] LABS: VENOUS BASE EXCESS -0.8 (-2.0-2.0); VENOUS HCO3 24.4 MMOL/L (23.0-27.0); VENOUS O2 SATURATION 96.4 % (60.0-80.0); VENOUS PARTIAL PRESSURE CO2 42.4 mmHg (38.0-50.0); VENOUS PARTIAL PRESSURE O2 98.6 mmHg (30.0-50.0); VENOUS PH 7.377 UNITS (7.330-7.430); VENOUS STANDARD HCO3 23.8 MMOL/L; VENOUS TOTAL CO2 25.7 MMOL/L (24.0-28.0)
[2024-04-27] MEDS ORDERED: ACETYLCYSTEINE IV ONE (02:30)
[2024-04-27] MEDS ORDERED: D5W IV ONE (02:30)
[2024-04-27] MEDS: CALCIUM GLUCONATE 1,000 MG in DEXTROSE 5% (D5W) MINI-BAG PLU 100 ML IV SCH (02:41)
[2024-04-27] MEDS: POTASSIUM PHOSPHATE INJ 30 MMOL in D5W 500 ML IV ONE (03:57)
[2024-04-27] MEDS: CEFEPIME HCL 2 GM in DEXTROSE 5% (D5W) ADV/MINI-BAG 50 ML IV SCH (05:17)
[2024-04-27] MEDS: HEPARIN SOD (PORCINE) 5000UNITS/ML 1ML VIAL/SYRINGE SQ SCH (05:39)
[2024-04-27 07:03] LABS: BASO % 0.1 % (0.0-1.0); HEMATOCRIT 28.2 % (36.0-47.0); HEMOGLOBIN 9.7 g/dl (12.0-15.5); LYMPH # 0.3 10^3/uL (1.5-5.0); LYMPH % 2.9 % (24.0-44.0); MEAN CORPUSCULAR HEMOGLOBIN 39.3 pg (27.0-33.0); MEAN CORPUSCULAR HGB CONC 34.4 g/dl (32.0-36.5); MONO # 0.2 10^3/uL (0.0-0.8); MONO % 1.4 % (2.0-8.0); NEUTROPHILS % 94.7 % (36.0-66.0); RED BLOOD COUNT 2.47 10^6/uL (4.00-5.40); WHITE BLOOD COUNT 11.6 10^3/uL (4.0-10.0)
[2024-04-27 07:07] LABS: MEAN CORPUSCULAR VOLUME 114.2 fl (80.0-96.0)
[2024-04-27 07:08] LABS: PLATELET COUNT, AUTOMATED 303 10^3/uL (150-450)
[2024-04-27 07:28] LABS: ALBUMIN 1.9 G/DL (3.2-5.2); ALKALINE PHOSPHATASE 152 U/L (35-104); ALT/SGPT 48 U/L (7.0-40); AST/SGOT 352 U/L (<34); BILIRUBIN,DIRECT 0.8 MG/DL (<0.4); BILIRUBIN,TOTAL 1.5 MG/DL (0.3-1.2); BLOOD UREA NITROGEN 6 MG/DL (9-23); CALCIUM LEVEL 7.6 MG/DL (8.5-10.1); CARBON DIOXIDE LEVEL 28 MMOL/L (20-31); CHLORIDE LEVEL 97 MMOL/L (98-107); CREATININE FOR GFR 0.34 MG/DL (0.55-1.30); GLOMERULAR FILTRATION RATE > 60.0 (>58); GLUCOSE, FASTING 230 MG/DL (60-100); MAGNESIUM LEVEL 2.7 MG/DL (1.8-2.4); PHOSPHORUS LEVEL 3.7 MG/DL (2.5-4.9); POTASSIUM SERUM 2.2 MMOL/L (3.5-5.1); SODIUM LEVEL 140 MMOL/L (136-145); TOTAL PROTEIN 5.6 G/DL (5.7-8.2)
[2024-04-27 07:29] LABS: INR 1.49; PROTHROMBIN TIME 18.3 SECONDS (12.5-14.5)
[2024-04-27 07:46] LABS: PLATELET ESTIMATE NORMAL (NORMAL)
[2024-04-27] MEDS: KCL 10MEQ/100ML SWI (KRUN) 10 MEQ in IV 1 EA IV SCH (08:47)
[2024-04-27] MEDS: POTASSIUM CHLORIDE INJ 40 MEQ in LR 1,000 ML IV SCH (11:14)
[2024-04-27 11:57] LABS: IRON (FE) 144 UG/DL (50-170); TOTAL IRON BINDING CAPACITY 180 UG/DL (250-425)
[2024-04-27] MEDS ORDERED: POTASSIUM CHLORIDE INJ 40 MEQ in LR 1,000 ML IV SCH (12:00)
[2024-04-27 12:02] LABS: ALBUMIN 2.1 G/DL (3.2-5.2); ALKALINE PHOSPHATASE 164 U/L (35-104); ALT/SGPT 68 U/L (7.0-40); AST/SGOT 500 U/L (<34); BILIRUBIN,DIRECT 0.9 MG/DL (<0.4); BILIRUBIN,TOTAL 1.7 MG/DL (0.3-1.2); BLOOD UREA NITROGEN 5 MG/DL (9-23); CALCIUM LEVEL 7.7 MG/DL (8.5-10.1); CARBON DIOXIDE LEVEL 30 MMOL/L (20-31); CHLORIDE LEVEL 96 MMOL/L (98-107); CREATININE FOR GFR 0.35 MG/DL (0.55-1.30); FOLATE 13.92 NG/ML (>5.4); GLOMERULAR FILTRATION RATE > 60.0 (>58); GLUCOSE, FASTING 95 MG/DL (60-100); POTASSIUM SERUM 2.2 MMOL/L (3.5-5.1); SODIUM LEVEL 141 MMOL/L (136-145); VITAMIN B12 LEVEL 1438 PG/ML (211-911)
[2024-04-27 12:48] VITALS: BP 121/61; TEMP 98.3; O2SAT 97
[2024-04-27 13:01] LABS: INR 1.43; PROTHROMBIN TIME 17.7 SECONDS (12.5-14.5)
[2024-04-27] MEDS: POTASSIUM CHLORIDE 10% LIQ 20MEQ/15ML UDC GT SCH (14:04)
[2024-04-27 15:30] VITALS: BP 126/64; TEMP 100.4; O2SAT 94
[2024-04-27 18:40] LABS: INR 1.77; PROTHROMBIN TIME 20.8 SECONDS (12.5-14.5)
[2024-04-27 18:54] LABS: MAGNESIUM LEVEL 1.7 MG/DL (1.8-2.4)
[2024-04-27 18:56] LABS: ALBUMIN 1.6 G/DL (3.2-5.2); BILIRUBIN,DIRECT 0.6 MG/DL (<0.4); TOTAL PROTEIN 4.7 G/DL (5.7-8.2)
[2024-04-27 19:04] LABS: ALBUMIN 1.6 G/DL (3.2-5.2); ALKALINE PHOSPHATASE 128 U/L (35-104); ALT/SGPT 59 U/L (7.0-40); AST/SGOT 470 U/L (<34); BILIRUBIN,DIRECT 0.6 MG/DL (<0.4); BLOOD UREA NITROGEN 5 MG/DL (9-23); CALCIUM LEVEL 6.7 MG/DL (8.5-10.1); CARBON DIOXIDE LEVEL 30 MMOL/L (20-31); CHLORIDE LEVEL 96 MMOL/L (98-107); GLOMERULAR FILTRATION RATE > 60.0 (>58); GLUCOSE, FASTING 286 MG/DL (60-100); POTASSIUM SERUM 2.9 MMOL/L (3.5-5.1); SODIUM LEVEL 139 MMOL/L (136-145); TOTAL PROTEIN 4.7 G/DL (5.7-8.2)
[2024-04-27 19:20] VITALS: BP 109/54; TEMP 98.4; O2SAT 95
[2024-04-27 21:29] LABS: INR 1.57
[2024-04-27 21:51] LABS: ALBUMIN 1.8 G/DL (3.2-5.2); BILIRUBIN,DIRECT 0.6 MG/DL (<0.4); BILIRUBIN,TOTAL 1.1 MG/DL (0.3-1.2)
[2024-04-27 23:35] VITALS: BP 103/58; TEMP 98.5; O2SAT 96
[2024-04-28 00:34] LABS: INR 1.59; PROTHROMBIN TIME 19.2 SECONDS (12.5-14.5)
[2024-04-28 00:42] LABS: ALBUMIN 1.9 G/DL (3.2-5.2); BILIRUBIN,DIRECT 0.5 MG/DL (<0.4); BILIRUBIN,TOTAL 0.9 MG/DL (0.3-1.2); TOTAL PROTEIN 5.1 G/DL (5.7-8.2)
[2024-04-28] MEDS: ACETYLCYSTEINE IV SCH (02:23)
[2024-04-28] MEDS: D5W IV SCH (02:23)
[2024-04-28 04:04] VITALS: BP 108/53; TEMP 99.4; O2SAT 95
[2024-04-28 04:15] LABS: VENOUS BASE EXCESS 5.9 (-2.0-2.0); VENOUS HCO3 29.9 MMOL/L (23.0-27.0); VENOUS O2 SATURATION 89.9 % (60.0-80.0); VENOUS PARTIAL PRESSURE CO2 41.1 mmHg (38.0-50.0); VENOUS STANDARD HCO3 29.7 MMOL/L; VENOUS TOTAL CO2 31.2 MMOL/L (24.0-28.0)
[2024-04-28 04:25] LABS: BASO % 0.1 % (0.0-1.0); HEMATOCRIT 27.1 % (36.0-47.0); HEMOGLOBIN 9.1 g/dl (12.0-15.5); LYMPH # 1.8 10^3/uL (1.5-5.0); LYMPH % 13.4 % (24.0-44.0); MEAN CORPUSCULAR HEMOGLOBIN 38.7 pg (27.0-33.0); MEAN CORPUSCULAR HGB CONC 33.6 g/dl (32.0-36.5); MONO # 0.5 10^3/uL (0.0-0.8); MONO % 3.8 % (2.0-8.0); NEUTROPHILS # 11.1 10^3/uL (1.5-8.5); NEUTROPHILS % 82.1 % (36.0-66.0); PLATELET COUNT, AUTOMATED 320 10^3/uL (150-450); RED BLOOD COUNT 2.35 10^6/uL (4.00-5.40); WHITE BLOOD COUNT 13.6 10^3/uL (4.0-10.0)
[2024-04-28 04:41] LABS: INR 1.55; PROTHROMBIN TIME 18.8 SECONDS (12.5-14.5)
[2024-04-28 04:56] LABS: ALKALINE PHOSPHATASE 137 U/L (35-104); ALT/SGPT 67 U/L (7.0-40); AST/SGOT 483 U/L (<34); CREATININE FOR GFR 0.37 MG/DL (0.55-1.30); GLOMERULAR FILTRATION RATE > 60.0 (>58)
[2024-04-28 04:57] LABS: CPK CREATINE PHOSPHOKINASE 330 U/L (34-145)
[2024-04-28 05:01] LABS: MEAN CORPUSCULAR VOLUME 115.3 fl (80.0-96.0)
[2024-04-28 05:06] LABS: ALBUMIN 1.8 G/DL (3.2-5.2); ALKALINE PHOSPHATASE 135 U/L (35-104); ALT/SGPT 65 U/L (7.0-40); AST/SGOT 473 U/L (<34); BILIRUBIN,DIRECT 0.5 MG/DL (<0.4); BLOOD UREA NITROGEN < 5 MG/DL (9-23); CALCIUM LEVEL 7.5 MG/DL (8.5-10.1); CARBON DIOXIDE LEVEL 32 MMOL/L (20-31); CHLORIDE LEVEL 104 MMOL/L (98-107); CREATININE FOR GFR 0.34 MG/DL (0.55-1.30); GLOMERULAR FILTRATION RATE > 60.0 (>58); GLUCOSE, FASTING 101 MG/DL (60-100); MAGNESIUM LEVEL 1.3 MG/DL (1.8-2.4); PHOSPHORUS LEVEL 1.6 MG/DL (2.5-4.9); POTASSIUM SERUM 6.2 MMOL/L (3.5-5.1); SODIUM LEVEL 141 MMOL/L (136-145); TOTAL PROTEIN 4.8 G/DL (5.7-8.2)
[2024-04-28 05:30] LABS: PLATELET ESTIMATE NORMAL (NORMAL)
[2024-04-28] MEDS: MAG SULF 1GM/100ML (MAG RUN) 1 GM in IV 1 EA IV SCH ×2 (06:51→19:45)
[2024-04-28] MEDS: CALCIUM GLUCONATE 1,000 MG in DEXTROSE 5% (D5W) MINI-BAG PLU 100 ML IV ONE (07:03)
[2024-04-28 07:31] VITALS: BP 104/58; TEMP 99.6; O2SAT 95
[2024-04-28 08:24] LABS: VENOUS BASE EXCESS 3.2 (-2.0-2.0); VENOUS HCO3 28.1 MMOL/L (23.0-27.0); VENOUS O2 SATURATION 82.6 % (60.0-80.0); VENOUS PARTIAL PRESSURE CO2 44.7 mmHg (38.0-50.0); VENOUS PARTIAL PRESSURE O2 50.8 mmHg (30.0-50.0); VENOUS PH 7.417 UNITS (7.330-7.430); VENOUS STANDARD HCO3 27.1 MMOL/L; VENOUS TOTAL CO2 29.5 MMOL/L (24.0-28.0)
[2024-04-28 08:44] LABS: INR 1.95; PROTHROMBIN TIME 22.4 SECONDS (12.5-14.5)
[2024-04-28] MEDS ORDERED: QUEtiapine FUMARATE 50MG TAB GT SCH (09:00)
[2024-04-28] MEDS ORDERED: ATORVASTATIN 20 MG TAB GT SCH (09:00)
[2024-04-28] MEDS ORDERED: PARoxetine 20MG TABLET PO SCH (09:00)
[2024-04-28] MEDS ORDERED: DEUTETRABENAZINE 30 MG XX SCH (09:00)
[2024-04-28] MEDS ORDERED: ATORVASTATIN 20 MG TAB PO SCH (09:00)
[2024-04-28] MEDS ORDERED: QUEtiapine FUMARATE 50MG TAB PO SCH (09:00)
[2024-04-28] MEDS ORDERED: PARoxetine 20MG TABLET GT SCH (09:00)
[2024-04-28 09:03] LABS: ALKALINE PHOSPHATASE 114 U/L (35-104); ALT/SGPT 55 U/L (7.0-40); AST/SGOT 372 U/L (<34); CREATININE FOR GFR 0.22 MG/DL (0.55-1.30); GLOMERULAR FILTRATION RATE > 60.0 (>58)
[2024-04-28] MEDS ORDERED: hydrOXYzine 50 MG TAB PO PRN (09:25)
[2024-04-28] MEDS ORDERED: FAMOTIDINE 20 MG TAB PO PRN (09:25)
[2024-04-28] MEDS ORDERED: FAMOTIDINE 20 MG TAB GT PRN (09:25)
[2024-04-28] MEDS ORDERED: hydrOXYzine 50 MG TAB GT PRN (09:25)
[2024-04-28] MEDS: SODIUM PHOSPHATE INJ 20 MMOL in D5W 250 ML IV ONE (09:53)
[2024-04-28 11:33] VITALS: BP 113/68; TEMP 99; O2SAT 98
[2024-04-28 12:01] LABS: VENOUS BASE EXCESS 5.4 (-2.0-2.0); VENOUS O2 SATURATION 86.3 % (60.0-80.0); VENOUS PARTIAL PRESSURE CO2 44.5 mmHg (38.0-50.0); VENOUS PARTIAL PRESSURE O2 54.6 mmHg (30.0-50.0); VENOUS PH 7.447 UNITS (7.330-7.430); VENOUS STANDARD HCO3 29.1 MMOL/L; VENOUS TOTAL CO2 31.4 MMOL/L (24.0-28.0)
[2024-04-28 12:02] LABS: PROCALCITONIN >50.00 ng/ml
[2024-04-28 12:37] LABS: INR 1.49; PROTHROMBIN TIME 18.3 SECONDS (12.5-14.5)
[2024-04-28 12:47] LABS: ALKALINE PHOSPHATASE 131 U/L (35-104); ALT/SGPT 60 U/L (7.0-40); AST/SGOT 369 U/L (<34); CREATININE FOR GFR 0.33 MG/DL (0.55-1.30); GLOMERULAR FILTRATION RATE > 60.0 (>58)
[2024-04-28 14:52] LABS: BLOOD UREA NITROGEN < 5 MG/DL (9-23); CALCIUM LEVEL 7.7 MG/DL (8.5-10.1); CARBON DIOXIDE LEVEL 34 MMOL/L (20-31); CHLORIDE LEVEL 99 MMOL/L (98-107); CREATININE FOR GFR 0.37 MG/DL (0.55-1.30); GLOMERULAR FILTRATION RATE > 60.0 (>58); GLUCOSE, FASTING 123 MG/DL (60-100); SODIUM LEVEL 138 MMOL/L (136-145)
[2024-04-28 15:45] VITALS: BP 112/57; TEMP 98.7; O2SAT 96
[2024-04-28 16:35] LABS: VENOUS BASE EXCESS 7.3 (-2.0-2.0); VENOUS HCO3 31.4 MMOL/L (23.0-27.0); VENOUS O2 SATURATION 90.7 % (60.0-80.0); VENOUS PARTIAL PRESSURE CO2 42.1 mmHg (38.0-50.0); VENOUS PARTIAL PRESSURE O2 62.3 mmHg (30.0-50.0); VENOUS STANDARD HCO3 31.1 MMOL/L; VENOUS TOTAL CO2 32.7 MMOL/L (24.0-28.0)
[2024-04-28 17:09] LABS: ALKALINE PHOSPHATASE 126 U/L (35-104); ALT/SGPT 55 U/L (7.0-40); AST/SGOT 291 U/L (<34); CREATININE FOR GFR 0.33 MG/DL (0.55-1.30); GLOMERULAR FILTRATION RATE > 60.0 (>58)
[2024-04-28 17:17] LABS: INR 1.57
[2024-04-28 19:01] LABS: MAGNESIUM LEVEL 1.1 MG/DL (1.8-2.4); PHOSPHORUS LEVEL 2.4 MG/DL (2.5-4.9)
[2024-04-28 19:45] LABS: VENOUS BASE EXCESS 10.4 (-2.0-2.0); VENOUS HCO3 32.9 MMOL/L (23.0-27.0); VENOUS O2 SATURATION 99.1 % (60.0-80.0); VENOUS PARTIAL PRESSURE CO2 35.5 mmHg (38.0-50.0); VENOUS PARTIAL PRESSURE O2 223.5 mmHg (30.0-50.0); VENOUS PH 7.585 UNITS (7.330-7.430); VENOUS STANDARD HCO3 34.2 MMOL/L
[2024-04-28 19:47] VITALS: BP 101/62; TEMP 99.8; O2SAT 94
[2024-04-28] MEDS: MAGNESIUM OXIDE 400MG TAB (MAG-OX) PO SCH (21:41)
[2024-04-28] MEDS: QUEtiapine FUMARATE 50MG TAB PO SCH (21:41)
[2024-04-28] MEDS: SENOKOT S TAB PO PRN (23:30)
[2024-04-29] VITALS: BP 108/59; TEMP 98.7; O2SAT 95
[2024-04-29] MEDS: MIRALAX *UNIT DOSE* 17GM PACKET PO PRN (00:04)
[2024-04-29 03:24] VITALS: BP 106/63; TEMP 98.2; O2SAT 91
[2024-04-29 05:38] LABS: BASO % 0.2 % (0.0-1.0); EOS % 0.1 % (0.0-3.0); HEMATOCRIT 25.4 % (36.0-47.0); HEMOGLOBIN 8.4 g/dl (12.0-15.5); LYMPH # 1.4 10^3/uL (1.5-5.0); MEAN CORPUSCULAR HEMOGLOBIN 38.7 pg (27.0-33.0); MEAN CORPUSCULAR HGB CONC 33.1 g/dl (32.0-36.5); MONO # 0.5 10^3/uL (0.0-0.8); MONO % 6.3 % (2.0-8.0); NEUTROPHILS # 6.6 10^3/uL (1.5-8.5); NEUTROPHILS % 76.9 % (36.0-66.0); PLATELET COUNT, AUTOMATED 290 10^3/uL (150-450); RED BLOOD COUNT 2.17 10^6/uL (4.00-5.40); WHITE BLOOD COUNT 8.6 10^3/uL (4.0-10.0)
[2024-04-29 05:44] LABS: MEAN CORPUSCULAR VOLUME 117.1 fl (80.0-96.0)
[2024-04-29 05:49] LABS: INR 1.23; PROTHROMBIN TIME 15.8 SECONDS (12.5-14.5)
[2024-04-29 06:03] LABS: ALKALINE PHOSPHATASE 123 U/L (35-104); ALT/SGPT 46 U/L (7.0-40); AST/SGOT 189 U/L (<34); BILIRUBIN,DIRECT 0.3 MG/DL (<0.4); BILIRUBIN,TOTAL 0.6 MG/DL (0.3-1.2); BLOOD UREA NITROGEN 7 MG/DL (9-23); CALCIUM LEVEL 8.1 MG/DL (8.5-10.1); CARBON DIOXIDE LEVEL 34 MMOL/L (20-31); CHLORIDE LEVEL 98 MMOL/L (98-107); GLOMERULAR FILTRATION RATE > 60.0 (>58); GLUCOSE, FASTING 122 MG/DL (60-100); MAGNESIUM LEVEL 1.2 MG/DL (1.8-2.4); PHOSPHORUS LEVEL 3.3 MG/DL (2.5-4.9); POTASSIUM SERUM 4.8 MMOL/L (3.5-5.1); SODIUM LEVEL 137 MMOL/L (136-145); TOTAL PROTEIN 5.3 G/DL (5.7-8.2)
[2024-04-29] MEDS: MAG SULF 1GM/100ML (MAG RUN) 1 GM in IV 1 EA IV SCH ×2 (06:21→08:24)
[2024-04-29] MEDS ORDERED: SENOKOT S TAB GT PRN (07:30)
[2024-04-29] MEDS ORDERED: GLUCOSE 4 GM CHEW GT PRN (07:30)
[2024-04-29 08:00] VITALS: BP 121/61; TEMP 98.4; O2SAT 96
[2024-04-29] MEDS ORDERED: PARoxetine 20MG TABLET PO SCH (09:00)
[2024-04-29] MEDS: MIRALAX *UNIT DOSE* 17GM PACKET GT PRN (09:25)
[2024-04-29] MEDS: PARoxetine 20MG TABLET PO SCH (09:26)
[2024-04-29] MEDS: MAGNESIUM OXIDE 400MG TAB (MAG-OX) GT SCH (09:27)
[2024-04-29] MEDS: QUEtiapine FUMARATE 50MG TAB GT SCH (09:27)
[2024-04-29] MEDS: KETOROLAC 30 MG/ML 1ML VIAL IV ONE (10:06)
[2024-04-29] MEDS ORDERED: CEFD1CAP9 PO (11:39)
[2024-04-29] MEDS ORDERED: MAGN500T2 GT (11:39)
[2024-04-29] MEDS ORDERED: CIPR250T3 GT (11:39)
== END 2024-04-29 12:25 | disposition home or self-care (01) | DRG 917 ==
LOC: M ED 18:17 → EDBD 18:17 → M ED INP 04-27 00:54 → M PCU 04-27 12:48
PROVIDERS: ADMIT Student in an Organized Health Care Education/Training Program; ATTEND Student in an Organized Health Care Education/Training Program
PROC: B246ZZZ Ultrasonography of Right and Left Heart (ICD-10-PCS; principal; 2024-04-28)
DX: T39.1X1A Poisoning by 4-Aminophenol derivatives, accidental (unintentional), initial encounter (principal); G92.9 Unspecified toxic encephalopathy; A41.9 Sepsis, unspecified organism; J69.0 Pneumonitis due to inhalation of food and vomit; I69.354 Hemiplegia and hemiparesis following cerebral infarction affecting left non-dominant side; E46 Unspecified protein-calorie malnutrition; N39.0 Urinary tract infection, site not specified; E87.20 Acidosis, unspecified; B96.20 Unspecified Escherichia coli [E. coli] as the cause of diseases classified elsewhere; J45.909 Unspecified asthma, uncomplicated; M54.9 Dorsalgia, unspecified; G89.29 Other chronic pain; F32.A Depression, unspecified; E83.51 Hypocalcemia; E87.6 Hypokalemia; D64.9 Anemia, unspecified; K21.9 Gastro-esophageal reflux disease without esophagitis; Z90.79 Acquired absence of other genital organ(s); Z79.899 Other long term (current) drug therapy; Z91.013 Allergy to seafood; Z91.041 Radiographic dye allergy status; Z91.040 Latex allergy status; Z88.0 Allergy status to penicillin; Z88.1 Allergy status to other antibiotic agents; Z88.8 Allergy status to other drugs, medicaments and biological substances; Z85.43 Personal history of malignant neoplasm of ovary; R74.01 Elevation of levels of liver transaminase levels; E83.42 Hypomagnesemia; E83.39 Other disorders of phosphorus metabolism

== ENCOUNTER 2024-05-06 13:39 | Emergency (ER) | payer MEDICARE, MEDICAID ==
[~2024-05-06 13:39] MED LIST changes: +ATOR1TAB21 PO; +CEFD1CAP9 PO; +CIPR250T3 GT; +FAMO1TAB11 GT; +HYDR50TA70 GT; +MAGN500T2 GT; +PARO40TA2 GT; -PARO40TA2 PO; +QUET50TA4 GT; +[UNRECOGNIZED DRUG - CODE] PO
[2024-05-06] MEDS: GASTROGRAFIN SOLUTION 30ML GT STA (15:24)
[2024-05-06 17:45] VITALS: BP 94/57; TEMP 98.5; O2SAT 96
== END 2024-05-06 18:29 | disposition home or self-care (01) ==
LOC: M ED 13:39
DX: T85.528A Displacement of other gastrointestinal prosthetic devices, implants and grafts, initial encounter (principal); I10 Essential (primary) hypertension; J45.909 Unspecified asthma, uncomplicated; K21.9 Gastro-esophageal reflux disease without esophagitis; F33.1 Major depressive disorder, recurrent, moderate; F41.1 Generalized anxiety disorder; F43.10 Post-traumatic stress disorder, unspecified; Z86.73 Personal history of transient ischemic attack (TIA), and cerebral infarction without residual deficits; Z87.442 Personal history of urinary calculi
CPT/HCPCS: 43762; 74018; 90832; 99283; 99284; Q9963

== ENCOUNTER 2024-05-06 20:10 | Emergency (ER) | payer MEDICARE, OTHER ==
[~2024-05-06] VITALS: Ht 185.4 cm; Wt 49.1 kg
[~2024-05-06 20:10] MED LIST changes: -FAMO1TAB11 GT; +FAMO1TAB11 PO; -HYDR50TA70 GT; +HYDR50TA70 PO; -PARO40TA2 GT; +PARO40TA2 PO; -QUET50TA4 GT; +QUET50TA4 PO
[2024-05-06 20:39] VITALS: BP 105/64; TEMP 97; O2SAT 97
== END 2024-05-06 20:41 | disposition home or self-care (01) ==
LOC: M ED 20:10
DX: T85.528A Displacement of other gastrointestinal prosthetic devices, implants and grafts, initial encounter (principal); I10 Essential (primary) hypertension; J45.909 Unspecified asthma, uncomplicated; K21.9 Gastro-esophageal reflux disease without esophagitis; F31.9 Bipolar disorder, unspecified; Z87.442 Personal history of urinary calculi; Z86.73 Personal history of transient ischemic attack (TIA), and cerebral infarction without residual deficits; Z79.899 Other long term (current) drug therapy; Z91.041 Radiographic dye allergy status; Z91.013 Allergy to seafood; Z91.040 Latex allergy status; Z88.0 Allergy status to penicillin; Z88.1 Allergy status to other antibiotic agents; Z88.8 Allergy status to other drugs, medicaments and biological substances; Z88.3 Allergy status to other anti-infective agents

== ENCOUNTER 2024-05-07 18:43 | Emergency (ER) | payer MEDICARE, OTHER ==
[~2024-05-07] VITALS: Ht 185.4 cm; Wt 49.1 kg
[2024-05-07 18:56] VITALS: TEMP 97.9
[2024-05-07 21:00] VITALS: BP 95/52; O2SAT 96
== END 2024-05-07 21:59 | disposition home or self-care (01) ==
LOC: M ED 18:43 → EDBD 18:43 → M ED 21:59
DX: T85.528A Displacement of other gastrointestinal prosthetic devices, implants and grafts, initial encounter (principal); I10 Essential (primary) hypertension; K21.9 Gastro-esophageal reflux disease without esophagitis; F31.9 Bipolar disorder, unspecified; Z87.19 Personal history of other diseases of the digestive system; Z87.442 Personal history of urinary calculi; Z79.899 Other long term (current) drug therapy; Z88.0 Allergy status to penicillin; Z88.1 Allergy status to other antibiotic agents; Z88.3 Allergy status to other anti-infective agents; Z88.8 Allergy status to other drugs, medicaments and biological substances; Z91.040 Latex allergy status; Z91.041 Radiographic dye allergy status; Z91.013 Allergy to seafood

== ENCOUNTER 2024-05-09 08:36 | Emergency (ER) | payer MEDICARE, MEDICAID ==
[2024-05-09 11:40] VITALS: BP 94/58; TEMP 99.3
[2024-05-09 11:51] VITALS: O2SAT 97
== END 2024-05-09 12:13 | disposition home or self-care (01) ==
LOC: M ED 08:36 → EDBD 08:36 → M ED 12:13
DX: T85.528A Displacement of other gastrointestinal prosthetic devices, implants and grafts, initial encounter (principal)

== ENCOUNTER → 2024-05-13 | Outpatient (CLI) | payer MEDICARE, OTHER ==
[~2024-05-13] MED LIST changes: +ATOR1TAB21 GT; +DOXY100T PO; +FAMO1TAB11 GT; -FAMO1TAB11 PO; +HYDR50TA70 GT; -HYDR50TA70 PO; +MAGN400T2 PO; +PARO40TA2 GT; -PARO40TA2 PO; +QUET50TA4 GT; -QUET50TA4 PO
[2024-05-13 19:09] LABS: ALKALINE PHOSPHATASE 67 U/L (35-104); ALT/SGPT 15 U/L (7.0-40); AST/SGOT 23 U/L (<34); BILIRUBIN,TOTAL 0.2 MG/DL (0.3-1.2); BLOOD UREA NITROGEN 21 MG/DL (9-23); CALCIUM LEVEL 9.2 MG/DL (8.5-10.1); CARBON DIOXIDE LEVEL 30 MMOL/L (20-31); CHLORIDE LEVEL 101 MMOL/L (98-107); CHOLESTEROL LEVEL 160 MG/DL (<200); CHOLESTEROL RISK RATIO 2.31 (<5); CREATININE FOR GFR 0.38 MG/DL (0.55-1.30); GLOMERULAR FILTRATION RATE > 60.0 (>58); GLUCOSE, FASTING 92 MG/DL (60-100); HDL CHOLESTEROL 69.1 MG/DL (>40); LDL CHOLESTEROL 69.7 MG/DL (<100); MAGNESIUM LEVEL 1.2 MG/DL (1.8-2.4); NON-HDL-C 90.9 MG/DL; PHOSPHORUS LEVEL 5.9 MG/DL (2.5-4.9); POTASSIUM SERUM 4.7 MMOL/L (3.5-5.1); SODIUM LEVEL 140 MMOL/L (136-145); TOTAL PROTEIN 6.3 G/DL (5.7-8.2); TRIGLYCERIDES LEVEL 106 MG/DL (<150)
[2024-05-18 08:28] LABS: Methylmalonic Acid 342 nmol/L (55-335)
== END ==
LOC: M PLALAB 15:22
PROVIDERS: ATTEND Student in an Organized Health Care Education/Training Program
DX: Z00.00 Encounter for general adult medical examination without abnormal findings (principal); Z09 Encounter for follow-up examination after completed treatment for conditions other than malignant neoplasm

== ENCOUNTER 2024-05-18 13:22 | Observation (INO) | payer MEDICARE, OTHER ==
[~2024-05-18] VITALS: Ht 185.4 cm; Wt 52.7 kg
[~2024-05-18 13:22] MED LIST changes: -ATOR1TAB21 GT; -DOXY100T PO; -MAGN400T2 PO
[2024-05-18] MEDS: MORPHINE 2 MG/ML 1ML VIAL IV ONE (14:15)
[2024-05-18] MEDS: METOCLOPRAMIDE INJ 10MG/2ML VIAL IV ONE (14:55)
[2024-05-18] MEDS: NS (Normal Saline) 0.9% 1,000 ML IV SCH (14:55)
[2024-05-18 14:57] LABS: BASO # 0.1 10^3/uL (0.0-0.2); BASO % 0.5 % (0.0-1.0); EOS # 0.1 10^3/uL (0.0-0.5); EOS % 0.7 % (0.0-3.0); HEMATOCRIT 33.9 % (36.0-47.0); HEMOGLOBIN 11.2 g/dl (12.0-15.5); LYMPH # 1.6 10^3/uL (1.5-5.0); MEAN CORPUSCULAR HEMOGLOBIN 39.4 pg (27.0-33.0); MONO # 0.6 10^3/uL (0.0-0.8); MONO % 5.3 % (2.0-8.0); NEUTROPHILS # 9.7 10^3/uL (1.5-8.5); NEUTROPHILS % 80.1 % (36.0-66.0); PLATELET COUNT, AUTOMATED 459 10^3/uL (150-450); RED BLOOD COUNT 2.84 10^6/uL (4.00-5.40); WHITE BLOOD COUNT 12.1 10^3/uL (4.0-10.0)
[2024-05-18 15:10] LABS: MEAN CORPUSCULAR VOLUME 119.4 fl (80.0-96.0)
[2024-05-18 15:18] LABS: PLATELET ESTIMATE NORMAL (NORMAL); STOMATOCYTES 3+
[2024-05-18 15:19] LABS: TARGET CELLS 1+
[2024-05-18 15:40] LABS: LIPASE 27 U/L (12-53)
[2024-05-18 15:44] LABS: ALBUMIN 3.4 G/DL (3.2-5.2); ALKALINE PHOSPHATASE 70 U/L (35-104); ALT/SGPT 12 U/L (7.0-40); AST/SGOT 20 U/L (<34); BILIRUBIN,DIRECT 0.2 MG/DL (<0.4); BILIRUBIN,TOTAL 0.7 MG/DL (0.3-1.2); BLOOD UREA NITROGEN 40 MG/DL (9-23); CALCIUM LEVEL 9.5 MG/DL (8.5-10.1); CARBON DIOXIDE LEVEL 32 MMOL/L (20-31); CHLORIDE LEVEL 100 MMOL/L (98-107); CREATININE FOR GFR 0.77 MG/DL (0.55-1.30); GLOMERULAR FILTRATION RATE > 60.0 (>58); GLUCOSE, FASTING 102 MG/DL (60-100); POTASSIUM SERUM 3.6 MMOL/L (3.5-5.1); SODIUM LEVEL 140 MMOL/L (136-145); TOTAL PROTEIN 6.8 G/DL (5.7-8.2)
[2024-05-18] MEDS: KETOROLAC 30 MG/ML 1ML VIAL IV ONE (16:58)
[2024-05-18] MEDS: FLEET OIL RETENTION ENEMA PR STA ×2 (17:35→19:10)
[2024-05-18] MEDS: BISACODYL 10MG SUPP PR ONE (19:43)
[2024-05-18] MEDS: NS (Normal Saline) 0.9% 1,000 ML IV ONE (20:17)
[2024-05-18] MEDS ORDERED: ATOR1TAB21 GT (20:27)
[2024-05-18] MEDS ORDERED: HOME MED LIST COMPLETE! XX SCH (20:30)
[2024-05-19] VITALS (7 sets, daily range): BP systolic 85–103; BP diastolic 50–66; TEMP 99.2–99.4; O2SAT 90–97
[2024-05-19] MEDS ORDERED: BISACODYL 10MG SUPP PR SCH
[2024-05-19] MEDS ORDERED: FAMOTIDINE 20 MG TAB GT PRN
[2024-05-19] MEDS: LR 1,000 ML IV SCH (00:43)
[2024-05-19] MEDS: LR 1,000 ML IV ONE (00:43)
[2024-05-19] MEDS: LIDOCAINE 5% (LIDODERM) PATCH TD ONE (00:43)
[2024-05-19] MEDS ORDERED: ACETAMINOPHEN 325 MG TAB GT PRN (01:10)
[2024-05-19] MEDS: BISACODYL 10MG SUPP PR SCH (05:00)
[2024-05-19 06:03] LABS: BASO # 0.1 10^3/uL (0.0-0.2); BASO % 0.6 % (0.0-1.0); EOS % 0.2 % (0.0-3.0); LYMPH # 1.3 10^3/uL (1.5-5.0); MEAN CORPUSCULAR HEMOGLOBIN 39.4 pg (27.0-33.0); MONO # 0.5 10^3/uL (0.0-0.8); MONO % 4.9 % (2.0-8.0); NEUTROPHILS # 8.9 10^3/uL (1.5-8.5); RED BLOOD COUNT 2.26 10^6/uL (4.00-5.40); WHITE BLOOD COUNT 10.8 10^3/uL (4.0-10.0)
[2024-05-19 06:19] LABS: HEMOGLOBIN 8.9 g/dl (12.0-15.5); PLATELET COUNT, AUTOMATED 313 10^3/uL (150-450)
[2024-05-19 06:20] LABS: HEMATOCRIT 27.8 % (36.0-47.0)
[2024-05-19 06:38] LABS: ALBUMIN 2.6 G/DL (3.2-5.2); ALKALINE PHOSPHATASE 57 U/L (35-104); ALT/SGPT < 9 U/L (7.0-40); AST/SGOT 17 U/L (<34); BILIRUBIN,TOTAL 0.5 MG/DL (0.3-1.2); BLOOD UREA NITROGEN 36 MG/DL (9-23); CALCIUM LEVEL 8.1 MG/DL (8.5-10.1); CARBON DIOXIDE LEVEL 27 MMOL/L (20-31); CHLORIDE LEVEL 106 MMOL/L (98-107); CREATININE FOR GFR 0.55 MG/DL (0.55-1.30); GLOMERULAR FILTRATION RATE > 60.0 (>58); GLUCOSE, FASTING 91 MG/DL (60-100); PHOSPHORUS LEVEL 3.4 MG/DL (2.5-4.9); POTASSIUM SERUM 3.6 MMOL/L (3.5-5.1); SODIUM LEVEL 141 MMOL/L (136-145); TOTAL PROTEIN 5.5 G/DL (5.7-8.2)
[2024-05-19] MEDS: ENOXAPARIN 40MG/0.4ML SYRINGE (J1650 PER 10MG) SC SCH (08:16)
[2024-05-19] MEDS: MAG SULF 1GM/100ML (MAG RUN) 1 GM in IV 1 EA IV SCH (08:17)
[2024-05-19] MEDS ORDERED: ATORVASTATIN 20 MG TAB GT SCH (09:00)
[2024-05-19] MEDS ORDERED: PARoxetine 20MG TABLET GT SCH (09:00)
[2024-05-19] MEDS: NS (Normal Saline) 0.9% 1,000 ML IV ONE (09:48)
[2024-05-19 10:41] LABS: PROCALCITONIN 1.68 ng/ml
[2024-05-19] MEDS: CEFDINIR 300 MG CAP (OMNICEF) PO SCH (10:50)
[2024-05-19] MEDS: DOXYCYCLINE HYCLATE 100MG TABLET PO SCH (10:50)
[2024-05-19] MEDS: PARoxetine 10MG/5ML SUSP ORAL SYRINGE *DRAW UP EXACT DOSE GT SCH (12:23)
[2024-05-19] MEDS ORDERED: MIRA3350 PO (14:31)
[2024-05-19] MEDS ORDERED: DOXY100T PO (14:31)
[2024-05-19] MEDS ORDERED: MAGN400T2 PO (14:31)
== END 2024-05-19 15:16 | disposition home health service (06) ==
LOC: M ED 13:22 → EDBD 13:22 → M ED INP 13:23 → M ICU 05-19 09:14
PROVIDERS: ADMIT Student in an Organized Health Care Education/Training Program; ATTEND Student in an Organized Health Care Education/Training Program
DX: K94.23 Gastrostomy malfunction (principal); K94.29 Other complications of gastrostomy; K59.09 Other constipation; K92.1 Melena; E83.42 Hypomagnesemia; I10 Essential (primary) hypertension; E86.0 Dehydration; F41.9 Anxiety disorder, unspecified; E78.5 Hyperlipidemia, unspecified; I69.349 Monoplegia of lower limb following cerebral infarction affecting unspecified side; Z99.3 Dependence on wheelchair; T50.902S Poisoning by unspecified drugs, medicaments and biological substances, intentional self-harm, sequela; J45.909 Unspecified asthma, uncomplicated; M40.202 Unspecified kyphosis, cervical region; M54.2 Cervicalgia; N31.9 Neuromuscular dysfunction of bladder, unspecified; G24.01 Drug induced subacute dyskinesia; K25.9 Gastric ulcer, unspecified as acute or chronic, without hemorrhage or perforation; D50.9 Iron deficiency anemia, unspecified; I95.0 Idiopathic hypotension; R13.13 Dysphagia, pharyngeal phase; F32.A Depression, unspecified; Z91.51 Personal history of suicidal behavior; M54.50 Low back pain, unspecified; Z90.49 Acquired absence of other specified parts of digestive tract; Z90.79 Acquired absence of other genital organ(s); Z93.6 Other artificial openings of urinary tract status; Z91.013 Allergy to seafood; Z91.041 Radiographic dye allergy status; Z91.040 Latex allergy status; Z88.0 Allergy status to penicillin; Z88.1 Allergy status to other antibiotic agents; Z88.8 Allergy status to other drugs, medicaments and biological substances; Z79.899 Other long term (current) drug therapy
CPT/HCPCS: 36415; 43762; 72125; 74176; 80048; 80053; 80076; 82533; 83605; 83690; 83735; 84100; 84145; 85025; 92610; 93041; 96361; 96365; 96366; 96372; 96375; 99285; G0378; J1650; J1885; J2765; J3475

== ENCOUNTER 2024-05-28 18:07 | Emergency (ER) | payer MEDICARE, MEDICAID ==
[~2024-05-28] VITALS: Ht 154.9 cm; Wt 51.0 kg
[~2024-05-28 18:07] MED LIST changes: +ATOR1TAB21 GT; +DOXY100T PO; +MAGN400T2 PO
[2024-05-28 18:13] VITALS: TEMP 98
[2024-05-28 20:21] VITALS: BP 104/54
[2024-05-29 03:07] VITALS: O2SAT 94
== END 2024-05-29 04:19 | disposition home or self-care (01) ==
LOC: M ED 18:07 → EDBD 18:07 → M ED 05-29 04:19
DX: T85.528A Displacement of other gastrointestinal prosthetic devices, implants and grafts, initial encounter (principal); I10 Essential (primary) hypertension; J45.909 Unspecified asthma, uncomplicated; G43.909 Migraine, unspecified, not intractable, without status migrainosus; K57.92 Diverticulitis of intestine, part unspecified, without perforation or abscess without bleeding; Z86.73 Personal history of transient ischemic attack (TIA), and cerebral infarction without residual deficits; Z79.899 Other long term (current) drug therapy; Z88.0 Allergy status to penicillin; Z88.1 Allergy status to other antibiotic agents; Z88.3 Allergy status to other anti-infective agents; Z88.8 Allergy status to other drugs, medicaments and biological substances; Z91.040 Latex allergy status; Z91.041 Radiographic dye allergy status; Z91.013 Allergy to seafood

== ENCOUNTER 2024-06-06 12:00 | Emergency (ER) | payer MEDICARE, MEDICAID ==
[~2024-06-06] VITALS: Ht 185.4 cm; Wt 50.5 kg
[2024-06-06 12:15] VITALS: TEMP 98.6
[2024-06-06] MEDS: METOCLOPRAMIDE 10MG TAB PO ONE (12:45)
[2024-06-06] MEDS ORDERED: REGL10TA6 PO ×2 (14:44→14:45)
[2024-06-06 15:30] VITALS: BP 110/59; O2SAT 95
== END 2024-06-06 15:54 | disposition home or self-care (01) ==
LOC: EDBD 12:00 → M ED 12:00
DX: K94.23 Gastrostomy malfunction (principal); K31.84 Gastroparesis; R30.0 Dysuria; K94.22 Gastrostomy infection; I10 Essential (primary) hypertension; J45.909 Unspecified asthma, uncomplicated; K21.9 Gastro-esophageal reflux disease without esophagitis; Z90.49 Acquired absence of other specified parts of digestive tract; Z88.0 Allergy status to penicillin; Z88.1 Allergy status to other antibiotic agents; Z91.041 Radiographic dye allergy status; Z91.040 Latex allergy status; Z88.8 Allergy status to other drugs, medicaments and biological substances; Z79.899 Other long term (current) drug therapy

== ENCOUNTER 2024-06-14 03:55 | Emergency (ER) | payer MEDICARE, MEDICAID ==
[~2024-06-14] VITALS: Ht 185.4 cm; Wt 50.5 kg
[~2024-06-14 03:55] MED LIST changes: +[UNRECOGNIZED DRUG - CODE] GT; -[UNRECOGNIZED DRUG - CODE] PO
[2024-06-14] MEDS ORDERED: MAGN400T2 GT (13:01)
[2024-06-14] MEDS ORDERED: METO10TA2 GT (13:01)
[2024-06-14] MEDS ORDERED: PARO40TA3 GT (13:01)
[2024-06-14] MEDS ORDERED: POLY17PO18 PO (13:01)
[2024-06-14] MEDS ORDERED: HOME MED LIST COMPLETE! XX SCH (13:05)
[2024-06-14 13:46] VITALS: BP 104/55; TEMP 97.9; O2SAT 100
[2024-06-15] MEDS ORDERED: METO10TA2 GT (04:14)
[2024-06-15] MEDS ORDERED: ACET-897 PO (16:10)
[2024-06-15] MEDS ORDERED: METO10TA3 PO (16:10)
== END 2024-06-14 14:03 | disposition home or self-care (01) ==
LOC: M ED 03:55
DX: K94.29 Other complications of gastrostomy (principal); R21 Rash and other nonspecific skin eruption; Z86.73 Personal history of transient ischemic attack (TIA), and cerebral infarction without residual deficits; Z79.899 Other long term (current) drug therapy; Z88.0 Allergy status to penicillin; Z88.1 Allergy status to other antibiotic agents; Z88.3 Allergy status to other anti-infective agents; Z88.8 Allergy status to other drugs, medicaments and biological substances; Z91.040 Latex allergy status; Z91.041 Radiographic dye allergy status; Z91.013 Allergy to seafood

== ENCOUNTER 2024-06-15 00:19 | Emergency (ER) | payer MEDICARE, MEDICAID ==
[~2024-06-15] VITALS: Ht 185.4 cm; Wt 50.5 kg
[~2024-06-15 00:19] MED LIST changes: +MAGN400T2 GT; +METO10TA2 GT; +PARO40TA3 GT; +POLY17PO18 PO
[2024-06-15 01:14] LABS: HEMOGLOBIN 11.7 g/dl (12.0-15.5); MEAN CORPUSCULAR HEMOGLOBIN 38.5 pg (27.0-33.0); MEAN CORPUSCULAR HGB CONC 34.4 g/dl (32.0-36.5); MEAN CORPUSCULAR VOLUME 111.8 fl (80.0-96.0); PLATELET COUNT, AUTOMATED 398 10^3/uL (150-450); RED BLOOD COUNT 3.04 10^6/uL (4.00-5.40); WHITE BLOOD COUNT 8.7 10^3/uL (4.0-10.0)
[2024-06-15 01:38] LABS: BLOOD UREA NITROGEN 20 MG/DL (9-23); CALCIUM LEVEL 8.4 MG/DL (8.5-10.1); CARBON DIOXIDE LEVEL 20 MMOL/L (20-31); CHLORIDE LEVEL 106 MMOL/L (98-107); CREATININE FOR GFR 0.46 MG/DL (0.55-1.30); GLOMERULAR FILTRATION RATE > 90.0 (>58); GLUCOSE, FASTING 149 MG/DL (60-100); POTASSIUM SERUM 3.4 MMOL/L (3.5-5.1); SODIUM LEVEL 139 MMOL/L (136-145)
[2024-06-15] MEDS: METOCLOPRAMIDE INJ 10MG/2ML VIAL IV ONE (03:57)
[2024-06-15] MEDS ORDERED: METO10TA2 GT (04:14)
[2024-06-15 05:07] VITALS: BP 104/55; TEMP 97.8; O2SAT 100
[2024-06-15] MEDS ORDERED: ACET-897 PO (16:10)
[2024-06-15] MEDS ORDERED: METO10TA3 PO (16:10)
== END 2024-06-15 05:53 | disposition home or self-care (01) ==
LOC: M ED 00:19
DX: R10.9 Unspecified abdominal pain (principal); N20.0 Calculus of kidney; K29.00 Acute gastritis without bleeding; Z86.73 Personal history of transient ischemic attack (TIA), and cerebral infarction without residual deficits; Z79.899 Other long term (current) drug therapy; Z88.0 Allergy status to penicillin; Z88.1 Allergy status to other antibiotic agents; Z88.3 Allergy status to other anti-infective agents; Z88.8 Allergy status to other drugs, medicaments and biological substances; Z91.041 Radiographic dye allergy status; Z91.040 Latex allergy status
CPT/HCPCS: 74018; 74176; 80048; 80053; 81001; 83605; 85025; 85027; 96374; 99284; J2765; Q9963

== ENCOUNTER 2024-06-15 11:15 | Observation (INO) | payer MEDICAID, MEDICARE, OTHER ==
[~2024-06-15] VITALS: Ht 170.2 cm; Wt 55.3 kg
[~2024-06-15 11:15] MED LIST changes: +TOPI-256 PO; -TOPI25TA10 PO
[2024-06-15] MEDS: ACETAMINOPHEN 500 MG TAB PO ONE (13:13)
[2024-06-15] MEDS: GASTROGRAFIN SOLUTION 30ML PO ONE (13:18)
[2024-06-15 16:04] LABS: BASO % 0.2 % (0.0-1.0); HEMATOCRIT 32.6 % (36.0-47.0); HEMOGLOBIN 11.1 g/dl (12.0-15.5); LYMPH # 1.6 10^3/uL (1.5-5.0); LYMPH % 12.5 % (24.0-44.0); MEAN CORPUSCULAR VOLUME 111.6 fl (80.0-96.0); MONO % 7.5 % (2.0-8.0); PLATELET COUNT, AUTOMATED 385 10^3/uL (150-450); RED BLOOD COUNT 2.92 10^6/uL (4.00-5.40); WHITE BLOOD COUNT 12.6 10^3/uL (4.0-10.0)
[2024-06-15] MEDS ORDERED: HOME MED LIST COMPLETE! XX SCH (16:10)
[2024-06-15] MEDS ORDERED: ACET-897 PO (16:10)
[2024-06-15] MEDS ORDERED: METO10TA3 PO (16:10)
[2024-06-15] MEDS ORDERED: MIRALAX *UNIT DOSE* 17GM PACKET GT PRN (16:15)
[2024-06-15] MEDS ORDERED: MAALOX 30 ML SUSP *UDC PO PRN (16:20)
[2024-06-15 16:25] LABS: ALBUMIN 3.6 G/DL (3.2-5.2); ALKALINE PHOSPHATASE 65 U/L (35-104); ALT/SGPT 21 U/L (7.0-40); AST/SGOT 41 U/L (<34); BILIRUBIN,TOTAL 0.4 MG/DL (0.3-1.2); BLOOD UREA NITROGEN 20 MG/DL (9-23); CALCIUM LEVEL 8.1 MG/DL (8.5-10.1); CARBON DIOXIDE LEVEL 20 MMOL/L (20-31); CHLORIDE LEVEL 103 MMOL/L (98-107); CREATININE FOR GFR 0.42 MG/DL (0.55-1.30); GLOMERULAR FILTRATION RATE > 90.0 (>58); GLUCOSE, FASTING 130 MG/DL (60-100); POTASSIUM SERUM 3.6 MMOL/L (3.5-5.1); SODIUM LEVEL 138 MMOL/L (136-145); TOTAL PROTEIN 6.9 G/DL (5.7-8.2)
[2024-06-15 19:20] LABS: KETONE, URINE AUTO RFX TRACE mg/dL (NEGATIVE); MUCUS, URINE RFX SMALL (NEGATIVE); NITRITE, URINE AUTO RFX NEGATIVE (NEGATIVE); RBC, URINE AUTO RFX 3 /HPF (0-3); SQUAM EPITHELIAL CELL UR AURFX 1 /HPF (0-6)
[2024-06-15 19:21] LABS: LEUKOCYTE ESTERASE UR AUTO RFX 2+ (NEGATIVE); WBC, URINE AUTO RFX 46 /HPF (0-3)
[2024-06-15] MEDS: DIAPER RELIEF PASTE (DESITIN) 60GM TOP SCH (21:00)
[2024-06-15] MEDS: DOCUSATE SODIUM 100MG CAPSULE PO SCH (21:00)
[2024-06-15] MEDS: MAGNESIUM OXIDE 400MG TAB (MAG-OX) GT SCH (21:01)
[2024-06-15] MEDS: QUEtiapine FUMARATE 50MG TAB GT SCH (21:01)
[2024-06-15] MEDS: HEPARIN SOD (PORCINE) 5000UNITS/ML 1ML VIAL/SYRINGE SC SCH (21:02)
[2024-06-15] MEDS: CEFDINIR 300 MG CAP (OMNICEF) PO SCH (21:03)
[2024-06-15] MEDS: hydrOXYzine 50 MG TAB GT PRN (22:22)
[2024-06-16 08:20] LABS: BASO % 0.2 % (0.0-1.0); HEMATOCRIT 30.3 % (36.0-47.0); HEMOGLOBIN 10.4 g/dl (12.0-15.5); LYMPH # 1.2 10^3/uL (1.5-5.0); LYMPH % 11.9 % (24.0-44.0); MEAN CORPUSCULAR HEMOGLOBIN 38.1 pg (27.0-33.0); MEAN CORPUSCULAR HGB CONC 34.3 g/dl (32.0-36.5); MONO # 0.8 10^3/uL (0.0-0.8); MONO % 7.6 % (2.0-8.0); NEUTROPHILS # 8.3 10^3/uL (1.5-8.5); NEUTROPHILS % 79.6 % (36.0-66.0); PLATELET COUNT, AUTOMATED 345 10^3/uL (150-450); RED BLOOD COUNT 2.73 10^6/uL (4.00-5.40); WHITE BLOOD COUNT 10.5 10^3/uL (4.0-10.0)
[2024-06-16] MEDS ORDERED: ENTER DRUG NAME HERE (PATIENT'S OWN MED) GT SCH (09:00)
[2024-06-16] MEDS: PARoxetine 20MG TABLET GT SCH (10:06)
[2024-06-16] MEDS: CEFDINIR 300 MG CAP (OMNICEF) GT SCH (10:06)
[2024-06-16] MEDS: ATORVASTATIN 20 MG TAB GT SCH (10:06)
[2024-06-16] MEDS: METOCLOPRAMIDE 10MG TAB GT PRN (14:41)
[2024-06-16] MEDS: MOM 30ML SUSPENSION UDC PO PRN (14:43)
[2024-06-16] MEDS ORDERED: LACTOBACILLUS ACIDOPHILUS CAP (BACID) XX SCH (21:00)
[2024-06-17] MEDS: FAMOTIDINE 20 MG TAB GT PRN (04:26)
[2024-06-17] MEDS: ACETAMINOPHEN 325 MG TAB PO PRN (09:42)
[2024-06-17] MEDS: PARoxetine 10MG/5ML SUSP ORAL SYRINGE *DRAW UP EXACT DOSE GT SCH (09:46)
[2024-06-17] MEDS: FIORICET TAB PO PRN (13:41)
[2024-06-17 21:27] VITALS: BP 102/63; TEMP 97.5; O2SAT 95
[2024-06-17] MEDS: DOCUSATE SOD LIQ 100MG/10ML UDC GT SCH (22:09)
[2024-06-18 05:08] VITALS: BP 108/68; TEMP 98.1; O2SAT 96
[2024-06-18 12:00] VITALS: BP 112/67; TEMP 97.3
[2024-06-18 20:16] VITALS: BP 104/64; TEMP 97.7; O2SAT 96
[2024-06-19 03:24] VITALS: BP 114/66; TEMP 97.9; O2SAT 99
[2024-06-19 12:00] VITALS: BP 108/64; TEMP 96.8
[2024-06-20 04:00] VITALS: BP 107/56; TEMP 97.3; O2SAT 96
[2024-06-20 07:30] VITALS: BP 105/64; TEMP 97.9; O2SAT 100
[2024-06-21 04:23] VITALS: BP 106/64; TEMP 97.9; O2SAT 97
[2024-06-22 04:22] VITALS: BP 101/60; TEMP 97.5; O2SAT 96
[2024-06-22 07:30] VITALS: BP 98/60; TEMP 98.1
[2024-06-23 04:23] VITALS: BP 99/60; TEMP 97.9; O2SAT 98
[2024-06-23] MEDS ORDERED: Petrolatum,White TOP (15:53)
[2024-06-24 05:41] VITALS: BP 100/66; TEMP 97.9; O2SAT 97
== END 2024-06-24 12:25 ==
LOC: M ED 11:15 → EDBD 11:15 → M ED INP 06-17 11:16 → M MS5PR 06-17 21:13
PROVIDERS: ADMIT Internal Medicine; ATTEND Internal Medicine
DX: K94.23 Gastrostomy malfunction (principal); L25.3 Unspecified contact dermatitis due to other chemical products; R13.12 Dysphagia, oropharyngeal phase; T76.11XA Adult physical abuse, suspected, initial encounter; N39.0 Urinary tract infection, site not specified; B96.20 Unspecified Escherichia coli [E. coli] as the cause of diseases classified elsewhere; I95.0 Idiopathic hypotension; E83.42 Hypomagnesemia; Z86.73 Personal history of transient ischemic attack (TIA), and cerebral infarction without residual deficits; J45.909 Unspecified asthma, uncomplicated; N31.9 Neuromuscular dysfunction of bladder, unspecified; R32 Unspecified urinary incontinence; R15.9 Full incontinence of feces; M40.202 Unspecified kyphosis, cervical region; M54.50 Low back pain, unspecified; G89.29 Other chronic pain; F41.9 Anxiety disorder, unspecified; F32.A Depression, unspecified; G24.01 Drug induced subacute dyskinesia; K27.9 Peptic ulcer, site unspecified, unspecified as acute or chronic, without hemorrhage or perforation; Z91.51 Personal history of suicidal behavior; K59.00 Constipation, unspecified; Z90.49 Acquired absence of other specified parts of digestive tract; Z90.79 Acquired absence of other genital organ(s); Z90.722 Acquired absence of ovaries, bilateral; Z88.0 Allergy status to penicillin; Z88.1 Allergy status to other antibiotic agents; Z88.8 Allergy status to other drugs, medicaments and biological substances; Z91.041 Radiographic dye allergy status; Z91.013 Allergy to seafood; Z79.899 Other long term (current) drug therapy; Z66 Do not resuscitate
CPT/HCPCS: 96372; G0378